=== PATIENT | male | born 1940 | race Caucasian/White ===

== ENCOUNTER → 2017-04-11 | Outpatient (CLI) | payer OTHER ==
[~2017-04-11] MED LIST: ASPI-321 PO; CPT50 PO; INSDGI SC; LEVO200T PO; METF-384 PO; METO1TAB69 PO; MGNO400 PO; OMEP20CA9 PO; OMEP40CA41 PO; SIMV40TA2 PO
--- NOTE | 2017-04-11 14:03 | DIAGNOSTIC IMAGING REPORT ---
TWO VIEW CHEST CLINICAL HISTORY: Cough. FINDINGS: PA and lateral chest radiographs are compared to study dated 10/19/2015. The cardiomediastinal silhouette is unremarkable. There is mild left basilar atelectasis. The lungs and pleural spaces are otherwise clear. There is no pneumothorax. The skeletal structures are osteopenic. Degenerative change is noted throughout the thoracic spine. Cholecystectomy clips are suggested on the lateral projection. IMPRESSION: No active disease in the chest. Electronically signed by: Aureliano Guevara M.D. 04/11/2017 2:02 PM Dictated Date/Time: 04/11/2017 2:01 PM
[2017-04-11 17:36] LABS: BASO % 0.5 %; BASO ABS # 0.04 K/uL (0-0.2); COMPLETE YES; HEMATOCRIT 41.8 % (42-52); IG% 0.3 %; LYMPH % 27.9 %; LYMPH ABS # 2.18 K/uL (1.2-3.4); MEAN CELL VOLUME 87.3 fL (80-100); MEAN CORPUSCULAR HEMOGLOBIN 30.9 pg (25-34); MEAN CORPUSCULAR HGB CONC 35.4 g/dl (32-36); MEAN PLATELET VOLUME 11.5 fL (7.4-10.4); MONO % 15.5 %; NEUT % 53.8 %; PLATELET COUNT 173 K/uL (130-400); RED BLOOD COUNT 4.79 M/uL (4.7-6.1); WHITE BLOOD COUNT 7.81 K/uL (4.8-10.8)
[2017-04-11 17:43] LABS: BLOOD UREA NITROGEN 24 mg/dl (7-18); BUN/CREATININE RATIO 18.8 (10-20); CALCIUM 9.3 mg/dl (8.5-10.1); CARBON DIOXIDE 27 mmol/L (21-32); CHLORIDE 101 mmol/L (98-107); GLUCOSE 158 mg/dl (70-99); POTASSIUM 4.6 mmol/L (3.5-5.1); SODIUM 135 mmol/L (136-145)
[2017-04-11 18:45] LABS: LYME DISEASE AB IGG NEG (NEG); LYME DISEASE AB IGM NEG (NEG)
== END | disposition home or self-care (01) ==
LOC: C.RADPV 13:46
PROVIDERS: ATTEND Nurse Practitioner Family
DX: R05 Cough (principal)

== ENCOUNTER → 2017-07-18 | Outpatient (CLI) | payer OTHER ==
[2017-07-18 12:59] LABS: ESTIMATED AVERAGE GLUCOSE 143 mg/dl; HA1C FLAG Normal (Normal)
[2017-07-18 13:11] LABS: BLOOD UREA NITROGEN 14 mg/dl (7-18); BUN/CREATININE RATIO 15.1 (10-20); CALCIUM 8.9 mg/dl (8.5-10.1); CARBON DIOXIDE 25 mmol/L (21-32); CHLORIDE 105 mmol/L (98-107); CREATININE 0.94 mg/dl (0.60-1.40); GLUCOSE 91 mg/dl (70-99); MAGNESIUM 1.8 mg/dl (1.8-2.4); POTASSIUM 4.3 mmol/L (3.5-5.1); SODIUM 138 mmol/L (136-145)
[2017-07-18 13:21] LABS: THYROID STIMULATING HORMONE 0.154 uIu/ml (0.300-4.500)
== END | disposition home or self-care (01) ==
LOC: C.LABPVFM 11:11
PROVIDERS: ATTEND Family Medicine
DX: I10 Essential (primary) hypertension (principal); E03.9 Hypothyroidism, unspecified; E11.9 Type 2 diabetes mellitus without complications; E83.42 Hypomagnesemia

== ENCOUNTER → 2017-08-02 | Outpatient (CLI) | payer OTHER ==
[~2017-08-02] MED LIST changes: +METO100T44 PO; -METO1TAB69 PO
--- NOTE | 2017-08-02 09:07 | DIAGNOSTIC IMAGING REPORT ---
ULTRASOUND OF THE ABDOMINAL AORTA CLINICAL HISTORY: Aneurysm screening smoking history.. COMPARISON STUDY: Abdominal CT dated 06/14/2015. TECHNIQUE: Multiple cano scale, color Doppler, and spectral Doppler sonograms of the abdominal aorta and iliac arteries are performed. Images are reviewed in the transverse and longitudinal planes. FINDINGS: There is mild to moderate atherosclerotic calcification and irregularity noted throughout the abdominal aorta. The proximal abdominal aorta measures 2.0 x 1.8 cm (AP times transverse), the mid abdominal aorta measures 2.0 x 1.8 cm, and the distal abdominal aorta measures 1.8 x 1.6 cm. The right common iliac artery measures up to 0.9 cm and the left common iliac artery measures up to 0.9 cm. Normal flow and spectral Doppler waveforms are seen within the aorta. Abdominal aorta velocities measure up to 65 cm/s. IMPRESSION: There is no sonographic evidence of abdominal aortic aneurysm. Electronically signed by: Aureliano Guevara M.D. 08/02/2017 9:05 AM Dictated Date/Time: 08/02/2017 9:03 AM
== END | disposition home or self-care (01) ==
LOC: C.ULTR 08:40
PROVIDERS: ATTEND Family Medicine
DX: I70.0 Atherosclerosis of aorta (principal); Z87.891 Personal history of nicotine dependence

== ENCOUNTER → 2017-09-10 | Outpatient (CLI) | payer OTHER ==
[2017-09-10 13:12] LABS: BLOOD UREA NITROGEN 10 mg/dl (7-18); BUN/CREATININE RATIO 10.4 (10-20); CALCIUM 8.8 mg/dl (8.5-10.1); CARBON DIOXIDE 25 mmol/L (21-32); CHLORIDE 105 mmol/L (98-107); CREATININE 0.97 mg/dl (0.60-1.40); GLUCOSE 97 mg/dl (70-99); POTASSIUM 4.3 mmol/L (3.5-5.1); SODIUM 135 mmol/L (136-145)
== END | disposition home or self-care (01) ==
LOC: C.LABPVFM 08:51
PROVIDERS: ATTEND Family Medicine
DX: E03.9 Hypothyroidism, unspecified (principal); E11.9 Type 2 diabetes mellitus without complications

== ENCOUNTER → 2018-01-09 | Outpatient (CLI) | payer OTHER ==
[2018-01-09 13:16] LABS: HEMATOCRIT 41.5 % (42-52); HEMOGLOBIN 14.4 g/dL (14.0-18.0); MEAN CELL VOLUME 87.2 fL (80-100); MEAN CORPUSCULAR HEMOGLOBIN 30.3 pg (25-34); MEAN CORPUSCULAR HGB CONC 34.7 g/dl (32-36); MEAN PLATELET VOLUME 11.4 fL (7.4-10.4); PLATELET COUNT 240 K/uL (130-400); RED CELL DISTRIBUTION WIDTH SD 43.9 fL (36.4-46.3); WHITE BLOOD COUNT 9.96 K/uL (4.8-10.8)
[2018-01-09 14:07] LABS: HEMOGLOBIN A1C 6.5 % (4.5-5.6)
[2018-01-09 14:24] LABS: ALBUMIN 3.8 gm/dl (3.4-5.0); ALT/SGPT 41 U/L (12-78); AST/SGOT 28 U/L (15-37); BLOOD UREA NITROGEN 18 mg/dl (7-18); CALCIUM 9.2 mg/dl (8.5-10.1); CARBON DIOXIDE 25 mmol/L (21-32); GLUCOSE 116 mg/dl (70-99); POTASSIUM 4.6 mmol/L (3.5-5.1); SODIUM 135 mmol/L (136-145)
[2018-01-09 14:32] LABS: ALKALINE PHOSPHATASE 68 U/L (45-117); CHOLESTEROL 152 mg/dl (0-200); LDL CHOLESTEROL CALCULATED 55 mg/dl; TOTAL PROTEIN 7.7 gm/dl (6.4-8.2)
== END | disposition home or self-care (01) ==
LOC: C.LABPVFM 10:07
PROVIDERS: ATTEND Family Medicine
DX: E03.9 Hypothyroidism, unspecified (principal)

== ENCOUNTER 2023-05-16 11:38 | Observation (INO) ==
[2023-05-16] MEDS ORDERED: ASPIRIN CHEW 324 MG PO STA (11:48)
--- NOTE | 2023-05-16 11:59 | Emergency Department Note ---
Impression & Plan Chest pain, Abnormal EKG ED Provider Note NAME: RICARDO WATERS AGE: 83 SEX: M : 1940 ARRIVES VIA: Walk-In INFORMANT: Patient, ED PROVIDER(S): Mak Florence DO CHIEF COMPLAINT: Chest pain HPI: The patient is an 83-year-old male who presented to the emergency department for an evaluation of chest pain. The patient describes substernal chest pain that radiates to his neck. The patient states that the symptoms began this morning when he awoke. He took nitroglycerin with some relief of his symptoms. The pain was minimally worsened with exertion. The patient was not seen by his family doctor for the symptoms. He states the pain is significantly improved at this time. He states he has a history of atrial fibrillation but t his was treated with ablation many years ago. He states at that time he did have some palpitations in his chest and felt his heart might be going fast. The patient denies having any abdominal pain. He denies having any difficulty breathing at this time. He said no leg swelling. ROS: See above HPI for pertinent positives & negatives. A total of 10 systems reviewed and were otherwise negative. PAST MEDICAL HISTORY: See Below PAST SURGICAL HISTORY: See Below FAMILY HISTORY: See Below SOCIAL HISTORY: See Below HOME MEDICATIONS: See Below ALLERGIES: See Below VITALS: See Below PHYSICAL EXAMINATION: GENERAL: The patient is awake and alert. He is mildly anxious appearing EYES: The conjunctivae are clear. The pupils are round and reactive. EARS, NOSE, MOUTH AND THROAT: The nose is without any evidence of any deformity. NECK: The neck is nontender and supple. RESPIRATORY: Normal respiratory effort is noted there is no evidence of wheezing rhonchi or rales CARDIOVASCULAR: Regular rate and rhythm noted there no murmurs rubs or gallops normal S1 normal S2. GASTROINTESTINAL: The abdomen is soft. Abdomen is nontender. MUSCULOSKELETAL/EXTREMITIES: There is no evidence of gross deformity full range of motion is noted in the hips and shoulders. SKIN: There is no obvious evidence of any rash. There are no petechiae, pallor or cyanosis noted. NEUROLOGIC: Patient is awake alert and oriented x3 MEDICAL DECISION MAKING: The patient is an 83-year-old male who presented to the emergency department for an evaluation of chest discomfort. The patient had chest discomfort since this morning. He had chest discomfort that went into his neck. He did use nitroglycerin with some relief of his symptoms. The patient was found some ST segment abnormalities on his EKG that could be related to ischemia. He was pain-free on my evaluation. He was treated with aspirin. He was reevaluated multiple times. I discussed patient's laboratory and radiographic studies with him. I discussed the limitations of the emergency room workup for chest pain. Given the patient's age and comorbidities I do not feel the patient would be a good candidate at this time for outpatient management. For this reason I discussed this case with the on-call [facility]. They have agreed to evaluate the patient in the emergency department for further management and disposition. Triage Nursing notes reviewed. Prior medical records reviewed Vital Signs: reviewed and remarkable for no significant abnormalities Differential diagnosis: Cardiac ischemia, aortic dissection, pulmonary embolism, pneumothorax, pneumonia, pericarditis, myocarditis, esophageal rupture, GERD, cholecystitis, pancreatitis, musculoskeletal, as well as other pathologies. ER treatment provided: See below Diagnostics interpreted by me: ECG: EKG was obtained in the emergency department. My interpretation is normal sinus rhythm at 89 bpm. There is no ectopy. Apical and lateral ST depressions were noted. This was compared to a tracing from October 23, 2018. The ST abnormalities are new compared to the previous tracing Cardiac Monitoring: An order was placed for continuous cardiac monitoring. The monitor shows a rate of 89 bpm with sinus rhythm. Laboratory studies: As stated above and show below. Imaging studies: See below. Radiographic imaging was reviewed by myself Consultation(s): I discussed this case with Dr. Kelley who is on-call for the [facility]. Past Med/Surg History Medical History Atherosclerosis Atrial fibrillation Diabetes mellitus HTN (hypertension) Hypothyroidism Lung disease, obstructive Pleural effusion Surgical History History of back surgery History of cholecystectomy History of heart surgery History of tonsillectomy Family History Mother Heart disease Uncle Myocardial infarction Denies family history of Ovarian cancer Prostate cancer Breast cancer Colorectal cancer Social History Smoking Status: Never smoker Second Hand Exposure: No; Do You Dip or Chew Tobacco: No; Hx Alcohol Use: Yes Alcohol Intake Frequency: 2-4 x/Month Hx Substance Use: No Preferred Language: Stateless Communication Ability: Effective Hearing Ability: Use of Hearing Aid Sew On Operator Required: No marital status: Current Living Situation: Spouse current occupational status: retired How many Children do You have: 3 Feels Safe at Home: Yes Childhood Exposure to Second-Hand Smoke: Yes Diet: regular caffeine: Yes Dental Care, Regularly: No Physical Activity Frequency: Does not Exercise Seatbelt Use: always Sunscreen Use: Yes (sometimes) Allergies Allergies Allergy/AdvReac Type Severity Reaction Status Date / Time polyethylene glycol Allergy Severe GOLYTELY, Verified 05/02/23 11:19 BREATHING DIFFICULTY, THROAT SWELLED doxazosin Allergy Intermediate LUNG Verified 05/02/23 11:19 PROBLEMS, WHEEZING heparin Allergy Intermediate FACE Verified 05/02/23 11:19 SWELLING AND HIVES bee venom protein (honey bee) Allergy Unknown Unknown Verified 05/02/23 11:19 cardura tabs Allergy Unknown Unknown Uncoded 05/02/23 11:19 Home Meds Home Medications Medication Instructions Recorded Confirmed aspirin 81 mg tablet,delayed 81 mg PO DAILY 10/23/18 05/02/23 release (Aspir-) carbidopa 25 mg-levodopa 100 mg 1.5 tab PO TID 05/02/22 05/02/23 tablet Previous Rx's Medication Instructions Recorded pen needle, diabetic 32 gauge x #50 ea 06/18/19 1/4" (BD Ultra-Fine Micro Pen Needle) magnesium oxide 800 mg PO DAILY #60 caps 10/09/19 cyanocobalamin (vitamin B-12) 1,000 mcg PO DAILY #90 caps 02/21/22 1,000 mcg capsule simvastatin 40 mg tablet 40 mg PO DAILY #90 tabs 07/31/22 levothyroxine 150 mcg tablet 150 mcg PO DAILY #90 tabs 10/24/22 metoprolol succinate 100 mg 100 mg PO BID #180 tabs 10/24/22 tablet,extended release 24 hr (Toprol XL) captopril 50 mg tablet 25 mg PO BID #90 tabs 11/06/22 omeprazole 20 mg capsule,delayed 20 mg PO DAILY #90 caps 12/11/22 release insulin glargine U-300 conc 300 See Rx Instructions subcut DAILY 12/29/22 unit/mL (1.5 mL) subcutaneous pen #31.5 mL (Toujes SoloStar U-300 Insulin) metformin 1,000 mg tablet 1,000 mg PO BID #180 tabs 04/02/23 blood sugar diagnostic (Accu-Chek #300 ea 05/04/23 Guide test strips) blood-glucose meter (Accu-Chek #1 ea 05/04/23 Guide Glucose Meter) lancets (Accu-Chek Softclix #300 ea 05/04/23 Lancets) Results & Data (ED) Vital Signs Vital Signs - 24 hr 05/16/23 11:40 05/16/23 12:04 05/16/23 12:04 Temperature 35.6 C L 36.8 C Temperature Source Temporal Artery Scan Oral Pulse Rate 104 H Pulse Rate [Right Finger] 90 Pulse Rhythm Pulse Rhythm [Right Finger] Regular Pulse Strength [Right Finger] Normal Respiratory Rate 16 22 Respiratory Effort / Characteristics Non-Labored Non-Labored Spontaneous Respiratory Depth Normal Normal Respiratory Pattern Regular Blood Pressure 125/79 Blood Pressure [Right Arm] 134/74 Blood Pressure Mean 94 Blood Pressure Mean [Right Arm] 94 Blood Pressure Position [Right Arm] Semi-fowlers Pulse Oximetry 96 94 94 Oxygen Delivery Method Room Air Room Air Room Air Sepsis Recent Fever Within 48 Hours No Sepsis New/Unexplained Change in Mental Status No Sepsis Action Taken by Nursing No Action Required 05/16/23 12:04 05/16/23 12:10 Temperature Temperature Source Pulse Rate 90 90 Pulse Rate [Right Finger] Pulse Rhythm Regular Pulse Rhythm [Right Finger] Pulse Strength [Right Finger] Respiratory Rate 22 Respiratory Effort / Characteristics Respiratory Depth Respiratory Pattern Blood Pressure Blood Pressure [Right Arm] Blood Pressure Mean Blood Pressure Mean [Right Arm] Blood Pressure Position [Right Arm] Pulse Oximetry 94 Oxygen Delivery Method Room Air Sepsis Recent Fever Within 48 Hours Sepsis New/Unexplained Change in Mental Status Sepsis Action Taken by Detention Medications Current Medication List: was personally reviewed by me Laboratory Data Attestation: I reviewed the patient's lab results. 05/16/23 12:00 05/16/23 12:00 Lab Results 05/16/23 05/16/23 05/16/23 Range/Units 12:00 12:00 12:00 WBC 9.50 (4.8-10.8) K/ul RBC 4.53 L (4.70-6.10) M/uL Hgb 12.2 L (14.0-18.0) g/dl Hct 37.5 L (42.0-52.0) % MCV 82.8 (80.0-100.0) fL MCH 26.9 (25.0-34.0) pg MCHC 32.5 (32.0-36.0) g/dL RDW Std Deviation 46.8 H (36.4-46.3) fL RDW Coeff of Chelita 15.6 H (11.5-14.5) % Plt Count 259 (130-400) K/uL MPV 10.7 (9.4-12.4) fL Immature Gran % (Auto) 0.5 % Neut % (Auto) 68.7 % Lymph % (Auto) 20.7 % [place] % (Auto) 7.2 % Eos % (Auto) 2.2 % Baso % (Auto) 0.7 % Neut # (Auto) 6.52 H (1.40-6.50) K/uL Lymph # (Auto) 1.97 (1.2-3.4) K/uL [place] # (Auto) 0.68 H (0.11-0.59) K/uL Eos # (Auto) 0.21 (0-0.50) K/uL Baso # (Auto) 0.07 (0-0.2) K/uL Immature Gran # (Auto) 0.05 (0.01-0.20) K/uL PT 10.8 (9.0-12.0) Seconds INR 1.0 (0.9-1.1) APTT 25.4 (21.0-31.0) Seconds PTT Ratio 0.9 Sodium 139 (136-145) mmol/L Potassium 4.1 (3.5-5.1) mmol/L Chloride 104 (98-107) mmol/L Carbon Dioxide 25 (21-32) mmol/L Anion Gap 10 (3-11) BUN 11 (6-23) mg/dl Creatinine 1.33 (0.6-1.4) mg/dl Est Cr Clr Drug Dosing 52.1 ml/min Est GFR ( Amer) 57.7 ml/min Est GFR (Non-Af Amer) 49.8 ml/min BUN/Creatinine Ratio 8.3 L (10-20) Glucose 101 H (70-99(Fasting)) mg/dl Calcium 9.2 (8.6-10.3) mg/dl Total Bilirubin 0.4 (0.2-1.0) mg/dl AST 26 (13-39) U/L ALT 10 (7-52) U/L Alkaline Phosphatase 58 (34-104) U/L Troponin I High Sens 8.6 (0-20) pg/ml Total Protein 7.3 (6.0-8.3) gm/dl Albumin 4.3 (3.4-5.0) gm/dl Globulin 3.0 (2.5-4.0) gm/dl Albumin/Globulin Ratio 1.4 (0.9-2) Lipase 55 (11-82) U/L Administered Medications Discontinued Medications Aspirin (Aspirin Chew 324 Mg) 324 mg PO NOW STA Stop: 05/16/23 11:49 Last Admin: 05/16/23 11:52 Dose: 324 mg Documented By: QGV Imaging Data Attestation: I personally reviewed and interpreted this imaging study as follows: My Impression: 1 view chest x-ray was obtained in the emergency department. My interpretation is no free air or definite infiltrate, final report below. Radiologist's Impression: Chest X-Ray 05/16/23 11:48 SINGLE VIEW CHEST CLINICAL HISTORY: Atypical chest pain. FINDINGS: An AP, portable, upright chest radiograph is compared to study dated . Correlation is made with chest CT dated 05/24/2015. The examination is degraded by portable technique and patient rotation. The heart is enlarged. The pulmonary vasculature is noncongested. Chronic interstitial thickening is similar to previous. There is bibasilar scarring/atelectasis. No airspace consolidation or large pleural effusion is identified. No pneumothorax is seen. The bony thorax is grossly intact. Calcific tendinopathy is noted in the right shoulder. Cholecystectomy clips are noted in the right upper quadrant. IMPRESSION: Cardiomegaly with no active disease in the chest. ACT 112: Negative or not required by law. Electronically signed by: Aureliano Guevara M.D. 05/16/2023 12:43 PM Discharge Plan Visit Data Chief Complaint: Cardiac Assessment Stated Complaint: CHEST PAINS,SWEATING,JAW PAIN, ED Provider: Mak Florence Discharge Problem: Chest pain, Abnormal EKG Patient Disposition: Being Evaluated by Hospitalist Forms Stand Alone Forms: [facility] [employer] Prescriptions Prescriptions: No Action magnesium oxide 400 mg magnesium capsule 800 mg PO DAILY Qty: 60 0RF Rx Instructions: statually take an 850 mg tab simvastatin 40 mg tablet 40 mg PO DAILY Qty: 90 1RF levothyroxine 150 mcg tablet 150 mcg PO DAILY Qty: 90 1RF metoprolol succinate [Toprol XL] 100 mg tablet extended release 24 hr 100 mg PO BID Qty: 180 1RF captopril 50 mg tablet 25 mg PO BID Qty: 90 1RF omeprazole 20 mg capsule,delayed release(DR/EC) 20 mg PO DAILY Qty: 90 1RF Toujeo SoloStar U-300 Insulin 300 unit/mL (1.5 mL) insulin pen See Rx Instructions subcut DAILY Qty: 31.5 1RF Rx Instructions: 90 units subcut daily; metformin 1,000 mg tablet 1,000 mg PO BID Qty: 180 3RF (DME) Accu-Chek Guide test strips Strip See Rx Instructions .Route Qty: 300 1RF Rx Instructions: TEST BSGS 3 TIMES DAILY; DX CODE- E11.9 (DME) blood-glucose meter [Accu-Chek Guide Glucose Meter] Misc See Rx Instructions .Route Qty: 1 0RF Rx Instructions: TEST BSGS 3 TIMES DAILY; DX CODE- E11.9 (DME) lancets [Accu-Chek Softclix Lancets] Misc See Rx Instructions .Route Qty: 300 1RF Rx Instructions: TEST BSGS 3 TIMES DAILY; DX CODE- E11.9 (DME) pen needle, diabetic [BD Ultra-Fine Micro Pen Needle] 32 gauge x 1/4" needle See Dose Instructions .ROUTE .MEDSUPPLY Qty: 50 0RF Dose Instruction: As directed Rx Instructions: As directed cyanocobalamin (vitamin B-12) 1,000 mcg capsule 1,000 mcg PO DAILY Qty: 90 1RF aspirin [Aspir-81] 81 mg Tablet,Delayed Release (Dr/Ec) 81 mg PO DAILY carbidopa-levodopa 25-100 mg tablet 1.5 tab PO TID Referrals Referrals: Kacy Russo MD [Primary Care Provider] -
[2023-05-16 12:32] LABS: Basophils # (auto) 0.07 K/uL (0-0.2); Basophils % (auto) 0.7 %; Eosinophils # (auto) 0.21 K/uL (0-0.50); Eosinophils % (auto) 2.2 %; Hematocrit (blood only) 37.5 % (42.0-52.0); Hemoglobin 12.2 g/dl (14.0-18.0); Immature Granulocytes # (auto) 0.05 K/uL (0.01-0.20); Immature Granulocytes % (auto) 0.5 %; Lymphocytes # (auto) 1.97 K/uL (1.2-3.4); Lymphocytes % (auto) 20.7 %; Mean Corpuscular Hemoglobin 26.9 pg (25.0-34.0); Mean Corpuscular Hgb Conc 32.5 g/dL (32.0-36.0); Mean Corpuscular Volume 82.8 fL (80.0-100.0); Mean Platelet Volume 10.7 fL (9.4-12.4); Monocytes # (auto) 0.68 K/uL (0.11-0.59); Monocytes % (auto) 7.2 %; Neutrophils # (auto) 6.52 K/uL (1.40-6.50); Neutrophils % (auto) 68.7 %; Platelet Count 259 K/uL (130-400); RDW Coefficient of Variation 15.6 % (11.5-14.5); RDW Standard Deviation 46.8 fL (36.4-46.3); Red Blood Count 4.53 M/uL (4.70-6.10)
--- NOTE | 2023-05-16 12:44 | XRay Report ---
SINGLE VIEW CHEST CLINICAL HISTORY: Atypical chest pain. FINDINGS: An AP, portable, upright chest radiograph is compared to study dated 10/23/2018. Correlation is made with chest CT dated 05/24/2015. The examination is degraded by portable technique and patient rotation. The heart is enlarged. The pulmonary vasculature is noncongested. Chronic interstitial thi ckening is similar to previous. There is bibasilar scarring/atelectasis. No airspace consolidation or large pleural effusion is identified. No pneumothorax is seen. The bony thorax is grossly intact. Ca lcific tendinopathy is noted in the right shoulder. Cholecystectomy clips are noted in the right uppe r quadrant. IMPRESSION: Cardiomegaly with no active disease in the chest. ACT 112: Negative or not required by law. Electronically signed by: Aureliano Guevara M.D. 05/16/2023 12:43 PM
[2023-05-16 12:49] LABS: Albumin Globulin Ratio 1.4 (0.9-2); Albumin Level 4.3 gm/dl (3.4-5.0); BUN Creatinine Ratio 8.3 (10-20); Bilirubin,Total 0.4 mg/dl (0.2-1.0); Calcium 9.2 mg/dl (8.6-10.3); Creatinine Clr Calc Pharmacy 52.1 ml/min; Est GFR (African American) 57.7 ml/min; Est GFR (Non-African American) 49.8 ml/min; Potassium 4.1 mmol/L (3.5-5.1); Total Protein 7.3 gm/dl (6.0-8.3)
[2023-05-16 12:55] LABS: Troponin I High Sensitivity 8.6 pg/ml (0-20)
[2023-05-16 12:59] LABS: Partial Thromboplastin Ratio 0.9; Partial Thromboplastin Time 25.4 Seconds (21.0-31.0); Prothrombin Time 10.8 Seconds (9.0-12.0)
--- NOTE | 2023-05-16 13:57 | History & Physical Report ---
Date of Service May 16, 2023 Assessment & Plan (1) Chest pain: Plan: Chest pain Morning presentation 05/16 he woke up with slight dull substernal chest pain, subsequently with activity/ambulation this did worsen and was associated with diaphoresis and shortness of breath. This worsened walking to his car to come to the ER, significantly improved with the nitro and then resolved in the ER following aspirin administration. Denies anginal symptoms in the last few weeks/months other than this. Reports overall the pain lasted for at least several hours, was a dull onset when he woke up around 730 and did not resolve completely until arriving in the ER and aspirin was given at 1150. Patient has been chest pain-free for the last 2 years, did have a stress test in 2020. EKG: Normal sinus rhythm, QTc 440. No acute territorial ST or T wave changesCompared to 10/2018 nephrology appears similar Last cardiology [place] available for review 02/[address] [facility] [place] Noted to have atypical chest discomfort in 2019. Left circumflex stent 2000. Stress test 11/2020 negative for ischemia, LV 55-60% which augmented to 74% - Initial high-sensitivity troponin is 8.6, 2 hour repeat and q6h trended. Echo pending - Chest x-ray: Cardiomegaly, no active disease of the chest - Heart score: Moderately to highly suspicious story, risk factors include hypertension/hyperlipidemia. Age greater than 65. At least moderate risk/4 points. - Cardiology consulted - Chest pain free, no acute EKG change, trop x1 neg despite >1hr of pain --> hep deferred pending cardiology consult. Discussed with cards, they will evaluate and initiate if recommended - Lipid panel pending --> if >70 convert simvastatin to atorvastatin 40mg if tolerated HTN -Captopril 50 mg at bedtime, MAR pending update. Previously this is 25 mg p.o. Metoprolol continued No ROJAS on admission Normotensive on admission Type II DM Toujeo 80 units a.m. continued, SSI based on basal dose Switch to basal bolus, home metformin held Goal BSG 613505 Glucose checks AC/at bedtime - Due to discrepancy between basal dosed SSI vs weight anticipated dosing --> pharmacy consulted to follow for glycemic adjustments - Last A1C <7%, well controlled Parkinsons - Continue Sinemet - No acute change in management at this time GERD - Continue PPI - DDx includes GERD, lower suspicion for this due to improvemnt post nitro and ASA & with diaphoresis/shortness of breath with pain and risk factors - Denies bleeding/melena Hypothyroidism - Continue synthroid DVT PPx: SCDs, Lovenox deferred due to history of heparin allergy Diet: Heart healthy, DM 2. Disposition: PCU for chest pain eval CODE STATUS: Full Code. Patient reports that he would not want a prolonged code past 15 minutes if initial resuscitation efforts were not successful, and he would not want prolonged intubation past 24-36 hours. (2) CAD (coronary artery disease): (3) History of coronary artery stent placement: (4) Type 2 diabetes mellitus with insulin therapy: (5) HTN (hypertension): History of Present Illness Primary Care Provider: Kacy Russo MD Barry is a 83-year-old male with past medical history of hypertension, DM2, hyperlipidemia, hypothyroidism who presents for substernal chest pain radiating into the neck. Symptoms did improve with nitro. He has a history of A-fib post ablation not currently on a anticoagulant. Ray reports he was getting ready to go out this morning when he had some substernal chest pain. Walked to the car and 'chest started hurting like crazy.' Pain eased up post 1x SL nitro, then resolved after getting a baby aspirin in the ER. Chest pain free in the emergency department. +shortness of breath and diaphoresis with episode. Was present slightly when waking up, but much worse with exertion. Pain was there at some level at least for 1-2 hours. Had a similar episode 'long long time ago, many years ago.' Has one heart stent at [facility], does not have his stent card but knows he has one stent. Takes a baby aspirin every day,. No history of heart failure Has a history of Afib, s/p ablation no problems since this was done. Ablation was done by [facility] Reviewed home medications. Patient took medicines this morning. His home med list is as follows Toujeo insulin 80 units AM, mag BID, aspirin 81 AM, captopril 50mg HS, simvastatin 40mg hs, b12 1000mcg am, synthroid 150mcg AM, PPI 20mg hs, metoprolol succinate 100mg BID, metformin 1g BID, carbidopa/levodopa 200 AM/noon/PM Hx of Parkinsons: NO tremor at rest w/ sinemet, but still has hard time holding a glass or with intentional movements. Medical History: Reviewed Medications: Reviewed Surgical History: Reviewed Family history: Reviewed Allergies: Reviewed Social History: Former smoker, etoh. No tobacco. Code Status: Conditional code Allergies Allergy/AdvReac Type Severity Reaction Status Date / Time polyethylene glycol Allergy Severe GOLYTELY, Verified 05/16/23 14:40 BREATHING DIFFICULTY, THROAT SWELLED doxazosin Allergy Intermediate LUNG Verified 05/16/23 14:40 PROBLEMS, WHEEZING heparin Allergy Intermediate FACE Verified 05/16/23 14:40 SWELLING AND HIVES bee venom protein (honey bee) Allergy Unknown Unknown Verified 05/16/23 14:40 cardura tabs Allergy Severe Difficulty Uncoded 05/16/23 14:40 Breathing Home Medications Medication Instructions Recorded Confirmed Type aspirin 81 mg tablet,delayed 81 mg PO DAILY 10/23/18 05/16/23 History release (Aspir-) pen needle, diabetic 32 gauge x #50 ea 06/18/19 05/02/23 Rx 1/4" (BD Ultra-Fine Micro Pen Needle) magnesium oxide 800 mg PO DAILY #60 caps 10/09/19 05/16/23 Rx cyanocobalamin (vitamin B-12) 1,000 mcg PO DAILY #90 caps 02/21/22 05/16/23 Rx 1,000 mcg capsule simvastatin 40 mg tablet 40 mg PO DAILY #90 tabs 07/31/22 05/16/23 Rx levothyroxine 150 mcg tablet 150 mcg PO DAILY #90 tabs 10/24/22 05/16/23 Rx metoprolol succinate 100 mg 100 mg PO BID #180 tabs 10/24/22 05/16/23 Rx tablet,extended release 24 hr (Toprol XL) captopril 50 mg tablet 25 mg PO BID #90 tabs 11/06/22 05/16/23 Rx omeprazole 20 mg capsule,delayed 20 mg PO DAILY #90 caps 12/11/22 05/16/23 Rx release metformin 1,000 mg tablet 1,000 mg PO BID #180 tabs 04/02/23 05/16/23 Rx blood sugar diagnostic (Accu-Chek #300 ea 05/04/23 05/04/23 Rx Guide test strips) blood-glucose meter (Accu-Chek #1 ea 05/04/23 05/04/23 Rx Guide Glucose Meter) lancets (Accu-Chek Softclix #300 ea 05/04/23 05/04/23 Rx Lancets) carbidopa 25 mg-levodopa 100 1 tab PO .7AM, 11AM AND 5PM 05/16/23 05/16/23 History mg-entacapone 200 mg tablet insulin glargine U-300 conc 300 90 unit subcut DAILY 05/16/23 05/16/23 History unit/mL (1.5 mL) subcutaneous pen (Toujeo SoloStar U-300 Insulin) Past Med/Surg History Medical History Atherosclerosis Atrial fibrillation Diabetes mellitus HTN (hypertension) Hypothyroidism Lung disease, obstructive Pleural effusion Surgical History History of back surgery History of cholecystectomy History of heart surgery History of tonsillectomy Family History Mother Heart disease Uncle Myocardial infarction Denies family history of Ovarian cancer Prostate cancer Breast cancer Colorectal cancer Social History Smoking Status: Never smoker Second Hand Exposure: No; Do You Dip or Chew Tobacco: No; Hx Alcohol Use: Yes Alcohol Intake Frequency: 2-4 x/Month Hx Substance Use: No Preferred Language: Maltese Communication Ability: Effective Hearing Ability: Use of Hearing Aid Tele Tech Required: No marital status: Current Living Situation: Spouse current occupational status: retired How many Children do You have: 3 Feels Safe at Home: Yes Childhood Exposure to Second-Hand Smoke: Yes Diet: regular caffeine: Yes Dental Care, Regularly: No Physical Activity Frequency: Does not Exercise Seatbelt Use: always Sunscreen Use: Yes (sometimes) Review of Systems Review of Systems: All systems reviewed & are unremarkable except as noted in HPI & below Physical Exam Physical Exam: General: A&Ox3. NAD. Cooperative. HEENT: Atraumatic, normocephalic. Vision/hearing grossly intact Pulm: CTAB A&P. -wheezes, -rales, -rhonchi. Symmetrical chest rise. No increased work of breathing. No respiratory distress. JVD is not present Cardiac: RRR, -mrg. Radial pulses intact and symmetrical. Abdominal: Nontender, nondistended, soft. BS present. Extremities: Warm, dry. Moving all extremities equally. Sensation intact in hands and feet without deficit or asymmetry. No edema as per. Patient able to hold hand still without appreciable tremor, however with intentional movement does have induction of a slight resting tremor. Cogwheeling at the elbow is present bilaterally on passive elbow flexion/extension Results & Data Results & Data Vital Signs (Past 12 Hours) Vital Signs Temp Pulse Pulse Resp BP BP Pulse Ox 05/16/23 12:10 90 05/16/23 12:04 90 22 94 05/16/23 12:04 36.8 C 90 22 134/74 94 05/16/23 12:04 94 05/16/23 11:40 35.6 C L 104 H 16 125/79 96 O2 Del Method 05/16/23 12:10 05/16/23 12:04 Room Air 05/16/23 12:04 Room Air 05/16/23 12:04 Room Air 05/16/23 11:40 Room Air PG Care Time/CCT Total # of Minutes Spent Total Time Spent with Patient: Total time spent is greater than 50% in coordination of care (as documented) at patient's floor/unit and/or counseling patient: Coding Level of Care Code 54524 INT INP/OBS CARE 3/75MIN Diagnoses Chest pain R07.9 Chest pain type: unspecified CAD (coronary artery disease) I25.10 History of coronary artery stent placement Z95.5 Type 2 diabetes mellitus with insulin therapy E11.9; Z79.4 HTN (hypertension) I10 (1) Chest pain Chest pain type: unspecified Qualified Code(s): R07.9 - Chest pain, unspecified
--- NOTE | 2023-05-16 14:19 | Electrocardiogram Report ---
Test Reason : Blood Pressure : / mmHG Vent. Rate : 089 BPM Atrial Rate : 089 BPM P-R Int : 194 ms QRS Dur : 092 ms QT Int : 362 ms P-R-T Axes : -12 -59 019 degrees QTc Int : 440 ms Normal sinus rhythm Left axis deviation possible Inferior infarct , age undetermined Abnormal ECG Confirmed by Tomas Devine ([id number]) on 05/16/2023 2:18:53 PM Referred By: REFERRED SELF Confirmed By:Dom Devine
--- NOTE | 2023-05-16 14:39 | Cardiology Consultation ---
Date of Consultation May 16, 2023 Assessment & Plan (1) Chest pain: (2) CAD (coronary artery disease): (3) History of coronary artery stent placement: (4) Hyperlipidemia: Plan Please refer to physician addendum for further information and full plan of care. Supervising Physician Co-Signing Physician Notes Attending Staff: Pt seen and evaluated with [facility] staff. Concur with observations and plans 83 yo man presenting with chest pain Dx: Unstable angina Patient was going to a planned family picnic Develop sudden onset, left sided chest pain High severity Radiation to the jaw + Diaphoresis + Associated with dyspnea Told that he needed to go to the hospital In ED No marked HTN Rx with SL NTG - relief ASA x 2 - relief Currently chest pain free + Heparin allergy Known CAD S/P PCI to LCX (2000) + longstanding angina + Diabetes Nuclear stress (2020) - no evidence of ischemia ECHOcardiogram (2020) - LVEF 55-60%, mild concentric LVH, Aortic Sclerosis (Mild), no major valvular abnormalities Hx of: * HTN * Hyperlipidemia * DM II * Parkinsons EKG - no ischemic changes Preliminary ECHO 05/16/2023 Normal LV systolic function + upper septal hypertrophy Aortic Sclerosis sans stenosis +RVH No major pericardia process Nuclear Stress Test - 11/2020 No evidence of ischemia Plan: Clinical presentation concerning for unstable angina Symptom complex + relief by NTG/ASA Longstanding CAD dating back 2 decades May have multivessel CAD Continue ASA 81 mg po per day Continue Toprol XL 100 mg po per day Check LDL (goal <55) Continue Zocor 40 mg po per day Continue Captopril (will consider switching to QD formulation) Given heparin allergy - question of BiValarudin use. NPO past [facility] History of Present Illness Reason for Consultation: Chest pain Requesting Physician: uRssell corrigan History of Present Illness 83-year-old male with history of atherosclerotic coronary artery disease and stable class I-II angina pectoris. Presented to [facility] emergency department today after an episode of substernal chest discomfort when he was walking to his car. Symptoms were accompanied by shortness of breath and diaphoresis. Patient was given aspirin and a sublingual nitroglycerin with relief in symptoms. Initial high-sensitivity troponin normal at 8.6, repeat pending EKG showing normal sinus rhythm in the mid 80s without acute ST segment changes. Blood pressures and heart rates were controlled. Home cardiac medications include: Metoprolol succinate 100 mg twice daily, simvastatin 40 mg daily, aspirin 81 mg daily, and captopril 25 mg twice daily Primary battery installer: Dr. Cook Past medical history 1. Atherosclerotic coronary artery disease status post prior coronary intervention with stent to the left circumflex in 2000. HEPARIN ALLERGY* 2. Stable class 1-2 angina pectoris. Nonischemic nuclear stress dated 11/2020. Preserved LV systolic function without wall motion abnormalities or significant valvular disease on resting echo, 11/2020 3. Paroxysmal atrial fibrillation status post pulmonary s/p vein isolation ablation in 2006 and 2007 with successful control ofarrhythmias. 4. Chronic obstructive lung disease. 5. Hypertension. 6. Past amiodarone toxicity. 7. Hyperlipidemia. 8. Type 2 diabetes mellitus. 9. Parkinsonism 10. Type 2 diabetes 11. Hyperlipidemia Allergies Allergy/AdvReac Type Severity Reaction Status Date / Time polyethylene glycol Allergy Severe GOLYTELY, Verified 05/16/23 14:40 BREATHING DIFFICULTY, THROAT SWELLED doxazosin Allergy Intermediate LUNG Verified 05/16/23 14:40 PROBLEMS, WHEEZING heparin Allergy Intermediate FACE Verified 05/16/23 14:40 SWELLING AND HIVES bee venom protein (honey bee) Allergy Unknown Unknown Verified 05/16/23 14:40 cardura tabs Allergy Severe Difficulty Uncoded 05/16/23 14:40 Breathing Home Medications Medication Instructions Recorded Confirmed Type aspirin 81 mg tablet,delayed 81 mg PO DAILY 10/23/18 05/16/23 History release (Aspir-) pen needle, diabetic 32 gauge x #50 ea 06/18/19 05/02/23 Rx 1/4" (BD Ultra-Fine Micro Pen Needle) magnesium oxide 800 mg PO DAILY #60 caps 10/09/19 05/16/23 Rx cyanocobalamin (vitamin B-12) 1,000 mcg PO DAILY #90 caps 02/21/22 05/16/23 Rx 1,000 mcg capsule simvastatin 40 mg tablet 40 mg PO DAILY #90 tabs 07/31/22 05/16/23 Rx levothyroxine 150 mcg tablet 150 mcg PO DAILY #90 tabs 10/24/22 05/16/23 Rx metoprolol succinate 100 mg 100 mg PO BID #180 tabs 10/24/22 05/16/23 Rx tablet,extended release 24 hr (Toprol XL) captopril 50 mg tablet 25 mg PO BID #90 tabs 11/06/22 05/16/23 Rx omeprazole 20 mg capsule,delayed 20 mg PO DAILY #90 caps 12/11/22 05/16/23 Rx release metformin 1,000 mg tablet 1,000 mg PO BID #180 tabs 04/02/23 05/16/23 Rx blood sugar diagnostic (Accu-Chek #300 ea 05/04/23 05/04/23 Rx Guide test strips) blood-glucose meter (Accu-Chek #1 ea 05/04/23 05/04/23 Rx Guide Glucose Meter) lancets (Accu-Chek Softclix #300 ea 05/04/23 05/04/23 Rx Lancets) carbidopa 25 mg-levodopa 100 1 tab PO .7AM, 11AM AND 5PM 05/16/23 05/16/23 History mg-entacapone 200 mg tablet insulin glargine U-300 conc 300 90 unit subcut DAILY 05/16/23 05/16/23 History unit/mL (1.5 mL) subcutaneous pen ([employer] SoloStar U-300 Insulin) Patient History Medical History Atherosclerosis Atrial fibrillation Diabetes mellitus HTN (hypertension) Hypothyroidism Lung disease, obstructive Pleural effusion Surgical History History of back surgery History of cholecystectomy History of heart surgery History of tonsillectomy Family History Mother Heart disease Uncle Myocardial infarction Denies family history of Ovarian cancer Prostate cancer Breast cancer Colorectal cancer Social History Smoking Status: Never smoker Second Hand Exposure: No; Do You Dip or Chew Tobacco: No; Hx Alcohol Use: Yes Alcohol Intake Frequency: 2-4 x/Month Hx Substance Use: No Preferred Language: Maldivian Communication Ability: Effective Hearing Ability: Use of Hearing Aid Rn Referral Required: No marital status: Current Living Situation: Spouse current occupational status: retired How many Children do You have: 3 Feels Safe at Home: Yes Childhood Exposure to Second-Hand Smoke: Yes Diet: regular caffeine: Yes Dental Care, Regularly: No Physical Activity Frequency: Does not Exercise Seatbelt Use: always Sunscreen Use: Yes (sometimes) Review of Systems Review of Systems: All systems reviewed & are unremarkable except as noted in HPI & below Physical Exam Physical Exam: Pt in NAD JVP @ base of neck S1S2 2/6 systolic murmur - soft CTA B Abdomen - obese No C/C/E 2/2 radial pulse No obvious neurologic deficits Results & Data Vital Signs (Past 12 Hours) Vital Signs Temp Pulse Pulse Resp BP BP Pulse Ox 05/16/23 14:00 36.8 C 67 20 136/76 98 05/16/23 12:10 90 05/16/23 12:04 90 22 94 05/16/23 12:04 36.8 C 90 22 134/74 94 05/16/23 12:04 94 05/16/23 11:40 35.6 C L 104 H 16 125/79 96 O2 Del Method 05/16/23 14:00 Room Air 05/16/23 12:10 05/16/23 12:04 Room Air 05/16/23 12:04 Room Air 05/16/23 12:04 Room Air 05/16/23 11:40 Room Air Laboratory Results Cardiac Enzymes 05/16/23 Range/Units 12:00 AST 26 (13-39) U/L Troponin I High Sens 8.6 (0-20) pg/ml Coagulation 05/16/23 Range/Units 12:00 PT 10.8 (9.0-12.0) Seconds APTT 25.4 (21.0-31.0) Seconds CBC 05/16/23 Range/Units 12:00 WBC 9.50 (4.8-10.8) K/ul RBC 4.53 L (4.70-6.10) M/uL Hgb 12.2 L (14.0-18.0) g/dl Hct 37.5 L (42.0-52.0) % Plt Count 259 (130-400) K/uL Neut # (Auto) 6.52 H (1.40-6.50) K/uL Lymph # (Auto) 1.97 (1.2-3.4) K/uL Colbert # (Auto) 0.68 H (0.11-0.59) K/uL Eos # (Auto) 0.21 (0-0.50) K/uL Baso # (Auto) 0.07 (0-0.2) K/uL Comprehensive Metabolic Panel 05/16/23 Range/Units 12:00 Sodium 139 (136-145) mmol/L Potassium 4.1 (3.5-5.1) mmol/L Chloride 104 (98-107) mmol/L Carbon Dioxide 25 (21-32) mmol/L BUN 11 (6-23) mg/dl Creatinine 1.33 (0.6-1.4) mg/dl Glucose 101 H (70-99(Fasting)) mg/dl Calcium 9.2 (8.6-10.3) mg/dl AST 26 (13-39) U/L ALT 10 (7-52) U/L Alkaline Phosphatase 58 (34-104) U/L Total Protein 7.3 (6.0-8.3) gm/dl Albumin 4.3 (3.4-5.0) gm/dl Intake and Output 05/15/23 05/16/23 05/16/23 22:59 06:59 14:59 Other: Weight 101.86 kg Weight Measurement Method Built in [facility] Patient Weight 05/17/23 06:59 Weight 101.86 kg (1) Chest pain Chest pain type: unspecified Qualified Code(s): R07.9 - Chest pain, unspecified
[2023-05-16] MEDS ORDERED: DEXTROSE 50% 50 ML SYRINGE IV PRN (16:05)
[2023-05-16] MEDS ORDERED: NITROGLYCERIN SL 0.4 MG/TAB TAB SL PRN (16:05)
[2023-05-16] MEDS ORDERED: GLUCOSE 10 TAB/TUBE PO PRN (16:05)
[2023-05-16] MEDS ORDERED: GLUCOSE 40% GEL 15 GM TUBE PO PRN (16:05)
[2023-05-16] MEDS ORDERED: PHARMACY GLYCEMIC MGMT CONSULT PRN (16:05)
[2023-05-16] MEDS ORDERED: GLUCAGON FOR INJ 1 MG VIAL SQ PRN (16:05)
[2023-05-16] MEDS ORDERED: ACETAMINOPHEN 325 MG TAB PO PRN (16:05)
[2023-05-16] MEDS: INSULIN ASPART PER UNIT CHARGE SC SCH ×2 (17:09→21:16)
[2023-05-16] MEDS: ENTACAPONE 200 MG TAB PO SCH (18:21)
[2023-05-16] MEDS: METOPROLOL SUCC 50MG EXT REL TAB PO SCH (21:16)
[2023-05-17] MEDS: LEVOTHYROXINE SODIUM 150 MCG TABLET PO SCH (06:11)
[2023-05-17] MEDS: CARBIDOPA/LEVODOPA 25/100MG TAB PO SCH ×3 (06:14→17:31)
[2023-05-17] MEDS: ENTACAPONE 200 MG TAB PO SCH ×3 (06:14→17:31)
[2023-05-17 06:29] LABS: Basophils # (auto) 0.06 K/uL (0-0.2); Basophils % (auto) 0.6 %; Eosinophils # (auto) 0.34 K/uL (0-0.50); Eosinophils % (auto) 3.5 %; Hematocrit (blood only) 34.5 % (42.0-52.0); Hemoglobin 11.3 g/dl (14.0-18.0); Immature Granulocytes # (auto) 0.04 K/uL (0.01-0.20); Immature Granulocytes % (auto) 0.4 %; Lymphocytes # (auto) 2.46 K/uL (1.2-3.4); Lymphocytes % (auto) 25.1 %; Mean Corpuscular Hemoglobin 26.8 pg (25.0-34.0); Mean Corpuscular Hgb Conc 32.8 g/dL (32.0-36.0); Mean Corpuscular Volume 81.9 fL (80.0-100.0); Mean Platelet Volume 10.7 fL (9.4-12.4); Monocytes # (auto) 0.88 K/uL (0.11-0.59); Neutrophils # (auto) 6.01 K/uL (1.40-6.50); Neutrophils % (auto) 61.4 %; Platelet Count 244 K/uL (130-400); RDW Coefficient of Variation 15.3 % (11.5-14.5); RDW Standard Deviation 46.1 fL (36.4-46.3); Red Blood Count 4.21 M/uL (4.70-6.10); White Blood Count 9.79 K/ul (4.8-10.8)
[2023-05-17 06:39] LABS: Calcium 9.1 mg/dl (8.6-10.3); Creatinine Clr Calc Pharmacy 56.7 ml/min; Est GFR (Non-African American) 55.3 ml/min; Potassium 4.2 mmol/L (3.5-5.1)
[2023-05-17 06:47] LABS: Troponin I High Sensitivity 10.2 pg/ml (0-20)
[2023-05-17] MEDS: INSULIN ASPART PER UNIT CHARGE SC SCH ×4 (07:53→22:02)
--- NOTE | 2023-05-17 08:01 | Cardiology Progress Note ---
Date of Service May 17, 2023 Assessment & Plan (1) Chest pain: (2) CAD (coronary artery disease): (3) History of coronary artery stent placement: (4) Hyperlipidemia: Plan 83-year-old male with history of coronary disease status post stenting in 2000. Initially presented with symptoms concerning for unstable angina. Patient currently stable from a cardiac standpoint. High-sensitivity troponins negative x 4. Echocardiogram with a normal LVEF of 60 to 65% without acute wall motion abnormalities. Moderate aortic sclerosis without stenosis. Patient has been n.p.o. Okay to proceed with cardiac catheterization this a.m. Of note, patient has a heparin allergy Please refer to physician addendum for further information and full plan of care. Admission and Anticipated Discharge Date Admission Date: May 16, 2023 Supervising Physician Co-Signing Physician Notes Attending Staff: Pt seen and evaluated with [facility] staff. Concur with observations and plans 83 yo man presenting with chest pain Dx: Unstable angina Patient was going to a planned family picnic Develop sudden onset, left sided chest pain High severity Radiation to the jaw + Diaphoresis + Associated with dyspnea Told that he needed to go to the hospital In ED No marked HTN Rx with SL NTG - relief ASA x 2 - relief Currently chest pain free - no chest pain overnight + Heparin allergy Known CAD S/P PCI to LCX (2000) + longstanding angina + Diabetes Nuclear stress (2020) - no evidence of ischemia ECHOcardiogram (2020) - LVEF 55-60%, mild concentric LVH, Aortic Sclerosis (Mild), no major valvular abnormalities Hx of: * HTN * Hyperlipidemia * DM II * Parkinsons EKG - no ischemic changes Preliminary ECHO 05/16/2023 Normal LV systolic function + upper septal hypertrophy Aortic Sclerosis sans stenosis +RVH No major pericardial process Nuclear Stress Test - 11/2020 No evidence of ischemia Plan: Clinical presentation concerning for unstable angina Symptom complex + relief by NTG/ASA Longstanding CAD dating back 2 decades May have multivessel CAD Continue ASA 81 mg po per day Continue Toprol XL 100 mg po per day LDL - 54 (goal <55) Continue Zocor 40 mg po per day Continue Captopril (will consider switching to QD formulation prior to D/C) Given heparin allergy - question of BiValarudin use. NPO @ present Plans for Coronary Angiography on 05/17/2023 Lanre Thomas Subjective 05/17/2023: Upon entrance to the room patient asleep in bed. Woke easily. Denies any acute concerns. Denies return of chest pain overnight. No shortness of breath. No lightheadedness or dizziness. No diaphoresis or nausea. Telemetry revealed sinus bradycardia with a first-degree AV block, heart rates averaging in the 50s to 60s. Review of Systems Review of Systems: All systems reviewed & are unremarkable except as noted in HPI & below Physical Exam Physical Exam: Pt in NAD JVP @ base of neck S1S2 2/6 systolic murmur - soft CTA B Abdomen - obese No C/C/E 2/2 right radial pulse 2/2 right femoral pulse - no bruit No obvious neurologic deficits Results & Data Vital Signs (Past 12 Hours) Vital Signs Temp Pulse Pulse Resp BP Pulse Ox O2 Del Method 05/17/23 06:57 36.4 C L 62 20 129/75 97 Room Air 05/16/23 22:10 79 05/17/23 03:13 36.9 C 68 18 128/74 96 Room Air 05/16/23 22:52 36.9 C 84 18 168/93 H 95 Room Air Laboratory Results Cardiac Enzymes 05/16/23 05/16/23 05/16/23 Range/Units 12:00 14:22 22:54 AST 26 (13-39) U/L Troponin I High Sens 8.6 14.2 D 11.7 (0-20) pg/ml 05/17/23 Range/Units 05:49 AST (13-39) U/L Troponin I High Sens 10.2 (0-20) pg/ml Coagulation 05/16/23 Range/Units 12:00 PT 10.8 (9.0-12.0) Seconds APTT 25.4 (21.0-31.0) Seconds CBC 05/16/23 05/17/23 Range/Units 12:00 05:49 WBC 9.50 9.79 (4.8-10.8) K/ul RBC 4.53 L 4.21 L (4.70-6.10) M/uL Hgb 12.2 L 11.3 L (14.0-18.0) g/dl Hct 37.5 L 34.5 L (42.0-52.0) % Plt Count 259 244 (130-400) K/uL Neut # (Auto) 6.52 H 6.01 (1.40-6.50) K/uL Lymph # (Auto) 1.97 2.46 (1.2-3.4) K/uL Linn # (Auto) 0.68 H 0.88 H (0.11-0.59) K/uL Eos # (Auto) 0.21 0.34 (0-0.50) K/uL Baso # (Auto) 0.07 0.06 (0-0.2) K/uL Comprehensive Metabolic Panel 05/16/23 05/17/23 Range/Units 12:00 05:49 Sodium 139 139 (136-145) mmol/L Potassium 4.1 4.2 (3.5-5.1) mmol/L Chloride 104 106 (98-107) mmol/L Carbon Dioxide 25 29 (21-32) mmol/L BUN 11 11 (6-23) mg/dl Creatinine 1.33 1.22 (0.6-1.4) mg/dl Glucose 101 H 73 (70-99(Fasting)) mg/dl Calcium 9.2 9.1 (8.6-10.3) mg/dl AST 26 (13-39) U/L ALT 10 (7-52) U/L Alkaline Phosphatase 58 (34-104) U/L Total Protein 7.3 (6.0-8.3) gm/dl Albumin 4.3 (3.4-5.0) gm/dl Intake and Output 05/16/23 05/17/23 05/17/23 22:59 06:59 14:59 Intake Total 150 / 250 100 / 250 Balance 150 / 250 100 / 250 Intake: Oral 150 / 250 100 / 250 Other: Weight 101.7 kg 101.7 kg Weight Measurement Method Built in [facility] Medications Administered Current Inpatient Medications Acetaminophen (Acetaminophen 325 Mg Tab) 650 mg PO Q4H PRN PRN Reason: Pain or Fever Stop: 06/15/23 16:04 Aspirin (Aspirin 81 Mg Ectab) 81 mg PO DAILY SUZANNE Stop: 06/16/23 08:59 Captopril (Captopril 25 Mg Tab) 25 mg PO BID SUZANNE Stop: 06/15/23 20:59 Last Admin: 05/16/23 21:50 Dose: 25 mg Carbidopa/Levodopa (Carbidopa/Levodopa 25/100mg Tab) 1 tab PO TODAY@0700,1100,1700 SUZANNE Stop: 06/15/23 17:29 Last Admin: 05/17/23 06:14 Dose: 1 tab Dextrose (Dextrose 50% 50 Ml Syringe) 25 - 50 ml IV UD PRN; Protocol PRN Reason: Hypoglycemia Protocol Stop: 06/15/23 16:04 Entacapone (Entacapone 200 Mg Tab) 200 mg PO TODAY@0700,1100,1700 SUZANNE Stop: 06/15/23 17:29 Last Admin: 05/17/23 06:14 Dose: 200 mg Glucagon (Glucagon For Inj 1 Mg Vial) 1 mg SQ UD PRN; Protocol PRN Reason: Hypoglycemia Protocol Stop: 06/15/23 16:04 Glucose (Glucose 10 Tab/Tube) 4 - 8 tab PO UD PRN; Protocol PRN Reason: Hypoglycemia Treatment Stop: 06/15/23 16:04 Glucose (Glucose 40% Gel 15 Gm Tube) 15 - 30 gm PO UD PRN; Protocol PRN Reason: Hypoglycemia Protocol Stop: 06/15/23 16:04 Insulin Aspart (Insulin Aspart Per Unit Charge) 0 units SC ACHS SUZANNE Stop: 06/15/23 16:29 Last Admin: 05/17/23 07:53 Dose: Not Given Levothyroxine Sodium (Levothyroxine Sodium 150 Mcg Tablet) 150 mcg PO DAILYBB [facility] Stop: 06/16/23 06:29 Last Admin: 05/17/23 06:11 Dose: 150 mcg Magnesium Oxide (Magnesium Oxide 400 Mg Tab) 400 mg PO DAILY SUZANNE Stop: 06/16/23 08:59 Metoprolol Succinate (Metoprolol Succ 50mg Ext Rel Tab) 100 mg PO BID SUZANNE Stop: 06/15/23 20:59 Last Admin: 05/16/23 21:16 Dose: 100 mg Miscellaneous (Carbohydrates For Hypoglycemia ) 15 - 30 gm PO UD PRN PRN Reason: Hypoglycemia Protocol Stop: 06/15/23 16:04 Miscellaneous Information (Pharmacy Glycemic Mgmt Consult) 1 each N/A UD PRN PRN Reason: Consult Stop: 06/15/23 16:04 Nitroglycerin (Nitroglycerin Sl 0.4 Mg/Tab Tab) 0.4 mg SL Q5M PRN PRN Reason: Chest Pain Stop: 06/15/23 16:04 Pantoprazole Sodium (Pantoprazole 40 Mg Tab) 40 mg PO DAILY SUZANNE Stop: 06/16/23 08:59 Simvastatin (Simvastatin 40 Mg Tab) 40 mg PO DAILY [facility] Stop: 06/16/23 08:59 (1) Chest pain Chest pain type: unspecified Qualified Code(s): R07.9 - Chest pain, unspecified
[2023-05-17] MEDS ORDERED: LANTUS PER UNIT CHARGE SQ SCH (09:00)
[2023-05-17] MEDS ORDERED: LANTUS PER UNIT CHARGE SC ONE ×2 (09:00→16:30)
[2023-05-17] MEDS ORDERED: ASPIRIN 81 MG ECTAB PO SCH (09:00)
[2023-05-17] MEDS: PANTOprazole 40 MG TAB PO SCH (09:07)
[2023-05-17] MEDS: MAGNESIUM OXIDE 400 MG TAB PO SCH (09:07)
[2023-05-17] MEDS: SIMVASTATIN 40 MG TAB PO SCH (09:07)
[2023-05-17] MEDS: ASPIRIN 81 MG ECTAB PO SCH (09:07)
--- NOTE | 2023-05-17 09:44 | Hospitalist Progress Note ---
Date of Service May 17, 2023 Assessment & Plan (1) Unstable angina: Plan: Unstable angina Morning presentation 05/16 he woke up with slight dull substernal chest pain, subsequently with activity/ambulation this did worsen and was associated with diaphoresis and shortness of breath. This worsened walking to his car to come to the ER, significantly improved with the nitro and then resolved in the ER following aspirin administration. Denies anginal symptoms in the last few weeks/months other than this. Reports overall the pain lasted for at least several hours, was a dull onset when he woke up around 730 and did not resolve completely until arriving in the ER and aspirin was given at 1150 EKG: Normal sinus rhythm, QTc 440. No acute territorial ST or T wave changes Last cardiology note available for review 02/[address] [facility]: Noted to have atypical chest discomfort in 2019. Left circumflex stent 2000. Stress test 11/2020 negative for ischemia, LV 55-60% which augmented to 74% - Troponin trend negative - Chest x-ray: Cardiomegaly, no active disease of the chest - Cardiology consulted, catheterization fortunately without any stentable disease, no in-stent stenosis - Lipid panel with LDL 54, continue simvastatin - Appreciate recommendations of cardiology Dr. Thomas -Anticipate likely discharge home tomorrow if continues to be stable with regard to his symptoms, and has optimization of his cardiac medications HTN - Captopril 25mg BID Metoprolol continued No ROJAS on admission Normotensive on admission Type II DM Toujeo 80 units a.m. continued, SSI based on basal dose Home metformin held - Due to discrepancy between basal dosed SSI vs weight anticipated dosing --> pharmacy consulted to follow for glycemic adjustments - Last A1C <7%, well controlled Parkinson's dz - Continue Sinemet - No acute change in management at this time GERD - Continue PPI - DDx includes GERD, lower suspicion for this due to improvemnt post nitro and ASA & with diaphoresis/shortness of breath with pain and risk factors - Denies bleeding/melena Hypothyroidism - Continue Synthroid DVT PPx: SCDs, Lovenox deferred due to history of heparin allergy Diet: Heart healthy, DM 2 Disposition: PCU for chest pain eval CODE STATUS: Full Code. Patient reports that he would not want a prolonged code past 15 minutes if initial resuscitation efforts were not successful, and he would not want prolonged intubation past 24-36 hours. (2) Chest pain: (3) CAD (coronary artery disease): (4) History of coronary artery stent placement: (5) Type 2 diabetes mellitus with insulin therapy: (6) HTN (hypertension): Admission and Anticipated Discharge Date Admission Date: May 16, 2023 Subjective Patient without any acute events overnight, had catheterization today and is lying flat following this procedure. Denies chest pain, shortness of breath, abdominal pain, nausea at this time. Physical Exam Constitutional: WD/WN, vitals as above Respiratory: normal respiratory effort, lungs clear to auscultation Cardiovascular: RRR, no murmur, no edema Gastrointestinal (Abdomen): normal bowel sounds, soft, nontender, no hepatosplenomegaly Skin: no rashes, warm and dry Psychiatric: A+Ox3, euthymic affect Results & Data Results & Data Vital Signs (Past 12 Hours) Vital Signs Temp Pulse Pulse Resp BP Pulse Ox O2 Del Method 05/17/23 06:57 36.4 C L 62 20 129/75 97 Room Air 05/16/23 22:10 79 05/17/23 03:13 36.9 C 68 18 128/74 96 Room Air 05/16/23 22:52 36.9 C 84 18 168/93 H 95 Room Air PG Care Time/CCT Total # of Minutes Spent Total Time Spent with Patient: Total time spent is greater than 50% in coordination of care (as documented) at patient's floor/unit and/or counseling patient: Coding Level of Care Code 14255 SUB INP/OBS CARE 2/35MIN Diagnoses Unstable angina I20.0 Chest pain R07.9 Chest pain type: unspecified CAD (coronary artery disease) I25.10 History of coronary artery stent placement Z95.5 Type 2 diabetes mellitus with insulin therapy E11.9; Z79.4 HTN (hypertension) I10 (2) Chest pain Chest pain type: unspecified Qualified Code(s): R07.9 - Chest pain, unspecified
--- NOTE | 2023-05-17 11:52 | Pharmacy Report ---
Pharmacy Glycemic Short Note 2 - Date of Service May 17, 2023 - Glycemic Short BSG Results (Last 24 hours): 05/16/23 05/16/23 05/16/23 12:00 16:16 20:04 Glucose 101 H POC Glucose 84 114 H 05/17/23 05/17/23 05/17/23 05:49 07:01 11:11 Glucose 73 POC Glucose 89 80 OUTPATIENT ANTIDIABETIC REGIMEN: * Metformin * Toujeo 90 units SC daily (taken 05/16 per med history) * HbA1c 6.7% on 10/10/22. Repeat ordered for 05/18/23. ASSESSMENT: * 83 yo M admitted with unstable angina yesterday PM and NPO / going to [facility] today * BSG's have ranged 73-114 mg/dL with no insulin administered as an inpatient. Patient still NPO. Will hold off on insulin until after [facility]. Anticipate outpatient Toujeo covers significant CHO and also anticipate that effects will persist longer than most basal insulins due to longer t1/2. Will therefore base PM Lantus dose as an inpatient on diet status and BSG. Will not be aggressive. * Initiate Novolog based on weight-based moderate stress estimate (note - this is also the same as an estimate using 90 units of total daily insulin which is c/w outpatient regimen) PLAN FOR INPATIENT GLYCEMIC CONTROL: * Hold outpatient oral diabetes medications * Basal insulin * Lantus 0-35 units SQ at dinner time, depending on diet (NPO vs. other) and BSG. See MAR for details. * Bolus insulin * NovoLog per scale ACHS or Q6hrs while NPO * Goal Range: Low 110 mg/dL - High 140 mg/dL * Correction Factor: 25 mg/dL/unit * Nutritional / Prandial insulin per carb ratio of 1 unit per 8 grams CHO consumed
[2023-05-17] MEDS: METOPROLOL SUCC 50MG EXT REL TAB PO SCH ×2 (13:31→22:08)
[2023-05-17] MEDS ORDERED: fentaNYL citrate PF 100 MCG/2 ML VIAL ONE (14:25)
[2023-05-17] MEDS ORDERED: MIDAZOLAM HCL 1 MG/ML 2ML VIAL ONE (14:25)
[2023-05-17] MEDS ORDERED: NITROGLYCERIN SL 0.4 MG/TAB TAB SL PRN (15:05)
--- NOTE | 2023-05-17 15:09 | Pre Anesthesia Assessment ---
Date of Service May 17, 2023 Pre Sedation Assessment Vital Signs Temp Pulse Pulse Pulse Resp BP BP 05/17/23 15:00 59 L 16 133/71 05/17/23 14:03 61 16 127/76 05/17/23 07:41 62 05/17/23 11:15 36.3 C L 59 L 19 143/78 H 05/17/23 06:57 36.4 C L 62 20 129/75 05/16/23 22:10 79 05/17/23 03:13 36.9 C 68 18 128/74 05/16/23 22:52 36.9 C 84 18 168/93 H 05/16/23 19:19 36.6 C 91 H 18 168/84 H 05/16/23 16:15 85 05/16/23 16:15 05/16/23 16:07 36.4 C L 84 20 169/79 H 05/16/23 15:47 73 18 139/87 05/16/23 15:30 73 17 05/16/23 15:30 151/105 H Pulse Ox O2 Del Method 05/17/23 15:00 96 Room Air 05/17/23 14:03 98 Room Air 05/17/23 07:41 05/17/23 11:15 95 Room Air 05/17/23 06:57 97 Room Air 05/16/23 22:10 05/17/23 03:13 96 Room Air 05/16/23 22:52 95 Room Air 05/16/23 19:19 95 Room Air 05/16/23 16:15 05/16/23 16:15 Room Air 05/16/23 16:07 98 Room Air 05/16/23 15:47 96 Room Air 05/16/23 15:30 95 05/16/23 15:30 Cardiovascular RRR, no murmur, no edema (Systolic murmur) Respiratory normal respiratory effort, lungs clear to auscultation Pre-Sedation Airway Assessment Smoking Status: Former smoker Hx Sleep Apnea: No Short, Thick Neck: No Thyromental Distance: > or= 3.5 Finger Breadths Oral Cavity: + WNL Mallampati Class: III ASA: ASA3 NPO Status Date of Last Intake of Fluids: 05/16/23 Time of Last Intake of Fluids: 22:00 Date of Last Intake of Solid Food: 08/09/23 Time of Last Intake of Solid Foods: 22:00 Notes The planned sedation has been discussed with the patient. Informed Consent was obtained. I have identified the patient, determined the appropriateness of sedation and have assessed the patient immediately prior to the procedure. All medicine(s) and interventions are by my order.
--- NOTE | 2023-05-17 15:10 | Post Anesthesia Assessment ---
Date of Service May 17, 2023 Post Sedation Assessment Vital Signs Temp Pulse Pulse Pulse Resp BP BP 05/17/23 15:00 59 L 16 133/71 05/17/23 14:03 61 16 127/76 05/17/23 07:41 62 05/17/23 11:15 36.3 C L 59 L 19 143/78 H 05/17/23 06:57 36.4 C L 62 20 129/75 05/16/23 22:10 79 05/17/23 03:13 36.9 C 68 18 128/74 05/16/23 22:52 36.9 C 84 18 168/93 H 05/16/23 19:19 36.6 C 91 H 18 168/84 H 05/16/23 16:15 85 05/16/23 16:15 05/16/23 16:07 36.4 C L 84 20 169/79 H 05/16/23 15:47 73 18 139/87 05/16/23 15:30 73 17 05/16/23 15:30 151/105 H Pulse Ox O2 Del Method 05/17/23 15:00 96 Room Air 05/17/23 14:03 98 Room Air 05/17/23 07:41 05/17/23 11:15 95 Room Air 05/17/23 06:57 97 Room Air 05/16/23 22:10 05/17/23 03:13 96 Room Air 05/16/23 22:52 95 Room Air 05/16/23 19:19 95 Room Air 05/16/23 16:15 05/16/23 16:15 Room Air 05/16/23 16:07 98 Room Air 05/16/23 15:47 96 Room Air 05/16/23 15:30 95 05/16/23 15:30 Recovery Score Activity: Moves 4 extremities Respiration: Deep Breath/Cough Circulation: +/-20% PreAnes Value Consciousness: Fully Awake Oxygen Saturation: > 92% On Room Air Post Anesthesia Score: 10 Discharge Sedation Level of Care: Fast Track Phase II Post Sedation Plan On clinical assessment, the patient appears to have tolerated the sedation without complications. Patient is recovering as anticipated. Patient will continue to be monitored by nursing and may be discharged when sedation discharge criteria are met per below protocol. Upon Completions of procedure up to 15 minutes continue every 5 minute vital signs and the P.A.R. score; then discharge to a Phase I or Fast Track to Phase II per the following guidelines: * Discharge Patient to appropriate Phase II area if PAR is 8 or greater or return to pre- procedure baseline. The post - procedure orders will be as directed. * If PAR score is less than 8 or not return to pre-procedure baseline then patient will follow Phase I monitoring till PAR is reached for Phase II. The Phase I may be done in procedure room or may call to secure a Phase I area. * If naloxone or flumazenil are used for reversal, hold in Phase I for continued monitoring from when last reversal dose was given for a minimum of 60 minutes or longer pending the nurse and/or physician discretion of patient condition before discharge to Phase II. Please call the Sedation Physician to re-evaluate and complete post-note for discharge to Phase II area. Do NOT discharge from procedure sedation or Phase 1 until post- sedation evaluation note is complete by procedure /sedation MD Sedation Discharge Instructions to be given to the patient at discharge to home. [facility] [place] Procedure Codes (Charges) Indication for Procedure Indication for procedure: Unstable angina Sedation/Anesthesia Procedure 1: Sedation/Anesthesia: 70499 Mod Sedation by the same physician;Init15 Min Child Age 5 & Up (Initial 15 min, start 1438 end 1452) Total Sedation Time (minutes): 14
--- NOTE | 2023-05-17 15:13 | Cardiac Catheterization ---
[facility] Data: Slate Cutter Cardiac Status Clinical evaluation leading to the procedure CAD Presenation: Unstable angina Anginal Classification: CCS IV Heart Failure: No Cardiogenic Shock within 24 Hours: No Cardiac Arrest within 24 Hours: No Imaging Studies Past 6 Months: Yes Stress Studies Past 6 Months: No Coronary Anatomy Dominant: Right Left Main (% Stenosis): Normal LAD (% Stenosis): Proximal (Up to 50%) D1 (% Stenosis): Normal D2 (% Stenosis): Normal D3 (% Stenosis): Normal Circumflex (% Stenosis): Mid (Stent patent) and Distal (Diffuse mild up to 30%) OM1 (% Stenosis): Normal OM2 (% Stenosis): Normal OM3 (% Stenosis): Normal L PL1 (% Stenosis): Normal RCA (% Stenosis): Proximal (Mild) and Mid (30%) R PDA (% Stenosis): Normal (Mild) R PL1 (% Stenosis): Normal Diagnostic Physicians Name: Rivera Fragoso MD, PhD Closure Device Percutaneous Entry Location: Femoral Closure Device: Angio-Seal Recommendations: Medical Therapy and/or Counseling Intraprocedure Events Significant Disection: No Perforation: No Cardiac Cath Procedure Full Procedure Date May 17, 2023 Pre-Procedure Diagnosis Pre-Procedure Diagnosis: Acute Coronary Syndrome and Angina AUC Score AUC Score: 07 Post-Procedure Diagnosis Post-Procedure Diagnosis: Moderate CAD Procedure(s) Performed Procedure(s) Performed: Coronary Angiography and Ultrasound Guided Vascular Access Public Relations Intern Rivera Fragoso MD, PhD Estimated Blood Loss Estimated Blood Loss: 5 mL Medication(s) Medication(s): Fentanyl, Lidocaine 1% and Versed Summary of Findings Brief description: Patient was brought to the cardiac catheterization suite where he was shaved and prepped in a sterile fashion. Sedated using IV Versed and fentanyl. Soft tissues of the right groin were anesthetized using 10 mL of 1% Xylocaine. Using the ultrasound for guidance (image saved), the right femoral artery was accessed and a 5 Liberian femoral artery sheath was placed. All catheters were advanced and exchanged over a 0.035 J-tip wire. Right coronary angiography was performed in orthogonal views with a 5 Liberian JR4 diagnostic catheter. Left coronary angiography was performed in orthogonal views with a 5 Liberian JL 4 diagnostic catheter. Catheters were removed. Limited right femoral artery angiography was performed to evaluate for closure. Findings were favorable, therefore, the femoral artery sheath was exchanged for a 6 [place]ian Angio-Seal closure device. This was deployed in the recommended fashion. We obtained immediate hemostasis and the patient remained hemodynamically stable. He was returned to the recovery area. This ended the case. Coronary angiography findings: [id number]-[id number] vessel trifurcating into LAD, circumflex, and ramus. There is a mild calcium at the left coronary cusp but no significant calcification in the left main. Mild luminal irregularities noted. [id number] vessel. Proximal to mid vessel is mildly to moderately calcified with some tortuosity. There is diffuse mild disease and then just before the vessel bifurcates there is a focal up to 50% stenosis in some views. The bifurcation provides a smaller vessel which runs towards the apex and provides several septal branches. May be a large septal trunk. The larger branch continues distally and wraps the apex. This vessel has diffuse mild disease which becomes more scattered as it approaches the apex. This branch also provides several smaller diagonal branches. JMn-ghieo-epujpdu and nondominant. Travels in the AV groove where the proximal segment has mild disease. It provides 2 small obtuse marginal branches and then a third large obtuse marginal branch. Just before the OM 3 there is a stent which is widely patent. After the OM 3 the vessel begins to taper and has diffuse mild disease of up to 30%. It then provides a medium caliber posterolateral branch and terminates shortly after its ostium in the AV groove. Ramus- this is medium to large in caliber without significant disease. RCA-this is large caliber and dominant. Proximal segment has mild luminal irregularities and mild calcification. Mid segment has 30% maximum stenosis and calcification. Distally there are mild luminal irregularities in the vessel bifurcates into the PDA and posterolateral branches. Posterolateral branch is medium to large in caliber without disease. The PDA is large, long, and provides a good bit of perfusion to the inferior apex. This vessel has only mild scattered plaques. Summary: 1. Widely patent prior stent. 2. Diffuse mild to moderate calcification in the epicardial coronaries. 3. Mild to moderate nonocclusive coronary disease as described. 4. Guideline directed medical therapy for secondary prevention of coronary disease. Low-dose aspirin, high intensity statin therapy, beta-scot, and ADRIANNE inhibitor/ARB as tolerated by renal function and blood pressure. 5. Could add long-acting nitrate and/or calcium channel scot to treat angina and/or microvascular dysfunction. Hemodynamics Rest Ao:: 103/67 mmHg Final Ao: 115/49 mmHg LV: Not performed Recommendations Recommendations: Medical Therapy and/or Counseling Radiation Exposure (mGy) 782 mGy, fluoroscopy time 2.0 minutes Contrast (mls) 70 to mL Anesthesia 1 mg IV Versed, 25 mcg IV fentanyl (start 1438, end time 1452) Procedural Complication(s) None Disposition Recovery Room\PACU I attest to the content of the Intraoperative Record and any orders documented therein. Any exceptions are noted below. [facility] Card Cath Procedure Codes Cardiac Catheterization Procedure 1: Cardiovascular Cath Procedures: 12648 Coronaries Therapeutic Services & Ancillary Procedure 1: Cardiovascular Tx and Anc Procedures: 49568 Ultrasonic Guidance Vascular Access Moderate Sedation Procedure 1: Sedation/Anesthesia: 74801 Mod Sedation by the same physician;Init15 Min Child Age 5 & Up (Start time 1438, end time 1452) PG Care Time/CCT Total # of Minutes Spent Total Time Spent with Patient: Total time spent is greater than 50% in coordination of care (as documented) at patient's floor/unit and/or counseling patient:
[2023-05-17] MEDS: CARBOHYDRATES FOR HYPOGLYCEMIA PO PRN ×2 (16:26→16:43)
[2023-05-17] MEDS ORDERED: LANTUS PER UNIT CHARGE SC SCH (21:00)
[2023-05-18] MEDS ORDERED: INSULIN ASPART PER UNIT CHARGE SC ONE (02:00)
[2023-05-18] MEDS: CARBOHYDRATES FOR HYPOGLYCEMIA PO PRN ×2 (02:45→03:07)
[2023-05-18] MEDS: ENTACAPONE 200 MG TAB PO SCH ×2 (06:03→11:18)
[2023-05-18] MEDS: CARBIDOPA/LEVODOPA 25/100MG TAB PO SCH ×2 (06:03→11:18)
[2023-05-18] MEDS: LEVOTHYROXINE SODIUM 150 MCG TABLET PO SCH (06:03)
[2023-05-18 06:43] LABS: Basophils # (auto) 0.06 K/uL (0-0.2); Basophils % (auto) 0.7 %; Eosinophils # (auto) 0.32 K/uL (0-0.50); Eosinophils % (auto) 3.8 %; Hematocrit (blood only) 34.2 % (42.0-52.0); Immature Granulocytes # (auto) 0.04 K/uL (0.01-0.20); Immature Granulocytes % (auto) 0.5 %; Lymphocytes # (auto) 2.24 K/uL (1.2-3.4); Lymphocytes % (auto) 26.9 %; Mean Corpuscular Hemoglobin 26.6 pg (25.0-34.0); Mean Corpuscular Hgb Conc 32.2 g/dL (32.0-36.0); Mean Corpuscular Volume 82.8 fL (80.0-100.0); Monocytes # (auto) 0.73 K/uL (0.11-0.59); Monocytes % (auto) 8.8 %; Neutrophils # (auto) 4.93 K/uL (1.40-6.50); Neutrophils % (auto) 59.3 %; Platelet Count 221 K/uL (130-400); RDW Coefficient of Variation 15.5 % (11.5-14.5); RDW Standard Deviation 46.6 fL (36.4-46.3); Red Blood Count 4.13 M/uL (4.70-6.10); White Blood Count 8.32 K/ul (4.8-10.8)
[2023-05-18 06:51] LABS: BUN Creatinine Ratio 8.8 (10-20); Creatinine Clr Calc Pharmacy 50.8 ml/min; Est GFR (African American) 56.2 ml/min; Est GFR (Non-African American) 48.5 ml/min
[2023-05-18 07:14] LABS: Estimated Average Glucose 148 mg/dl; Hemoglobin A1C 6.8 % (4.5-5.6)
--- NOTE | 2023-05-18 07:48 | Cardiology Progress Note ---
Date of Service May 18, 2023 Assessment & Plan (1) Chest pain: (2) CAD (coronary artery disease): (3) History of coronary artery stent placement: (4) Hyperlipidemia: Admission and Anticipated Discharge Date Admission Date: May 16, 2023 Supervising Physician Co-Signing Physician Notes Attending Staff: Pt seen and evaluated with [facility] staff. Concur with observations and plans 83 yo man presenting with chest pain Dx: Unstable angina Patient was going to a planned family picnic Develop sudden onset, left sided chest pain High severity Radiation to the jaw + Diaphoresis + Associated with dyspnea Told that he needed to go to the hospital In ED No marked HTN Rx with SL NTG - relief ASA x 2 - relief Currently chest pain free - no chest pain overnight + Heparin allergy Known CAD S/P PCI to LCX (2000) + longstanding angina + Diabetes Nuclear stress (2020) - no evidence of ischemia ECHOcardiogram (2020) - LVEF 55-60%, mild concentric LVH, Aortic Sclerosis (Mild), no major valvular abnormalities Hx of: * HTN * Hyperlipidemia * DM II * Parkinsons EKG - no ischemic changes ECHO 05/16/2023 Normal LV systolic function - 60-65% + upper septal hypertrophy Aortic Sclerosis sans stenosis +LVH, no WMA No major pericardial process Nuclear Stress Test - 11/2020 No evidence of ischemia Plan: Clinical presentation concerning for unstable angina Symptom complex + relief by NTG/ASA Longstanding CAD dating back 2 decades Pt referred for cardiac cath * Widely patent LCX stent * Diffuse mild to moderate Coronary Calcifications * LAD - proximal 50% * LCX - distal/diffuse 30% * RCA - mid 30% Continue ASA 81 mg po per day Continue Toprol XL 100 mg po per day LDL - 54 (goal <55) Continue Zocor 40 mg po per day STOP Captopril (will consider switching to QD formulation prior to D/C) Start Lisinopril 20 mg po per day; may need uptitration Please check BMP in one week Given heparin allergy SL NTG - please send home with new Rx [facility] Lanre Thomas Subjective Events overnight: * Cardiac Cath - + CAD; No Interventions * No chest pain reported Review of Systems Review of Systems: All systems reviewed & are unremarkable except as noted in HPI & below Physical Exam Physical Exam: Pt in NAD JVP @ base of neck S1S2 2/6 systolic murmur - soft CTA B Abdomen - obese No C/C/E 2/2 right radial pulse 2/2 right femoral pulse - no bruit No obvious neurologic deficits Results & Data Vital Signs (Past 12 Hours) Vital Signs Temp Pulse Pulse Pulse Resp BP Pulse Ox 05/18/23 07:30 36.3 C L 60 18 105/69 96 05/17/23 22:02 66 05/18/23 05:04 36.5 C 64 18 110/59 L 96 05/17/23 22:38 36.3 C L 65 18 158/82 H 97 05/17/23 22:08 64 143/86 H O2 Del Method 05/18/23 07:30 Room Air 05/17/23 22:02 05/18/23 05:04 Room Air 05/17/23 22:38 Room Air 05/17/23 22:08 Laboratory Results CBC 05/18/23 Range/Units 05:39 WBC 8.32 (4.8-10.8) K/ul RBC 4.13 L (4.70-6.10) M/uL Hgb 11.0 L (14.0-18.0) g/dl Hct 34.2 L (42.0-52.0) % Plt Count 221 (130-400) K/uL Neut # (Auto) 4.93 (1.40-6.50) K/uL Lymph # (Auto) 2.24 (1.2-3.4) K/uL [place] # (Auto) 0.73 H (0.11-0.59) K/uL Eos # (Auto) 0.32 (0-0.50) K/uL Baso # (Auto) 0.06 (0-0.2) K/uL Comprehensive Metabolic Panel 05/18/23 Range/Units 05:39 Sodium 134 L (136-145) mmol/L Potassium 4.0 (3.5-5.1) mmol/L Chloride 102 (98-107) mmol/L Carbon Dioxide 26 (21-32) mmol/L BUN 12 (6-23) mg/dl Creatinine 1.36 (0.6-1.4) mg/dl Glucose 89 (70-99(Fasting)) mg/dl Calcium 9.0 (8.6-10.3) mg/dl Intake and Output 05/17/23 05/18/23 05/18/23 22:59 06:59 14:59 Intake Total 200 / 200 Balance 200 / 200 Intake: Oral 200 / 200 Other: # Unmeasured Voids 1 Weight 101.4 kg Weight Measurement Method [facility] Medications Administered Current Inpatient Medications Acetaminophen (Acetaminophen 325 Mg Tab) 650 mg PO Q4H PRN PRN Reason: Pain or Fever Stop: 06/15/23 16:04 Aspirin (Aspirin 81 Mg Ectab) 81 mg PO DAILY [facility] Stop: 06/16/23 08:59 Last Admin: 05/18/23 08:13 Dose: 81 mg Captopril (Captopril 25 Mg Tab) 25 mg PO BID SUZANNE Stop: 06/15/23 20:59 Last Admin: 05/18/23 08:13 Dose: 25 mg Carbidopa/Levodopa (Carbidopa/Levodopa 25/100mg Tab) 1 tab PO TODAY@0700,1100,1700 [facility] Stop: 06/15/23 17:29 Last Admin: 05/18/23 11:18 Dose: 1 tab Dextrose (Dextrose 50% 50 Ml Syringe) 25 - 50 ml IV UD PRN; Protocol PRN Reason: Hypoglycemia Protocol Stop: 06/15/23 16:04 Entacapone (Entacapone 200 Mg Tab) 200 mg PO TODAY@0700,1100,1700 [facility] Stop: 06/15/23 17:29 Last Admin: 05/18/23 11:18 Dose: 200 mg Glucagon (Glucagon For Inj 1 Mg Vial) 1 mg SQ UD PRN; Protocol PRN Reason: Hypoglycemia Protocol Stop: 06/15/23 16:04 Glucose (Glucose 10 Tab/Tube) 4 - 8 tab PO UD PRN; Protocol PRN Reason: Hypoglycemia Treatment Stop: 06/15/23 16:04 Glucose (Glucose 40% Gel 15 Gm Tube) 15 - 30 gm PO UD PRN; Protocol PRN Reason: Hypoglycemia Protocol Stop: 06/15/23 16:04 Insulin Aspart (Insulin Aspart Per Unit Charge) 0 units SC ACHS [facility] Stop: 06/15/23 16:29 Last Admin: 05/18/23 08:10 Dose: Not Given Levothyroxine Sodium (Levothyroxine Sodium 150 Mcg Tablet) 150 mcg PO DAILYBB [facility] Stop: 06/16/23 06:29 Last Admin: 05/18/23 06:03 Dose: 150 mcg Magnesium Oxide (Magnesium Oxide 400 Mg Tab) 400 mg PO DAILY [facility] Stop: 06/16/23 08:59 Last Admin: 05/18/23 08:13 Dose: 400 mg Metoprolol Succinate (Metoprolol Succ 50mg Ext Rel Tab) 100 mg PO BID SUZANNE Stop: 06/15/23 20:59 Last Admin: 05/18/23 11:10 Dose: Not Given Miscellaneous (Carbohydrates For Hypoglycemia ) 15 - 30 gm PO UD PRN PRN Reason: Hypoglycemia Protocol Stop: 06/15/23 16:04 Last Admin: 05/18/23 03:07 Dose: 15 gm Miscellaneous Information (Pharmacy Glycemic Mgmt Consult) 1 each N/A UD PRN PRN Reason: Consult Stop: 06/15/23 16:04 Nitroglycerin (Nitroglycerin Sl 0.4 Mg/Tab Tab) 0.4 mg SL Q5M PRN PRN Reason: Chest Pain Stop: 06/15/23 16:04 Pantoprazole Sodium (Pantoprazole 40 Mg Tab) 40 mg PO DAILY SUZANNE Stop: 06/16/23 08:59 Last Admin: 05/18/23 08:13 Dose: 40 mg Simvastatin (Simvastatin 40 Mg Tab) 40 mg PO DAILY [facility] Stop: 06/16/23 08:59 Last Admin: 05/18/23 08:12 Dose: 40 mg (1) Chest pain Chest pain type: unspecified Qualified Code(s): R07.9 - Chest pain, unspecified
[2023-05-18] MEDS: INSULIN ASPART PER UNIT CHARGE SC SCH ×2 (08:10→12:00)
[2023-05-18] MEDS: SIMVASTATIN 40 MG TAB PO SCH (08:12)
[2023-05-18] MEDS: PANTOprazole 40 MG TAB PO SCH (08:13)
[2023-05-18] MEDS: MAGNESIUM OXIDE 400 MG TAB PO SCH (08:13)
[2023-05-18] MEDS: ASPIRIN 81 MG ECTAB PO SCH (08:13)
--- NOTE | 2023-05-18 08:25 | Discharge Summary ---
Discharge Summary Date of Service May 18, 2023 Notes For Next Care Provider Repeat BMP next week Medication Changes From Visit Captopril discontinued Lisinopril started Nitro started prn chest pain for home Admission HPI Per Admitting Provider Barry is a 83-year-old male with past medical history of hypertension, DM2, hyperlipidemia, hypothyroidism who presents for substernal chest pain radiating into the neck. Symptoms did improve with nitro. He has a history of A-fib post ablation not currently on a anticoagulant. Ray reports he was getting ready to go out this morning when he had some substernal chest pain. Walked to the car and 'chest started hurting like crazy.' Pain eased up post 1x SL nitro, then resolved after getting a baby aspirin in the ER. Chest pain free in the emergency department. +shortness of breath and diaphoresis with episode. Was present slightly when waking up, but much worse with exertion. Pain was there at some level at least for 1-2 hours. Had a similar episode 'long long time ago, many years ago.' Has one heart stent at [facility], does not have his stent card but knows he has one stent. Takes a baby aspirin every day,. No history of heart failure Has a history of Afib, s/p ablation no problems since this was done. Ablation was done by [facility] Reviewed home medications. Patient took medicines this morning. His home med list is as follows Toujeo insulin 80 units AM, mag BID, aspirin 81 AM, captopril 50mg HS, simvastatin 40mg hs, b12 1000mcg am, synthroid 150mcg AM, PPI 20mg hs, metoprolol succinate 100mg BID, metformin 1g BID, carbidopa/levodopa 200 AM/noon/PM Hx of Parkinsons: NO tremor at rest w/ sinemet, but still has hard time holding a glass or with intentional movements. Medical History: Reviewed Medications: Reviewed Surgical History: Reviewed Family history: Reviewed Allergies: Reviewed Social History: Former smoker, etoh. No tobacco. Code Status: Conditional code Admission Exam Per Admitting Provider General: A&Ox3. NAD. Cooperative. HEENT: Atraumatic, normocephalic. Vision/hearing grossly intact Pulm: CTAB A&P. -wheezes, -rales, -rhonchi. Symmetrical chest rise. No increased work of breathing. No respiratory distress. JVD is not present Cardiac: RRR, -mrg. Radial pulses intact and symmetrical. Abdominal: Nontender, nondistended, soft. BS present. Extremities: Warm, dry. Moving all extremities equally. Sensation intact in hands and feet without deficit or asymmetry. No edema as per. Patient able to hold hand still without appreciable tremor, however with intentional movement does have induction of a slight resting tremor. Cogwheeling at the elbow is present bilaterally on passive elbow flexion/extension Principal Dx & Hospital Course #1 = Principal Diagnosis (1) Unstable angina: Morning presentation 05/16 he woke up with slight dull substernal chest pain, subsequently with activity/ambulation this did worsen and was associated with diaphoresis and shortness of breath. This worsened walking to his car to come to the ER, significantly improved with the nitro and then resolved in the ER following aspirin administration. Denies anginal symptoms in the last few weeks/months other than this. Reports overall the pain lasted for at least several hours, was a dull onset when he woke up around 730 and did not resolve completely until arriving in the ER and aspirin was given at 1150 EKG: Normal sinus rhythm, QTc 440. No acute territorial ST or T wave changes Last cardiology [place] available for review [place]2021 [place] [facility] [place] Noted to have atypical chest discomfort in 2019. Left circumflex stent 2000. Stress test 11/2020 negative for ischemia, LV 55-60% which augmented to 74% - Troponin trend negative - Chest x-ray: Cardiomegaly, no active disease of the chest - Cardiology consulted, catheterization fortunately without any stentable disease, no in-stent stenosis - Lipid panel with LDL 54, continue simvastatin - Appreciate recommendations of cardiology Dr. Thomas (2) Chest pain: (3) CAD (coronary artery disease): (4) History of coronary artery stent placement: (5) Type 2 diabetes mellitus with insulin therapy: - Resume home medications - Last A1C <7%, well controlled (6) HTN (hypertension): - Captopril 25mg BID discontinued in favor of lisinopril 20mg daily, repeat BMP in 1 week Metoprolol continued No ROJAS on admission Normotensive on admission Plan Parkinson's dz - Continue Sinemet - No acute change in management at this time GERD - Continue PPI - DDx includes GERD, lower suspicion for this due to improvemnt post nitro and ASA & with diaphoresis/shortness of breath with pain and risk factors - Denies bleeding/melena Hypothyroidism - Continue Synthroid Discharge Exam Constitutional WD/WN, vitals as above Respiratory normal respiratory effort, lungs clear to auscultation Cardiovascular RRR, no murmur, no edema Psychiatric A+Ox3, euthymic affect Updated Medication List Medication Instructions Recorded Confirmed Type aspirin 81 mg tablet,delayed 81 mg PO DAILY 10/23/18 05/16/23 History release (Aspir-) pen needle, diabetic 32 gauge x #50 ea 06/18/19 05/02/23 Rx 1/4" (BD Ultra-Fine Micro Pen Needle) magnesium oxide 800 mg PO DAILY #60 caps 10/09/19 05/16/23 Rx cyanocobalamin (vitamin B-12) 1,000 mcg PO DAILY #90 caps 02/21/22 05/16/23 Rx 1,000 mcg capsule simvastatin 40 mg tablet 40 mg PO DAILY #90 tabs 07/31/22 05/16/23 Rx levothyroxine 150 mcg tablet 150 mcg PO DAILY #90 tabs 10/24/22 05/16/23 Rx metoprolol succinate 100 mg 100 mg PO BID #180 tabs 10/24/22 05/16/23 Rx tablet,extended release 24 hr (Toprol XL) omeprazole 20 mg capsule,delayed 20 mg PO DAILY #90 caps 12/11/22 05/16/23 Rx release metformin 1,000 mg tablet 1,000 mg PO BID #180 tabs 04/02/23 05/16/23 Rx blood sugar diagnostic (Accu-Chek #300 ea 05/04/23 05/04/23 Rx Guide test strips) blood-glucose meter (Accu-Chek #1 ea 05/04/23 05/04/23 Rx Guide Glucose Meter) lancets (Accu-Chek Softclix #300 ea 05/04/23 05/04/23 Rx Lancets) carbidopa 25 mg-levodopa 100 1 tab PO .7AM, 11AM AND 5PM 05/16/23 05/16/23 History mg-entacapone 200 mg tablet insulin glargine U-300 conc 300 90 unit subcut DAILY 05/16/23 05/16/23 History unit/mL (1.5 mL) subcutaneous pen (Toujeo SoloStar U-300 Insulin) lisinopril 20 mg tablet 20 mg PO QAM 30 days #30 tabs 05/18/23 Rx nitroglycerin 0.4 mg sublingual 0.4 mg sublingual Q5M PRN chest 05/18/23 Rx tablet (Nitrostat) pain #14 tabs Hospital Stay Data Consultations 05/16/23 13:48 ED Decision to Admit Stat 05/16/23 14:40 Consult Cardiology Routine Procedures Performed Operation Date: 05/17/23 14:30 Actual Procedures p Cath, Coronaries ONLY (no LV) - Rivera Fragoso MD, PhD s Cineradiography w/Routine Exam - Rivera Fragoso MD, PhD Diagnostic Imagining Performed 05/17/23 14:21 CL Cath Imgs for PACS use only Stat Discharge Instructions Given to Patient (Per Discharging Provider) You were admitted for evaluation of chest pain. Did not need a new stent for your chest pain. Follow up with your Seismograph Operator Helper. Medication changes: STOP captopril START lisinopril START nitroglycerin one under the tongue as needed for chest pain. Call your doctor if needing these frequently, and go to ER if chest pain not resolving after up to 3 tablets. CONTINUE all other medications, see list below Medication sent to [facility] Total Time Total Time Spent Total Time Spent (In Minutes): 35 min Coding Level of Care Code 91638 INP/OBS DISCH >30 MIN Diagnoses Unstable angina I20.0 Chest pain R07.9 Chest pain type: unspecified CAD (coronary artery disease) I25.10 History of coronary artery stent placement Z95.5 Type 2 diabetes mellitus with insulin therapy E11.9; Z79.4 HTN (hypertension) I10
[2023-05-18] MEDS: METOPROLOL SUCC 50MG EXT REL TAB PO SCH (11:10)
[2023-05-18] MEDS ORDERED: NITROGLYCERIN 0.3 MG/1 TAB 100 TAB BTL SL PRN (11:54)
--- NOTE | 2023-05-18 13:50 | Pharmacy Report ---
Pharmacy Glycemic Short Note 2 - Date of Service May 18, 2023 - Glycemic Short BSG Results (Last 24 hours): 05/17/23 05/17/23 05/17/23 16:21 16:23 16:39 Glucose POC Glucose 64 L* 63 L* 64 L* 05/17/23 05/17/23 05/18/23 17:06 20:13 02:40 Glucose POC Glucose 73 143 H 59 L* 05/18/23 05/18/23 05/18/23 03:01 03:22 05:39 Glucose 89 POC Glucose 66 L* 88 05/18/23 05/18/23 07:11 11:10 Glucose POC Glucose 97 168 H OUTPATIENT ANTIDIABETIC REGIMEN: * Metformin * Toujeo 90 units SC daily (taken 05/16 per med history) * HbA1c 6.7% on 10/10/22. Repeat ordered for 05/18/23. ASSESSMENT: 05/18: * Patient received 30 units of basal and 3 units of bolus insulin yesterday. * BSGs yesterday were 31-03-35-143 mg/dl. Overnight, patient became hypoglycemic at 55 mg/dl. Fasting BSG today AM was 89 mg/dl. * Since the hypoglycemia occurred most likely from the basal insulin, will reduce basal dosing for tonight and only give a max of 15 units if BSG is above 180 mg/dl. * Novolog parameters loosened as well. 05/17/23: * 83 yo M admitted with unstable angina yesterday PM and NPO / going to research laboratory technician today * BSG's have ranged 73-114 mg/dL with no insulin administered as an inpatient. Patient still NPO. Will hold off on insulin until after research laboratory technician. Anticipate outpatient Toujeo covers significant CHO and also anticipate that effects will persist longer than most basal insulins due to longer t1/2. Will therefore base PM Lantus dose as an inpatient on diet status and BSG. Will not be aggressive. * Initiate Novolog based on weight-based moderate stress estimate (note - this is also the same as an estimate using 90 units of total daily insulin which is c/w outpatient regimen) PLAN FOR INPATIENT GLYCEMIC CONTROL: * Hold outpatient oral diabetes medications * Basal insulin * Lantus 0-15 units SQ at HS based on BSG * Bolus insulin * NovoLog per scale ACHS or Q6hrs while NPO * Goal Range: Low 110 mg/dL - High 140 mg/dL * Correction Factor: 30 mg/dL/unit * Nutritional / Prandial insulin per carb ratio of 1 unit per 10 grams CHO consumed
[2023-05-18] MEDS ORDERED: LANTUS PER UNIT CHARGE SC SCH (21:00)
[2023-05-19] MEDS ORDERED: lisinopril 20 MG TAB PO SCH (09:00)
== END 2023-05-18 13:59 | disposition home or self-care (01) ==
LOC: 2S 11:38 → ED 11:38 → SUATTDRO 14:37 → 2S 15:49
PROC: CLB.CCO (2023-05-17 14:30)

== ENCOUNTER 2023-05-22 16:03 | Observation (INO) ==
--- NOTE | 2023-05-22 16:28 | XRay Report ---
XR chest 1V portable HISTORY: 83 years-old Male Chest pain, nonspecific COMPARISON: 05/16/2023 TECHNIQUE: AP view the chest FINDINGS: Cardiac mediastinal and hilar silhouettes are within normal limits. No pneumothorax, pleural effusion , airspace consolidation or pulmonary edema. Mild scarring versus atelectasis of the lateral left masha g base. Bones appear grossly intact. IMPRESSION: No acute process. ACT 112: Negative or not required by law. The above report was generated using voice recognition software. It may contain grammatical, syntax o r spelling errors. Electronically signed by: Duarte Haji M.D. 05/22/2023 4:26 PM
[2023-05-22] MEDS ORDERED: SODIUM CHLORIDE 0.9% 1000ML 1,000 ML IV ONE (16:29)
[2023-05-22] MEDS ORDERED: METOPROLOL TARTRATE 1 MG/ML VIAL IV PRN (16:29)
[2023-05-22] MEDS ORDERED: ASPIRIN CHEW 324 MG PO STA (16:30)
--- NOTE | 2023-05-22 16:30 | Emergency Department Note ---
Impression & Plan Atrial fibrillation with rapid ventricular response, Chest pain ED Provider Note NAME: RICARDO WATERS AGE: 83 SEX: M : 1940 ARRIVES VIA: Walk-In INFORMANT: Patient ED PROVIDER(S): Kapil Lares DO CHIEF COMPLAINT: chest pain HPI: Patient is an 83-year-old male with a past medical history of CAD, diabetes, previous stent who presents to the ER for midsternal chest pain which is sharp and stabbing He notes symptoms started around 2 PM when he became dizzy. When he got home about an hour and a half ago he started having sharp stabbing midsternal chest pain. He admits to some shortness of breath. No belly pain, nausea, vomiting, or diarrhea. No dysuria, urgency, or frequency. No other exacerbating or remitting factors. PAST MEDICAL HISTORY:See Below PAST SURGICAL HISTORY:See Below FAMILY HISTORY:See Below SOCIAL HISTORY:See Below HOME MEDICATIONS:See Below ALLERGIES:See Below VITALS:See Below PHYSICAL EXAMINATION: GENERAL: Sitting up in bed, alert, ill-appearing, diaphoretic holding his chest EYE EXAM: normal conjunctiva. PERRL and EOM's grossly intact. OROPHARYNX: no exudate, no erythema, lips, buccal mucosa, and tongue normal and mucous membranes are moist NECK: supple, no nuchal rigidity, no adenopathy, non-tender LUNGS: Clear to auscultation. Normal chest wall mechanics HEART: Tachycardic, S1 normal and S2 normal ABDOMEN: abdomen soft, non-tender, normo-active bowel sounds, no masses, no rebound or guarding. UPPER EXTREMITIES: upper extremities are grossly normal. LOWER EXTREMITIES: No pitting edema. NEURO EXAM: Normal sensorium, cranial nerves II-XII grossly intact, normal speech, no gross weakness of arms, no gross weakness of legs. MEDICAL DECISION MAKING: Patient is an 83-year-old male who presents ER for above-stated complaint. IV was established blood work is obtained. External records reviewed. I was called to the trauma bay and a 1 to evaluate the patient. He was found to be a tachycardic with heart rate in the 150s and blood pressures in the 120s although one reading was in the 60s and I do favor this is poor positioning of the cuff. Labs show a mild leukocytosis of 12,000. Hemoglobin at 12. INR unremarkable. BMP with a creatinine of 1.4. LFTs bilirubin was unremarkable. Troponin was negative. EKG consistent with A-fib with RVR. He was given a dose of Lopressor 2.5 mg as he was bumping in and out of A-fib with RVR. Following this he held in a sinus rhythm. He was updated bedside. Discussed with the hospitalist Dr. Stan Bourgeois for further evaluation management treatment. Triage Nursing notes reviewed. Limited review of prior medical records performed Vital Signs: reviewed and remarkable for Tachy Differential diagnosis: Cardiac ischemia, aortic dissection, pulmonary embolism, pneumothorax, pneumonia, pericarditis, myocarditis, esophageal rupture, GERD, cholecystitis, pancreatitis, musculoskeletal, as well as other pathologies. ER treatment provided: See below Diagnostics interpreted by me include EKG and cardiac monitoring as listed below: -Cardiac Monitoring: An order was placed for continuous cardiac monitoring. The monitor shows a rate of 149 with A-fib with RVR rhythm. -ECG: A-fib RVR rate of 140 Left axis No PVCs QTc 476 -Laboratory studies:Interpreted by me as stated above in MDM and shown below. Imaging studies: Xrays: As interpreted by me: Portable AP upright 1 view of the chest shows no focal infiltrate CTs show: none Consultation(s): As described in MDM Procedures:none Critical Care: None Past Med/Surg History Medical History Atherosclerosis Atrial fibrillation Diabetes mellitus HTN (hypertension) Hypothyroidism Lung disease, obstructive Pleural effusion Surgical History History of back surgery History of cholecystectomy History of heart surgery History of tonsillectomy Family History Mother Heart disease Uncle Myocardial infarction Denies family history of Ovarian cancer Prostate cancer Breast cancer Colorectal cancer Social History Smoking Status: Never smoker Second Hand Exposure: No; Do You Dip or Chew Tobacco: No; Hx Alcohol Use: No Hx Substance Use: No Preferred Language: Macedonian Communication Ability: Effective Hearing Ability: Use of Hearing Aid Workgroup Leader Required: No Beliefs That Will Affect Care: None marital status: Current Living Situation: Spouse current occupational status: retired How many Children do You have: 3 Feels Safe at Home: Yes Childhood Exposure to Second-Hand Smoke: Yes Diet: regular caffeine: Yes Dental Care, Regularly: No Physical Activity Frequency: Does not Exercise Seatbelt Use: always Sunscreen Use: Yes (sometimes) Assistive Devices: Cane and Walker Allergies Allergies Allergy/AdvReac Type Severity Reaction Status Date / Time polyethylene glycol Allergy Severe GOLYTELY, Verified 05/16/23 14:40 BREATHING DIFFICULTY, THROAT SWELLED doxazosin Allergy Intermediate LUNG Verified 05/16/23 14:40 PROBLEMS, WHEEZING heparin Allergy Intermediate FACE Verified 05/16/23 14:40 SWELLING AND HIVES bee venom protein (honey bee) Allergy Unknown Unknown Verified 05/16/23 14:40 cardura tabs Allergy Severe Difficulty Uncoded 05/16/23 14:40 Breathing Home Meds Home Medications Medication Instructions Recorded Confirmed carbidopa 25 mg-levodopa 100 1 tab PO .7AM, 11AM AND 5PM 05/16/23 05/22/23 mg-entacapone 200 mg tablet insulin glargine U-300 conc 300 90 unit subcut DAILY 05/16/23 05/22/23 unit/mL (1.5 mL) subcutaneous pen (Toujeo SoloStar U-300 Insulin) aspirin 81 mg tablet,delayed 81 mg PO DAILY 05/22/23 05/22/23 release Previous Rx's Medication Instructions Recorded pen needle, diabetic 32 gauge x #50 ea 06/18/19 1/4" (BD Ultra-Fine Micro Pen Needle) magnesium oxide 800 mg PO DAILY #60 caps 10/09/19 cyanocobalamin (vitamin B-12) 1,000 mcg PO DAILY #90 caps 02/21/22 1,000 mcg capsule simvastatin 40 mg tablet 40 mg PO DAILY #90 tabs 07/31/22 levothyroxine 150 mcg tablet 150 mcg PO DAILY #90 tabs 10/24/22 metoprolol succinate 100 mg 100 mg PO BID #180 tabs 10/24/22 tablet,extended release 24 hr (Toprol XL) omeprazole 20 mg capsule,delayed 20 mg PO DAILY #90 caps 12/11/22 release metformin 1,000 mg tablet 1,000 mg PO BID #180 tabs 04/02/23 blood sugar diagnostic (Accu-Chek #300 ea 05/04/23 Guide test strips) blood-glucose meter (Accu-Chek #1 ea 05/04/23 Guide Glucose Meter) lancets (Accu-Chek Softclix #300 ea 05/04/23 Lancets) lisinopril 20 mg tablet 20 mg PO QAM 30 days #30 tabs 05/18/23 nitroglycerin 0.4 mg sublingual 0.4 mg sublingual Q5M PRN chest 05/18/23 tablet (Nitrostat) pain #14 tabs Results & Data (ED) Vital Signs Vital Signs - 24 hr 05/22/23 16:05 05/22/23 16:30 05/22/23 16:37 Temperature 36.9 C Temperature Source Temporal Artery Scan Pulse Rate 120 H Pulse Rate [Right Finger] 112 H Pulse Rhythm [Right Finger] Pulse Strength [Right Finger] Respiratory Rate 20 20 Respiratory Effort / Characteristics Non-Labored Respiratory Depth Normal Respiratory Pattern Blood Pressure 110/56 L 127/69 Blood Pressure [Right Arm] 67/50 L Blood Pressure Mean 74 Blood Pressure Mean [Right Arm] 55 Pulse Oximetry 95 92 Oxygen Delivery Method Room Air Room Air Sepsis Recent Fever Within 48 Hours No Sepsis New/Unexplained Change in Mental Status N/A Sepsis Action Taken by Nursing No Action Required 05/22/23 16:37 05/22/23 16:22 05/22/23 16:43 Temperature Temperature Source Pulse Rate 130 H Pulse Rate [Right Finger] 117 H Pulse Rhythm [Right Finger] Pulse Strength [Right Finger] Respiratory Rate 20 Respiratory Effort / Characteristics Respiratory Depth Respiratory Pattern Blood Pressure Blood Pressure [Right Arm] 127/69 Blood Pressure Mean Blood Pressure Mean [Right Arm] 88 Pulse Oximetry 94 94 Oxygen Delivery Method Room Air Room Air Sepsis Recent Fever Within 48 Hours Sepsis New/Unexplained Change in Mental Status Sepsis Action Taken by Nursing 05/22/23 16:43 05/22/23 16:51 05/22/23 16:55 Temperature Temperature Source Pulse Rate 76 Pulse Rate [Right Finger] 86 76 Pulse Rhythm [Right Finger] Pulse Strength [Right Finger] Respiratory Rate 16 16 Respiratory Effort / Characteristics Respiratory Depth Respiratory Pattern Blood Pressure Blood Pressure [Right Arm] 131/79 Blood Pressure Mean Blood Pressure Mean [Right Arm] 96 Pulse Oximetry 94 97 Oxygen Delivery Method Room Air Room Air Sepsis Recent Fever Within 48 Hours Sepsis New/Unexplained Change in Mental Status Sepsis Action Taken by Nursing 05/22/23 17:03 05/22/23 17:03 Temperature Temperature Source Pulse Rate Pulse Rate [Right Finger] 78 Pulse Rhythm [Right Finger] Regular Pulse Strength [Right Finger] Normal Respiratory Rate 20 Respiratory Effort / Characteristics Non-Labored Spontaneous Respiratory Depth Normal Respiratory Pattern Regular Blood Pressure Blood Pressure [Right Arm] 137/90 Blood Pressure Mean Blood Pressure Mean [Right Arm] 105 Pulse Oximetry 95 Oxygen Delivery Method Room Air Room Air Sepsis Recent Fever Within 48 Hours Sepsis New/Unexplained Change in Mental Status Sepsis Action Taken by Nursing Laboratory Data 05/22/23 16:11 05/22/23 16:11 Lab Results 05/22/23 05/22/23 05/22/23 Range/Units 16:11 16:11 16:11 WBC 12.42 H (4.8-10.8) K/ul RBC 4.55 L (4.70-6.10) M/uL Hgb 12.2 L (14.0-18.0) g/dl POC Hgb (14.0-18.0) g/dl Hct 37.6 L (42.0-52.0) % POC Hct (42-52) % MCV 82.6 (80.0-100.0) fL MCH 26.8 (25.0-34.0) pg MCHC 32.4 (32.0-36.0) g/dL RDW Std Deviation 47.8 H (36.4-46.3) fL RDW Coeff of Chelita 15.9 H (11.5-14.5) % Plt Count 329 (130-400) K/uL MPV 11.0 (9.4-12.4) fL Immature Gran % (Auto) 0.4 % Neut % (Auto) 59.2 % Lymph % (Auto) 30.9 % [place] % (Auto) 7.3 % Eos % (Auto) 1.6 % Baso % (Auto) 0.6 % Neut # (Auto) 7.34 H (1.40-6.50) K/uL Lymph # (Auto) 3.84 H (1.2-3.4) K/uL [place] # (Auto) 0.91 H (0.11-0.59) K/uL Eos # (Auto) 0.20 (0-0.50) K/uL Baso # (Auto) 0.08 (0-0.2) K/uL Immature Gran # (Auto) 0.05 (0.01-0.20) K/uL PT 10.8 (9.0-12.0) Seconds INR 1.0 (0.9-1.1) APTT 25.9 (21.0-31.0) Seconds PTT Ratio 0.9 POC Sodium (135-144) mmol/L Sodium 138 (136-145) mmol/L POC Potassium (3.3-5.0) mmol/L Potassium 3.7 (3.5-5.1) mmol/L POC Chloride (101-112) mmol/L Chloride 103 (98-107) mmol/L Carbon Dioxide 23 (21-32) mmol/L POC Total CO2 (24-31) mmol/L Anion Gap 12 H (3-11) POC Anion Gap (16-25) mmol/L POC BUN (7-18) mg/dl BUN 13 (6-23) mg/dl Creatinine 1.42 H (0.6-1.4) mg/dl POC Creatinine (0.6-1.3) mg/dl Est Cr Clr Drug Dosing 51.0 ml/min Est GFR ( Amer) 53.3 ml/min Est GFR (Non-Af Amer) 46.0 ml/min BUN/Creatinine Ratio 9.2 L (10-20) Glucose 152 H (70-99(Fasting)) mg/dl POC Glucose (other) (70-99) mg/dl Calcium 9.4 (8.6-10.3) mg/dl POC Ioniz Calcium [place] (1.12-1.32) mmol/l Total Bilirubin 0.4 (0.2-1.0) mg/dl AST 21 (13-39) U/L ALT 12 (7-52) U/L Alkaline Phosphatase 64 (34-104) U/L Troponin I High Sens 12.0 (0-20) pg/ml Total Protein 7.2 (6.0-8.3) gm/dl Albumin 4.2 (3.4-5.0) gm/dl Globulin 3.0 (2.5-4.0) gm/dl Albumin/Globulin Ratio 1.4 (0.9-2) 05/22/23 Range/Units 16:37 WBC (4.8-10.8) K/ul RBC (4.70-6.10) M/uL Hgb (14.0-18.0) g/dl POC Hgb 13.3 L (14.0-18.0) g/dl Hct (42.0-52.0) % POC Hct 39 L (42-52) % MCV (80.0-100.0) fL MCH (25.0-34.0) pg MCHC (32.0-36.0) g/dL RDW Std Deviation (36.4-46.3) fL RDW Coeff of Chelita (11.5-14.5) % Plt Count (130-400) K/uL MPV (9.4-12.4) fL Immature Gran % (Auto) % Neut % (Auto) % Lymph % (Auto) % [place] % (Auto) % Eos % (Auto) % Baso % (Auto) % Neut # (Auto) (1.40-6.50) K/uL Lymph # (Auto) (1.2-3.4) K/uL [place] # (Auto) (0.11-0.59) K/uL Eos # (Auto) (0-0.50) K/uL Baso # (Auto) (0-0.2) K/uL Immature Gran # (Auto) (0.01-0.20) K/uL PT (9.0-12.0) Seconds INR (0.9-1.1) APTT (21.0-31.0) Seconds PTT Ratio POC Sodium 138 (135-144) mmol/L Sodium (136-145) mmol/L POC Potassium 3.6 (3.3-5.0) mmol/L Potassium (3.5-5.1) mmol/L POC Chloride 102 (101-112) mmol/L Chloride (98-107) mmol/L Carbon Dioxide (21-32) mmol/L POC Total CO2 21 L (24-31) mmol/L Anion Gap (3-11) POC Anion Gap 19.0 (16-25) mmol/L POC BUN 11 (7-18) mg/dl BUN (6-23) mg/dl Creatinine (0.6-1.4) mg/dl POC Creatinine 1.4 H (0.6-1.3) mg/dl Est Cr Clr Drug Dosing ml/min Est GFR ( Amer) ml/min Est GFR (Non-Af Amer) ml/min BUN/Creatinine Ratio (10-20) Glucose (70-99(Fasting)) mg/dl POC Glucose (other) 147 H (70-99) mg/dl Calcium (8.6-10.3) mg/dl POC Ioniz Calcium [place] 1.11 L (1.12-1.32) mmol/l Total Bilirubin (0.2-1.0) mg/dl AST (13-39) U/L ALT (7-52) U/L Alkaline Phosphatase (34-104) U/L Troponin I High Sens (0-20) pg/ml Total Protein (6.0-8.3) gm/dl Albumin (3.4-5.0) gm/dl Globulin (2.5-4.0) gm/dl Albumin/Globulin Ratio (0.9-2) Administered Medications Metoprolol Tartrate (Metoprolol Tartrate 1 Mg/Ml Vial) 5 mg IV Q5M PRN PRN Reason: Tachycardia Stop: 06/21/23 16:28 Last Admin: 05/22/23 16:37 Dose: 2.5 mg Documented By: ASW Discontinued Medications Aspirin (Aspirin Chew 324 Mg) 324 mg PO NOW STA Stop: 05/22/23 16:31 Last Admin: 05/22/23 16:37 Dose: 324 mg Documented By: CKW Sodium Chloride (Nss 1000ml) 1,000 mls @ 999 mls/hr IV .Q1H1M ONE Stop: 05/22/23 17:29 Last Admin: 05/22/23 16:37 Dose: 999 mls/hr Documented By: ASW Imaging Data Radiologist's Impression: Chest X-Ray 05/22/23 16:07 XR chest 1V portable HISTORY: 83 years-old Male Chest pain, nonspecific COMPARISON: 05/16/2023 TECHNIQUE: AP view the chest FINDINGS: Cardiac mediastinal and hilar silhouettes are within normal limits. No pneumothorax, pleural effusion, airspace consolidation or pulmonary edema. Mild scarring versus atelectasis of the lateral left lung base. Bones appear grossly intact. IMPRESSION: No acute process. ACT 112: Negative or not required by law. The above report was generated using voice recognition software. It may contain grammatical, syntax or spelling errors. Electronically signed by: Duarte Haji M.D. 05/22/2023 4:26 PM Discharge Plan Visit Data Chief Complaint: Chest Pain Stated Complaint: HEART ATTACK,DIZZY,CHEST PAIN ED Provider: Kapil Lares Discharge Problem: Atrial fibrillation with rapid ventricular response, Chest pain Forms Stand Alone Forms: My [facility] Prescriptions Prescriptions: No Action magnesium oxide 400 mg magnesium capsule 800 mg PO DAILY Qty: 60 0RF simvastatin 40 mg tablet 40 mg PO DAILY Qty: 90 1RF levothyroxine 150 mcg tablet 150 mcg PO DAILY Qty: 90 1RF metoprolol succinate [Toprol XL] 100 mg tablet extended release 24 hr 100 mg PO BID Qty: 180 1RF omeprazole 20 mg capsule,delayed release(DR/EC) 20 mg PO DAILY Qty: 90 1RF metformin 1,000 mg tablet 1,000 mg PO BID Qty: 180 3RF (DME) Accu-Chek Guide test strips Strip See Rx Instructions .Route Qty: 300 1RF Rx Instructions: TEST BSGS 3 TIMES DAILY; DX CODE- E11.9 (DME) blood-glucose meter [Accu-Chek Guide Glucose Meter] Misc See Rx Instructions .Route Qty: 1 0RF Rx Instructions: TEST BSGS 3 TIMES DAILY; DX CODE- E11.9 (DME) lancets [Accu-Chek Softclix Lancets] Misc See Rx Instructions .Route Qty: 300 1RF Rx Instructions: TEST BSGS 3 TIMES DAILY; DX CODE- E11.9 (DME) pen needle, diabetic [BD Ultra-Fine Micro Pen Needle] 32 gauge x 1/4" needle See Dose Instructions .ROUTE .MEDSUPPLY Qty: 50 0RF Dose Instruction: As directed Rx Instructions: As directed cyanocobalamin (vitamin B-12) 1,000 mcg capsule 1,000 mcg PO DAILY Qty: 90 1RF Toujeo SoloStar U-300 Insulin 300 unit/mL (1.5 mL) insulin pen 90 unit subcut DAILY [id number] 25-100-200 mg tablet 1 tab PO .7AM, 11AM AND 5PM lisinopril 20 mg Tablet 20 mg PO QAM 30 Days Qty: 30 0RF nitroglycerin [Nitrostat] 0.4 mg Tablet, Sublingual 0.4 mg sublingual Q5M PRN (Reason: chest pain) Qty: 14 0RF Rx Instructions: Go to ER if chest pain does not resolve with taking nitro, can take up to 3 in a 15 minute period aspirin [Aspirin Low-Strength] 81 mg Tablet,Delayed Release (Dr/Ec) 81 mg PO DAILY Referrals Referrals: Kacy Russo MD [Primary Care Provider] -
[2023-05-22 16:36] LABS: Basophils # (auto) 0.08 K/uL (0-0.2); Basophils % (auto) 0.6 %; Eosinophils % (auto) 1.6 %; Hematocrit (blood only) 37.6 % (42.0-52.0); Hemoglobin 12.2 g/dl (14.0-18.0); Immature Granulocytes # (auto) 0.05 K/uL (0.01-0.20); Immature Granulocytes % (auto) 0.4 %; Lymphocytes # (auto) 3.84 K/uL (1.2-3.4); Lymphocytes % (auto) 30.9 %; Mean Corpuscular Hemoglobin 26.8 pg (25.0-34.0); Mean Corpuscular Hgb Conc 32.4 g/dL (32.0-36.0); Mean Corpuscular Volume 82.6 fL (80.0-100.0); Monocytes # (auto) 0.91 K/uL (0.11-0.59); Monocytes % (auto) 7.3 %; Neutrophils # (auto) 7.34 K/uL (1.40-6.50); Neutrophils % (auto) 59.2 %; Platelet Count 329 K/uL (130-400); RDW Coefficient of Variation 15.9 % (11.5-14.5); RDW Standard Deviation 47.8 fL (36.4-46.3); Red Blood Count 4.55 M/uL (4.70-6.10); White Blood Count 12.42 K/ul (4.8-10.8)
[2023-05-22 16:50] LABS: iSTAT Creatinine 1.4 mg/dl (0.6-1.3); iSTAT Hemoglobin 13.3 g/dl (14.0-18.0); iSTAT Ionized Calcium 1.11 mmol/l (1.12-1.32); iSTAT Potassium 3.6 mmol/L (3.3-5.0)
[2023-05-22 16:54] LABS: Albumin Globulin Ratio 1.4 (0.9-2); Albumin Level 4.2 gm/dl (3.4-5.0); BUN Creatinine Ratio 9.2 (10-20); Bilirubin,Total 0.4 mg/dl (0.2-1.0); Calcium 9.4 mg/dl (8.6-10.3); Est GFR (African American) 53.3 ml/min; Potassium 3.7 mmol/L (3.5-5.1); Total Protein 7.2 gm/dl (6.0-8.3)
[2023-05-22 17:03] LABS: Partial Thromboplastin Ratio 0.9; Partial Thromboplastin Time 25.9 Seconds (21.0-31.0); Prothrombin Time 10.8 Seconds (9.0-12.0)
[2023-05-22] MEDS ORDERED: POTASSIUM CHLORIDE CRTAB 20 MEQ TABCR PO ONE (19:19)
[2023-05-22 20:54] LABS: Magnesium 1.3 mg/dl (1.7-2.4)
--- NOTE | 2023-05-22 21:01 | History & Physical Report ---
Date of Service May 22, 2023 Assessment & Plan (1) Atrial fibrillation with rapid ventricular response: (2) Unstable angina: (3) Type 2 diabetes mellitus with insulin therapy: (4) History of coronary artery stent placement: (5) CAD (coronary artery disease): (6) Hypothyroidism: (7) Hyperlipidemia: (8) Diabetes mellitus: (9) HTN (hypertension): Plan Atrial fibrillation with RVR/history of ablation/CAD/history of stent- Patient was most recently admitted to [facility] from 05/16-05/18/2023 for cardiac assessment. He underwent a cardiac catheterization His prior stent was widely patent, there was diffuse mild to moderate calcification in the epicardial coronaries, there was mild to moderate nonocclusive coronary disease with suggestion for guideline directed medical therapy There were no episodes of atrial fibrillation documented during that visit Potassium is 3.6, and patient will be given 40 mEq Klor-Con orally Add a magnesium level, which has been low in the past, which may be associated with the PPI omeprazole. Also as noted, patient ran out of his magnesium oxide tablets over a week ago Continue metoprolol succinate 100 mg twice daily, lisinopril 20 mg every morning, aspirin 81 mg daily Resume magnesium oxide 800 mg daily, first dose this evening Parkinson's- Continue [id number] Monitor for any autonomic dysfunction to my contribute to irregular heart rate and blood pressure control Diabetes mellitus- Continue long-acting insulin. On Toujeo 90 units subcu daily Placed on glargine 60 units subcu daily Hold metformin Placed on Accu-Cheks with NovoLog SSI History of Present Illness Chief Complaint: The patient presents to the emergency department who presents to the emergency department with acute onset of midsternal chest discomfort and shortness of breath Primary Care Provider: Kacy Russo MD The patient is an 83-year-old male with a past medical history including CAD status post stents, atrial fibrillation status post ablation, diabetes mellitus, hypothyroidism, hyperlipidemia, diabetes mellitus, hypertension and obesity. He reports upon awakening this morning he felt unwell generally, had done some activities with his today, and then ultimately returned home. Upon returning home he felt badly enough that he has supplies to bring to the hospital to be assessed. Of note, patient reports that he is not taking his magnesium orally in over a week, as he ran out and had not gone to the pharmacy yet. Upon arrival in the emergency department he was found to be in atrial fibrillation with RVR, and did receive Lopressor IV with return to normal sinus rhythm Allergies Allergy/AdvReac Type Severity Reaction Status Date / Time polyethylene glycol Allergy Severe GOLYTELY, Verified 05/16/23 14:40 BREATHING DIFFICULTY, THROAT SWELLED doxazosin Allergy Intermediate LUNG Verified 05/16/23 14:40 PROBLEMS, WHEEZING heparin Allergy Intermediate FACE Verified 05/16/23 14:40 SWELLING AND HIVES bee venom protein (honey bee) Allergy Unknown Unknown Verified 05/16/23 14:40 cardura tabs Allergy Severe Difficulty Uncoded 05/16/23 14:40 Breathing Home Medications Medication Instructions Recorded Confirmed Type pen needle, diabetic 32 gauge x #50 ea 06/18/19 05/22/23 Rx 1/4" (BD Ultra-Fine Micro Pen Needle) magnesium oxide 800 mg PO DAILY #60 caps 10/09/19 05/22/23 Rx cyanocobalamin (vitamin B-12) 1,000 mcg PO DAILY #90 caps 02/21/22 05/22/23 Rx 1,000 mcg capsule simvastatin 40 mg tablet 40 mg PO DAILY #90 tabs 07/31/22 05/22/23 Rx levothyroxine 150 mcg tablet 150 mcg PO DAILY #90 tabs 10/24/22 05/22/23 Rx metoprolol succinate 100 mg 100 mg PO BID #180 tabs 10/24/22 05/22/23 Rx tablet,extended release 24 hr (Toprol XL) omeprazole 20 mg capsule,delayed 20 mg PO DAILY #90 caps 12/11/22 05/22/23 Rx release metformin 1,000 mg tablet 1,000 mg PO BID #180 tabs 04/02/23 05/22/23 Rx blood sugar diagnostic (Accu-Chek #300 ea 05/04/23 05/22/23 Rx Guide test strips) blood-glucose meter (Accu-Chek #1 ea 05/04/23 05/22/23 Rx Guide Glucose Meter) lancets (Accu-Chek Softclix #300 ea 05/04/23 05/22/23 Rx Lancets) carbidopa 25 mg-levodopa 100 1 tab PO .7AM, 11AM AND 5PM 05/16/23 05/22/23 History mg-entacapone 200 mg tablet insulin glargine U-300 conc 300 90 unit subcut DAILY 05/16/23 05/22/23 History unit/mL (1.5 mL) subcutaneous pen (Kaydenujes LemusoStar U-300 Insulin) lisinopril 20 mg tablet 20 mg PO QAM 30 days #30 tabs 05/18/23 05/22/23 Rx nitroglycerin 0.4 mg sublingual 0.4 mg sublingual Q5M PRN chest 05/18/23 05/22/23 Rx tablet (Nitrostat) pain #14 tabs aspirin 81 mg tablet,delayed 81 mg PO DAILY 05/22/23 05/22/23 History release Past Med/Surg History Medical History Atherosclerosis Atrial fibrillation Diabetes mellitus HTN (hypertension) Hypothyroidism Lung disease, obstructive Pleural effusion Surgical History History of back surgery History of cholecystectomy History of heart surgery History of tonsillectomy Family History Mother Heart disease Uncle Myocardial infarction Denies family history of Ovarian cancer Prostate cancer Breast cancer Colorectal cancer Social History Smoking Status: Never smoker Second Hand Exposure: No; Do You Dip or Chew Tobacco: No; Hx Alcohol Use: No Hx Substance Use: No Preferred Language: Guinean Communication Ability: Effective Hearing Ability: Use of Hearing [facility] Specialist Required: No Beliefs That Will Affect Care: None marital status: Current Living Situation: Spouse current occupational status: retired How many Children do You have: 3 Feels Safe at Home: Yes Childhood Exposure to Second-Hand Smoke: Yes Diet: regular caffeine: Yes Dental Care, Regularly: No Physical Activity Frequency: Does not Exercise Seatbelt Use: always Sunscreen Use: Yes (sometimes) Assistive Devices: Cane and Walker Review of Systems Review of Systems: The patient denies chest pain, palpitations, cough, lower extremity swelling, sore throat, fevers, chills, sweats, nausea, vomiting, diarrhea , constipation, abdominal pain, pelvic pain, blood in urine or stool, dysuria, urinary frequency or urgency, lightheadedness, dizziness, headache, memory loss, loss of consciousness, rash, abnormal bruising or bleeding, imbalance, focal weakness, numbness or tingling in arms or legs, generalized arthralgias or myalgias, back or neck pain, or night sweats. The review of systems is otherwise negative other than for that already noted above, and at least 10 systems have been reviewed. Physical Exam Physical Exam: The patient is awake, alert and oriented 3, well developed and well nourished, normocephalic and atraumatic, lying in bed and in no acute distress. HEENT--PERRL, EOMI, mucous membranes and oropharynx mildly dry. Neck--supple. No JVD. No bruits. Thyroid normal, trachea midline, no adenopathy. Heart--normal S1 and S2. No murmurs, rubs or gallops. Lungs--clear bilaterally, no respiratory distress, no accessory muscle use. Abdomen--normal bowel sounds and soft. Nontender. Nondistended, no hernias or masses, no organomegaly. Extremities--no cyanosis or clubbing. No edema. Dermatologic--normal skin turgor, normal color, no abnormal lymph nodes, no rash. Neurologic--cranial nerves II through XII grossly intact. Rheumatologic--normal range of motion. Psychiatric--normal affect. Results & Data Results & Data Vital Signs (Past 12 Hours) Vital Signs Temp Pulse Pulse Resp BP BP Pulse Ox 05/22/23 20:00 80 17 139/74 95 05/22/23 19:00 76 19 129/70 95 05/22/23 17:03 78 20 137/90 95 05/22/23 17:03 05/22/23 16:55 76 05/22/23 16:51 76 16 131/79 97 05/22/23 16:43 86 16 94 05/22/23 16:43 94 05/22/23 16:22 130 H 05/22/23 16:37 117 H 20 127/69 94 05/22/23 16:37 127/69 05/22/23 16:30 112 H 20 67/50 L 92 05/22/23 16:05 36.9 C 120 H 20 110/56 L 95 O2 Del Method 05/22/23 20:00 Room Air 05/22/23 19:00 Room Air 05/22/23 17:03 Room Air 05/22/23 17:03 Room Air 05/22/23 16:55 05/22/23 16:51 Room Air 05/22/23 16:43 Room Air 05/22/23 16:43 Room Air 05/22/23 16:22 05/22/23 16:37 Room Air 05/22/23 16:37 05/22/23 16:30 Room Air 05/22/23 16:05 Room Air Laboratory Results Laboratory Results WBC 12.42 K/ul (4.8-10.8) H 05/22/23 16:11 RBC 4.55 M/uL (4.70-6.10) L 05/22/23 16:11 Hgb 12.2 g/dl (14.0-18.0) L 05/22/23 16:11 POC Hgb 13.3 g/dl (14.0-18.0) L 05/22/23 16:37 Hct 37.6 % (42.0-52.0) L 05/22/23 16:11 POC Hct 39 % (42-52) L 05/22/23 16:37 MCV 82.6 fL (80.0-100.0) 05/22/23 16:11 MCH 26.8 pg (25.0-34.0) 05/22/23 16:11 MCHC 32.4 g/dL (32.0-36.0) 05/22/23 16:11 RDW Std Deviation 47.8 fL (36.4-46.3) H 05/22/23 16:11 RDW Coeff of Chelita 15.9 % (11.5-14.5) H 05/22/23 16:11 Plt Count 329 K/uL (130-400) 05/22/23 16:11 MPV 11.0 fL (9.4-12.4) 05/22/23 16:11 Immature Gran % (Auto) 0.4 % 05/22/23 16:11 Neut % (Auto) 59.2 % 05/22/23 16:11 Lymph % (Auto) 30.9 % 05/22/23 16:11 Elbert % (Auto) 7.3 % 05/22/23 16:11 Eos % (Auto) 1.6 % 05/22/23 16:11 Baso % (Auto) 0.6 % 05/22/23 16:11 Neut # (Auto) 7.34 K/uL (1.40-6.50) H 05/22/23 16:11 Lymph # (Auto) 3.84 K/uL (1.2-3.4) H 05/22/23 16:11 Elbert # (Auto) 0.91 K/uL (0.11-0.59) H 05/22/23 16:11 Eos # (Auto) 0.20 K/uL (0-0.50) 05/22/23 16:11 Baso # (Auto) 0.08 K/uL (0-0.2) 05/22/23 16:11 Immature Gran # (Auto) 0.05 K/uL (0.01-0.20) 05/22/23 16:11 PT 10.8 Seconds (9.0-12.0) 05/22/23 16:11 INR 1.0 (0.9-1.1) 05/22/23 16:11 APTT 25.9 Seconds (21.0-31.0) 05/22/23 16:11 PTT Ratio 0.9 05/22/23 16:11 POC Sodium 138 mmol/L (135-144) 05/22/23 16:37 Sodium 138 mmol/L (136-145) 05/22/23 16:11 POC Potassium 3.6 mmol/L (3.3-5.0) 05/22/23 16:37 Potassium 3.7 mmol/L (3.5-5.1) 05/22/23 16:11 POC Chloride 102 mmol/L (101-112) 05/22/23 16:37 Chloride 103 mmol/L (98-107) 05/22/23 16:11 Carbon Dioxide 23 mmol/L (21-32) 05/22/23 16:11 POC Total CO2 21 mmol/L (24-31) L 05/22/23 16:37 Anion Gap 12 (3-11) H 05/22/23 16:11 POC Anion Gap 19.0 mmol/L (16-25) 05/22/23 16:37 POC BUN 11 mg/dl (7-18) 05/22/23 16:37 BUN 13 mg/dl (6-23) 05/22/23 16:11 Creatinine 1.42 mg/dl (0.6-1.4) H 05/22/23 16:11 POC Creatinine 1.4 mg/dl (0.6-1.3) H 05/22/23 16:37 Est Cr Clr Drug Dosing 51.0 ml/min 05/22/23 16:11 Est GFR ( Amer) 53.3 ml/min 05/22/23 16:11 Est GFR (Non-Af Amer) 46.0 ml/min 05/22/23 16:11 BUN/Creatinine Ratio 9.2 (10-20) L 05/22/23 16:11 Glucose 152 mg/dl (70-99(Fasting)) H 05/22/23 16:11 POC Glucose (other) 147 mg/dl (70-99) H 05/22/23 16:37 Calcium 9.4 mg/dl (8.6-10.3) 05/22/23 16:11 POC Ioniz Calcium Carolina 1.11 mmol/l (1.12-1.32) L 05/22/23 16:37 Total Bilirubin 0.4 mg/dl (0.2-1.0) 05/22/23 16:11 AST 21 U/L (13-39) 05/22/23 16:11 ALT 12 U/L (7-52) 05/22/23 16:11 Alkaline Phosphatase 64 U/L (34-104) 05/22/23 16:11 Troponin I High Sens 12.0 pg/ml (0-20) 05/22/23 16:11 Total Protein 7.2 gm/dl (6.0-8.3) 05/22/23 16:11 Albumin 4.2 gm/dl (3.4-5.0) 05/22/23 16:11 Globulin 3.0 gm/dl (2.5-4.0) 05/22/23 16:11 Albumin/Globulin Ratio 1.4 (0.9-2) 05/22/23 16:11 Impressions Chest X-Ray 05/22/23 16:07 XR chest 1V portable HISTORY: 83 years-old Male Chest pain, nonspecific COMPARISON: 05/16/2023 TECHNIQUE: AP view the chest FINDINGS: Cardiac mediastinal and hilar silhouettes are within normal limits. No pneumothorax, pleural effusion, airspace consolidation or pulmonary edema. Mild scarring versus atelectasis of the lateral left lung base. Bones appear grossly intact. IMPRESSION: No acute process. ACT 112: Negative or not required by law. The above report was generated using voice recognition software. It may contain grammatical, syntax or spelling errors. Electronically signed by: Duarte Haji M.D. 05/22/2023 4:26 PM Code Status & VTE Plan Code Status Full code VTE Prophylaxis Plan VTE Prophylaxis will be ordered: Yes PG Care Time/CCT Total # of Minutes Spent Total Time Spent with Patient: Total time spent is greater than 50% in coordination of care (as documented) at patient's floor/unit and/or counseling patient: Coding Level of Care Code 75748 INT INP/OBS CARE 3/75MIN Diagnoses Atrial fibrillation with rapid ventricular response I48.91 Unstable angina I20.0 Type 2 diabetes mellitus with insulin therapy E11.9; Z79.4 History of coronary artery stent placement Z95.5 CAD (coronary artery disease) I25.10 Hypothyroidism E03.9 Hyperlipidemia E78.5 Diabetes mellitus E11.9 HTN (hypertension) I10
[2023-05-22] MEDS ORDERED: ONDANSETRON INJ 2 MG/ML 2 ML VIAL IV PRN (21:48)
[2023-05-22] MEDS ORDERED: ACETAMINOPHEN 325 MG TAB PO PRN (21:48)
[2023-05-22] MEDS ORDERED: CARBOHYDRATES FOR HYPOGLYCEMIA PO PRN (21:48)
[2023-05-22] MEDS ORDERED: metFORMIN HCL 500 MG TAB PO SCH (21:48)
[2023-05-22] MEDS ORDERED: DEXTROSE 50% 50 ML SYRINGE IV PRN (21:48)
[2023-05-22] MEDS ORDERED: GLUCAGON FOR INJ 1 MG VIAL SQ PRN (21:48)
[2023-05-22] MEDS ORDERED: GLUCOSE 10 TAB/TUBE PO PRN (21:48)
[2023-05-22] MEDS ORDERED: NITROGLYCERIN SL 0.4 MG/TAB TAB SL PRN (21:48)
[2023-05-22] MEDS ORDERED: CARBIDOPA LEVODOPA ENTACAPONE PO SCH (21:48)
[2023-05-22] MEDS ORDERED: GLUCOSE 40% GEL 15 GM TUBE PO PRN (21:48)
[2023-05-22] MEDS: INSULIN ASPART PER UNIT CHARGE SC SCH (22:24)
[2023-05-22] MEDS: MAGNESIUM OXIDE 400 MG TAB PO SCH (22:28)
[2023-05-22] MEDS: METOPROLOL SUCC 50MG EXT REL TAB PO SCH (22:29)
[2023-05-23] MEDS: CARBIDOPA/LEVODOPA 25/100MG TAB PO SCH ×2 (06:08→11:14)
[2023-05-23] MEDS: ENTACAPONE 200 MG TAB PO SCH ×2 (06:09→11:14)
[2023-05-23] MEDS ORDERED: LEVOTHYROXINE SODIUM 150 MCG TABLET PO SCH (06:30)
[2023-05-23 06:43] LABS: Basophils # (auto) 0.05 K/uL (0-0.2); Basophils % (auto) 0.6 %; Eosinophils # (auto) 0.25 K/uL (0-0.50); Eosinophils % (auto) 2.8 %; Hematocrit (blood only) 32.2 % (42.0-52.0); Hemoglobin 10.8 g/dl (14.0-18.0); Immature Granulocytes # (auto) 0.04 K/uL (0.01-0.20); Immature Granulocytes % (auto) 0.4 %; Lymphocytes # (auto) 1.72 K/uL (1.2-3.4); Lymphocytes % (auto) 19.3 %; Mean Corpuscular Hemoglobin 26.9 pg (25.0-34.0); Mean Corpuscular Hgb Conc 33.5 g/dL (32.0-36.0); Mean Corpuscular Volume 80.3 fL (80.0-100.0); Mean Platelet Volume 10.8 fL (9.4-12.4); Monocytes # (auto) 0.68 K/uL (0.11-0.59); Monocytes % (auto) 7.6 %; Neutrophils # (auto) 6.15 K/uL (1.40-6.50); Neutrophils % (auto) 69.3 %; Platelet Count 242 K/uL (130-400); RDW Coefficient of Variation 15.9 % (11.5-14.5); Red Blood Count 4.01 M/uL (4.70-6.10); White Blood Count 8.89 K/ul (4.8-10.8)
[2023-05-23 07:13] LABS: Albumin Level 3.7 gm/dl (3.4-5.0); Anion Gap 4 (3-11); BUN Creatinine Ratio 11.7 (10-20); Blood Urea Nitrogen 13 mg/dl (6-23); Calcium 8.8 mg/dl (8.6-10.3); Carbon Dioxide 28 mmol/L (21-32); Chloride 107 mmol/L (98-107); Creatinine Clr Calc Pharmacy 64.2 ml/min; Est GFR (African American) 71.8 ml/min; Est GFR (Non-African American) 61.9 ml/min; Glucose 73 mg/dl (70-99(Fasting)); Magnesium 1.5 mg/dl (1.7-2.4); Phosphorus 3.7 mg/dl (2.5-4.9); Sodium 139 mmol/L (136-145); Troponin I High Sensitivity 11.2 pg/ml (0-20)
[2023-05-23] MEDS ORDERED: lisinopril 20 MG TAB PO SCH (09:00)
[2023-05-23] MEDS ORDERED: ASPIRIN 81 MG ECTAB PO SCH (09:00)
[2023-05-23] MEDS ORDERED: SIMVASTATIN 40 MG TAB PO SCH (09:00)
[2023-05-23] MEDS ORDERED: PANTOprazole 40 MG TAB PO SCH (09:00)
[2023-05-23] MEDS ORDERED: LANTUS PER UNIT CHARGE SC SCH (09:00)
[2023-05-23] MEDS ORDERED: CYANOCOBALAMIN (B-12) 500 MCG TABLET PO SCH (09:00)
[2023-05-23] MEDS: INSULIN ASPART PER UNIT CHARGE SC SCH ×2 (09:29→13:31)
[2023-05-23] MEDS: MAGNESIUM OXIDE 400 MG TAB PO SCH (09:30)
[2023-05-23] MEDS: METOPROLOL SUCC 50MG EXT REL TAB PO SCH (10:24)
--- NOTE | 2023-05-23 11:35 | Cardiology Consultation ---
Date of Consultation May 23, 2023 Assessment & Plan (1) Atrial fibrillation with rapid ventricular response: (2) Hypomagnesemia: (3) CAD (coronary artery disease): Plan See attending van helper's documentation for further recommendations and plan of care. Supervising Physician Co-Signing Physician Notes Attending Staff Pt seen and evaluated with [facility] staff. Concur with observations and plans 83 yo man presenting with chest discomfort Dx: New onset Afib Patient was admitted to [facility] last week with chest pain. At the time, concern for unstable angina + Hx of PCI to LCX (2000) Pt underwent coronary angiography - results below Cardiac Catheterization: 05/2023 Diffuse mild to moderate Coronary Calcifications * LAD - proximal 50% * LCX - distal/diffuse 30% * RCA - mid 30%- no obstructive CAD- LCX stent patent ECHO 05/16/2023 Normal LV systolic function - 60-65% + upper septal hypertrophy Aortic Sclerosis sans stenosis +LVH, no WMA No major pericardial process Hx of: * HTN * Hyperlipidemia * DM II * Parkinson's Disease * afib (PAF) EKG - no ischemic changes - afib with RVR Pt treated with Lopressor 5 mg IV x 1 - reverted back to NSR Noted to be hypomagnesemic Exam: Overweight No elevation in JVP S1S2 2/6 systolic murmur (soft) No C/C/E + cog wheeling + tremor Plan: * Pt presenting with episode of PAF - Afib with RVR * Troponin - negative * Cardiac Catheterization less than 1 week ago - results above - no major obstruction * Continue ASA 81 mg po per day * Continue Toprol XL 100 mg po per day * LDL - 54 (goal <55) * Continue Zocor 40 mg po per day * Continue Lisinopril 20 mg po per day; may need uptitration * Restart Magnesium supplementation- likely contributor to afib initiation * + Afib - Chads Vasc 5 * Plans for DOAC * Balancing CVA risk vs falling risk with Parkinson's - explained this to the patient * Ventricular rate controlled on current beta scot dosing * Follow up with [facility] Cardiology/ EP (Dr Kesha Schmidt) within a month- may be worth considering Watchman device give fall risk and consideration for repeat afib ablation. Lanre Thomas History of Present Illness Reason for Consultation: Atrial fibrillation RVR Requesting Physician: Dr. Paula Attending Physician: Dr. Thomas History of Present Illness Patient is an 83 year old male who is known to [facility] Cardiology, Dr. Cook Recent admission for chest pain, concerning symptoms of unstable angina and underwent cath on 05/17/23. Med management recommended. Widely patent LCX stent Diffuse mild to moderate Coronary Calcifications LAD - proximal 50% LCX - distal/diffuse 30% RCA - mid 30% Discharged on appropriate medical therapies. Patient presenting to [facility] with complaints of recurrent chest tightness and severe dizziness. On arrival found to have atrial fibrillation RVR. Converted to NSR with one dose IV metoprolol. Troponin unremarkable. Chest pain resolved with conversion to NSR. Mild renal insufficiency noted on arrival. Low magnesium noted and supplements started. Borderline low potassium and supplemented. Patient reports he stopped taking magnesium on discharge last week as this was not on his discharge list. At time of consult, patient feeling well. NO events overnight. No recurrent afib or chest pain Past medical history 1. Atherosclerotic coronary artery disease status post prior coronary intervention with stent to the left circumflex in 2000. HEPARIN [employer]ERGY* 2. Stable class 1-2 angina pectoris. Nonischemic nuclear stress dated 11/2020. Preserved LV systolic function without wall motion abnormalities or significant valvular disease on resting echo, 11/2020 3. Paroxysmal atrial fibrillation status post pulmonary s/p vein isolation ablation in 2006 and 2007 with successful control ofarrhythmias. 4. Chronic obstructive lung disease. 5. Hypertension. 6. Past amiodarone toxicity. 7. Hyperlipidemia. 8. Type 2 diabetes mellitus. 9. Parkinsonism 10. Type 2 diabetes 11. Hyperlipidemia Allergies Allergy/AdvReac Type Severity Reaction Status Date / Time polyethylene glycol Allergy Severe GOLYTELY, Verified 05/16/23 14:40 BREATHING DIFFICULTY, THROAT SWELLED doxazosin Allergy Intermediate LUNG Verified 05/16/23 14:40 PROBLEMS, WHEEZING heparin Allergy Intermediate FACE Verified 05/16/23 14:40 SWELLING AND HIVES bee venom protein (honey bee) Allergy Unknown Unknown Verified 05/16/23 14:40 cardura tabs Allergy Severe Difficulty Uncoded 05/16/23 14:40 Breathing Home Medications Medication Instructions Recorded Confirmed Type pen needle, diabetic 32 gauge x #50 ea 06/18/19 05/22/23 Rx 1/4" (BD Ultra-Fine Micro Pen Needle) magnesium oxide 800 mg PO DAILY #60 caps 10/09/19 05/22/23 Rx cyanocobalamin (vitamin B-12) 1,000 mcg PO DAILY #90 caps 02/21/22 05/22/23 Rx 1,000 mcg capsule simvastatin 40 mg tablet 40 mg PO DAILY #90 tabs 07/31/22 05/22/23 Rx levothyroxine 150 mcg tablet 150 mcg PO DAILY #90 tabs 10/24/22 05/22/23 Rx metoprolol succinate 100 mg 100 mg PO BID #180 tabs 10/24/22 05/22/23 Rx tablet,extended release 24 hr (Toprol XL) omeprazole 20 mg capsule,delayed 20 mg PO DAILY #90 caps 12/11/22 05/22/23 Rx release metformin 1,000 mg tablet 1,000 mg PO BID #180 tabs 04/02/23 05/22/23 Rx blood sugar diagnostic (Accu-Chek #300 ea 05/04/23 05/22/23 Rx Guide test strips) blood-glucose meter (Accu-Chek #1 ea 05/04/23 05/22/23 Rx Guide Glucose Meter) lancets (Accu-Chek Softclix #300 ea 05/04/23 05/22/23 Rx Lancets) carbidopa 25 mg-levodopa 100 1 tab PO .7AM, 11AM AND 5PM 05/16/23 05/22/23 History mg-entacapone 200 mg tablet insulin glargine U-300 conc 300 90 unit subcut DAILY 05/16/23 05/22/23 History unit/mL (1.5 mL) subcutaneous pen (Vivek SolChas U-300 Insulin) lisinopril 20 mg tablet 20 mg PO QAM 30 days #30 tabs 05/18/23 05/22/23 Rx nitroglycerin 0.4 mg sublingual 0.4 mg sublingual Q5M PRN chest 05/18/23 05/22/23 Rx tablet (Nitrostat) pain #14 tabs aspirin 81 mg tablet,delayed 81 mg PO DAILY 05/22/23 05/22/23 History release Patient History Medical History Atherosclerosis Atrial fibrillation Diabetes mellitus HTN (hypertension) Hypothyroidism Lung disease, obstructive Pleural effusion Surgical History History of back surgery History of cholecystectomy History of heart surgery History of tonsillectomy Family History Mother Heart disease Uncle Myocardial infarction Denies family history of Ovarian cancer Prostate cancer Breast cancer Colorectal cancer Social History Smoking Status: Former smoker Second Hand Exposure: No; Do You Dip or Chew Tobacco: No; Hx Alcohol Use: No Hx Substance Use: No Preferred Language: Barbadian Communication Ability: Effective Hearing Ability: Use of Hearing Aid Hr Manager Required: No Beliefs That Will Affect Care: None marital status: Current Living Situation: Spouse current occupational status: retired How many Children do You have: 3 Feels Safe at Home: Yes Childhood Exposure to Second-Hand Smoke: Yes Diet: regular caffeine: Yes Dental Care, Regularly: No Physical Activity Frequency: Does not Exercise Seatbelt Use: always Sunscreen Use: Yes (sometimes) Assistive Devices: Cane Review of Systems Review of Systems: All systems reviewed & are unremarkable except as noted in HPI & below Physical Exam Constitutional: WD/WN, vitals as above no acute distress Neck: trachea midline, no thyromegaly Respiratory: no labored breathing Auscultation: lungs clear to auscultation bilaterally Cardiovascular: Rate/Rhythm: regular rate and regular rhythm Heart Sounds: no murmur Vessels: no JVD Extremities: no edema Gastrointestinal (Abdomen): normal bowel sounds, soft, nontender, no hepatosplenomegaly Skin: no rashes, warm and dry Neurologic: Tremor noted b/l upper extremities Results & Data Vital Signs (Past 12 Hours) Vital Signs Temp Pulse Pulse Resp BP Pulse Ox O2 Del Method 05/23/23 07:43 36.8 C 60 18 134/71 97 Room Air 05/23/23 07:57 68 05/23/23 03:35 36.5 C 66 20 159/88 H 94 Room Air Laboratory Results Cardiac Enzymes 05/22/23 05/22/23 05/23/23 Range/Units 16:11 22:18 05:46 AST 21 (13-39) U/L Troponin I High Sens 12.0 13.9 11.2 (0-20) pg/ml Coagulation 05/22/23 Range/Units 16:11 PT 10.8 (9.0-12.0) Seconds APTT 25.9 (21.0-31.0) Seconds CBC 05/22/23 05/23/23 Range/Units 16:11 05:46 WBC 12.42 H 8.89 (4.8-10.8) K/ul RBC 4.55 L 4.01 L (4.70-6.10) M/uL Hgb 12.2 L 10.8 L (14.0-18.0) g/dl Hct 37.6 L 32.2 L (42.0-52.0) % Plt Count 329 242 (130-400) K/uL Neut # (Auto) 7.34 H 6.15 (1.40-6.50) K/uL Lymph # (Auto) 3.84 H 1.72 (1.2-3.4) K/uL [place] # (Auto) 0.91 H 0.68 H (0.11-0.59) K/uL Eos # (Auto) 0.20 0.25 (0-0.50) K/uL Baso # (Auto) 0.08 0.05 (0-0.2) K/uL Comprehensive Metabolic Panel 05/22/23 05/23/23 Range/Units 16:11 05:46 Sodium 138 139 (136-145) mmol/L Potassium 3.7 TNP (3.5-5.1) mmol/L Chloride 103 107 (98-107) mmol/L Carbon Dioxide 23 28 (21-32) mmol/L BUN 13 13 (6-23) mg/dl Creatinine 1.42 H 1.11 D (0.6-1.4) mg/dl Glucose 152 H 73 (70-99(Fasting)) mg/dl Calcium 9.4 8.8 (8.6-10.3) mg/dl AST 21 (13-39) U/L ALT 12 (7-52) U/L Alkaline Phosphatase 64 (34-104) U/L Total Protein 7.2 (6.0-8.3) gm/dl Albumin 4.2 3.7 (3.4-5.0) gm/dl Intake and Output 05/22/23 05/23/23 05/23/23 22:59 06:59 14:59 Intake Total 1000 / 1725 725 / 1725 Output Total 1250 / 1250 550 / 550 Balance 1000 / 475 -525 / 475 -550 / -550 Intake: IV 1000 / 1000 Sodium Chloride 0.9% 1000ML 1, 1000 / 1000 000 ml @ 999 mls/hr IV .Q1H1M ONE Rx#:[id number] Oral 725 / 725 Output: Urine 1250 / 1250 550 / 550 Other: Weight 97.6 kg 97.5 kg Weight Measurement Method Standing Scale Built in [facility] Diagnostic Findings Telemetry reviewed: Afib RVR on admission, converting to NSR on 05/22 at 16:42. Currently NSR without arrhythmias. EKG on arrival: Atrial fibrillation with rapid ventricular response Left axis deviation Nonspecific T wave abnormality no longer evident in Inferior leads Compared with prior EKG, Afib has replaced NSR Repeat EKG this morning 05/23/23: NSR with 1st degree AV block LAD No acute changes Prior cath report reviewed: Widely patent LCX stent Diffuse mild to moderate Coronary Calcifications LAD - proximal 50% LCX - distal/diffuse 30% RCA - mid 30% Echo report reviewed dated May 16, 2023: Moderate concentric LVH LV wall motion is normal LV systolic function is normal LVEF at 60-65% Aortic vavle scerlosis moderate without stenosis Aortic root and ascending aorta are normal in size Laboratory Results WBC 8.89 K/ul (4.8-10.8) 05/23/23 05:46 RBC 4.01 M/uL (4.70-6.10) L 05/23/23 05:46 Hgb 10.8 g/dl (14.0-18.0) L 05/23/23 05:46 POC Hgb 13.3 g/dl (14.0-18.0) L 05/22/23 16:37 Hct 32.2 % (42.0-52.0) L 05/23/23 05:46 POC Hct 39 % (42-52) L 05/22/23 16:37 MCV 80.3 fL (80.0-100.0) 05/23/23 05:46 MCH 26.9 pg (25.0-34.0) 05/23/23 05:46 MCHC 33.5 g/dL (32.0-36.0) 05/23/23 05:46 RDW Std Deviation 46.0 fL (36.4-46.3) 05/23/23 05:46 RDW Coeff of Chelita 15.9 % (11.5-14.5) H 05/23/23 05:46 Plt Count 242 K/uL (130-400) 05/23/23 05:46 MPV 10.8 fL (9.4-12.4) 05/23/23 05:46 Immature Gran % (Auto) 0.4 % 05/23/23 05:46 Neut % (Auto) 69.3 % 05/23/23 05:46 Lymph % (Auto) 19.3 % 05/23/23 05:46 [place] % (Auto) 7.6 % 05/23/23 05:46 Eos % (Auto) 2.8 % 05/23/23 05:46 Baso % (Auto) 0.6 % 05/23/23 05:46 Neut # (Auto) 6.15 K/uL (1.40-6.50) 05/23/23 05:46 Lymph # (Auto) 1.72 K/uL (1.2-3.4) 05/23/23 05:46 [place] # (Auto) 0.68 K/uL (0.11-0.59) H 05/23/23 05:46 Eos # (Auto) 0.25 K/uL (0-0.50) 05/23/23 05:46 Baso # (Auto) 0.05 K/uL (0-0.2) 05/23/23 05:46 Immature Gran # (Auto) 0.04 K/uL (0.01-0.20) 05/23/23 05:46 PT 10.8 Seconds (9.0-12.0) 05/22/23 16:11 INR 1.0 (0.9-1.1) 05/22/23 16:11 APTT 25.9 Seconds (21.0-31.0) 05/22/23 16:11 PTT Ratio 0.9 05/22/23 16:11 POC Sodium 138 mmol/L (135-144) 05/22/23 16:37 Sodium 139 mmol/L (136-145) 05/23/23 05:46 POC Potassium 3.6 mmol/L (3.3-5.0) 05/22/23 16:37 Potassium TNP 05/23/23 05:46 POC Chloride 102 mmol/L (101-112) 05/22/23 16:37 Chloride 107 mmol/L (98-107) 05/23/23 05:46 Carbon Dioxide 28 mmol/L (21-32) 05/23/23 05:46 POC Total CO2 21 mmol/L (24-31) L 05/22/23 16:37 Anion Gap 4 (3-11) 05/23/23 05:46 POC Anion Gap 19.0 mmol/L (16-25) 05/22/23 16:37 POC BUN 11 mg/dl (7-18) 05/22/23 16:37 BUN 13 mg/dl (6-23) 05/23/23 05:46 Creatinine 1.11 mg/dl (0.6-1.4) D 05/23/23 05:46 POC Creatinine 1.4 mg/dl (0.6-1.3) H 05/22/23 16:37 Est Cr Clr Drug Dosing 64.2 ml/min 05/23/23 05:46 Est GFR ( Amer) 71.8 ml/min 05/23/23 05:46 Est GFR (Non-Af Amer) 61.9 ml/min 05/23/23 05:46 BUN/Creatinine Ratio 11.7 (10-20) 05/23/23 05:46 Glucose 73 mg/dl (70-99(Fasting)) 05/23/23 05:46 POC Glucose 121 mg/dl (70-99) H 05/23/23 11:42 POC Glucose (other) 147 mg/dl (70-99) H 05/22/23 16:37 Calcium 8.8 mg/dl (8.6-10.3) 05/23/23 05:46 POC Ioniz Calcium [place] 1.11 mmol/l (1.12-1.32) L 05/22/23 16:37 Phosphorus 3.7 mg/dl (2.5-4.9) 05/23/23 05:46 Magnesium 1.5 mg/dl (1.7-2.4) L 05/23/23 05:46 Total Bilirubin 0.4 mg/dl (0.2-1.0) 05/22/23 16:11 AST 21 U/L (13-39) 05/22/23 16:11 ALT 12 U/L (7-52) 05/22/23 16:11 Alkaline Phosphatase 64 U/L (34-104) 05/22/23 16:11 Troponin I High Sens 11.2 pg/ml (0-20) 05/23/23 05:46 Total Protein 7.2 gm/dl (6.0-8.3) 05/22/23 16:11 Albumin 3.7 gm/dl (3.4-5.0) 05/23/23 05:46 Globulin 3.0 gm/dl (2.5-4.0) 05/22/23 16:11 Albumin/Globulin Ratio 1.4 (0.9-2) 05/22/23 16:11 Impressions Chest X-Ray 05/22/23 16:07 XR chest 1V portable HISTORY: 83 years-old Male Chest pain, nonspecific COMPARISON: 05/16/2023 TECHNIQUE: AP view the chest FINDINGS: Cardiac mediastinal and hilar silhouettes are within normal limits. No pneumothorax, pleural effusion, airspace consolidation or pulmonary edema. Mild scarring versus atelectasis of the lateral left lung base. Bones appear grossly intact. IMPRESSION: No acute process. ACT 112: Negative or not required by law. The above report was generated using voice recognition software. It may contain grammatical, syntax or spelling errors. Electronically signed by: Duarte Haji M.D. 05/22/2023 4:26 PM Medications Administered Current Inpatient Medications Acetaminophen (Acetaminophen 325 Mg Tab) 650 mg PO Q4H PRN PRN Reason: Pain or Fever Stop: 06/21/23 21:47 Aspirin (Aspirin 81 Mg Ectab) 81 mg PO DAILY [facility] Stop: 06/22/23 08:59 Last Admin: 05/23/23 09:29 Dose: 81 mg Carbidopa/Levodopa (Carbidopa/Levodopa 25/100mg Tab) 1 tab PO TID@0700,1100,1700 SUZANNE Stop: 06/22/23 06:59 Last Admin: 05/23/23 11:14 Dose: 1 tab Cyanocobalamin (Cyanocobalamin (B-12) 500 Mcg Tablet) 1,000 mcg PO DAILY SUZANNE Stop: 06/22/23 08:59 Last Admin: 05/23/23 09:30 Dose: 1,000 mcg Dextrose (Dextrose 50% 50 Ml Syringe) 25 - 50 ml IV UD PRN; Protocol PRN Reason: Hypoglycemia Protocol Stop: 06/21/23 21:47 Entacapone (Entacapone 200 Mg Tab) 200 mg PO TID@0700,1100,1700 SUZANNE Stop: 06/22/23 06:59 Last Admin: 05/23/23 11:14 Dose: 200 mg Glucagon (Glucagon For Inj 1 Mg Vial) 1 mg SQ UD PRN; Protocol PRN Reason: Hypoglycemia Protocol Stop: 06/21/23 21:47 Glucose (Glucose 10 Tab/Tube) 4 - 8 tab PO UD PRN; Protocol PRN Reason: Hypoglycemia Treatment Stop: 06/21/23 21:47 Glucose (Glucose 40% Gel 15 Gm Tube) 15 - 30 gm PO UD PRN; Protocol PRN Reason: Hypoglycemia Protocol Stop: 06/21/23 21:47 Insulin Aspart (Insulin Aspart Per Unit Charge) 0 units SC ACHS SUZANNE Stop: 06/21/23 21:59 Last Admin: 05/23/23 09:29 Dose: 2 units Insulin Glargine (Lantus Per Unit Charge) 50 units SC DAILY SUZANNE Stop: 06/22/23 08:59 Last Admin: 05/23/23 09:30 Dose: 50 units Levothyroxine Sodium (Levothyroxine Sodium 150 Mcg Tablet) 150 mcg PO DAILYBB SUZANNE Stop: 06/22/23 06:29 Last Admin: 05/23/23 06:07 Dose: 150 mcg Lisinopril (Lisinopril 20 Mg Tab) 20 mg PO QAM SUZANNE Stop: 06/22/23 08:59 Last Admin: 05/23/23 09:30 Dose: 20 mg Magnesium Oxide (Magnesium Oxide 400 Mg Tab) 800 mg PO DAILY SUZANNE Stop: 06/21/23 21:59 Last Admin: 05/23/23 09:30 Dose: 800 mg Metoprolol Succinate (Metoprolol Succ 50mg Ext Rel Tab) 100 mg PO BID SUZANNE Stop: 06/21/23 21:59 Last Admin: 05/23/23 10:24 Dose: 100 mg Miscellaneous (Carbohydrates For Hypoglycemia ) 15 - 30 gm PO UD PRN PRN Reason: Hypoglycemia Protocol Stop: 06/21/23 21:47 Nitroglycerin (Nitroglycerin Sl 0.4 Mg/Tab Tab) 0.4 mg SL Q5M PRN PRN Reason: chest pain Stop: 06/21/23 21:47 Ondansetron HCl (Ondansetron Inj 2 Mg/Ml 2 Ml Vial) 4 mg IV Q6H PRN PRN Reason: Nausea Stop: 06/21/23 21:47 Pantoprazole Sodium (Pantoprazole 40 Mg Tab) 40 mg PO DAILY [facility]; Protocol Stop: 06/22/23 08:59 Last Admin: 05/23/23 09:31 Dose: 40 mg Simvastatin (Simvastatin 40 Mg Tab) 40 mg PO DAILY [facility] Stop: 06/22/23 08:59 Last Admin: 05/23/23 09:31 Dose: 40 mg
--- NOTE | 2023-05-23 14:11 | Discharge Summary ---
Date of Service May 23, 2023 Admission HPI Per Admitting Provider The patient is an 83-year-old male with a past medical history including CAD status post stents, atrial fibrillation status post ablation, diabetes mellitus, hypothyroidism, hyperlipidemia, diabetes mellitus, hypertension and obesity. He reports upon awakening this morning he felt unwell generally, had done some activities with his today, and then ultimately returned home. Upon returning home he felt badly enough that he has supplies to bring to the hospital to be assessed. Of note, patient reports that he is not taking his magnesium orally in over a week, as he ran out and had not gone to the pharmacy yet. Upon arrival in the emergency department he was found to be in atrial fibrillation with RVR, and did receive Lopressor IV with return to normal sinus rhythm Discharge Data Allergies Allergy/AdvReac Type Severity Reaction Status Date / Time polyethylene glycol Allergy Severe GOLYTELY, Verified 05/16/23 14:40 BREATHING DIFFICULTY, THROAT SWELLED doxazosin Allergy Intermediate LUNG Verified 05/16/23 14:40 PROBLEMS, WHEEZING heparin Allergy Intermediate FACE Verified 05/16/23 14:40 SWELLING AND HIVES bee venom protein (honey bee) Allergy Unknown Unknown Verified 05/16/23 14:40 cardura tabs Allergy Severe Difficulty Uncoded 05/16/23 14:40 Breathing Consultations 05/22/23 17:06 ED Decision to Admit Stat 05/23/23 09:27 Consult Cardiology Routine Hospital Course (1) Atrial fibrillation with rapid ventricular response: (2) Unstable angina: (3) Type 2 diabetes mellitus with insulin therapy: (4) History of coronary artery stent placement: (5) CAD (coronary artery disease): (6) Hypothyroidism: (7) Hyperlipidemia: (8) Diabetes mellitus: (9) HTN (hypertension): Plan Atrial fibrillation with RVR/history of ablation/CAD/history of stent- Patient was most recently admitted to [facility] from 05/16-05/18/2023 for cardiac assessment. He underwent a cardiac catheterization His prior stent was widely patent, there was diffuse mild to moderate calcification in the epicardial coronaries, there was mild to moderate nonocclusive coronary disease with suggestion for guideline directed medical therapy There were no episodes of atrial fibrillation documented during that visit Potassium is 3.6, and patient will be given 40 mEq Klor-Con orally Add a magnesium level, which has been low in the past, which may be associated with the PPI omeprazole. Also as noted, patient ran out of his magnesium oxide tablets over a week ago Continue metoprolol succinate 100 mg twice daily, lisinopril 20 mg every morning, aspirin 81 mg daily Resume magnesium oxide 800 mg daily, first dose this evening Parkinson's- Continue fidjbxpiq-savrndni-mqukllaxnb Monitor for any autonomic dysfunction to my contribute to irregular heart rate and blood pressure control Diabetes mellitus- Continue long-acting insulin. On Toujeo 90 units subcu daily Placed on glargine 60 units subcu daily Hold metformin Placed on Accu-Cheks with NovoLog SSI Discharge Plan Discharge Items Reason For Visit: ATRIAL FIB WITH RVR Follow-up/Referrals: Kacy Russo MD [Primary Care Provider] - Medications and DC Order Prescriptions: No Action magnesium oxide 400 mg magnesium capsule 800 mg PO DAILY Qty: 60 0RF simvastatin 40 mg tablet 40 mg PO DAILY Qty: 90 1RF levothyroxine 150 mcg tablet 150 mcg PO DAILY Qty: 90 1RF metoprolol succinate [Toprol XL] 100 mg tablet extended release 24 hr 100 mg PO BID Qty: 180 1RF omeprazole 20 mg capsule,delayed release(DR/EC) 20 mg PO DAILY Qty: 90 1RF metformin 1,000 mg tablet 1,000 mg PO BID Qty: 180 3RF (DME) Accu-Chek Guide test strips Strip See Rx Instructions .Route Qty: 300 1RF Rx Instructions: TEST BSGS 3 TIMES DAILY; DX CODE- E11.9 (DME) blood-glucose meter [Accu-Chek Guide Glucose Meter] Misc See Rx Instructions .Route Qty: 1 0RF Rx Instructions: TEST BSGS 3 TIMES DAILY; DX CODE- E11.9 (DME) lancets [Accu-Chek Softclix Lancets] Misc See Rx Instructions .Route Qty: 300 1RF Rx Instructions: TEST BSGS 3 TIMES DAILY; DX CODE- E11.9 (DME) pen needle, diabetic [BD Ultra-Fine Micro Pen Needle] 32 gauge x 1/4" needle See Dose Instructions .ROUTE .MEDSUPPLY Qty: 50 0RF Dose Instruction: As directed Rx Instructions: As directed cyanocobalamin (vitamin B-12) 1,000 mcg capsule 1,000 mcg PO DAILY Qty: 90 1RF Toujeo SoloStar U-300 Insulin 300 unit/mL (1.5 mL) insulin pen 90 unit subcut DAILY [id number] 25-100-200 mg tablet 1 tab PO .7AM, 11AM AND 5PM lisinopril 20 mg Tablet 20 mg PO QAM 30 Days Qty: 30 0RF nitroglycerin [Nitrostat] 0.4 mg Tablet, Sublingual 0.4 mg sublingual Q5M PRN (Reason: chest pain) Qty: 14 0RF Rx Instructions: Go to ER if chest pain does not resolve with taking nitro, can take up to 3 in a 15 minute period aspirin [Aspirin Low-Strength] 81 mg Tablet,Delayed Release (Dr/Ec) 81 mg PO DAILY Admission Data Admit Date/Time: 05/22/23 19:30 Attending Provider: Lanre Paula Admit Provider: Stan Bourgeois Primary Care Provider: Kacy Russo Other Providers: Stan Bourgeois ; Haylee Gomez ; Rivera Hummel ; Jeff Cook ; David Dennis ; Xiang Monsivais ; Ron Fatima ; Emperatriz Adams ; Kesha Schmidt ; Haylee Winn ; Mark George ; Telly Hale ; Lanre Thomas Coding Diagnoses Atrial fibrillation with rapid ventricular response I48.91 Unstable angina I20.0 Type 2 diabetes mellitus with insulin therapy E11.9; Z79.4 History of coronary artery stent placement Z95.5 CAD (coronary artery disease) I25.10 Hypothyroidism E03.9 Hyperlipidemia E78.5 Diabetes mellitus E11.9 HTN (hypertension) I10
[2023-05-23 15:16] LABS: BUN Creatinine Ratio 11.3 (10-20); Creatinine Clr Calc Pharmacy 67.2 ml/min; Est GFR (African American) 75.9 ml/min; Est GFR (Non-African American) 65.5 ml/min; Magnesium 1.5 mg/dl (1.7-2.4); Potassium 3.8 mmol/L (3.5-5.1)
--- NOTE | 2023-05-23 15:35 | Electrocardiogram Report ---
Test Reason : Blood Pressure : / mmHG Vent. Rate : 140 BPM Atrial Rate : 000 BPM P-R Int : 000 ms QRS Dur : 086 ms QT Int : 312 ms P-R-T Axes : 000 -41 106 degrees QTc Int : 476 ms Sinus tachycardia with frequent , and consecutive Premature atrial complexes Left axis deviation Nonspecific T wave abnormality Abnormal ECG When compared with ECG of 16-MAY-2023 11:45, Vent. rate has increased BY 51 BPM Criteria for Inferior infarct are no longer Present Nonspecific T wave abnormality no longer evident in Inferior leads Confirmed by Mak Wolf ([id number]) on 05/23/2023 3:35:00 PM Referred By: REFERRED SELF Confirmed By:Mak Wolf
--- NOTE | 2023-05-23 15:43 | Electrocardiogram Report ---
Test Reason : Blood Pressure : / mmHG Vent. Rate : 062 BPM Atrial Rate : 062 BPM P-R Int : 336 ms QRS Dur : 096 ms QT Int : 426 ms P-R-T Axes : 052 -46 -10 degrees QTc Int : 432 ms Sinus rhythm with 1st degree A-V block Left axis deviation Septal infarct , age undetermined Abnormal ECG When compared with ECG of 22-MAY-2023 16:11, (unconfirmed) Significant changes have occurred Confirmed by Mak Wolf ([id number]) on 05/23/2023 3:43:29 PM Referred By: REFERRED SELF Confirmed By:Mak Wolf
[2023-05-23] MEDS ORDERED: APIXABAN 5 MG TABLET PO SCH (21:00)
== END 2023-05-23 16:22 | disposition home or self-care (01) ==
LOC: 2E 16:03 → ED 16:03 → SUATTDRO 19:30 → 2E 21:30

== ENCOUNTER 2024-01-30 10:04 | Inpatient (IN) ==
--- NOTE | 2024-01-30 10:11 | Emergency Department Note ---
Impression & Plan Brain TIA, Acute confusion, Hypomagnesemia ED Provider Note HISTORY OF PRESENT ILLNESS: Patient is an 83-year-old male presenting with aphasia. reported to EMS that the patient woke up thrashing and was very confused. She called 911 and on EMS arrival the patient's blood sugar was noted to be 40. He was given an entire bag of D10 and his sugar improved to 208. However, patient has been unable to speak since EMS arrival. reported to EMS that the patient went to bed normal last night and is normally fully able to form sentences. He is on Eliquis for history of A-fib. Patient is able to shake his head yes and no but is not able to speak on assessment. No chest pain or shortness of breath. ROS: as above PHYSICAL EXAM: Constitutional: Patient appears in no acute distress. HENT: Head: Normocephalic and atraumatic. Eyes: EOMI, PERRL Mouth/Throat: Mucous membranes moist. Neck: Trachea midline. Neck supple. Cardiovascular: RRR, No murmurs, rubs or gallops. Intact distal pulses. Pulmonary/Chest: No respiratory distress. Breath sounds clear and equal bilaterally. No wheezes or rales. Abdominal: Abdomen soft, no tenderness, rebound or guarding. Musculoskeletal: No edema, tenderness or deformity noted. Skin: Warm and dry. No rash, erythema, pallor or cyanosis Psychiatric: Appropriate mood and affect for situation. Neurological: Alert. Facies symmetric. Able to raise eyebrows, close eyes, smile, puff mouth, stick out tongue, move tongue left and right and raise palate symmetrically. Able to shrug shoulders. PERRLA. SILT to forehead below eye and at jawline. Can hear soft noise bilaterally. Strength 5/5 in bilateral upper and lower extremities. SILT throughout bilateral upper and lower extremities. Patient is unable to speak or answer questions. MDM: - Vitals signs stable. FSBG within normal limits on arrival to ER. - History obtained via patient. History as above. - Chronic conditions affecting care: HTN; hypothyroidism; Afib - Differential diagnoses include, but are not limited to: CVA; intracranial hemorrhage; dysrhythmia; ACS; pneumonia; UTI; hypoglycemia - Order placed for continuous cardiac monitoring. At this time, monitor showed rate of 65 bpm with normal sinus rhythm, per my interpretation. - External medical records reviewed. Primary care visit note dated 09/05/2023 was reviewed. Patient was seen in their clinic for his preoperative examination. - EKG interpreted by myself showed normal sinus rhythm. Rate 64 bpm. QT 392. No acute ischemic changes. 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 - Patient is on eliquis and unknown LKW ( reported last night when he went to bed, but unknown time), so not a TNK candidate. - After about 20 minutes in the ER, the patient went back to his neurological baseline and was able to hold a conversation. He reports he does not remember what happened. No reported falls. - Nursing staff alerted me after about 15 minutes of the patient being in the emergency department that he "became unresponsive for a few seconds" and had a "short run of V. tach." This was around 10:48 this morning. - Patient given 1g IV magnesium for electrolyte replacement. - Given patient's age and transient episode of confusion, I do think that he needs further workup on the inpatient setting - Discussion was had with supportive employment case manager about patient's case and need for admission - Hospitalist consulted for admission - Patient admitted to [facility] Hospitalist service for further evaluation and management. ASSESSMENT AND PLAN: Diagnosis: brain TIA; confusion; hypomagnesemia Plan: admit Past Med/Surg History Medical History Pleural effusion Lung disease, obstructive Atherosclerosis Atrial fibrillation Hypothyroidism HTN (hypertension) Diabetes mellitus Surgical History History of heart surgery History of back surgery History of tonsillectomy History of cholecystectomy Family History Mother Heart disease Uncle Myocardial infarction Denies family history of Ovarian cancer Prostate cancer Breast cancer Colorectal cancer Social History Smoking Status: Never smoker Second Hand Exposure: No; Do You Dip or Chew Tobacco: No; Hx Alcohol Use: No Hx Substance Use: No Preferred Language: Mongolian Communication Ability: Effective Hearing Ability: Use of Hearing Aid Legal Summer Intern Required: No Beliefs That Will Affect Care: None marital status: Current Living Situation: Spouse current occupational status: retired How many Children do You have: 3 Feels Safe at Home: Yes Childhood Exposure to Second-Hand Smoke: Yes Diet: regular caffeine: Yes Dental Care, Regularly: No Physical Activity Frequency: Does not Exercise Seatbelt Use: always Sunscreen Use: Yes (sometimes) Assistive Devices: Cane Allergies Allergies Allergy/AdvReac Type Severity Reaction Status Date / Time polyethylene glycol Allergy Severe GOLYTELY, Verified 09/20/23 14:44 BREATHING DIFFICULTY, THROAT SWELLED doxazosin Allergy Intermediate LUNG Verified 09/20/23 14:44 PROBLEMS, WHEEZING heparin Allergy Intermediate FACE Verified 09/20/23 14:44 SWELLING AND HIVES bee venom protein (honey bee) Allergy Unknown Unknown Verified 09/20/23 14:44 cardura tabs Allergy Severe Difficulty Uncoded 09/20/23 14:44 Breathing Home Meds Home Medications Medication Instructions Recorded Confirmed aspirin 81 mg tablet,delayed 81 mg PO DAILY 05/22/23 09/20/23 release insulin glargine U-300 conc 300 95 unit subcut DAILY E11.5 09/20/23 09/20/23 unit/mL (1.5 mL) subcutaneous pen (Toudrewo SoloStar U-300 Insulin) lisinopril 20 mg tablet 10 mg PO BID 09/20/23 09/20/23 magnesium oxide 800 mg PO BID 09/20/23 09/20/23 simvastatin 40 mg tablet 40 mg PO PM 09/20/23 09/20/23 Previous Rx's Medication Instructions Recorded cyanocobalamin (vitamin B-12) 1,000 mcg PO DAILY #90 caps 02/21/22 1,000 mcg capsule blood sugar diagnostic (Accu-Chek #300 ea 05/04/23 Guide test strips) blood-glucose meter (Accu-Chek #1 ea 05/04/23 Guide Glucose Meter) lancets (Accu-Chek Softclix #300 ea 05/04/23 Lancets) nitroglycerin 0.4 mg sublingual 0.4 mg sublingual Q5M PRN chest 05/18/23 tablet (Nitrostat) pain #14 tabs apixaban 5 mg tablet (Eliquis) 5 mg PO BID #180 tabs 05/25/23 blood-glucose meter,continuous #1 ea 05/25/23 (Dexcom G6 Boat Painter) blood-glucose sensor (Dexcom G6 #3 ea 05/25/23 Sensor device) blood-glucose transmitter (Dexcom #1 ea 05/25/23 G6 Transmitter device) carbidopa 25 mg-levodopa 100 1 tab PO .7AM, 11AM AND 5PM #30 05/25/23 mg-entacapone 200 mg tablet tabs levothyroxine 175 mcg tablet 175 mcg PO DAILY #90 tabs 05/25/23 metformin 1,000 mg tablet 1,000 mg PO BID #180 tabs 05/25/23 metoprolol succinate 100 mg 100 mg PO BID #30 tabs 05/25/23 tablet,extended release 24 hr (Toprol XL) omeprazole 20 mg capsule,delayed 20 mg PO DAILY #90 caps 05/25/23 release pen needle, diabetic 32 gauge x #100 ea 09/12/2310/11" (BD Ultra-Fine Micro Pen Needle) Results & Data (ED) Vital Signs Vital Signs - 24 hr 01/30/24 10:07 01/30/24 10:07 01/30/24 10:12 Temperature 37.2 C Temperature Source Oral Pulse Rate 92 H 69 65 Pulse Rate from SpO2 Sensor 69 65 Respiratory Rate 22 20 17 Respiratory Effort / Characteristics Non-Labored Respiratory Depth Normal Blood Pressure 188/78 H Blood Pressure Mean 114 Pulse Oximetry 97 96 96 Oxygen Delivery Method Room Air Sepsis Recent Fever Within 48 Hours No Sepsis New/Unexplained Change in Mental Status No Sepsis Action Taken by Nursing No Action Required 01/30/24 10:12 01/30/24 10:14 01/30/24 10:14 Temperature Temperature Source Pulse Rate 64 Pulse Rate from SpO2 Sensor 64 Respiratory Rate 17 Respiratory Effort / Characteristics Respiratory Depth Blood Pressure 166/66 H 144/78 H Blood Pressure Mean 117 114 Pulse Oximetry 97 Oxygen Delivery Method Sepsis Recent Fever Within 48 Hours Sepsis New/Unexplained Change in Mental Status Sepsis Action Taken by Nursing 01/30/24 10:21 01/30/24 10:24 01/30/24 10:24 Temperature Temperature Source Pulse Rate 69 68 Pulse Rate from SpO2 Sensor 67 Respiratory Rate 20 Respiratory Effort / Characteristics Respiratory Depth Blood Pressure 151/69 H Blood Pressure Mean 98 Pulse Oximetry 95 Oxygen Delivery Method Sepsis Recent Fever Within 48 Hours Sepsis New/Unexplained Change in Mental Status Sepsis Action Taken by Nursing 01/30/24 10:25 01/30/24 10:25 01/30/24 10:30 Temperature Temperature Source Pulse Rate 71 70 Pulse Rate from SpO2 Sensor 69 61 Respiratory Rate 19 15 Respiratory Effort / Characteristics Respiratory Depth Blood Pressure 188/78 H Blood Pressure Mean 94 Pulse Oximetry 96 96 Oxygen Delivery Method Sepsis Recent Fever Within 48 Hours Sepsis New/Unexplained Change in Mental Status Sepsis Action Taken by Nursing 01/30/24 10:30 01/30/24 10:36 01/30/24 10:36 Temperature Temperature Source Pulse Rate 63 Pulse Rate from SpO2 Sensor 63 Respiratory Rate 17 Respiratory Effort / Characteristics Respiratory Depth Blood Pressure 163/131 H 148/68 H Blood Pressure Mean 148 104 Pulse Oximetry 96 Oxygen Delivery Method Sepsis Recent Fever Within 48 Hours Sepsis New/Unexplained Change in Mental Status Sepsis Action Taken by Nursing 01/30/24 10:40 01/30/24 10:40 01/30/24 10:45 Temperature Temperature Source Pulse Rate 64 58 L Pulse Rate from SpO2 Sensor 58 L Respiratory Rate 18 15 Respiratory Effort / Characteristics Respiratory Depth Blood Pressure 170/74 H Blood Pressure Mean 110 Pulse Oximetry 96 Oxygen Delivery Method Sepsis Recent Fever Within 48 Hours Sepsis New/Unexplained Change in Mental Status Sepsis Action Taken by Nursing 01/30/24 10:45 01/30/24 10:50 01/30/24 10:50 Temperature Temperature Source Pulse Rate 62 Pulse Rate from SpO2 Sensor 61 Respiratory Rate 18 Respiratory Effort / Characteristics Respiratory Depth Blood Pressure 160/72 H 148/72 H Blood Pressure Mean 131 93 Pulse Oximetry 94 Oxygen Delivery Method Sepsis Recent Fever Within 48 Hours Sepsis New/Unexplained Change in Mental Status Sepsis Action Taken by Nursing 01/30/24 11:18 01/30/24 11:20 01/30/24 11:20 Temperature Temperature Source Pulse Rate 69 81 Pulse Rate from SpO2 Sensor 74 80 Respiratory Rate 23 17 Respiratory Effort / Characteristics Respiratory Depth Blood Pressure 180/92 H Blood Pressure Mean 118 Pulse Oximetry 95 90 Oxygen Delivery Method Sepsis Recent Fever Within 48 Hours Sepsis New/Unexplained Change in Mental Status Sepsis Action Taken by Nursing 01/30/24 11:25 01/30/24 11:25 01/30/24 11:30 Temperature Temperature Source Pulse Rate 70 67 Pulse Rate from SpO2 Sensor 70 66 Respiratory Rate 19 16 Respiratory Effort / Characteristics Respiratory Depth Blood Pressure 173/82 H Blood Pressure Mean 149 Pulse Oximetry 97 98 Oxygen Delivery Method Sepsis Recent Fever Within 48 Hours Sepsis New/Unexplained Change in Mental Status Sepsis Action Taken by Nursing 01/30/24 11:30 01/30/24 11:35 01/30/24 11:35 Temperature Temperature Source Pulse Rate 66 Pulse Rate from SpO2 Sensor 66 Respiratory Rate 15 Respiratory Effort / Characteristics Respiratory Depth Blood Pressure 171/78 H 166/80 H Blood Pressure Mean 89 133 Pulse Oximetry 99 Oxygen Delivery Method Sepsis Recent Fever Within 48 Hours Sepsis New/Unexplained Change in Mental Status Sepsis Action Taken by Nursing 01/30/24 11:40 01/30/24 11:40 01/30/24 11:45 Temperature Temperature Source Pulse Rate 72 Pulse Rate from SpO2 Sensor 71 Respiratory Rate 19 Respiratory Effort / Characteristics Respiratory Depth Blood Pressure 169/92 H 182/84 H Blood Pressure Mean 124 137 Pulse Oximetry 98 Oxygen Delivery Method Sepsis Recent Fever Within 48 Hours Sepsis New/Unexplained Change in Mental Status Sepsis Action Taken by Nursing 01/30/24 11:45 01/30/24 11:50 01/30/24 11:50 Temperature Temperature Source Pulse Rate 66 65 Pulse Rate from SpO2 Sensor 67 65 Respiratory Rate 15 17 Respiratory Effort / Characteristics Respiratory Depth Blood Pressure 164/84 H Blood Pressure Mean 114 Pulse Oximetry 97 97 Oxygen Delivery Method Sepsis Recent Fever Within 48 Hours Sepsis New/Unexplained Change in Mental Status Sepsis Action Taken by Nursing 01/30/24 11:56 01/30/24 11:56 01/30/24 12:00 Temperature Temperature Source Pulse Rate 63 Pulse Rate from SpO2 Sensor 64 70 Respiratory Rate 19 18 Respiratory Effort / Characteristics Respiratory Depth Blood Pressure 158/74 H Blood Pressure Mean 101 Pulse Oximetry 98 98 Oxygen Delivery Method Sepsis Recent Fever Within 48 Hours Sepsis New/Unexplained Change in Mental Status Sepsis Action Taken by Nursing 01/30/24 12:01 01/30/24 12:01 01/30/24 12:05 Temperature Temperature Source Pulse Rate 75 Pulse Rate from SpO2 Sensor 74 Respiratory Rate 22 Respiratory Effort / Characteristics Respiratory Depth Blood Pressure 166/105 H 172/87 H Blood Pressure Mean 123 122 Pulse Oximetry 97 Oxygen Delivery Method Sepsis Recent Fever Within 48 Hours Sepsis New/Unexplained Change in Mental Status Sepsis Action Taken by Nursing 01/30/24 12:05 01/30/24 12:11 01/30/24 12:11 Temperature Temperature Source Pulse Rate 66 68 Pulse Rate from SpO2 Sensor 67 Respiratory Rate 18 14 Respiratory Effort / Characteristics Respiratory Depth Blood Pressure 100/86 Blood Pressure Mean 89 Pulse Oximetry 97 Oxygen Delivery Method Sepsis Recent Fever Within 48 Hours Sepsis New/Unexplained Change in Mental Status Sepsis Action Taken by Nursing Laboratory Data 01/30/24 10:15 01/30/24 10:15 Lab Results 01/30/24 01/30/24 01/30/24 Range/Units 10:14 10:15 10:17 WBC 8.93 (4.8-10.8) K/ul RBC 4.70 (4.70-6.10) M/uL Hgb 12.3 L (14.0-18.0) g/dl POC Hgb 12.6 L (14.0-18.0) g/dl Hct 38.6 L (42.0-52.0) % POC Hct 37 L (42-52) % MCV 82.1 (80.0-100.0) fL MCH 26.2 (25.0-34.0) pg MCHC 31.9 L (32.0-36.0) g/dL RDW Std Deviation 44.9 (36.4-46.3) fL RDW Coeff of [place] 14.9 H (11.5-14.5) % Plt Count 237 (130-400) K/uL MPV 11.5 (9.4-12.4) fL Immature Gran % (Auto) 0.3 % Neut % (Auto) 74.2 % Lymph % (Auto) 14.6 % [place] % (Auto) 8.8 % Eos % (Auto) 1.8 % Baso % (Auto) 0.3 % Neut # (Auto) 6.62 H (1.40-6.50) K/uL Lymph # (Auto) 1.30 (1.20-3.40) K/uL [place] # (Auto) 0.79 H (0.11-0.59) K/uL Eos # (Auto) 0.16 (0.00-0.50) K/uL Baso # (Auto) 0.03 (0.00-0.20) K/uL Immature Gran # (Auto) 0.03 (0.01-0.20) K/uL PT 11.4 (9.0-12.0) Seconds INR 1.0 (0.9-1.1) POC Sodium 140 (135-144) mmol/L Sodium 138 (136-145) mmol/L POC Potassium 4.3 (3.3-5.0) mmol/L Potassium 4.1 (3.5-5.1) mmol/L POC Chloride 102 (101-112) mmol/L Chloride 106 (98-107) mmol/L Carbon Dioxide 26 (21-32) mmol/L POC Total CO2 29 (24-31) mmol/L Anion Gap 6 (3-11) POC Anion Gap 14.0 L (16-25) mmol/L POC BUN 12 (7-18) mg/dl BUN 12 (6-23) mg/dl Creatinine 0.90 (0.6-1.4) mg/dl POC Creatinine 1.1 (0.6-1.3) mg/dl Est Cr Clr Drug Dosing 66.5 ml/min Est GFR ( Amer) 92.5 ml/min Est GFR (Non-Af Amer) 79.8 ml/min BUN/Creatinine Ratio 13.3 (10-20) Glucose 110 H (70-99(Fasting)) mg/dl POC Glucose 111 H (70-99) mg/dl POC Glucose (other) 105 H (70-99) mg/dl Calcium 9.5 (8.6-10.3) mg/dl POC Ioniz Calcium [place] 1.19 (1.12-1.32) mmol/l Magnesium 1.5 L (1.7-2.4) mg/dl Total Bilirubin 0.4 (0.2-1.0) mg/dl AST 19 (13-39) U/L ALT 3 L (7-52) U/L Alkaline Phosphatase 62 (34-104) U/L Troponin I High Sens 5.7 (0-20) pg/ml Total Protein 7.0 (6.0-8.3) gm/dl Albumin 4.0 (3.4-5.0) gm/dl Globulin 3.0 (2.5-4.0) gm/dl Albumin/Globulin Ratio 1.3 (0.9-2) Urine Color Urine Appearance (Clear) Urine pH (4.5-7.5) Ur Specific [place] (1.000-1.030) Urine Protein (Negative) Urine Glucose (UA) (Negative) Urine Ketones (Negative) Urine Blood (Negative) Urine Nitrite (Negative) Urine Bilirubin (Negative) Urine Urobilinogen (Negative) Ur Leukocyte Esterase (Negative) 01/30/24 Range/Units 10:40 WBC (4.8-10.8) K/ul RBC (4.70-6.10) M/uL Hgb (14.0-18.0) g/dl POC Hgb (14.0-18.0) g/dl Hct (42.0-52.0) % POC Hct (42-52) % MCV (80.0-100.0) fL MCH (25.0-34.0) pg MCHC (32.0-36.0) g/dL RDW Std Deviation (36.4-46.3) fL RDW Coeff of [place]ita (11.5-14.5) % Plt Count (130-400) K/uL MPV (9.4-12.4) fL Immature Gran % (Auto) % Neut % (Auto) % Lymph % (Auto) % [place] % (Auto) % Eos % (Auto) % Baso % (Auto) % Neut # (Auto) (1.40-6.50) K/uL Lymph # (Auto) (1.20-3.40) K/uL [place] # (Auto) (0.11-0.59) K/uL Eos # (Auto) (0.00-0.50) K/uL Baso # (Auto) (0.00-0.20) K/uL Immature Gran # (Auto) (0.01-0.20) K/uL PT (9.0-12.0) Seconds INR (0.9-1.1) POC Sodium (135-144) mmol/L Sodium (136-145) mmol/L POC Potassium (3.3-5.0) mmol/L Potassium (3.5-5.1) mmol/L POC Chloride (101-112) mmol/L Chloride (98-107) mmol/L Carbon Dioxide (21-32) mmol/L POC Total CO2 (24-31) mmol/L Anion Gap (3-11) POC Anion Gap (16-25) mmol/L POC BUN (7-18) mg/dl BUN (6-23) mg/dl Creatinine (0.6-1.4) mg/dl POC Creatinine (0.6-1.3) mg/dl Est Cr Clr Drug Dosing ml/min Est GFR ( Amer) ml/min Est GFR (Non-Af Amer) ml/min BUN/Creatinine Ratio (10-20) Glucose (70-99(Fasting)) mg/dl POC Glucose (70-99) mg/dl POC Glucose (other) (70-99) mg/dl Calcium (8.6-10.3) mg/dl POC Ioniz Calcium [place] (1.12-1.32) mmol/l Magnesium (1.7-2.4) mg/dl Total Bilirubin (0.2-1.0) mg/dl AST (13-39) U/L ALT (7-52) U/L Alkaline Phosphatase (34-104) U/L Troponin I High Sens (0-20) pg/ml Total Protein (6.0-8.3) gm/dl Albumin (3.4-5.0) gm/dl Globulin (2.5-4.0) gm/dl Albumin/Globulin Ratio (0.9-2) Urine Color Yellow Urine Appearance Clear (Clear) Urine pH 5.5 (4.5-7.5) Ur Specific [place] 1.013 (1.000-1.030) Urine Protein Negative (Negative) Urine Glucose (UA) Negative (Negative) Urine Ketones Negative (Negative) Urine Blood Negative (Negative) Urine Nitrite Negative (Negative) Urine Bilirubin Negative (Negative) Urine Urobilinogen Negative (Negative) Ur Leukocyte Esterase Negative (Negative) Administered Medications Discontinued Medications Magnesium Sulfate/Dextrose (Magnesium Sulfate / D5w) 1 gm in 100 mls @ 100 mls/hr IV NOW STA Stop: 01/30/24 12:06 Last Admin: 01/30/24 11:55 Dose: 100 mls/hr Documented By: FERDINAND Ioversol (Optiray 320 125ml) 120 ml IV ONCE ONE Stop: 01/30/24 11:21 Last Admin: 01/30/24 11:10 Dose: 120 ml Documented By: BRM Imaging Data Radiologist's Impression: Head CT 01/30/24 10:07 CT OF THE HEAD WITHOUT CONTRAST CLINICAL HISTORY: Aphasia. COMPARISON STUDY: No previous studies for comparison. CT DOSE: 1048.31 mGy.cm TECHNIQUE: Helical axial images of the head were obtained without IV contrast. Automated exposure control was utilized for the study. A dose lowering technique was utilized adhering to the principles of ALARA. FINDINGS: No acute intracranial hemorrhage, midline shift or mass effect is present. White matter hypodensity suggests small vessel disease The ventricular system is unremarkable. The basal cisterns are patent. No extra-axial collections are present. There are no findings to suggest acute dural sinus thrombosis or acute territorial infarct. No significant calvarial abnormalities are present. Visualized portions of the sinuses and mastoid air cells are clear. IMPRESSION: No acute intracranial findings. ACT 112: Negative or not required by law. Electronically signed by: Sarthak Edgar M.D. 01/30/2024 11:28 AM Head CTA 01/30/24 10:07 HEAD CTA HISTORY: aphasia TECHNIQUE: Multiaxial CT images of the head were performed both before and after the intravenous administration of contrast to evaluate the major cerebral vessels. 3D/MIP images were also obtained. Sagittal and coronal reformats were reviewed. A dose lowering technique was utilized adhering to the principles of ALARA. COMPARISON: None. FINDINGS: There is no mass, hematoma, midline shift, or acute infarct. Visualized intracranial internal carotid arteries, distal vertebral arteries, and basilar artery are widely patent. There is no significant stenosis, occlusion, or aneurysm seen within the bilateral ACAs, MCAs, or leasing professional. The major dural venous sinuses are patent. Mild to moderate calcified plaque within the bilateral carotid siphons. IMPRESSION: No significant stenosis, occlusion, or aneurysm within the [place] of [place]. ACT 112: Negative or not required by law. Electronically signed by: Ole Whitehead M.D. 01/30/2024 11:48 AM Neck CTA 01/30/24 10:07 CT angio neck with con CLINICAL HISTORY: 83 years-old Male with aphasia. Acute strokelike symptoms COMPARISON STUDY: CT abdomen of same day TECHNIQUE: Following the IV administration of 120 mL of Optiray, CT angiogram of the neck was performed from the aortic arch to the skull base. Images are reviewed in the axial, sagittal, and coronal planes. 3-D MIPS images are created and assessed. IV contrast was administered without complication. All measurements were calculated based on NASCET criteria. A dose lowering technique was utilized adhering to the principles of ALARA. FINDINGS: Motion degraded exam. Patent common carotid arteries. Atherosclerosis of the carotid bulbs without high-grade stenosis. The vertebral arteries appear codominant. Widely patent right vertebral artery. The left vertebral artery V2 segment beginning at the level of C4-C5 with reconstitution of flow within the and V3 segment, image 306. Lung apices are clear. Unremarkable soft tissues. Degenerative changes of the cervical spine. IMPRESSION: 1. 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 Findings may represent an underlying dissection. 2. Atherosclerosis of the carotid arteries without significant stenosis. ACT 112: Negative or not required by law. The above report was generated using voice recognition software. It may contain grammatical, syntax or spelling errors. Electronically signed by: Duarte Haji M.D. 01/30/2024 12:01 PM Discharge Plan Visit Data Chief Complaint: Altered Mental Status ED Provider: Loan Alas Discharge Problem: Brain TIA, Acute confusion, Hypomagnesemia Forms Stand Alone Forms: [facility] [place] [employer] Prescriptions Prescriptions: No Action metoprolol succinate [Toprol XL] 100 mg tablet extended release 24 hr 100 mg PO BID Qty: 30 0RF Rx Instructions: till mail order comes [id number] 25-100-200 mg tablet 1 tab PO .7AM, 11AM AND 5PM Qty: 30 1RF Rx Instructions: till mail order comes levothyroxine 175 mcg tablet 175 mcg PO DAILY Qty: 90 3RF (DME) pen needle, diabetic [BD Ultra-Fine Micro Pen Needle] 32 gauge x 1/4" needle See Dose Instructions .ROUTE .MEDSUPPLY Qty: 100 0RF Dose Instruction: As directed Rx Instructions: As directed (DME) Accu-Chek Guide test strips Strip See Rx Instructions .Route Qty: 300 1RF Rx Instructions: TEST BSGS 3 TIMES DAILY; DX CODE- E11.9 (DME) blood-glucose meter [Accu-Chek Guide Glucose Meter] Misc See Rx Instructions .Route Qty: 1 0RF Rx Instructions: TEST BSGS 3 TIMES DAILY; DX CODE- E11.9 (DME) lancets [Accu-Chek Softclix Lancets] Misc See Rx Instructions .Route Qty: 300 1RF Rx Instructions: TEST BSGS 3 TIMES DAILY; DX CODE- E11.9 Eliquis 5 mg tablet 5 mg PO BID Qty: 180 3RF metformin 1,000 mg tablet 1,000 mg PO BID Qty: 180 3RF omeprazole 20 mg capsule,delayed release(DR/EC) 20 mg PO DAILY Qty: 90 3RF (DME) Dexcom G6 Boat Painter Misc See Rx Instructions .Route Qty: 1 0RF Rx Instructions: anneliese 3-4 times a day (DME) Dexcom G6 Sensor Device See Rx Instructions .Route Qty: 3 3RF Rx Instructions: test 3-4 times a day (DME) Dexcom G6 Transmitter Device See Rx Instructions .Route Qty: 1 0RF Rx Instructions: test 3-4 times a day cyanocobalamin (vitamin B-12) 1,000 mcg capsule 1,000 mcg PO DAILY Qty: 90 1RF nitroglycerin [Nitrostat] 0.4 mg Tablet, Sublingual 0.4 mg sublingual Q5M PRN (Reason: chest pain) Qty: 14 0RF Rx Instructions: Go to ER if chest pain does not resolve with taking nitro, can take up to 3 in a 15 minute period lisinopril 20 mg tablet 10 mg PO BID simvastatin 40 mg tablet 40 mg PO PM Rx Instructions: till mail order comes magnesium oxide 400 mg magnesium capsule 800 mg PO BID Rx Instructions: 800 mg orally 2 tabs twice daily; Vivek Mcclendon U-300 Insulin 300 unit/mL (1.5 mL) insulin pen 95 unit subcut DAILY aspirin 81 mg Tablet,Delayed Release (Dr/Ec) 81 mg PO DAILY Referrals Referrals: PCP,NO [Physician] -
[2024-01-30 10:29] LABS: iSTAT Creatinine 1.1 mg/dl (0.6-1.3); iSTAT Hemoglobin 12.6 g/dl (14.0-18.0); iSTAT Ionized Calcium 1.19 mmol/l (1.12-1.32); iSTAT Potassium 4.3 mmol/L (3.3-5.0)
[2024-01-30 10:45] LABS: Basophils # (auto) 0.03 K/uL (0.00-0.20); Basophils % (auto) 0.3 %; Eosinophils # (auto) 0.16 K/uL (0.00-0.50); Eosinophils % (auto) 1.8 %; Hematocrit (blood only) 38.6 % (42.0-52.0); Hemoglobin 12.3 g/dl (14.0-18.0); Immature Granulocytes # (auto) 0.03 K/uL (0.01-0.20); Immature Granulocytes % (auto) 0.3 %; Lymphocytes % (auto) 14.6 %; Mean Corpuscular Hemoglobin 26.2 pg (25.0-34.0); Mean Corpuscular Hgb Conc 31.9 g/dL (32.0-36.0); Mean Corpuscular Volume 82.1 fL (80.0-100.0); Mean Platelet Volume 11.5 fL (9.4-12.4); Monocytes # (auto) 0.79 K/uL (0.11-0.59); Monocytes % (auto) 8.8 %; Neutrophils # (auto) 6.62 K/uL (1.40-6.50); Neutrophils % (auto) 74.2 %; Platelet Count 237 K/uL (130-400); RDW Coefficient of Variation 14.9 % (11.5-14.5); RDW Standard Deviation 44.9 fL (36.4-46.3); White Blood Count 8.93 K/ul (4.8-10.8)
[2024-01-30 10:53] LABS: Albumin Globulin Ratio 1.3 (0.9-2); BUN Creatinine Ratio 13.3 (10-20); Bilirubin,Total 0.4 mg/dl (0.2-1.0); Calcium 9.5 mg/dl (8.6-10.3); Creatinine Clr Calc Pharmacy 66.5 ml/min; Est GFR (African American) 92.5 ml/min; Est GFR (Non-African American) 79.8 ml/min; Magnesium 1.5 mg/dl (1.7-2.4); Potassium 4.1 mmol/L (3.5-5.1)
[2024-01-30 10:59] LABS: Troponin I High Sensitivity 5.7 pg/ml (0-20)
[2024-01-30] MEDS: OPTIRAY 320 125ml IV ONE (11:10)
[2024-01-30 11:17] LABS: Prothrombin Time 11.4 Seconds (9.0-12.0)
[2024-01-30 11:23] LABS: Appearance Urine Clear (Clear); Bilirubin Urine Negative (Negative); Blood Urine Negative (Negative); Color Urine Yellow; Glucose Urine UA Negative (Negative); Ketones Urine Negative (Negative); Leukocyte Esterase Urine Negative (Negative); Nitrite Urine Negative (Negative); Protein Urine Negative (Negative); Specific Gravity Urine 1.013 (1.000-1.030); Urobilinogen Urine Negative (Negative); pH Urine 5.5 (4.5-7.5)
--- NOTE | 2024-01-30 11:30 | CT Scan Report ---
CT OF THE HEAD WITHOUT CONTRAST CLINICAL HISTORY: Aphasia. COMPARISON STUDY: No previous studies for comparison. CT DOSE: 1048.31 mGy.cm TECHNIQUE: Helical axial images of the head were obtained without IV contrast. Automated exposure con trol was utilized for the study. A dose lowering technique was utilized adhering to the principles o f ALARA. FINDINGS: No acute intracranial hemorrhage, midline shift or mass effect is present. White matter hyp odensity suggests small vessel disease The ventricular system is unremarkable. The basal cisterns are patent. No extra-axial collections are present. There are no findings to suggest acute dural sinus t hrombosis or acute territorial infarct. No significant calvarial abnormalities are present. Visualize d portions of the sinuses and mastoid air cells are clear. IMPRESSION: No acute intracranial findings. ACT 112: Negative or not required by law. Electronically signed by: Sarthak Edgar M.D. 01/30/2024 11:28 AM
--- NOTE | 2024-01-30 11:50 | CT Scan Report ---
HEAD CTA HISTORY: aphasia TECHNIQUE: Multiaxial CT images of the head were performed both before and after the intravenous admi nistration of contrast to evaluate the major cerebral vessels. 3D/MIP images were also obtained. Sag ittal and coronal reformats were reviewed. A dose lowering technique was utilized adhering to the asad Desai. COMPARISON: None. FINDINGS: There is no mass, hematoma, midline shift, or acute infarct. Visualized intracranial risk intern al carotid arteries, distal vertebral arteries, and basilar artery are widely patent. There is no sig nificant stenosis, occlusion, or aneurysm seen within the bilateral ACAs, MCAs, or core piler. The major du ral venous sinuses are patent. Mild to moderate calcified plaque within the bilateral carotid siphons . IMPRESSION: No significant stenosis, occlusion, or aneurysm within the [place]. ACT 112: Negative or not required by law. Electronically signed by: Ole Whitehead M.D. 01/30/2024 11:48 AM
[2024-01-30] MEDS: MAGNESIUM SULFATE / D5W 1 GM/100 ML BAG IV STA (11:55)
--- NOTE | 2024-01-30 12:02 | CT Scan Report ---
CT angio neck with con CLINICAL HISTORY: 83 years-old Male with aphasia. Acute strokelike symptoms COMPARISON STUDY: CT abdomen of same day TECHNIQUE: Following the IV administration of 120 mL of Optiray, CT angiogram of the neck was perform ed from the aortic arch to the skull base. Images are reviewed in the axial, sagittal, and coronal pl anes. 3-D MIPS images are created and assessed. IV contrast was administered without complication. Al l measurements were calculated based on NASCET criteria. A dose lowering technique was utilized adhe ring to the principles of ALARA. FINDINGS: Motion degraded exam. Patent common carotid arteries. Atherosclerosis of the carotid bulbs without hi gh-grade stenosis. The vertebral arteries appear codominant. Widely patent right vertebral artery. Th e left vertebral artery V2 segment beginning at the level of C4-C5 with reconstitution of flow within the and V3 segment, image 306. Lung apices are clear. Unremarkable soft tissues. Degenerative changes of the cervical spine. IMPRESSION: 1. 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 Findings may represent a n underlying dissection. 2. Atherosclerosis of the carotid arteries without significant stenosis. ACT 112: Negative or not required by law. The above report was generated using voice recognition software. It may contain grammatical, syntax o r spelling errors. Electronically signed by: Duarte Haji M.D. 01/30/2024 12:01 PM
--- NOTE | 2024-01-30 12:50 | History & Physical Report ---
Date of Service January 30, 2024 Assessment & Plan (1) Stroke-like symptoms: Plan: Patient is 83-year-old male with PMH HTN, HLD, insulin dependent DM II, idiopathic Parkinson's, REM sleep disorder, CAD s/p stent, stable angina, PAF s/p ablation in 2006 & 2007, hypothyroidism and others listed below presented to ER with c/o mental status changes and stroke like symptoms today. Hypoglycemic prehospital, aphasia that present upon ER arrival. Aphasia cleared during ER course and back to baseline. In ER vitals stable. magnesium: 1.5, pre-hospital hypoglycemia, no other significant electrolyte abnormality. TSH pending CT head: No acute intracranial findings. CTA head: No significant stenosis, occlusion, or aneurysm within the [place]. 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 Findings may represent an underlying dissection. Atherosclerosis of the carotid arteries without significant stenosis. DDX: TIA, CVA, hypoglycemia symptoms Tele to monitor for arrhythmias EKG in am Lipids, A1c in AM MRI brain Echo with bubble study Aspiration precautions PT/OT consult Continue aspirin, simvastatin, Eliquis Will hold home lisinopril for now to allow for permissive hypertension Neurology consult (2) Hypoglycemia: (3) Diabetes mellitus, type II: Plan: A1c: 6.3 on 10/17/2023 Pre-hospital BSG of 40 and was given D10 with repeat BSG of 208. Upon ER arrival BSG of 105. Repeat BSG of 50 and patient given dextrose with improvement to 111. Diabetic diet Will lower dose of home long acting insulin and looser novolog sliding scale for now Monitor BSGs and may need to further adjust once patient back at oral intake (4) Hypomagnesemia: Plan: Magnesium: 1.5 In ER given 1 g magnesium sulfate Monitor magnesium level (5) PAF (paroxysmal atrial fibrillation): Plan: S/P pulmonary vein isolation ablation in 2006 and 2007 Current sinus rhythm Continue Eliquis, metoprolol succinate (6) CAD (coronary artery disease): Plan: S/P stent in 2000 Cath 05/2023 mild-moderate coronary atherosclerosis and calcification without obstruction Denies chest pain or shortness of breath Continue aspirin, statin, metoprolol succinate (7) Chronic anemia: Plan: Hgb: 12.3. Was 11.8 on 10/17/2023 Monitor H&H (8) HTN (hypertension): Plan: Stable Hold home lisinopril for now Continue metoprolol succinate with holding parameter (9) Idiopathic Parkinson's disease: (10) REM sleep behavior disorder: Plan: Continue Sinemet, Stalevo, melatonin at bedtime at prior dose Follows with [facility] neurology and seen yesterday and it was suggested to try to increase melatonin to 10mg HS however patient has not started that dose yet (11) Hypothyroidism: Plan: TSH: 0.01 Hold levothyroxine for now Levothyroxine will need further adjusted and further outpatient TSH monitoring DVT Prophylaxis SCDs for now Full Code as per discussion with pt Follows with Dr Brannon Nair for routine care Pt was seen and care coordinated with Dr Mcneill. See addendum I spent a total of 80 minutes reviewing notes, outpatient records, labs, medication, coordinating, documenting and providing care for this patient excluding time spent in the performance of separately billed services. History of Present Illness Chief Complaint: mental status changes Primary Care Provider: Brannon Nair MD Patient is 83-year-old male with PMH HTN, HLD, insulin dependent DM II, idiopathic Parkinson's, REM sleep disorder, CAD s/p stent, stable angina, PAF s/p ablation in 2006 & 2007, hypothyroidism and others listed below presented to ER with c/o mental status changes and stroke like symptoms. History obtained from patient, , and outpatient chart review. and patient states patient was in normal state of health yesterday and at bedtime. reports she went in to wake patient up this morning and she found him "thrashing and flailing around in bed". States he didn't seem to know what he was doing and seemed confused and wasn't talking. She noticed he was mildly diaphoretic on his forehead and head and she got a cool cloth for him and called EMS. It is reported that EMS found patient to have BSG of 40 and was given D10 with repeat BSG of 208. Upon ER arrival BSG of 105. It is reported upon ER arrival patient had aphasia which has since resolved during ER course. Currently patient states starting to feel a little dizzy like "my sugar is dropping" and repeat BSG of 50 and patient given dextrose with improvement to 111. Denies any other complaints at this time. Last ate dinner at 18:00 yesterday. Last medication taken yesterday. Last insulin yesterday morning. Is following with [facility] neurology for idiopathic tremor predominant Parkinson's disease and REM behavioral sleep disorder. He is currently on Stalevo and Sinemet He saw neurology outpatient yesterday and it was suggested to try to increase melatonin to 10mg HS. Patient states that he has not started increased melatonin dose yet. Denies fever/chills, diaphoresis, N/V/D/C, JUDD, syncope, vision changes, neck pain, CP, SOB, orthopnea, palpitations, cough, sore throat, choking, rhinorrhea, abdominal pain, paresthesias, facial drooping, extremity weakness, extremity edema, rashes, urinary symptoms. MRI brain 2019: 1. No acute intracranial abnormality is identified. 2. Mild global volume loss. 3. Nonspecific cerebral white matter foci of T2/FLAIR hyperintensity, most commonly associated with chronic small vessel ischemic changes. 4. Additional findings as described above. Allergies Allergy/AdvReac Type Severity Reaction Status Date / Time polyethylene glycol Allergy Severe GOLYTELY, Verified 09/20/23 14:44 BREATHING DIFFICULTY, THROAT SWELLED doxazosin Allergy Intermediate LUNG Verified 09/20/23 14:44 PROBLEMS, WHEEZING heparin Allergy Intermediate FACE Verified 09/20/23 14:44 SWELLING AND HIVES bee venom protein (honey bee) Allergy Unknown Unknown Verified 09/20/23 14:44 cardura tabs Allergy Severe Difficulty Uncoded 09/20/23 14:44 Breathing Home Medications Medication Instructions Recorded Confirmed Type cyanocobalamin (vitamin B-12) 1,000 mcg PO DAILY #90 caps 02/21/22 01/30/24 Rx 1,000 mcg capsule nitroglycerin 0.4 mg sublingual 0.4 mg sublingual Q5M PRN chest 05/18/23 01/30/24 Rx tablet (Nitrostat) pain #14 tabs aspirin 81 mg tablet,delayed 81 mg PO DAILY 05/22/23 01/30/24 History release apixaban 5 mg tablet (Eliquis) 5 mg PO BID #180 tabs 05/25/23 01/30/24 Rx carbidopa 25 mg-levodopa 100 1 tab PO .7AM, 11AM AND 5PM #30 05/25/23 01/30/24 Rx mg-entacapone 200 mg tablet tabs metformin 1,000 mg tablet 1,000 mg PO BID #180 tabs 05/25/23 01/30/24 Rx metoprolol succinate 100 mg 100 mg PO BID #30 tabs 05/25/23 01/30/24 Rx tablet,extended release 24 hr (Toprol XL) omeprazole 20 mg capsule,delayed 20 mg PO DAILY #90 caps 05/25/23 01/30/24 Rx release lisinopril 20 mg tablet 20 mg PO DAILY 09/20/23 01/30/24 History magnesium oxide 800 mg PO DAILY 09/20/23 01/30/24 History simvastatin 40 mg tablet 40 mg PO PM 09/20/23 01/30/24 History carbidopa ER 50 mg-levodopa 200 mg 1 tab PO HS 01/30/24 01/30/24 History tablet,extended release insulin glargine U-300 conc 300 75 unit subcut DAILY 01/30/24 01/30/24 History unit/mL (1.5 mL) subcutaneous pen (Vivek SoloStar U-300 Insulin) levothyroxine 150 mcg tablet 150 mcg PO DAILY 01/30/24 01/30/24 History melatonin 3 mg tablet 3 - 6 mg PO HS 01/30/24 01/30/24 History Past Med/Surg History Medical History (Updated 01/31/24 @ 08:59 by Kennedy Jewell DO) REM sleep behavior disorder Idiopathic Parkinson's disease Chronic anemia PAF (paroxysmal atrial fibrillation) CAD (coronary artery disease) Pleural effusion Lung disease, obstructive Atherosclerosis Atrial fibrillation Hypothyroidism HTN (hypertension) Diabetes mellitus Surgical History History of heart surgery History of back surgery History of tonsillectomy History of cholecystectomy Family History Mother Heart disease Uncle Myocardial infarction Denies family history of Ovarian cancer Prostate cancer Breast cancer Colorectal cancer Social History Smoking Status: Never smoker Second Hand Exposure: No; Do You Dip or Chew Tobacco: No; Hx Alcohol Use: Yes Alcohol Intake Frequency: 2-4 x/Month Hx Substance Use: No Preferred Language: Colombian Communication Ability: Effective Hearing Ability: Use of Hearing Aid Emulsion Operator Required: No Beliefs That Will Affect Care: None marital status: Current Living Situation: Spouse current occupational status: retired How many Children do You have: 3 Feels Safe at Home: Yes Safety Concerns: Feels Safe At This Time Childhood Exposure to Second-Hand Smoke: Yes Diet: regular caffeine: Yes Dental Care, Regularly: No Physical Activity Frequency: Does not Exercise Seatbelt Use: always Sunscreen Use: Yes (sometimes) Assistive Devices: Cane Assistive Devices Comment: Cane use only for long distances Review of Systems Review of Systems: All systems reviewed & are unremarkable except as noted in HPI & below Physical Exam Physical Exam: General: no acute distress, WDWN Head: normocephalic, atraumatic Eyes: PERRL, EOM's intact, conjunctiva non-injected, anicteric ENT: +hard of hearing, normal inspection external ears, nose, mucous membranes moist Neck: supple, trachea midline Lungs: clear, no respiratory distress, no wheezing/rhonchi/rales CV: RRR, no pretibial edema Abd: normal BS, soft, non-tender Ext: no cyanosis, no calf tenderness Neuro: A&O x 3, normal affect. Visual garcia intact. PERRL, EOMs intact. No nystagmus, facial sensation is intact and symmetric, face is strong and symmetric, hearing grossly intact, Soft palate elevates symmetrically, no dysarthria, shoulder shrug intact, tongue is midline, normal movement, no fasciculations. strength 5/5 throughout Skin: warm, dry Results & Data Results & Data Vital Signs (Past 12 Hours) Vital Signs Temp Pulse Resp BP Pulse Ox O2 Del Method 01/30/24 12:11 68 14 01/30/24 12:11 100/86 01/30/24 12:05 66 18 97 01/30/24 12:05 172/87 H 01/30/24 12:01 75 22 97 01/30/24 12:01 166/105 H 01/30/24 12:00 18 98 01/30/24 11:56 63 19 98 01/30/24 11:56 158/74 H 01/30/24 11:50 65 17 97 01/30/24 11:50 164/84 H 01/30/24 11:45 66 15 97 01/30/24 11:45 182/84 H 01/30/24 11:40 169/92 H 01/30/24 11:40 72 19 98 01/30/24 11:35 166/80 H 01/30/24 11:35 66 15 99 01/30/24 11:30 171/78 H 01/30/24 11:30 67 16 98 01/30/24 11:25 70 19 97 01/30/24 11:25 173/82 H 01/30/24 11:20 81 17 90 01/30/24 11:20 180/92 H 01/30/24 11:18 69 23 95 01/30/24 10:50 148/72 H 01/30/24 10:50 62 18 94 01/30/24 10:45 160/72 H 01/30/24 10:45 58 L 15 96 01/30/24 10:40 170/74 H 01/30/24 10:40 64 18 01/30/24 10:36 63 17 96 01/30/24 10:36 148/68 H 01/30/24 10:30 163/131 H 01/30/24 10:30 70 15 96 01/30/24 10:25 188/78 H 01/30/24 10:25 71 19 96 01/30/24 10:24 68 20 95 01/30/24 10:24 151/69 H 01/30/24 10:21 69 01/30/24 10:14 144/78 H 01/30/24 10:14 64 17 97 01/30/24 10:12 166/66 H 01/30/24 10:12 65 17 96 01/30/24 10:07 69 20 96 01/30/24 10:07 37.2 C 92 H 22 188/78 H 97 Room Air Laboratory Results Short CBC 01/30/24 Range/Units 10:15 WBC 8.93 (4.8-10.8) K/ul Hgb 12.3 L (14.0-18.0) g/dl Hct 38.6 L (42.0-52.0) % Plt Count 237 (130-400) K/uL BMP 01/30/24 10:15 Sodium 138 Potassium 4.1 Chloride 106 Carbon Dioxide 26 BUN 12 Creatinine 0.90 Glucose 110 H Calcium 9.5 Liver Function 01/30/24 Range/Units 10:15 Total Bilirubin 0.4 (0.2-1.0) mg/dl AST 19 (13-39) U/L ALT 3 L (7-52) U/L Alkaline Phosphatase 62 (34-104) U/L Albumin 4.0 (3.4-5.0) gm/dl Urine 01/30/24 Range/Units 10:40 Urine Color Yellow Urine Appearance Clear (Clear) Urine pH 5.5 (4.5-7.5) Ur Specific [place] 1.013 (1.000-1.030) Urine Protein Negative (Negative) Urine Glucose (UA) Negative (Negative) Diagnostic Findings Head CT 01/30/24 10:07 CT OF THE HEAD WITHOUT CONTRAST CLINICAL HISTORY: Aphasia. COMPARISON STUDY: No previous studies for comparison. CT DOSE: 1048.31 mGy.cm TECHNIQUE: Helical axial images of the head were obtained without IV contrast. Automated exposure control was utilized for the study. A dose lowering technique was utilized adhering to the principles of ALARA. FINDINGS: No acute intracranial hemorrhage, midline shift or mass effect is present. White matter hypodensity suggests small vessel disease The ventricular system is unremarkable. The basal cisterns are patent. No extra-axial collections are present. There are no findings to suggest acute dural sinus thrombosis or acute territorial infarct. No significant calvarial abnormalities are present. Visualized portions of the sinuses and mastoid air cells are clear. IMPRESSION: No acute intracranial findings. ACT 112: Negative or not required by law. Electronically signed by: Sarthak Edgar M.D. 01/30/2024 11:28 AM Head CTA 01/30/24 10:07 HEAD CTA HISTORY: aphasia TECHNIQUE: Multiaxial CT images of the head were performed both before and after the intravenous administration of contrast to evaluate the major cerebral vessels. 3D/MIP images were also obtained. Sagittal and coronal reformats were reviewed. A dose lowering technique was utilized adhering to the principles of ALARA. COMPARISON: None. FINDINGS: There is no mass, hematoma, midline shift, or acute infarct. Visualized intracranial internal carotid arteries, distal vertebral arteries, and basilar artery are widely patent. There is no significant stenosis, occlusion, or aneurysm seen within the bilateral ACAs, MCAs, or mailing machine operator. The major dural venous sinuses are patent. Mild to moderate calcified plaque within the bilateral carotid siphons. IMPRESSION: No significant stenosis, occlusion, or aneurysm within the [place]. ACT 112: Negative or not required by law. Electronically signed by: Ole Whitehead M.D. 01/30/2024 11:48 AM Neck CTA 01/30/24 10:07 CT angio neck with con CLINICAL HISTORY: 83 years-old Male with aphasia. Acute strokelike symptoms COMPARISON STUDY: CT abdomen of same day TECHNIQUE: Following the IV administration of 120 mL of Optiray, CT angiogram of the neck was performed from the aortic arch to the skull base. Images are reviewed in the axial, sagittal, and coronal planes. 3-D MIPS images are created and assessed. IV contrast was administered without complication. All measurements were calculated based on NASCET criteria. A dose lowering technique was utilized adhering to the principles of ALARA. FINDINGS: Motion degraded exam. Patent common carotid arteries. Atherosclerosis of the carotid bulbs without high-grade stenosis. The vertebral arteries appear codominant. Widely patent right vertebral artery. The left vertebral artery V2 segment beginning at the level of C4-C5 with reconstitution of flow within the and V3 segment, image 306. Lung apices are clear. Unremarkable soft tissues. Degenerative changes of the cervical spine. IMPRESSION: 1. 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 Findings may represent an underlying dissection. 2. Atherosclerosis of the carotid arteries without significant stenosis. ACT 112: Negative or not required by law. The above report was generated using voice recognition software. It may contain grammatical, syntax or spelling errors. Electronically signed by: Duarte Haji M.D. 01/30/2024 12:01 PM Chest X-Ray 01/30/24 12:48 XR chest 1V portable HISTORY: 83 years-old Male confusion acutely altered mental status COMPARISON: 09/20/2023 TECHNIQUE: AP view of the chest FINDINGS: Cardiac silhouette is mildly enlarged. No pneumothorax, pleural effusion or pulmonary edema. No airspace consolidation typical for pneumonia. Degenerative changes of the shoulders and spine. Mild right hemidiaphragmatic elevation. IMPRESSION: No acute process. ACT 112: Negative or not required by law. The above report was generated using voice recognition software. It may contain grammatical, syntax or spelling errors. Electronically signed by: Duarte Haji M.D. 01/30/2024 1:33 PM ECG Additional Comments: Sinus rhythm, rate 64, first-degree AV block Supervising Physician Co-Signing Physician Notes Pt was seen and examined by myself, Luz Mcneill MD on the day of service. Care was coordinated with Tish Draper PA-C. 83yoM presenting with increased confusion at home. Was found to be significantly hypoglycemic On exam AAOx3 in the room. No acute distress. Able to communicate RRR, breath sounds clear, abdomen nontender. Stroke workup. 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 Likely chronic, no need for transfer. Adjust diabetic meds for noted hypoglycemia, amp of dextrose as needed Otherwise as above. I spent a total [id number] coordinating, documenting, and providing care for this patient excluding time spent in the performance of separately billed services
--- NOTE | 2024-01-30 13:35 | XRay Report ---
XR chest 1V portable HISTORY: 83 years-old Male confusion acutely altered mental status COMPARISON: 09/20/2023 TECHNIQUE: AP view of the chest FINDINGS: Cardiac silhouette is mildly enlarged. No pneumothorax, pleural effusion or pulmonary edema. No airsp debbie consolidation typical for pneumonia. Degenerative changes of the shoulders and spine. Mild right hemidiaphragmatic elevation. IMPRESSION: No acute process. ACT 112: Negative or not required by law. The above report was generated using voice recognition software. It may contain grammatical, syntax o r spelling errors. Electronically signed by: Duarte Haji M.D. 01/30/2024 1:33 PM
[2024-01-30] MEDS: DEXTROSE 50% 50 ML SYRINGE IV ONE ×2 (13:57→14:00)
[2024-01-30] MEDS ORDERED: MAGNESIUM HYDROXIDE SUSP 30 ML UDC PO PRN (13:59)
[2024-01-30] MEDS ORDERED: GLUCAGON FOR INJ 1 MG VIAL SQ PRN (13:59)
[2024-01-30] MEDS ORDERED: ONDANSETRON INJ 2 MG/ML 2 ML VIAL IV PRN (13:59)
[2024-01-30] MEDS ORDERED: DEXTROSE 50% 50 ML SYRINGE IV PRN (13:59)
[2024-01-30] MEDS ORDERED: GLUCOSE 40% GEL 15 GM TUBE PO PRN (13:59)
[2024-01-30] MEDS ORDERED: GLUCOSE 10 TAB/TUBE PO PRN (13:59)
[2024-01-30] MEDS ORDERED: CARBOHYDRATES FOR HYPOGLYCEMIA PO PRN (13:59)
[2024-01-30] MEDS ORDERED: PHARMACIST DISCHARGE MED REC CONSULT PRN (13:59)
[2024-01-30] MEDS ORDERED: ACETAMINOPHEN 325 MG TAB PO PRN (13:59)
--- NOTE | 2024-01-30 14:20 | Neurology Consultation ---
Date of Consultation January 30, 2024 Telehealth Consultation Telehealth Information Telehealth Information: I performed this visit using a real-time telehealth connection between my location and the patients location ([facility]). After connec ting through interactive tele-video, patient was identified by name and date of and/or wristband check.Patient (or authorized healthcare group sales representative) was informed that this was a telemedicine visit and it was being conducted confidentially over secure lines. My office door was closed and no one else was present in the room with me.Patient (or authorized healthcare group sales representative) provided consent to proceed with the visit, expressed an understanding of privacy and security of the telemedicine visit, and gave permission to have a hospital group sales representative in the room in order to assist with the visit and to conduct portions of the visit, as needed. I informed the patient (or authorized healthcare group sales representative) that I reviewed their record and presented the opportunity for them to ask any questions regarding the visit today. The patient agreed to participate. History of Present Illness Reason for Consultation: aphasia in setting of hypoglycemia (BG 40) Attending Physician: Luz Mcneill MD History of Present Illness 83 y/o M with PMHx of PD, AF on Eliquis, HTN, & DM2 who presented to the ED with an episode of AMS and changes in speech. He went to bed normal and this this morning was found "thrashing and flailing around in bed". He appeared confused and was not speaking. He was noted to be diaphoretic. EMS was called found patient to have BG of 40 and was given D10 with repeat BG of 208. Upon ER arrival BG of 105. It is reported upon ER arrival patient had aphasia which has since resolved during ER course. He underwent evaluation with CT/CTA which did not show any acute process; there is an age indeterminate occlusion of the V1/V2 L VA with reconstitution in the V3 segment. Allergies Allergy/AdvReac Type Severity Reaction Status Date / Time polyethylene glycol Allergy Severe GOLYTELY, Verified 09/20/23 14:44 BREATHING DIFFICULTY, THROAT SWELLED doxazosin Allergy Intermediate LUNG Verified 09/20/23 14:44 PROBLEMS, WHEEZING heparin Allergy Intermediate FACE Verified 09/20/23 14:44 SWELLING AND HIVES bee venom protein (honey bee) Allergy Unknown Unknown Verified 09/20/23 14:44 cardura tabs Allergy Severe Difficulty Uncoded 09/20/23 14:44 Breathing Home Medications Medication Instructions Recorded Confirmed Type cyanocobalamin (vitamin B-12) 1,000 mcg PO DAILY #90 caps 02/21/22 01/30/24 Rx 1,000 mcg capsule nitroglycerin 0.4 mg sublingual 0.4 mg sublingual Q5M PRN chest 05/18/23 01/30/24 Rx tablet (Nitrostat) pain #14 tabs aspirin 81 mg tablet,delayed 81 mg PO DAILY 05/22/23 01/30/24 History release apixaban 5 mg tablet (Eliquis) 5 mg PO BID #180 tabs 05/25/23 01/30/24 Rx carbidopa 25 mg-levodopa 100 1 tab PO .7AM, 11AM AND 5PM #30 05/25/23 01/30/24 Rx mg-entacapone 200 mg tablet tabs metformin 1,000 mg tablet 1,000 mg PO BID #180 tabs 05/25/23 01/30/24 Rx metoprolol succinate 100 mg 100 mg PO BID #30 tabs 05/25/23 01/30/24 Rx tablet,extended release 24 hr (Toprol XL) omeprazole 20 mg capsule,delayed 20 mg PO DAILY #90 caps 05/25/23 01/30/24 Rx release lisinopril 20 mg tablet 20 mg PO DAILY 09/20/23 01/30/24 History magnesium oxide 800 mg PO DAILY 09/20/23 01/30/24 History simvastatin 40 mg tablet 40 mg PO PM 09/20/23 01/30/24 History carbidopa ER 50 mg-levodopa 200 mg 1 tab PO HS 01/30/24 01/30/24 History tablet,extended release insulin glargine U-300 conc 300 75 unit subcut DAILY 01/30/24 01/30/24 History unit/mL (1.5 mL) subcutaneous pen (Tokatharine SoloStpatria U-300 Insulin) levothyroxine 150 mcg tablet 150 mcg PO DAILY 01/30/24 01/30/24 History melatonin 3 mg tablet 3 - 6 mg PO HS 01/30/24 01/30/24 History Patient History Medical History Pleural effusion Lung disease, obstructive Atherosclerosis Atrial fibrillation Hypothyroidism HTN (hypertension) Diabetes mellitus Surgical History History of heart surgery History of back surgery History of tonsillectomy History of cholecystectomy Family History Mother Heart disease Uncle Myocardial infarction Denies family history of Ovarian cancer Prostate cancer Breast cancer Colorectal cancer Social History Smoking Status: Never smoker Second Hand Exposure: No; Do You Dip or Chew Tobacco: No; Hx Alcohol Use: No Hx Substance Use: No Preferred Language: Nepali Communication Ability: Effective Hearing Ability: Use of Hearing Aid Pediatric Cns Required: No Beliefs That Will Affect Care: None marital status: Current Living Situation: Spouse current occupational status: retired How many Children do You have: 3 Feels Safe at Home: Yes Childhood Exposure to Second-Hand Smoke: Yes Diet: regular caffeine: Yes Dental Care, Regularly: No Physical Activity Frequency: Does not Exercise Seatbelt Use: always Sunscreen Use: Yes (sometimes) Assistive Devices: Cane Results & Data Vital Signs (Past 12 Hours) Vital Signs Temp Pulse Pulse Resp BP BP Pulse Ox 01/30/24 13:41 75 18 154/71 H 96 01/30/24 13:41 01/30/24 12:11 68 14 01/30/24 12:11 100/86 01/30/24 12:05 66 18 97 01/30/24 12:05 172/87 H 01/30/24 12:01 75 22 97 01/30/24 12:01 166/105 H 01/30/24 12:00 18 98 01/30/24 11:56 63 19 98 01/30/24 11:56 158/74 H 01/30/24 11:50 65 17 97 01/30/24 11:50 164/84 H 01/30/24 11:45 66 15 97 01/30/24 11:45 182/84 H 01/30/24 11:40 169/92 H 01/30/24 11:40 72 19 98 01/30/24 11:35 166/80 H 01/30/24 11:35 66 15 99 01/30/24 11:30 171/78 H 01/30/24 11:30 67 16 98 04/24/24 11:25 70 19 97 01/30/24 11:25 173/82 H 01/30/24 11:20 81 17 90 01/30/24 11:20 180/92 H 01/30/24 11:18 69 23 95 01/30/24 10:50 148/72 H 01/30/24 10:50 62 18 94 01/30/24 10:45 160/72 H 01/30/24 10:45 58 L 15 96 01/30/24 10:40 170/74 H 01/30/24 10:40 64 18 01/30/24 10:36 63 17 96 01/30/24 10:36 148/68 H 01/30/24 10:30 163/131 H 01/30/24 10:30 70 15 96 01/30/24 10:25 188/78 H 01/30/24 10:25 71 19 96 01/30/24 10:24 68 20 95 01/30/24 10:24 151/69 H 01/30/24 10:21 69 01/30/24 10:14 144/78 H 01/30/24 10:14 64 17 97 01/30/24 10:12 166/66 H 01/30/24 10:12 65 17 96 01/30/24 10:07 69 20 96 01/30/24 10:07 37.2 C 92 H 22 188/78 H 97 O2 Del Method 01/30/24 13:41 01/30/24 13:41 Room Air 01/30/24 12:11 01/30/24 12:11 01/30/24 12:05 01/30/24 12:05 01/30/24 12:01 01/30/24 12:01 01/30/24 12:00 01/30/24 11:56 01/30/24 11:56 01/30/24 11:50 01/30/24 11:50 01/30/24 11:45 01/30/24 11:45 01/30/24 11:40 01/30/24 11:40 01/30/24 11:35 01/30/24 11:35 01/30/24 11:30 01/30/24 11:30 01/30/24 11:25 01/30/24 11:25 01/30/24 11:20 01/30/24 11:20 01/30/24 11:18 01/30/24 10:50 01/30/24 10:50 01/30/24 10:45 01/30/24 10:45 01/30/24 10:40 01/30/24 10:40 01/30/24 10:36 01/30/24 10:36 01/30/24 10:30 01/30/24 10:30 01/30/24 10:25 01/30/24 10:25 01/30/24 10:24 01/30/24 10:24 01/30/24 10:21 01/30/24 10:14 01/30/24 10:14 01/30/24 10:12 01/30/24 10:12 01/30/24 10:07 01/30/24 10:07 Room Air Diagnostic Findings CTA Head/neck IMPRESSION: 1. 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 Findings may represent an underlying dissection. 2. Atherosclerosis of the carotid arteries without significant stenosis. normal CTA head
--- NOTE | 2024-01-30 16:26 | Electrocardiogram Report ---
Test Reason : Blood Pressure : / mmHG Vent. Rate : 064 BPM Atrial Rate : 064 BPM P-R Int : 246 ms QRS Dur : 092 ms QT Int : 392 ms P-R-T Axes : 079 -30 029 degrees QTc Int : 404 ms Sinus rhythm with 1st degree A-V block Left axis deviation Abnormal ECG When compared with ECG of 20-SEP-2023 10:31, Premature supraventricular complexes are no longer Present [place] interval has increased Confirmed by Mak Wolf ([id number]) on 01/30/2024 4:26:10 PM Referred By: Confirmed By:Mak Wolf
[2024-01-30] MEDS ORDERED: PHARMACY GLYCEMIC MGMT CONSULT PRN (17:17)
[2024-01-30] MEDS: INSULIN ASPART PER UNIT CHARGE SC SCH (18:32)
[2024-01-30] MEDS: LORazepam 0.5 MG TAB PO STA (19:43)
[2024-01-30] MEDS: GADOBUTROL 65ML VIAL IV ONE (20:44)
[2024-01-30] MEDS: SIMVASTATIN 40 MG TAB PO SCH (21:22)
[2024-01-30] MEDS: CARBIDOPA/LEVODOPA 50/200MG EXT REL TAB PO SCH (21:23)
[2024-01-30] MEDS: MELATONIN 3 MG TAB PO SCH (21:23)
[2024-01-30] MEDS: APIXABAN 5 MG TABLET PO SCH (21:23)
[2024-01-30] MEDS: METOPROLOL SUCC 50MG EXT REL TAB PO SCH (21:23)
--- NOTE | 2024-01-30 21:35 | Magnetic Resonance Report ---
Exam(s): MRI HEAD W/WO Contrast IV Amt: 8 cc beth EXAM: MR Head Without and With Intravenous Contrast CLINICAL HISTORY: Reason for exam: stroke like symptoms. TECHNIQUE: Magnetic resonance images of the head/brain without and with intravenous contrast in multiple planes. CONTRAST: Patient received 8 cc beth of IV contrast COMPARISON: CT brain 01/30/2024. FINDINGS: Brain: Moderate generalized brain atrophy. T2 hyperintensity predominantly in the bilateral periventricular white matter compatible with microangiopathic disease. No restricted diffusion abnormality to suggest acute stroke. No intracranial hemorrhage. No enhancing intracranial lesion. Ventricles: Unremarkable. No ventriculomegaly. Bones/joints: Unremarkable. No acute fracture. Sinuses: Unremarkable as visualized. No acute sinusitis. Mastoid air cells: Unremarkable as visualized. No mastoid effusion. Orbits: Unremarkable as visualized. IMPRESSION: Chronic changes as described with no acute stroke or intracranial lesion. No intracranial hemorrhage seen. Electronically signed by: Sammie Saenz MD 01/30/24 21:34 PM
[2024-01-30] MEDS: LANTUS PER UNIT CHARGE SQ SCH (21:42)
--- OUTSIDE RECORDS SUMMARY | 2024-01-30 23:24 | External Medical Summary | Summary of Care ---
Author Name Unknown Organization [facility] Address [address] [place] [address] Phone [phone] Care Team Providers Care Jewelry Bearing Maker Name Role Phone Brannon Nair MD Primary Care Provider [phone] Encounter Details Date Type Department Care Team (Late st Contact Info) Description 01/03/2024 Population Health External Data Unspecified Department Allergies Active Allergy Reactions Criticality Noted Date Comments Amiodarone 10/17/2023 Pulmonary intolerance Doxazosin High 09/07/2016 Other reaction(s): Arrhythmia Doxazosin Mesylate 05/02/1999 DIZZYNESS Peg 5161-Dzi-Zcocc-Nacl-Na sulf 09/07/2016 Heparin Edema face/lips/tongue High 02/16/2010 Itching Polyethylene Glycol Anaphylaxis,Hives,R fabiana High 01/09/2002 Anaphylaxis [facility] documented as of this encounter (statuses as of 01/08/2024) Medications Medication Sig Dispensed Refills Start Date End Date Status ASPIRIN 81 MG PO CHEW take one tablet daily 100 3 06/28/2006 Active INSULIN SYRINGE-NEEDLE U-100 30G X 1/2" 0.5 ML MISCIndications:DM type 2, goal A1c below 7 Use as directed 1 Box of 100 3 10/11/2009 Active vitamin b 12 (CYANOCOBALAMIN) 1000 MCG TABS Take 1 Tablet by mouth in the morning. 0 Active nitroglycerin (NITROSTAT) 0.[address] 1 Tab under the tongue as needed for Pain, Chest. Maximum 3 doses. 25 Tab 0 05/05/2020 Active Ibuprofen 200 MG Oral Tablet Take 1 Tablet by mouth in the morning. 0 Active Eliquis 5 MG Oral Tablet (Apixaban) Take 1 Tablet by mouth 2 times a day. 180 Tablet 3 05/25/2023 Active Lisinopril 20 MG Oral Tablet (Prinivil) Take 1 Tablet by mouth in the morning. 90 Tablet 3 05/25/2023 Active Magnesium Oxide 400 MG Oral Capsule Take 2 Capsules by mouth daily. 180 Capsule 3 05/25/2023 Active metFORMIN HCl 1000 MG Oral Tablet (Glucophage) Take 1 Tablet by mouth 2 times a day. 180 Tablet 3 05/25/2023 Active Metoprolol Succinate ER 100 MG Oral Tablet Extended Release 24 Hour (toPROL XL) Take 1 Tablet by mouth 2 times a day 180 Tablet 3 05/25/2023 Active Omeprazole 20 MG Oral Capsule Delayed Release (PriLOSEC) Take 1 Capsule by mouth daily. 90 Capsule 3 05/25/2023 Active Simvastatin 40 MG Oral Tablet (Zocor) Take 1 Tablet by mouth daily. 90 Tablet 3 05/25/2023 Active Melatonin 3 MG Oral TabletIndications:Id iopathic Parkinson's disease (HCC),REM behavioral disorder Take two tablets by mouth nightly 180 Tablet 1 09/18/2023 Active AUM Mini Insulin Pen Needle 32G X 6 MM (NOVOFINE 32G PEN NEEDLE)Indications:T ype 2 diabetes mellitus with hemoglobin A1c goal of less than 7.0% (HCC) Use daily as directed 100 Each 3 09/26/2023 Active Play4testTouch Delica Plus [id number] :Type 2 diabetes mellitus with hemoglobin A1c goal of less than 7.0% (HCC) Use as directed to test blood sugars 3 times a day; DX E11.9 300 Each 3 09/28/2023 Active Play4testTouch Ultra 2 w/Device KitIndications:Type 2 diabetes mellitus with hemoglobin A1c goal of less than 7.0% (HCC) Use to test blood sugars 3 times a day; DX E11.9 1 Kit 0 09/28/2023 Active OneTouch Ultra In Vitro Strip (Glucose Blood)Indications:Ty pe 2 diabetes mellitus with hemoglobin A1c goal of less than 7.0% (HCC) Use to test blood sugars 3 times a day; DX E11.9 300 Strip 3 09/28/2023 Active Levothyroxine Sodium 150 MCG Oral Tablet (Levoxyl)Indications :Acquired hypothyroidism Take 1 Tablet by mouth daily. 90 Tablet 3 10/24/2023 Active Toujes SoloStar 300 UNIT/ML Subcutaneous Solution Pen-injector (Insulin Glargine (1 Unit Dial))Indications:Ty pe 2 diabetes mellitus with hemoglobin A1c goal of less than 7.0% ([facility]) Inject 75 Units under the skin in the morning. 24 mL 3 10/24/2023 Active Thyjpfffo-Asdvojnj-A ntacapone 25-100-200 MG Oral TabletIndications:PD (Parkinson's disease) ([facility]) TAKE ONE TABLET BY MOUTH THREE TIMES A DAY RECOMMEND TAKING 7A.M. 11A.M. AND 5P.M. 270 Tablet 1 11/28/2023 5 Active Carbidopa-Levodopa ER 50-200 MG Oral Tablet Extended Release (Sinemet CR)Indications:PD (Parkinson's disease) ([facility]) TAKE ONE TABLET BY MOUTH AT NIGHT 90 Tablet 1 11/28/2023 5 Active documented as of this encounter (statuses as of 01/08/2024) Active Problems Problem Noted Date Diagnosed Date Pleural effusion 09/09/2015 Chest pain, pleuritic 09/09/2015 Dyspnea 09/09/2015 Acute calculous cholecystitis 06/23/2015 HTN, goal below 140/80 05/27/2012 Overview: Per HTN Protocol #27. Type 2 diabetes mellitus wit h hemoglobin A1c goal of less than 7.0% 08/05/2009 Overview: Per Diabetes Taxonomy. ICD-10 update of inactive term Esophageal reflux 06/30/2009 Shoulder joint pain 10/28/2007 Chest pain 08/24/2007 Overview: Secondary to paroxysmal atrial fibrillation senior living current use of anticoagulant therapy 0 05/28/2006 Overview: ICD-10 update of inactive term Anticoagulation management encounter 05/28/2006 ADVANCE DIRECTIVE INFORMATION 02/28/2005 Overview: No, Advance Directive brochure given to patient. 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 Screening for prostate cancer 02/23/2004 12/16/2008 Overview: Resolved per Screening Diagnosis Protocol #6 Major depressive disorder 09/03/2001 Overview: ICD-10 update of inactive term Type 2 diabetes mellitus wit h hemoglobin A1c goal of less than 7.0% 01/09/2000 08/05/2009 Overview: Per Diabetes Taxonomy. ICD-10 update of inactive term HTN, goal below 140/90 11/03 Overview: Per HTN Taxonomy. documented as of this encounter (statuses as of 01/08/2024) Immunizations Name Administration Dates Next Due COVID-19 mRNA, LNP-s, No Pre serve, 2-Dose Series (ScoreBig) 07/21/2021,01/03/2021,12/06/2020 COVID-19, MRNA-LNP, 23-24, P F, 30 MCG/0.3 mL, 12 YRS AND ABOVE, IM ([facility]) 07/16/2023 Covid-19, Mrna, Lnp-s, Pf, B ivalent, 30 Mcg, IM, 12 yrs and above (ScoreBig) 07/18/2022 Hepatitis B, 20+ yrs 12/06/1993,07/08/1993,05/08 Pneumococcal Conjugate Vacc, 13 Valent (Prevnar) 03/31/2015 Pneumococcal Conjugate Vacci ne, 7 Valent 03/31/2015 Pneumococcal Polysaccharide PPV23 (Pneumovax) 08/27/2013 Seasonal Influenza, Split, I IV3, With Preserve, Inj 09/06/2016,08/27/2013,07/26/2011,06/30,08/10/2008,08/08/2007,08/21/2006 Seasonal Influenza, Trivalen t, High Dose, No Preserve, IM 07/16/2019 TD, Preservative Free 08/08/1991 Varicella Zoster Vaccine (Adult) 09/23/2012 documented as of this encounter Social History Tobacco Use Types Packs/Day Years Used Date Smoking Tobacco: Former Cigarettes 0.5 49 0 10/08/1956 - 10/08/2005 Cigars Smokeless Tobacco: Never Alcohol Use Standard Drinks/Week Comments Not Currently 0 (1 standard drink = 0.6 oz pur e alcohol) RARE Sex and Gender Information Value Date Recorded Sex Assigned at Not on file Gender Identity Not on file Sexual Orientation Not on file Job Start Date Occupation Industry Not on file Not on file Not on file documented as of this encounter Functional Status Functional Status Response Date of Assess ment Are you deaf or do you have serious difficulty h earing? Yes 11/30/2014 Are you blind or do you have serious difficulty seeing, even when wearing glasses? No 11/30/2014 Do you have serious difficul ty walking or climbing stairs? (5 years old or older) Yes 11/30/2014 Do you have difficulty dress ing or bathing? (5 years old or older) Yes 11/30/2014 Because of a physical, menta l, or emotional condition, do you have difficulty doing errands alone such as visiting a doctor s office or shopping? (15 years old or older) No 11/30/19 15 Cognitive Status Response Date of Assessm ent Because of a physical, menta l, or emotional condition, do you have serious difficulty concentrating, remembering, or making decisions? (5 years old or older) No 11/30/2014 documented as of this encounter Plan of Treatment Upcoming Encounters Date Type Department Care Team (Late st Contact Info) Description 01/16/2024 2:00 PM EDT Office Visit [facility] [address] [facility] [place] [phone] February, Brannon Benavides MD [address] [facility] [place] [address] 01/23/2024 8:00 AM EDT Office Visit Neurology [facility] [place] [address] [place] [address] Louie Santoro, [address] [place] [address] 01/31/2024 8:30 AM EDT Office Visit Orthopaedics [facility] [address] [facility] [place] [address] Xiang Mckeon, [address] [place] [address] 02/08/2024 2:40 PM EDT Office Visit Optometry, [place] [address] [place] [address] Awilda Ballesteros OD [address] [place] [address] 03/19/2024 8:15 AM EDT Office Visit [facility] [address] [place] [address] Renetta Rodríguez MD [address] [place] [address] 04/01/2024 4:00 PM EDT Office Visit [facility] [address] [place] [phone] Brannon Nair MD [address] [place] [address] 11/24/2024 2:00 PM EST Office Visit Dermatology [facility] [address] [place] [phone] Salvatore Henson PA-C [address] [place] [id number] Health Maintenance Due Date Last Done Comments DXA Scan 1942 Depression Screening 1954 DTaP,Tdap,and Td Vaccines (1 - Tdap) 03/02/2005 03/01/2005, 08/08/1991, 08/08/1991 Diabetic Foot Exam 06/30/2010 06/30/2009, 0 07/06/2008, 07/06/2008 (Course Completed), Additional history exists Zoster Vaccines (2 of 3) 11/18/2012 09/23/2012 HbA1c 04/16/2024 10/17/2023, 09/08, 11/03/2020, Additional history exists Influenza Vaccine (FLU shot) (Season Ended) 2024 07/16/2019, 09/06/2016, 08/27/2013, Additional history exists Albumin/Creatinine Ratio 08/17/2024 023, 11/03/2020, 07/01/2009, Additional history exists Diabetic Eye Exam 09/26/2024 09/26/2023, , 06/07/2018, Additional history exists GFR 10/17/2024 10/17/2023, 09/08, 09/07/2023, Additional history exists TSH 10/17/2024 10/17/2023, 09/08, 09/08/2015, Additional history exists Hepatitis B Completed 12/06/1993, 10/1993, 07/08/1993, Additional history exists Pneumococcal Vaccine: 65+ Years Completed 03/31/2015, 08/27/2013, 11/05/2001 COVID-19 Vaccine Completed 07/16/2023, 08/2022, 07/21/2021, Additional history exists GARDASIL-HPV IMMUNIZATION SERIES Aged Out No longer eligible based on patient's age to complete this topic MENINGOCOCCAL (MENACTRA/MENVEO) Aged Out No longer eligible based on patient's age to complete this topic documented as of this encounter Medical Devices Not on filedocumented as of this encounter Advance Directives Documents on File Type Date Recorded Patient Boarding Room Fixer Expl anation Advance Directives and Living Will 02/23/2004 Power of Polymer Specialist 02/23/2004 Latest Code Status on File Code Status Date Activated Date Inactivated Comments Full Code 06/24/2008 2:39 PM 06/24/2008 9:12 PM Code Status History Code Status Date Activated Date Inactivated Comments Full Code 01/29/2008 3:01 PM 01/30/2008 12:58 PM Full Code 08/24/2007 8:45 PM 08/26/2007 10:20 PM Care Teams Jewelry Bearing Maker Relationship Specialty Start Date End Date February, Brannon Benavides MD [address] [place] [address] PCP - General Family Medicine 09/13/23 documented as of this encounter
--- OUTSIDE RECORDS SUMMARY | 2024-01-30 23:24 | External Medical Summary | Summary of Care ---
Author Name Unknown Organization [facility] Address [address] [place] [address] Phone [phone] Care Team Providers Care Area Field Worker Name Role Phone Brannon Nair MD Primary Care Provider [phone] Reason for Referral * Evaluate & Treat - Unlimited Visits (Within 10 days (routine)) - Authorized Specialty Diagnoses / Procedures Referred By Contac t Referred To Contact Manager Mechanical / Nutrition Services Diagnoses Type 2 diabetes mellitus with hemoglobin A1c goal of less than 7.0% ([facility]) Enid Phillip RDN [address] [place] [address] Referral ID Status Reason Start Date Expiration Date Visits Requested Visits Authorized [id number] Authorized Specialty Services Required 12/31/[phone] Question Answer Referral Priority Within 10 days (routine) Where should this appointment be scheduled? [facility] Reason for Referral Type 2 Diabetes Is this a newly diagnosed condition? Yes Comments This referral is for Diabetes Self-Management Training (DSMT) by a recognized [place] [employer] Association (ADA) assistant professor of criminal justice: Nurse (RN), Registered Dietitian Caddy Packer (RDN), and/or Diabetes Medical Nutrition Therapy (MNT) Management (dietitian only). Diabetes educators are responsible for assessing the participant's diabetes education needs, and providing diabetes self-management training in accordance with the standards set by the ADA for DSMT. Any adjustment in diabetes therapy will be made within the guidelines of standards of practice and [facility] approved policies and procedures. I understand that the assistant professor of criminal justice will keep me informed. Areas of Education: Pathophysiology Nutrition Physical Activity Medications Monitoring Acute Complications Chronic Complications Psychosocial Management Promote Health/Behavior Change Participant will be offered 1:1 education training if there is a lack of classes available within 2 months. Providers can also order 1:1 training if indicated for participant for the following reasons: 1:1 Training for Insulin Initiation Participant Inappropriate for Class Setting By my electronic signature, I understand that my patient will be offered the comprehensive ADA content area above unless deemed not appropriate of I specify otherwise here: Reason for Visit * Reason Onset Date Comments Referral 12/28/2023 Ia referral req uest Encounter Details Date Type Department Care Team ([facility] st Contact Info) Description 12/28/2023 Telephone Nutrition Services [place] [address] [place] [address] FebruaryBrannon MD [address] [place] [id number] Referral (Ia referral request) Allergies Active Allergy Reactions Criticality Noted Date Comments Amiodarone 10/17/2023 Pulmonary intolerance Doxazosin High 09/07/2016 Other reaction(s): Arrhythmia Doxazosin Mesylate 05/02/1999 DIZZYNESS Peg 4987-Kie-Yykhk-Nacl-Na sulf 09/07/2016 Heparin Edema face/lips/tongue High 02/16/2010 Itching Polyethylene Glycol Anaphylaxis,Hives,R fabiana High 01/09/[address] [facility] documented as of this encounter (statuses as of 12/31/2023) Medications Medication Sig Dispensed Refills Start Date [...] Melatonin 3 MG Oral TabletIndications:Id iopathic Parkinson's disease,REM behavioral disorder Take two tablets by mouth nightly 180 Tablet 1 09/18/2023 Active AUM Mini Insulin Pen Needle 32G X 6 MM (NOVOFINE 32G PEN NEEDLE)Indications:T ype 2 diabetes mellitus with hemoglobin A1c goal of less than 7.0% (HCC) Use daily as directed 100 Each 3 09/26/2023 Active SolariaTouch Delica Plus [id number] :Type 2 diabetes mellitus with hemoglobin A1c goal of less than 7.0% (HCC) Use as directed to test blood sugars 3 times a day; DX E11.9 300 Each 3 09/28/2023 Active Newton Peripherals Ultra 2 w/Device KitIndications:Type 2 diabetes mellitus with hemoglobin A1c goal of less than 7.0% (HCC) Use to test blood sugars 3 times a day; DX E11.9 1 Kit 0 09/28/2023 Active Newton Peripherals Ultra In Vitro Strip (Glucose Blood)Indications:Ty pe 2 diabetes mellitus with hemoglobin A1c goal of less than 7.0% (HCC) Use to test blood sugars 3 times a day; DX E11.9 300 Strip 3 09/28/2023 Active Levothyroxine Sodium 150 MCG Oral Tablet (Levoxyl)Indications :Acquired hypothyroidism Take 1 Tablet by mouth daily. 90 Tablet 3 10/24/2023 Active Toujeo SoloStar 300 UNIT/ML Subcutaneous Solution Pen-injector (Insulin Glargine (1 Unit Dial))Indications:Ty pe 2 diabetes mellitus with hemoglobin A1c goal of less than 7.0% ([facility]) Inject 75 Units under the skin in the morning. 24 mL 3 10/24/2023 Active Lizukvzpk-Baogwwdq-A ntacapone 25-100-200 MG Oral TabletIndications:PD (Parkinson's disease) TAKE ONE TABLET BY MOUTH THREE TIMES A DAY RECOMMEND TAKING 7A.M. 11A.M. AND 5P.M. 270 Tablet 1 11/28/2023 5 Active Carbidopa-Levodopa ER 50-200 MG Oral Tablet Extended Release (Sinemet CR)Indications:PD (Parkinson's disease) TAKE ONE TABLET BY MOUTH AT NIGHT 90 Tablet 1 11/28/2023 5 Active documented as of this encounter (statuses as of 12/31/2023) Active Problems Problem Noted Date Diagnosed Date [...] 08/24/2007 Overview: Secondary to paroxysmal atrial fibrillation retirement current use of anticoagulant therapy 0 05/28/2006 Overview: ICD-10 update of inactive term Anticoagulation management encounter 05/28/2006 ADVANCE DIRECTIVE INFORMATION 02/28/2005 Overview: No, Advance Directive brochure given to patient. 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 documented as of this encounter (statuses as of 12/31/2023) Resolved Problems Problem Noted Date Diagnosed Date [...] as of this encounter (statuses as of 12/31/2023) Immunizations Name Administration Dates Next Due COVID-19 mRNA, LNP-s, No Pre serve, 2-Dose Series (HomeStars) 07/21/2021,01/03/2021,12/06/2020 COVID-19, MRNA-LNP, 23-24, P F, 30 MCG/0.3 mL, 12 YRS AND ABOVE, IM (PFIZER-Comirnaty) 07/16/2023 Covid-19, Mrna, Lnp-s, Pf, B ivalent, 30 Mcg, IM, 12 yrs and above (Pfizer) 07/18/2022 Hepatitis B, 20+ yrs 12/06/1993,07/08/1993,05/08 Pneumococcal [...] No 11/30/2014 documented as of this encounter Miscellaneous Notes * Telephone Encounter - [facility], Nutrition Referral - 12/28/2023 1:54 PM EDT This participant is newly diagnosed with diabetes. Attached is a pended [place] [employer] referral for comprehensive diabetes education. Please sign the orders if you agree to have the participant have diabetes self- management training and education with one of our educators. This list was system generated to help educate patients with diabetes early on. If you believe thispatient does not have diabetes, please decline the order. Please associate the appropriate diabetes diagnosis to this order. This is an automated user. Please do not reply. [place] have questions[phone]. documented in this encounter Plan of Treatment Upcoming Encounters Date Type Department Care Team (Late st Contact Info) Description 01/15/2024 1:40 PM EDT Office Visit Neurology [facility] [address] [place] [address] Louie Santoro, [address] [facility] [place] [address] 02/08/2024 2:40 PM EDT Office Visit Optometry, [place] [address] [place] [address] Awilda Ballesteros OD [address] [place] [address] 03/19/2024 8:15 AM EDT Office Visit [facility] Surgery [facility] [address] [place] [address] Renetta Rodríguez MD [address] [place] [address] 04/01/2024 4:00 PM EDT Office Visit [address] [phone] Brannon Nair MD [address] [place] [address] 11/24/2024 2:00 PM EST Office Visit Dermatology [address] [phone] Salvatore Henson PA-C [address] [place] [address] Scheduled Referrals Name Type Priority Associated Diagnoses Orde r Schedule DIABETES MANAGEMENT EDUCATION (ADA) REFERRAL Referral Within 10 days (routine) Type 2 diabetes mellitus with hemoglobin A1c goal of less than 7.0% (HCC) Ordered: 12/31/2023 Health Maintenance Due Date Last Done Comments DXA Scan 1940 Depression Screening 1954 DTaP,Tdap,and Td Vaccines (1 - Tdap) 03/02/2005 03/01/2005, 08/08/1991, 08/08/1991 Diabetic Foot Exam 06/30/2010 06/30/2009, 0 07/06/2008, 07/06/2008 (Course Completed), Additional history exists Zoster Vaccines (2 of 3) 11/18/2012 09/23/2012 Influenza Vaccine (FLU shot) (#1) 2023 07/16/2019, 09/06/2016, 08/27/2013, Additional history exists HbA1c 04/16/2024 10/17/2023, 09/08, 11/03/2020, Additional history exists Albumin/Creatinine Ratio 08/17/2024 023, [...] Not on filedocumented as of this encounter Visit Diagnoses Diagnosis Type 2 diabetes mellitus with hemoglobin A1c goal of less than 7.0% (HCC)- Primary documented in this encounter Advance Directives Documents on File Type Date Recorded 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 anation Advance Directives and Living Will 02/23/2004 Power of Opener Verifier [employer] 02/23/2004 Latest Code Status on File Code Status Date Activated Date Inactivated Comments Full Code 06/24/2008 2:39 PM 06/24/2008 9:12 PM Code Status History Code Status Date Activated Date Inactivated Comments Full Code 01/29/2008 3:01 PM 01/30/2008 12:58 PM Full Code 08/24/2007 8:45 PM 08/26/2007 10:20 PM Care Teams Area Field Worker Relationship Specialty Start Date End Date February, Brannon Benavides MD [address] [place] [address] PCP - General Family Medicine 09/13/23 documented as of this encounter
--- OUTSIDE RECORDS SUMMARY | 2024-01-30 23:24 | External Medical Summary | Summary of Care ---
Author Name Unknown Organization [facility] Address [address] [place] [address] Phone [phone] Care Team Providers Care Home Care Nurse Name Role Phone FebruaryBrannon MD Primary Care Provider [phone] Encounter Details Date Type Department Care Team (Late st Contact Info) Description 09/26/2023 Telephone [facility] [address] [place] [address] FebruaryBrannon MD [address] [place] [address] Allergies Active Allergy Reactions Criticality Noted Date Comments Amiodarone 10/17/2023 Pulmonary intolerance Doxazosin High 09/07/2016 Other reaction(s): Arrhythmia Doxazosin Mesylate 05/02/1999 DIZZYNESS Peg 5382-Uat-Ajpfr-Nacl-Na sulf 09/07/2016 Heparin Edema face/lips/tongue High 02/16/2010 Itching Polyethylene Glycol Anaphylaxis,Hives,R fabiana High 01/09/2002 Anaphylaxis [facility] documented as of this encounter (statuses as of 12/26/2023) Medications Medication Sig Dispensed Refills Start Date End Date Status ASPIRIN 81 MG PO CHEW take one tablet daily 100 3 6 Active INSULIN SYRINGE-NEEDLE U-100 30G X 1/2" 0.5 ML MISCIndications:D M type 2, goal A1c below 7 Use as directed 1 Box of 100 3 0 Active vitamin b 12 (CYANOCOBALAMIN) 1000 MCG TABS Take 1 Tablet by mouth in the morning. 0 Active nitroglycerin (NITROSTAT) 0.[address] 1 Tab under the tongue as needed for Pain, Chest. Maximum 3 doses. 25 Tab 0 0 Active Ibuprofen 200 MG Oral Tablet Take 1 Tablet by mouth in the morning. 0 Active Eliquis 5 MG Oral Tablet (Apixaban) Take 1 Tablet by mouth 2 times a day. 180 Tablet 3 3 Active Lisinopril 20 MG Oral Tablet (Prinivil) Take 1 Tablet by mouth in the morning. 90 Tablet 3 3 Active Magnesium Oxide 400 MG Oral Capsule Take 2 Capsules by mouth daily. 180 Capsule 3 3 Active metFORMIN HCl 1000 MG Oral Tablet (Glucophage) Take 1 Tablet by mouth 2 times a day. 180 Tablet 3 3 Active Metoprolol Succinate ER 100 MG Oral Tablet Extended Release 24 Hour (toPROL XL) Take 1 Tablet by mouth 2 times a day 180 Tablet 3 3 Active Omeprazole 20 MG Oral Capsule Delayed Release (PriLOSEC) Take 1 Capsule by mouth daily. 90 Capsule 3 3 Active Simvastatin 40 MG Oral Tablet (Zocor) Take 1 Tablet by mouth daily. 90 Tablet 3 3 Active Melatonin 3 MG Oral TabletIndications :Idiopathic Parkinson's disease,REM behavioral disorder Take two tablets by mouth nightly 180 Tablet 1 3 Active AUM Mini Insulin Pen Needle 32G X 6 MM (NOVOFINE 32G PEN NEEDLE)Indication s:Type 2 diabetes mellitus with hemoglobin A1c goal of less than 7.0% (HCC) Use daily as directed 100 Each 3 3 Active LANCETS MISCIndications:D M type 2, goal A1c below 7 as directed 100 10 3 09/28/20 23 Discontinu ed(Medicat ion List Clean Up) ONETOUCH ULTRA SYSTEM W/DEVICE KITIndications:DM type 2, goal A1c below 7 Use up to four times a day as directed 1 1 9 09/28/20 23 Discontinu ed(Medicat ion List Clean Up) ONETOUCH ULTRA TEST STRPIndications:D M type 2, goal A1c below 7 Use three times a day as directed 270 3 0 12/22/20 23 Discontinu ed(Medicat ion List Clean Up) CAPOTEN 50 MG PO TABSIndications:H TN, goal below 140/90 Take 1 Tablet by mouth in the morning. 270 Tab 3 1 10/17/19 24 Discontinu ed(Patient preference /discontin uation) Magnesium Hydroxide 800 MG/5ML SUSP Take by mouth. 0 10/17/19 24 Discontinu ed(Medicat ion List Clean Up) TOUJEO SOLOSTAR 300 UNIT/ML SOPN 90 Units. 5 8 10/17/19 24 Discontinu ed(Medicat ion List Clean Up) Accu-Chek Guide w/Device Kit Use to test blood sugars 3 times a day; DX E11.9 1 Kit 0 3 09/28/20 23 Discontinu ed(Medicat ion List Clean Up) Accu-Chek FastClix Lancets Use to test blood sugars 3 times a day; DX: E11.9 306 Each 1 3 09/28/20 23 Discontinu ed(Medicat ion List Clean Up) Levothyroxine Sodium 175 MCG Oral Tablet (Levoxyl) Take 1 Tablet by mouth daily. 90 Tablet 3 3 10/02/20 23 Discontinu ed(Refill) Carbidopa-Levodop a ER 50-200 MG Oral Tablet Extended Release (Sinemet CR)Indications:PD (Parkinson's disease) TAKE ONE TABLET BY MOUTH AT NIGHT 90 Tablet 1 3 11/27/19 24 Discontinu ed(Refill) Carbidopa-Levodop a-Entacapone 25-100-200 MG Oral TabletIndications :PD (Parkinson's disease) TAKE ONE TABLET BY MOUTH THREE TIMES A DAY RECOMMEND TAKING 7A.M. 11A.M. AND 5P.M. 270 Tablet 1 3 11/27/19 24 Discontinu ed(Refill) Toujeo SoloStar 300 UNIT/ML Subcutaneous Solution Pen-injector (Insulin Glargine (1 Unit Dial)) 90 unit (0.3 mL) subcutaneously daily for E11.5 31.5 mL 3 3 10/24/19 24 Discontinu ed(Refill) Accu-Chek Guide In Vitro Strip (Glucose Blood)Indications :Type 2 diabetes mellitus with hemoglobin A1c goal of less than 7.0% (HCC) Use 1 Strip as directed 2 times a day. 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 See ophthalmology in person as recommended. Brannon Nair MD * Telephone Encounter - Randy Castellano MD - 09/26/2023 3:54 PM EST Retinal Scan Imaging Barry Nascimento [id number] Retinal Scan Interpretation: The images are not able to be interpreted. Diabetes Retinal Imaging Care Plan: The retinal scan results are uninterpretable - I will forward this encounter to the Ophthalmology DM Letter Pool [[id number]], they will send an unreadable retinal scan letter to the patient. I will forward this encounter to the ordering provider. Patient prefers to be seen at [facility] for follow-up evaluation. This encounter will be sent to Ophthalmology scheduling services, please schedule the patient within 3 months. Randy Castellano MD 09/26/2023 3:54 PM * Telephone Encounter - Sarah Bird LPN - 09/26/2023 3:44 PM EST A Diabetic Telemed Eye image was taken and requires your interpretation for Dr Brannon Nair. Please check your inbasket for image. Patient prefers to be seen at [facility] if a follow-up appointment is needed. documented in this encounter Plan of Treatment Upcoming Encounters Date Type Department Care Team (Late st Contact Info) Description 01/15/2024 1:40 PM EDT Office Visit Neurology [facility] [address] [facility] [address] Louie Santoro, [address] [facility] [place] [address] 02/08/2024 2:40 PM EDT Office Visit Optometry, [place] [address] [place] [address] Awilda Ballesteros OD [address] [place] [address] 03/19/2024 8:15 AM EDT Office Visit 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 Advance Directives and Living Will 02/23/2004 Power of Back Up Machine Operator 02/23/2004 Latest Code Status on File Code Status Date Activated Date Inactivated Comments Full Code 06/24/2008 2:39 PM 06/24/2008 9:12 PM Code Status History Code Status Date Activated Date Inactivated Comments Full Code 01/29/2008 3:01 PM 01/30/2008 12:58 PM Full Code 08/24/2007 8:45 PM 08/26/2007 10:20 PM Care Teams Home Care Nurse Relationship Specialty Start Date End Date February, Brannon Benavides MD [address] [place] [address] PCP - General Family Medicine 09/13/23 documented as of this encounter
--- OUTSIDE RECORDS SUMMARY | 2024-01-30 23:24 | External Medical Summary | Summary of Care ---
Author Name Unknown Organization [facility] Address [address] [place] [address] Phone [phone] Care Team Providers Care Glue Spreader Name Role Phone Brannon Nair MD Primary Care Provider Reason for Visit * Reason Comments Return Neuro Encounter Details Date Type Department Care Team (Late st Contact Info) Description 01/29/2024 3:00 PM EDT Office Visit Neurology [facility] [place] [facility] [place] [address] Louie Santoro, [address] [facility] [place] [address] REM sleep behavior disorder* Allergies Active Allergy Reactions Criticality Noted Date Comments Amiodarone 10/17/2023 Pulmonary intolerance Doxazosin High 09/07/2016 Other reaction(s): Arrhythmia Doxazosin Mesylate 05/02/1999 DIZZYNESS Peg 3530-Ugl-Xxqtk-Nacl-Na sulf 09/07/2016 Heparin Edema face/lips/tongue High 02/16/2010 Itching Polyethylene Glycol Anaphylaxis,Hives,R fabiana High 01/09/2002 Anaphylaxis [facility] documented as of this encounter (statuses as of 01/29/2024) Medications Medication Sig Dispensed Refills Start Date [...] mouth daily. 90 Tablet 3 3 Active AUM Mini Insulin Pen Needle 32G X 6 MM (NOVOFINE 32G PEN NEEDLE)Indications: Type 2 diabetes mellitus with hemoglobin A1c goal of less than 7.0% (HCC) Use daily as directed 100 Each 3 3 Active OneTouch Delica Plus [id number] s:Type 2 diabetes mellitus with hemoglobin A1c goal of less than 7.0% (HCC) Use as directed to test blood sugars 3 times a day; DX E11.9 300 Each 3 3 Active OneTouch Ultra 2 w/Device KitIndications:Type 2 diabetes mellitus with hemoglobin A1c goal of less than 7.0% (HCC) Use to test blood sugars 3 times a day; DX E11.9 1 Kit 0 3 Active OneTouch Ultra In Vitro Strip (Glucose Blood)Indications:T ype 2 diabetes mellitus with hemoglobin A1c goal of less than 7.0% (HCC) Use to test blood sugars 3 times a day; DX E11.9 300 Strip 3 3 Active Levothyroxine Sodium 150 MCG Oral Tablet (Levoxyl)Indication s:Acquired hypothyroidism Take 1 Tablet by mouth daily. 90 Tablet 3 4 Active Toujeo SoloStar 300 UNIT/ML Subcutaneous Solution Pen-injector (Insulin Glargine (1 Unit Dial))Indications:T ype 2 diabetes mellitus with hemoglobin A1c goal of less than 7.0% ([facility]) Inject 75 Units under the skin in the morning. 24 mL 3 4 Active Carbidopa-Levodopa- Entacapone 25-100-200 MG Oral TabletIndications:P D (Parkinson's disease) ([facility]) TAKE ONE TABLET BY MOUTH THREE TIMES A DAY RECOMMEND TAKING 7A.M. 11A.M. AND 5P.M. 270 Tablet 1 4 11/22/19 25 Active Carbidopa-Levodopa ER 50-200 MG Oral Tablet Extended Release (Sinemet CR)Indications:PD (Parkinson's disease) ([facility]) TAKE ONE TABLET BY MOUTH AT NIGHT 90 Tablet 1 4 11/27/19 25 Active Melatonin 5 MG Oral Tablet ChewableIndications :REM sleep behavior disorder 2 tablets nightly for rem sleep disorder. 180 Tablet 1 4 Active Melatonin 3 MG Oral TabletIndications:I diopathic Parkinson's disease ([facility]),REM behavioral disorder Take two tablets by mouth nightly 180 Tablet 1 3 01/29/20 24 Discontinued documented as of this encounter (statuses as of 01/29/2024) Active Problems Problem Noted Date Diagnosed Date Hyperlipidemia 01/16/2024 Idiopathic Parkinson's disease 01/16/2024 Pleural effusion 09/09/2015 Chest pain, pleuritic 09/09/2015 Dyspnea 09/09/2015 Acute calculous cholecystitis 06/23/2015 HTN, goal below 140/80 05/27/2012 Overview: Per HTN Protocol #27. Type 2 diabetes mellitus wit h hemoglobin A1c goal of less than 7.0% 08/05/2009 Overview: Per Diabetes Taxonomy. ICD-10 update of inactive term Esophageal reflux 06/30/2009 Shoulder joint pain 10/28/2007 Chest pain 08/24/2007 Overview: Secondary to paroxysmal atrial fibrillation alf current use of anticoagulant therapy 0 05/28/2006 Overview: ICD-10 update of inactive term Anticoagulation management encounter 05/28/2006 ADVANCE DIRECTIVE INFORMATION 02/28/2005 Overview: No, Advance Directive brochure given to patient. 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 LG BOWEL documented as of this encounter (statuses as of 01/29/2024) Resolved Problems Problem Noted Date Diagnosed Date [...] as of this encounter (statuses as of 01/29/2024) Immunizations Name Administration Dates Next Due COVID-19 mRNA, LNP-s, No Pre serve, 2-Dose Series ([employer]) 07/21/2021,01/03/2021,12/06/2020 COVID-19, MRNA-LNP, 23-24, P F, 30 MCG/0.3 mL, 12 YRS AND ABOVE, IM ([facility]) 07/16/2023 Covid-19, Mrna, Lnp-s, Pf, B ivalent, 30 Mcg, IM, 12 yrs and above ([employer]) 07/18/2022 Hepatitis B, 20+ yrs 12/06/1993,07/08/1993,05/08 Pneumococcal [...] 0.5 49 0 10/08/1956 - 10/08/2005 Cigars 10/08/1956 - 0 10/08/2005 Smokeless Tobacco: Never Alcohol Use Standard Drinks/Week Comments Not Currently 0 (1 standard drink = 0.6 oz pur e alcohol) RARE Sex and Gender Information Value Date Recorded Sex Assigned at Not on file Gender Identity Not on file Sexual Orientation Not on file Job Start Date Occupation Industry Not on file Not on file Not on file documented as of this encounter Last Filed Vital Signs Vital Sign Reading Time Taken Comments Blood Pressure 114/68 01/29/2024 2:35 PM EDT Pulse 78 01/29/2024 2:35 PM EDT Temperature 37.1 C (98.8 F) 01/29/2024 2:35 PM ED T Respiratory Rate 16 01/29/2024 2:35 PM EDT Oxygen Saturation 96% 01/29/2024 2:35 PM EDT Inhaled Oxygen Concentration - - Weight - - Height - - Body Mass Index - - documented in this encounter Functional Status Functional Status Response [...] No 11/30/2014 documented as of this encounter Progress Notes * Louie Santoro, DO - 01/29/2024 3:09 PM EDT Progress [place] [address] NAME: Barry Nascimento Date of : 1940 Date of Visit: 10/27/22 Chief Complaint: Chief Complaint Patient presents with Return Neuro Subjective: An 84-year-old male with idiopathic tremor predominant Parkinson's disease and REM behavioral sleep disorder presenting clinic for follow-up. Patient was last seen by myself in Sep 2023. He did not tolerate Klonopin for REM behavioral sleep disorder. In Oct 2022 we switched his Sinemet over to Stalevo due to wearing off and added the extended release at night. He has noticed a reduction in wearing off of the Sinemet since switching his medications to the long-acting form. He has noted a change in the color of his urine associated with the use of this medication, Stalevo. The low-dose melatonin 3-6 mg nightly did help with some of his insomnia. No reported worsening in his REM behavioral sleep disorder. He is awaiting a possible right hip replacement. He denies any new complaints or concerns but still continues to act out his dreams. He denies any falls. Having back pain and seeing orthopedics next week. HOME MEDICATIONS : Current Outpatient Medications Medication Sig Dispense Refill ASPIRIN 81 MG PO CHEW take one tablet daily 100 3 vitamin b 12 (CYANOCOBALAMIN) 1000 MCG TABS Take 1 Tablet by mouth in the morning. nitroglycerin (NITROSTAT) 0.[address] 1 Tab under the tongue as needed for Pain, Chest. Maximum 3 doses. 25 Tab 0 Ibuprofen 200 MG Oral Tablet Take 1 Tablet by mouth in the morning. Eliquis 5 MG Oral Tablet (Apixaban) Take 1 Tablet by mouth 2 times a day. 180 Tablet 3 Lisinopril 20 MG Oral Tablet (Prinivil) Take 1 Tablet by mouth in the morning. 90 Tablet 3 Magnesium Oxide 400 MG Oral Capsule Take 2 Capsules by mouth daily. 180 Capsule 3 metFORMIN HCl 1000 MG Oral Tablet (Glucophage) Take 1 Tablet by mouth 2 times a day. 180 Tablet 3 Metoprolol Succinate ER 100 MG Oral Tablet Extended Release 24 Hour (toPROL XL) Take 1 Tablet by mouth 2 times a day 180 Tablet 3 Omeprazole 20 MG Oral Capsule Delayed Release (PriLOSEC) Take 1 Capsule by mouth daily. 90 Capsule 3 Simvastatin 40 MG Oral Tablet (Zocor) Take 1 Tablet by mouth daily. 90 Tablet 3 Levothyroxine Sodium 150 MCG Oral Tablet (Levoxyl) Take 1 Tablet by mouth daily. 90 Tablet 3 Toujeo SoloStar 300 UNIT/ML Subcutaneous Solution Pen-injector (Insulin Glargine (1 Unit Dial)) Inject 75 Units under the skin in the morning. 24 mL 3 Hilcjiyvy-Owucsslj-Vxrpwbhsnm 25-100-200 MG Oral Tablet TAKE ONE TABLET BY MOUTH THREE TIMES A DAY RECOMMEND TAKING 7A.M. 11A.M. AND 5P.M. 270 Tablet 1 Carbidopa-Levodopa ER 50-200 MG Oral Tablet Extended Release (Sinemet CR) TAKE ONE TABLET BY MOUTH AT NIGHT 90 Tablet 1 Melatonin 5 MG Oral Tablet Chewable 2 tablets nightly for rem sleep disorder. 180 Tablet 1 INSULIN SYRINGE-NEEDLE U-100 30G X 1/2" 0.5 ML MISC Use as directed 1 Box of 100 3 COVID-19 mRNA Vaccine 12 years and above [employer] 30 MCG/0.3 ML IM SUSP Inject into a large muscle. (Patient not taking: Reported on 10/17/2023) 0.3 mL 0 AUM Mini Insulin Pen Needle 32G X 6 MM (NOVOFINE 32G PEN NEEDLE) Use daily as directed 100 Each 3 OneTouch Delica Plus Nvoicy14L Use as directed to test blood sugars 3 times a day; DX E11.9 300 Each 3 OneTouch Ultra 2 w/Device Kit Use to test blood sugars 3 times a day; DX E11.9 1 Kit 0 OneTouch Ultra In Vitro Strip (Glucose Blood) Use to test blood sugars 3 times a day; DX E11.9 300 Strip 3 No current facility-administered medications for this visit. Review of patient's allergies indicates: Allergen Reactions Doxazosin Other reaction(s): Arrhythmia Heparin Edema face/lips/tongue Itching Polyethylene Glycol Anaphylaxis, Hives and Rash Anaphylaxis [facility] Amiodarone Pulmonary intolerance Doxazosin Mesylate DIZZMOSHE Golytely [Peg 0502-Uay-Tzxpp-Nacl-Nasulf] PHYSICAL EXAMINATION: Vital Signs: BP 114/68 | Pulse 78 | Temp 37.1 C (98.8 F) (Tympanic) | Resp 16 | SpO2 96% EXAM: Constitutional: appearance normally developed, well nourished and non-obese Head and Face: normocephalic and atraumatic Eyes: normal lids, normal conjunctiva Neck: supple Respiratory: normal effort Cardiovascular: regular rhythm and normal pulses Abdomen: non distended Skin: no rashes, lesions, or ulcers noted Psychiatric: normal judgement and insight, normal mood and normal affect NEUROLOGIC EXAMINATION: Appearance: no acute distress Orientation: awake, alert and oriented x 3 Mental Status: alert Attention: normal Knowledge: appropriate Language: no aphasia Speech: no dysarthria Cranial Nerves: CN 2 - no visual defect on confrontation and pupils round, equal, reactive to light CN 3, 4, 6 - extra-ocular movements intact and no nystagmus CN 5 - facial sensation intact CN 7 - no facial asymmetry CN 8 -patient using hearing aids, grossly hard of hearing CN 9, 10 - palate symmetric CN 11 - good shoulder shrug CN 12 - tongue midline Gait: flexed posture, wide-based gait, ambulating with a cane, turns on block, tremor in the left hand while walking Coordination: no ataxia with finger to nose testing , mild pill-rolling tremor predominantly in theright hand, bradykinetic with okftew-rb-whtz testing and rapid alternating movements Sensory: intact to light touch Muscle Tone: Cogwheel rigidity in the upper extremities Muscle exam: No focal weakness LABORATORY: Labs reviewed and pertinent findings are indicated below: Component Latest Ref Rn 05/05/2020 WBC 4.00 - 10.80 K/uL 8.69 RBC 4.50 - 5.25 M/uL 4.58 HGB 14.0 - 16.8 g/dL 12.9 (L) HCT 40.0 - 48.4 % 38.9 (L) MCV 82.0 - 99.5 fL 84.9 MCH 27.0 - 34.0 pg 28.2 MCHC 32.0 - 36.0 g/dL 33.2 RDW 11.5 - 15.5 % 14.2 PLT 140 - 400 K/uL 218 MPV 6.6 - 11.1 fL 10.9 NRBC'S 0 /100 WBCs 0 Neutrophils % 40 - 75 % 62.1 Lymphocytes % 18 - 42 % 27.8 Monocytes % 1 - 11 % 7.0 Eosinophils % 0 - 6 % 2.0 Basophils % 0 - 2 % 0.6 IMMATURE GRANULOCYTE 0 - 2 % 0.5 Absolute Neutrophils 1.8 - 7.7 K/uL 5.40 Absolute Lymphocytes 1.0 - 4.8 K/uL 2.42 Absolute Monocytes 0.0 - 1.1 K/uL 0.61 Absolute Eosinophils 0.0 - 0.7 K/uL 0.17 Absolute Basophils 0.0 - 0.2 K/uL 0.05 Absolute Immature Granulocytes 0.0 - 0.2 K/uL 0.04 BUN 6 - 20 mg/dL 15 Creatinine 0.6 - 1.2 mg/dL 1.0 Estimated Glomerular Filtration Rate >60 >60.0 Sodium 135 - 146 mmol/L 142 Potassium 3.5 - 5.1 mmol/L 4.3 Chloride 98 - 107 mmol/L 103 CO2 22 - 32 mmol/L 24 Anion Gap 7 - 15 mmol/L 15 Glucose 70 - 120 mg/dL 151 (H) Albumin 3.8 - 5.0 g/dL 4.2 AST 10 - 50 U/L 39 Alkaline Phosphatase 0 - 153 U/L 58 Bilirubin, Total 0 - 1.2 mg/dL 0.3 Calcium 8.4 - 10.2 mg/dL 8.7 Protein 6.0 - 8.3 g/dL 6.7 ALT 10 - 50 U/L 29 Troponin T, High Sensitivity 0 - 22 ng/L 11 PRO BNP 0 - 299 pg/mL 152 CK-MB 0 - 7.7 ng/mL 3.2 CK 39 - 308 U/L 332 (H) (L) Low (H) High Review of prior Diagnostic Tests: Review of prior Radiology Studies: CT head noncontrast performed on 04/28/2022: Mild atrophy and small vessel disease. No acute intracranial abnormality. IMPRESSION / PLAN: Barry was seen today for return neuro. Diagnoses and all orders for this visit: REM sleep behavior disorder - Melatonin 5 MG Oral Tablet Chewable; 2 tablets nightly for rem sleep disorder. Mr. Barry Nascimento is an 83-year-old male with idiopathic tremor predominant Parkinson's disease and REM behavioral sleep disorder presenting to clinic for follow-up. Recommend continue Stalevo 25-100-200 3 times daily during the day and extended release Sinemet 50-200 at night. In regards to his insomnia and REM behavioral sleep disorder he did not tolerate Klonopin in the past. Will try increasing his melatonin to 10 mg nightly. If no improvement will try Aricept. Otherwise I will plan to seehim back in 6 months or sooner if needed. Louie Santoro DO documented in this encounter Nursing Notes * Tomasa Saldaña MED ASSIST - 01/29/2024 2:33 PM EDT Chief Complaint Patient presents with Return Neuro documented in this encounter Plan of Treatment Upcoming Encounters Date Type Department Care Team (Late st Contact Info) Description 01/31/2024 8:30 AM EDT Office Visit Orthopaedics [facility] [address] [place] [address] Xiang Mckeon DO [address] [place] [address] 02/08/2024 2:40 PM EDT Office Visit [facility] [address] [place] [address] Awilda Ballesteros OD [address] [place] [address] 03/17/2024 8:00 AM EDT Nutrition Services Nutrition, [facility] [address] [place] [address] Mindy Boles RDN [address] [place] [address] 03/19/2024 8:15 AM EDT Office Visit MOHS Surgery [facility] [address] [place], [place] [address] Renetta Rodríguez MD [address] [facility] [place] [address] 04/01/2024 4:00 PM EDT Office Visit [facility] [address] [place] [phone] FebruaryBrannon MD [address] [place] [address] 08/08/2024 1:40 PM EDT Office Visit Neurology [facility] [address] [place] [address] Louie Santoro DO [address] [facility] [place] [address] 11/24/2024 2:00 PM EST Office Visit Dermatology [facility] [address] [place] [address] Salvatore Hneson PA-C [address] [place] [address] Health Maintenance Due Date Last [...] as of this encounter Visit Diagnoses Diagnosis REM sleep behavior disorder- Primary documented in this encounter Advance Directives Documents on File Type Date Recorded Patient Visual Inspector Expl anation Advance Directives and Living Will 02/23/2004 Power of Wet Press Tender 02/23/2004 Latest Code Status on File Code Status Date Activated Date Inactivated Comments Full Code 06/24/2008 2:39 PM 06/24/2008 9:12 PM Code Status History Code Status Date Activated Date Inactivated Comments Full Code 01/29/2008 3:01 PM 01/30/2008 12:58 PM Full Code 08/24/2007 8:45 PM 08/26/2007 10:20 PM Care Teams Glue Spreader Relationship Specialty Start Date End Date February, Brannon Benavides MD [address] [facility] [place] [address] PCP - General Family Medicine 09/13/23 documented as of this encounter
--- OUTSIDE RECORDS SUMMARY | 2024-01-30 23:24 | External Medical Summary | Summary of Care ---
Author Name Unknown Organization [facility] Address [address] [place] [address] Phone [phone] Care Team Providers Care Authorization Specialist Name Role Phone Brannon Nair MD Primary Care Provider [phone] Reason for Visit * Reason Comments Medication Refill Encounter Details Date Type Department Care Team (Late st Contact Info) Description 11/27/2023 Refill Neurology [facility] [address] [place] [address] Louie Santoro, [address] [place] [address] PD (Parkinson's disease) Allergies Active Allergy Reactions Criticality Noted Date Comments Amiodarone 10/17/2023 Pulmonary intolerance Doxazosin High 09/07/2016 Other reaction(s): Arrhythmia Doxazosin Mesylate 05/02/1999 DIZZYNESS Peg 2447-Pfl-Dznpq-Nacl-Na sulf 09/07/2016 Heparin Edema face/lips/tongue High 02/16/2010 Itching Polyethylene Glycol Anaphylaxis,Hives,R fabiana High 01/09/2002 Anaphylaxis [facility] documented as of this encounter (statuses as of 11/28/2023) Medications Medication Sig Dispensed Refills Start Date [...] 3 05/25/2023 Active Melatonin 3 MG Oral TabletIndications:I diopathic Parkinson's disease,REM behavioral disorder Take two tablets by mouth nightly 180 Tablet 1 09/18/2023 Active AUM Mini Insulin Pen Needle 32G X 6 MM (NOVOFINE 32G PEN NEEDLE)Indications: Type 2 diabetes mellitus with hemoglobin A1c goal of less than 7.0% (HCC) Use daily as directed 100 Each 3 09/26/2023 Active Three MelonsTouch Delica Plus [id number] s:Type 2 diabetes mellitus with hemoglobin A1c goal of less than 7.0% (HCC) Use as directed to test blood sugars 3 times a day; DX E11.9 300 Each 3 09/28/2023 Active Three MelonsToJooix Ultra 2 w/Device KitIndications:Type 2 diabetes mellitus with hemoglobin A1c goal of less than 7.0% (HCC) Use to test blood sugars 3 times a day; DX E11.9 1 Kit 0 09/28/2023 Active skyrockit Ultra In Vitro Strip (Glucose Blood)Indications:T ype 2 diabetes mellitus with hemoglobin A1c goal of less than 7.0% ([facility]) Use to test blood sugars 3 times a day; DX E11.9 300 Strip 3 09/28/2023 Active Levothyroxine Sodium 150 MCG Oral Tablet (Levoxyl)Indication s:Acquired hypothyroidism Take 1 Tablet by mouth daily. 90 Tablet 3 10/24/2023 Active Toujeo SoloStar 300 UNIT/ML Subcutaneous Solution Pen-injector (Insulin Glargine (1 Unit Dial))Indications:T ype 2 diabetes mellitus with hemoglobin A1c goal of less than 7.0% ([facility]) Inject 75 Units under the skin in the morning. 24 mL 3 10/24/2023 Active Carbidopa-Levodopa- Entacapone 25-100-200 MG Oral TabletIndications:P D (Parkinson's disease) TAKE ONE TABLET BY MOUTH THREE TIMES A DAY RECOMMEND TAKING 7A.M. 11A.M. AND 5P.M. 270 Tablet 1 11/28/2023 5 Active Carbidopa-Levodopa ER 50-200 MG Oral Tablet Extended Release (Sinemet CR)Indications:PD (Parkinson's disease) TAKE ONE TABLET BY MOUTH AT NIGHT 90 Tablet 1 11/28/2023 5 Active Carbidopa-Levodopa ER 50-200 MG Oral Tablet Extended Release (Sinemet CR)Indications:PD (Parkinson's disease) TAKE ONE TABLET BY MOUTH AT NIGHT 90 Tablet 1 06/05/2023 4 Discontinue d(Refill) Carbidopa-Levodopa- Entacapone 25-100-200 MG Oral TabletIndications:P D (Parkinson's disease) TAKE ONE TABLET BY MOUTH THREE TIMES A DAY RECOMMEND TAKING 7A.M. 11A.M. AND 5P.M. 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 BENIGN NEOPLASM LG BOWEL documented as of this encounter (statuses as of 11/28/2023) Resolved Problems Problem Noted Date Diagnosed Date [...] as of this encounter (statuses as of 11/28/2023) Immunizations Name Administration Dates Next Due COVID-19 mRNA, LNP-s, No Pre serve, 2-Dose Series ([employer]) 07/21/2021,01/03/2021,12/06/2020 COVID-19, MRNA-LNP, 23-24, P F, 30 [...] encounter Miscellaneous Notes * Telephone Encounter - Diana Ford [facility] - 11/28/2023 1:02 PM ESTSigned Prescriptions: Disp Refills Makttxjtv-Gxurqkvj-Jdsewtnoko 25-100-200 M*270 Ta*1 Sig: TAKE ONE TABLET BY MOUTH THREE TIMES A DAY RECOMMEND TAKING 7A.M. 11A.M. AND 5P.M. Authorizing Provider: LOUIE SANTORO Ordering User: DIANA FORD Carbidopa-Levodopa ER 50-200 MG Oral Table*90 Tab*1 Sig: TAKE ONE TABLET BY MOUTH AT NIGHT Authorizing Provi beth: LOUIE SANTORO Ordering User: DIANA FORD * Telephone Encounter - 11/27/2023 12:09 AM ESTPending Prescriptions: Disp Refills Twweouwzj-Qeblvanx-Wgrwafazbb 25-100-200 M*270 Ta*1 Sig: TAKE ONE TABLET BY MOUTH THREE TIMES A DAY RECOMMEND TAKING 7A.M. 11A.M. AND 5P.M. Carbidopa-Levodopa ER 50-200 MG Oral Table*90 Tab*1 Sig: TAKE ONE TABLET BY MOUTH AT NIGHT documented in this encounter Plan of Treatment Upcoming Encounters Date Type Department Care Team (Late st Contact Info) Description 01/15/2024 1:40 PM EDT Office Visit Neurology [facility]oret[facility] [address] [place] [address] Louie Santoro DO [address] [facility] [place] [address] 02/08/2024 2:40 PM EDT Office Visit Optometry, [place] [address] [place] [address] Favian Awilda, ASHLEY [address] [place] [address] 03/19/2024 8:15 AM EDT Office Visit MOHS Surgery [facility] [address] [facility] [place] [place] [address] Renetta Rodríguez MD [address] [place] [address] 04/01/2024 4:00 PM EDT Office Visit [address] [phone] FebruaryBrannon MD [address] [place] [address] 11/24/2024 2:00 PM EST Office Visit Dermatology [facility] [address] [place] [address] Salvatore Henson PA-C [address] [place] [id number] Health Maintenance Due Date Last Done Comments [...] as of this encounter Visit Diagnoses Diagnosis PD (Parkinson's disease) Paralysis agitans documented in this encounter Advance Directives Documents on File Type Date Recorded Patient Program Management Intern Expl anation Advance Directives and Living Will 02/23/2004 Power of Creative Services Designer 02/23/2004 Latest Code Status on File Code Status Date Activated Date Inactivated Comments Full Code 06/24/2008 2:39 PM 06/24/2008 9:12 PM Code Status History Code Status Date Activated Date Inactivated Comments Full Code 01/29/2008 3:01 PM 01/30/2008 12:58 PM Full Code 08/24/2007 8:45 PM 08/26/2007 10:20 PM Care Teams Authorization Specialist Relationship Specialty Start Date End Date February, Brannon Benavides MD [address] [place] [address] PCP - General Family Medicine 09/13/23 documented as of this encounter
--- OUTSIDE RECORDS SUMMARY | 2024-01-30 23:24 | External Medical Summary | Summary of Care ---
Author Name Unknown Organization [facility] Address [address] [place] [address] Phone [phone] Care Team Providers Care Breaker Engineer Name Role Phone FebruaryBrannon MD Primary Care Provider [phone] Reason for Visit * Reason Onset Date Comments Test Results 10/25/2023 Encounter Details Date Type Department Care Team (Late st Contact Info) Description 10/25/2023 Telephone [facility] [address] [place] [address] FebruaryBrannon MD [address] [place] [address] Test Results Allergies Active Allergy Reactions Criticality Noted Date Comments Amiodarone 10/17/2023 Pulmonary intolerance Doxazosin High 09/07/2016 Other reaction(s): Arrhythmia Doxazosin Mesylate 05/02/1999 DIZZYNESS Peg 5363-Vys-Lgind-Nacl-Na sulf 09/07/2016 Heparin Edema face/lips/tongue High 02/16/2010 Itching Polyethylene Glycol Anaphylaxis,Hives,R fabiana High 01/09/2002 Anaphylaxis [facility] documented as of this encounter (statuses as of 01/24/2024) Medications Medication Sig Dispensed Refills Start Date [...] 3 05/25/2023 Active Melatonin 3 MG Oral TabletIndications:Idi opathic Parkinson's disease (HCC),REM behavioral disorder Take two tablets by mouth nightly 180 Tablet 1 09/18/2023 Active AUM Mini Insulin Pen Needle 32G X 6 MM (NOVOFINE 32G PEN NEEDLE)Indications:Ty pe 2 diabetes mellitus with hemoglobin A1c goal of less than 7.0% ([facility]) Use daily as directed 100 Each 3 09/26/2023 Active [employer] Delica Plus [id number]: Type 2 diabetes mellitus with hemoglobin A1c goal of less than 7.0% ([facility]) Use as directed to test blood sugars 3 times a day; DX E11.9 300 Each 3 09/28/2023 Active [employer] Ultra 2 w/Device KitIndications:Type 2 diabetes mellitus with hemoglobin A1c goal of less than 7.0% ([facility]) Use to test blood sugars 3 times a day; DX E11.9 1 Kit 0 09/28/2023 Active [employer] Ultra In Vitro Strip (Glucose Blood)Indications:Typ e 2 diabetes mellitus with hemoglobin A1c goal of less than 7.0% ([facility]) Use to test blood sugars 3 times a day; DX E11.9 300 Strip 3 09/28/2023 Active Levothyroxine Sodium 150 MCG Oral Tablet (Levoxyl)Indications: Acquired hypothyroidism Take 1 Tablet by mouth daily. 90 Tablet 3 10/24/2023 Active Toujeo SoloStar 300 UNIT/ML Subcutaneous Solution Pen-injector (Insulin Glargine (1 Unit Dial))Indications:Typ e 2 diabetes mellitus with hemoglobin A1c goal of less than 7.0% ([facility]) Inject 75 Units under the skin in the morning. 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 LG BOWEL documented as of this encounter (statuses as of 01/24/2024) Resolved Problems Problem Noted Date Diagnosed Date [...] as of this encounter (statuses as of 01/24/2024) Immunizations Name Administration Dates Next Due COVID-19 mRNA, LNP-s, No Pre serve, 2-Dose Series ([employer]) 07/21/2021,01/03/2021,12/06/2020 COVID-19, MRNA-LNP, 23-24, P F, 30 MCG/0.3 mL, 12 YRS AND ABOVE, IM ([facility]) 07/16/2023 Covid-19, Mrna, Lnp-s, Pf, B ivalent, 30 Mcg, IM, 12 yrs and above ([employer]) 07/18/2022 Hepatitis B, 20+ yrs 12/06/1993,07/08/1993,05/08 Pneumococcal [...] encounter Miscellaneous Notes * Telephone Encounter - Mary Jane Haines LPN - 10/29/2023 2:43 PM EST Patient phone number only rings does not go to a voicemail, I tried to contact the emergency contact on file and that number is disconnected. Letter sent to return our call. * Telephone Encounter - Love Blank LPN - 10/25/2023 10:29 AM EST Called pt. No answer. Phone only tremaine. * Telephone Encounter - Love Blank LPN - 10/25/2023 10:29 AM EST ----- Message from Brannon Nair MD sent at 10/24/2023 8:00 PM EST ----- TSH 0.04 and A1C 6. Patient overmedicated on toujeo and levothyroxine. Recommend decreasing levothyroxine to 150 mcg daily (1 pill daily) and decreasing toujeo to 75 units daily. Both prescriptions have been sent to the mail order pharmacy. Can we please notify patient as he does not use MyG. Brannon Nair MD documented in this encounter Plan of Treatment Upcoming Encounters Date Type Department Care Team (Late st Contact Info) Description 01/29/2024 3:00 PM EDT Office Visit Neurology [facility] [address] [facility] [place] [address] Louie Santoro, DO [address] [facility] [place] [address] 01/31/2024 8:30 AM EDT Office Visit Orthopaedics [facility] [address] [place] [address] Xiang Mckeon, DO [address] [facility] [place] [address] 02/08/2024 2:40 PM EDT Office Visit Optometry, [place] [address] [place] [address] Awilda Ballesteros OD [address] [place] [address] 03/17/2024 8:00 AM EDT Nutrition Services Nutrition, [facility] [address] [facility] [place] [address] Mindy Boles, ALEXYS [address] [place] [address] 03/19/2024 8:15 AM EDT Office Visit [facility] Surgery [facility] [address] [place] [address] Renetta Rodríguez MD 200 [place] [address] 04/01/2024 4:00 PM EDT Office Visit [facility] [address] [place] [phone] FebruaryBrannon MD [address] [place] [address] 11/24/2024 2:00 PM EST Office Visit Dermatology [facility] [address] [place] [phone] Salvatore Henson PA-C [address] [place] [address] Health Maintenance Due Date Last Done Comments [...] Documents on File Type Date Recorded 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
--- OUTSIDE RECORDS SUMMARY | 2024-01-30 23:24 | External Medical Summary | Summary of Care ---
Author Name Unknown Organization [facility] Address [address] [place] [address] Phone [phone] Care Team Providers Care Commercial Subcontractor Name Role Phone Brannon Nair MD Primary Care Provider [phone] Encounter Details Date Type Department Care Team (Late st Contact Info) Description 11/27/2023 Population Health External Data Unspecified Department Allergies Active Allergy Reactions Criticality Noted Date Comments Amiodarone 10/17/2023 Pulmonary intolerance Doxazosin High 09/07/2016 Other reaction(s): Arrhythmia Doxazosin Mesylate 05/02/1999 DIZZYNESS Peg 7094-Pvl-Yketu-Nacl-Na sulf 09/07/2016 Heparin Edema face/lips/tongue High 02/16/2010 Itching Polyethylene Glycol Anaphylaxis,Hives,R fabiana High 01/09/2002 Anaphylaxis [facility] documented as of this encounter [...] as directed 100 Each 3 09/26/2023 Active [employer] Delica Plus [id number] :Type 2 diabetes mellitus with hemoglobin A1c goal of less than 7.0% (HCC) Use as directed to test blood sugars 3 times a day; DX E11.9 300 Each 3 09/28/2023 Active [employer] Ultra 2 w/Device KitIndications:Type 2 diabetes mellitus with hemoglobin A1c goal of less than 7.0% (HCC) Use to test blood sugars 3 times a day; DX E11.9 1 Kit 0 09/28/2023 Active [employer] Ultra In Vitro Strip (Glucose Blood)Indications:Ty pe [...] A1c goal of less than 7.0% ([facility]) Inject 75 Units under the skin in the morning. 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 LG BOWEL documented [...] mRNA, LNP-s, No Pre serve, 2-Dose Series ([employer]) 07/21/2021,01/03/2021,12/06/2020 COVID-19, MRNA-LNP, 23-24, P F, 30 MCG/0.3 mL, 12 YRS AND ABOVE, IM ([facility]) 07/16/2023 Covid-19, Mrna, Lnp-s, Pf, B ivalent, 30 Mcg, IM, 12 yrs and above ([employer]) 07/18/2022 Hepatitis B, 20+ yrs 12/06/1993,07/08/1993,05/08 Pneumococcal [...] 1:40 PM EDT Office Visit Neurology [facility] [place] [address] [place] [address] Louie Santoro, [address] [place] [address] 02/08/2024 2:40 PM EDT Office Visit [facility]ometry[facility] [address] [place] [address] Awilda Ballesteros OD [address] [place] [address] 03/19/2024 8:15 AM EDT Office Visit [facility] [address] [place] [address] Renetta Rodríguez MD [address] [facility] [place] [address] 04/01/2024 4:00 PM EDT Office Visit [facility] [address] [place] [phone] FebruaryBrannon MD [address] [place] [address] 11/24/2024 2:00 PM EST Office Visit Dermatology [facility] [address] [place] [phone] Salvatore Henson PA-C [address] [place] [address] Health Maintenance Due Date Last Done Comments [...] Documents on File Type Date Recorded 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 anation Advance Directives and Living Will 02/23/2004 Power of Global Logistics Manager 02/23/2004 Latest Code Status on File Code Status Date Activated Date Inactivated Comments Full Code 06/24/2008 2:39 PM 06/24/2008 9:12 PM Code Status History Code Status Date Activated Date Inactivated Comments Full Code 01/29/2008 3:01 PM 01/30/2008 12:58 PM Full Code 08/24/2007 8:45 PM 08/26/2007 10:20 PM Care Teams Commercial Subcontractor Relationship Specialty Start Date End Date February, Brannon Benavides MD [address] [place] [address] PCP - General Family Medicine 09/13/23 documented as of this encounter
--- OUTSIDE RECORDS SUMMARY | 2024-01-30 23:24 | External Medical Summary | Summary of Care ---
Author Name Unknown Organization [facility] Address [address] [place] [address] Phone [phone] Care Team Providers Care Chain Puller Name Role Phone FebruaryBrannon MD Primary Care Provider [phone] Reason for Referral * Evaluate & Treat - Unlimited Visits (Within 10 days (routine)) - Authorized Specialty Diagnoses / Procedures Referred By Aaron barber Referred To Contact Orthopaedic Surgery / Orthopedics Diagnoses Primary osteoarthritis of right hip Brannon Nair MD [address] [place] [address] Referral ID Status Reason Start Date Expiration Date Visits Requested Visits Authorized [id number] Authorized Specialty Services Required 01/16/2024 999 999 Question Answer Referral Priority Within 10 days (routine) Where should this appointment be scheduled? [facility] What body part is the patient being seen for? Hip What condition is the patient being seen for? Arthritis including related infection Reason for Visit * Reason Comments Follow Up Referral for another provider Would like a referral put in for his hip; he has an appointment 01/30 of this month[facility]. Mckeon in [facility] Encounter Details Date Type Department Care Team (Latest Contact Info) Description 01/16/2024 2:00 PM EDT [facility] [address] [facility] [address] Brannon Nair MD [address] [place] [facility] [place] [address] Primary osteoarthritis of right hip*; Type 2 diabetes mellitus with hemoglobin A1c goal of less than 7.0% ([facility]); Migraine without aura, not intractable, without status migrainosus; HTN, goal below 140/80; Acquired hypothyroidism; Hyperlipidemia, unspecified hyperlipidemia type; Idiopathic Parkinson's disease ([facility]) Allergies Active Allergy Reactions Criticality Noted Date Comments Amiodarone 10/17/2023 Pulmonary intolerance Doxazosin High 09/07/2016 Other reaction(s): Arrhythmia Doxazosin Mesylate 05/02/1999 DIZZYNESS Peg 7310-Bxl-Rhuzm-Nacl-Na sulf 09/07/2016 Heparin Edema face/lips/tongue High 02/16/2010 Itching Polyethylene Glycol Anaphylaxis,Hives,R fabiana High 01/09/2002 Anaphylaxis [facility] documented as of this encounter (statuses as of 01/16/2024) Medications Medication Sig Dispensed Refills Start Date [...] hemoglobin A1c goal of less than 7.0% ([facility]) Use daily as directed 100 Each 3 09/26/2023 Active [employer] Delica Plus [id number] :Type 2 diabetes mellitus with hemoglobin A1c goal of less than 7.0% ([facility]) Use as directed to test blood sugars 3 times a day; DX E11.9 300 Each 3 09/28/2023 Active [employer]. Ultra 2 w/Device KitIndications:Type 2 diabetes mellitus with hemoglobin A1c goal of less than 7.0% ([facility]) Use to test blood sugars 3 times a day; DX E11.9 1 Kit 0 09/28/2023 Active [employer]. Ultra In Vitro Strip (Glucose Blood)Indications:Ty pe 2 diabetes mellitus with hemoglobin A1c goal of less than 7.0% ([facility]) Use to test blood sugars 3 times a day; DX E11.9 300 Strip 3 09/28/2023 Active Levothyroxine Sodium 150 MCG Oral Tablet (Levoxyl)Indications :Acquired hypothyroidism Take 1 Tablet by mouth daily. 90 Tablet 3 10/24/2023 Active Vivek Etiennear 300 UNIT/ML Subcutaneous Solution Pen-injector (Insulin Glargine (1 Unit Dial))Indications:Ty pe 2 diabetes mellitus with hemoglobin A1c goal of less than 7.0% ([facility]) Inject 75 Units under the skin in the morning. 24 mL 3 10/24/2023 Active Jyweogmfs-Odmrmppk-N ntacapone 25-100-200 MG Oral TabletIndications:PD (Parkinson's disease) ([facility]) TAKE ONE TABLET BY MOUTH THREE TIMES A DAY RECOMMEND TAKING 7A.M. 11A.M. AND 5P.M. 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 documented as of this encounter (statuses as of 01/16/2024) Resolved Problems Problem Noted Date Diagnosed Date [...] as of this encounter (statuses as of 01/16/2024) Immunizations Name Administration Dates Next Due COVID-19 mRNA, LNP-s, No Pre serve, 2-Dose Series ([employer]) 07/21/2021,01/03/2021,12/06/2020 COVID-19, MRNA-LNP, 23-24, P F, 30 MCG/0.3 mL, 12 YRS AND ABOVE, IM ([employer]) 07/16/2023 Covid-19, Mrna, Lnp-s, Pf, B ivalent, 30 Mcg, IM, 12 yrs and above ([employer]) 07/18/2022 Hepatitis B, 20+ yrs 12/06/1993,07/08/1993,05/08 Pneumococcal [...] 10/08/1954 - 0 10/08/2005 Smokeless Tobacco: Never Tobacco Cessation:Counseling Given: Not Answered Alcohol Use Standard Drinks/Week Comments Not Currently [...] Sign Reading Time Taken Comments Blood Pressure 100/54 01/16/2024 1:40 PM EDT Pulse 87 01/16/2024 1:40 PM EDT Temperature 36.4 C (97.5 F) 01/16/2024 1:40 PM ED T Respiratory Rate 18 01/16/2024 1:40 PM EDT Oxygen Saturation 97% 01/16/2024 1:40 PM EDT Inhaled Oxygen Concentration - - Weight 88.3 kg (194 lb 9.6 oz) 01/16/2024 1:40 P M EDT Height 175.3 cm (5' 9.02") 01/16/2024 1:40 PM ED T Body Mass Index 28.72 01/16/2024 1:40 PM EDT documented in this encounter Functional Status Functional [...] as of this encounter Progress Notes * Brannon Nair MD - 01/16/2024 1:59 PM EDT Images from the original note were not included. Assessment and Plan 1. Primary osteoarthritis of right hip Previously following with [facility]. Refer to [facility] orthopedics. Plan through [facility] was for joint replacement. - ORTHOPAEDICS REFERRAL OP 2. Type 2 diabetes mellitus with hemoglobin A1c goal of less than 7.0% (HCC) Excellent control with A1c 6.3. Continue Toujeo and metformin. Discussed goal A1c of 8 to given patient's age. He was very concerned about tight control and is not having lows and therefore no changes to medications we will be made today. 3. Migraine without aura, not intractable, without status migrainosus 4. HTN, goal below 140/80 Blood pressure at goal today. Continue metoprolol and lisinopril. 5. Acquired hypothyroidism Continue levothyroxine 150 mcg daily. 6. Hyperlipidemia, unspecified hyperlipidemia type Appropriately on simvastatin. 7. Idiopathic Parkinson's disease (HCC) Following with Neurology. Continue Sinemet. Wrap-Up Follow up in 2 months as scheduled. History of Present Illness The patient is an 83 year old male with past medical history of type 2 diabetes, hypothyroidism, atrial fibrillation, GERD, BPH who presents for follow up. Patient presents primarily to discuss right hip osteoarthritis. This is been a long-term issue for him. He previously was following with [facility] and plans at that time were for right hip replacement. Unfortunately there was a disagreement about a missed appointment and the patient stated he had no longer proceed with [facility] as his care providers. He was now presenting as he would like to be referred to orthopedics through [facility] to discuss management moving forward. He does use a cane to ambulatedue to pain in the hip. He also has discomfort in the groin and with internal and external rotationof the hip. Reviewed patient's other medical problems. He has a history of Parkinson's disease on Sinemet. He was hypothyroidism on levothyroxine. He was very well- controlled type 2 diabetes with an A1c of 6.3 on Toujeo and metformin. Blood pressure is controlled in office today on lisinopril and metoprolol. He was appropriately on a statin given diabetes diagnosis. Physical Exam Vitals: 01/16/24 1340 Temp: 36.4 C (97.5 F) Pulse: 87 Resp: 18 SpO2: 97% BP: 100/54 BMI: 28.72 Physical Exam Physical Exam Vitals reviewed. Constitutional: General: He is not in acute distress. Comments: Using cane for ambulation. Cardiovascular: Rate and Rhythm: Normal rate and regular rhythm. Heart sounds: No murmur heard. Pulmonary: Effort: Pulmonary effort is normal. No respiratory distress. Breath sounds: Normal breath sounds. No wheezing. Musculoskeletal: Cervical back: Neck supple. Lymphadenopathy: Cervical: No cervical adenopathy. Skin: General: Skin is warm and dry. Neurological: General: No focal deficit present. Mental Status: He is alert. This note has been completed in part utilizing [employer] Speech Voice Recognition Software. Due to technical limitations of the software, grammatical errors, random word insertions, prounoun errors, and incomplete sentences may occur. Any formal questions or concerns about the content, text, or information contained within the body of this dictation should be directly addressed to the provider for clarification. documented in this encounter Nursing Notes * Mary Jane Haines LPN - 01/16/2024 1:47 PM EDT The patient has been properly identified by confirmation of name and date of . Chief Complaint Patient presents with Follow Up Referral for another provider Would like a referral put in for his hip; he has an appointment 01/[address] Mckeon in [facility] doctor documented in this encounter Plan of Treatment Upcoming Encounters Date Type Department Care Team (Late st Contact Info) Description 01/23/2024 8:00 AM EDT Office Visit Neurology [facility] [address] [facility] [place] [address] Louie Santoro, 200 [facility] [place] [address] 01/31/2024 8:30 AM EDT Office Visit Orthopaedics [facility] [address] [facility] [place] [address] Xiang Mckeon, [address] [place] [address] 02/08/2024 2:40 PM EDT Office Visit Optometry, [place] [address] Awilda Ballesteros OD [address] [place] [address] 03/19/2024 8:15 AM EDT Office Visit [facility] Surgery [facility] [address] [place] [address] Renetta Rodríguez MD [address] [place] [address] 04/01/2024 4:00 PM EDT Office Visit [facility] [address] [place] [phone] FebruaryBrannon MD [address] [place] [address] 11/24/2024 2:00 PM EST Office Visit Dermatology [facility] [address] [place] [address] Salvatore Henson PA-C [address] [place] [address] Scheduled Referrals Name Type Priority Associated Diagnoses Orde r Schedule ORTHOPAEDICS REFERRAL OP Referral Within 10 days (routine) Primary osteoarthritis of right hip Ordered: 01/16/2024 Health Maintenance Due Date Last Done Comments [...] as of this encounter Visit Diagnoses Diagnosis Primary osteoarthritis of right hip- Primary Primary localized osteoarthrosis, pelvic region and thigh Type 2 diabetes mellitus with hemoglobin A1c goal of less than 7.0% (HCC) Migraine without aura, not intractable, without status migrainosus HTN, goal below 140/80 Unspecified essential hypertension Acquired hypothyroidism Unspecified hypothyroidism Hyperlipidemia, unspecified hyperlipidemia type Idiopathic Parkinson's disease (HCC) Paralysis agitans documented in this encounter Advance Directives Documents on File Type Date Recorded Patient Machine Group Leader Expl anation Advance Directives and Living Will 02/23/2004 Power of Glass Cut Off Supervisor 02/23/2004 Latest Code Status on File Code Status Date Activated Date Inactivated Comments Full Code 06/24/2008 2:39 PM 06/24/2008 9:12 PM Code Status History Code Status Date Activated Date Inactivated Comments Full Code 01/29/2008 3:01 PM 01/30/2008 12:58 PM Full Code 08/24/2007 8:45 PM 08/26/2007 10:20 PM Care Teams Chain Puller Relationship Specialty Start Date End Date February, Brannon Benavides MD [address] [place] [facility] [place] [address] PCP - General Family Medicine 09/13/23 documented as of this encounter
--- OUTSIDE RECORDS SUMMARY | 2024-01-30 23:25 | External Medical Summary | Summary of Care ---
Author Name Unknown Organization [facility] Address [address] [place] [address] Phone [phone] Care Team Providers Care Data Collection Associate Name Role Phone Patito Gonzalez MD Primary Care Provider [phone] Reason for Visit * Reason Comments NEW PATIENT New pt. Here for ful l skin exam. No specific areas of concern. * Evaluate & Treat - Unlimited Visits (Within 30 days (routine)) - Authorized Specialty Diagnoses / Procedures Referred By Aaron barber Referred To Contact Dermatology Diagnoses Skin Check Procedures SKin Check Salvatore Henson PA-C [address] [place] [id number] Referral ID Status Reason Start Date Expiration Date Visits Requested Visits Authorized [id number] Authorized Specialty Services Required 11/06/2023 05/19/[id number] Encounter Details Date Type Department Care Team ([facility] st Contact Info) Description 11/21/2023 2:20 PM EST Office Visit Dermatology [address] [phone] Salvatore Henson PA-C [address] [place] [phone] Skin lesion*; Seborrheic keratosis; Screening for malignant neoplasm of skin Allergies Active Allergy Reactions Criticality Noted Date Comments Amiodarone 10/17/2023 Pulmonary intolerance Doxazosin High 09/07/2016 Other reaction(s): Arrhythmia Doxazosin Mesylate 05/02/1999 DIZZYNESS Peg 2321-Odv-Raxfp-Nacl-Na sulf 09/07/2016 Heparin Edema face/lips/tongue High 02/16/2010 Itching Polyethylene Glycol Anaphylaxis,Hives,R fabiana High 01/09/2002 Anaphylaxis [facility] documented as of this encounter (statuses as of 11/22/2023) Medications Medication Sig Dispensed Refills Start Date [...] mouth daily. 90 Tablet 3 05/25/2023 Active Carbidopa-Levodopa ER 50-200 MG Oral Tablet Extended Release (Sinemet CR)Indications:PD (Parkinson's disease) TAKE ONE TABLET BY MOUTH AT NIGHT 90 Tablet 1 06/05/2023 4 Active Frpytbkbx-Usoowsxc-K ntacapone 25-100-200 MG Oral TabletIndications:PD (Parkinson's disease) TAKE ONE TABLET BY MOUTH THREE TIMES A DAY RECOMMEND TAKING 7A.M. 11A.M. AND 5P.M. 270 Tablet 1 06/05/2023 4 Active Melatonin 3 MG Oral TabletIndications:Id iopathic Parkinson's disease,REM behavioral disorder Take two tablets by mouth nightly 180 Tablet 1 09/18/2023 Active AUM Mini Insulin Pen Needle 32G X 6 MM (NOVOFINE 32G PEN NEEDLE)Indications:T ype 2 diabetes mellitus with hemoglobin A1c goal of less than 7.0% (HCC) Use daily as directed 100 Each 3 09/26/2023 Active Curious SenseTouch Delica Plus [id number] :Type 2 diabetes mellitus with hemoglobin A1c goal of less than 7.0% (HCC) Use as directed to test blood sugars 3 times a day; DX E11.9 300 Each 3 09/28/2023 Active MIGSIF Ultra 2 w/Device KitIndications:Type 2 diabetes mellitus with hemoglobin A1c goal of less than 7.0% (HCC) Use to test blood sugars 3 times a day; DX E11.9 1 Kit 0 09/28/2023 Active MIGSIF Ultra In Vitro Strip (Glucose Blood)Indications:Ty pe 2 diabetes mellitus with hemoglobin A1c goal of less than 7.0% (HCC) Use to test blood sugars 3 times a day; DX E11.9 300 Strip 3 09/28/2023 Active Levothyroxine Sodium 150 MCG Oral Tablet (Levoxyl)Indications :Acquired hypothyroidism Take 1 Tablet by mouth daily. 90 Tablet 3 10/24/2023 Active Vivek SolAdelinaar 300 UNIT/ML Subcutaneous Solution Pen-injector (Insulin Glargine (1 Unit Dial))Indications:Ty pe 2 diabetes mellitus with hemoglobin A1c goal of less than 7.0% (HCC) Inject 75 Units under the skin in the morning. 24 mL 3 10/24/2023 Active documented as of this encounter (statuses as of 11/22/2023) Active Problems Problem Noted Date Diagnosed Date [...] 08/24/2007 Overview: Secondary to paroxysmal atrial fibrillation [facility] current use of anticoagulant therapy 0 05/28/2006 Overview: ICD-10 update of inactive term Anticoagulation management encounter 05/28/2006 ADVANCE DIRECTIVE INFORMATION 02/28/2005 Overview: No, Advance Directive brochure given to patient. 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 OF [place] CORONARY VESSEL BENIGN NEOPLASM LG BOWEL documented as of this encounter (statuses as of 11/22/2023) Resolved Problems Problem Noted Date Diagnosed Date [...] as of this encounter (statuses as of 11/22/2023) Immunizations Name Administration Dates Next Due COVID-19 mRNA, LNP-s, No Pre serve, 2-Dose Series ([employer]) 07/21/2021,01/03/2021,12/06/2020 COVID-19, MRNA-LNP, 23-24, P F, 30 MCG/0.3 mL, 12 YRS AND ABOVE, IM (PFIZER-Comirnaty) 07/16/2023 Covid-19, Mrna, Lnp-s, Pf, B ivalent, 30 Mcg, IM, 12 yrs and above (Pfizer) 07/18/2022 Diptheria/Tetanus (Adult) 08/08/1991 Hepatitis B Vaccine 12/06/1993,07/08/1993,1992 Hepatitis B, 20+ yrs 12/06/1993,07/08/1993,05/08 Pneumococcal Conjugate Vacc, 13 Valent (Prevnar) 03/31/2015 Pneumococcal Conjugate Vacci ne, 7 Valent 03/31/2015 Pneumococcal Polysaccharide PPV23 (Pneumovax) 08/27/2013,11/05/2001 Seasonal Influenza, Split, I IV3, With Preserve, Inj 09/06/2016,08/27/2013,07/26/2011,06/30,08/10/2008,08/08/2007,08/21/2006 ,09/03/2001 Seasonal Influenza, Trivalen t, High Dose, No Preserve, IM 07/16/2019 TD, Preservative Free 03/01/2005,08/08/1991 Varicella Zoster Vaccine (Adult) 09/23/2012 documented as of this encounter Social History Tobacco Use Types Packs/Day Years Used Date Smoking Tobacco: Former Cigarettes 0.5 49 Q uit: 10/08/2005 Cigars Smokeless Tobacco: Never Alcohol Use [...] as of this encounter Progress Notes * Phani Espinosa MD - 11/22/2023 8:00 AM EST I have seen and examined via teledermatology review of chart note and photos the patient with Salvatore Henson PA-C. I have reviewed and agree with the assessment and plan. Phani Espinosa MD * Salvatore Henson PA-C - 11/21/2023 3:01 PM EST SUBJECTIVE: HPI: Barry Nascimento is a 83 year old male seen at the request of self for a skin check. REVIEW OF SYSTEMS: Personal hx of Skin Cancer: None SKIN: No other new or changing moles. HEME/LYMPH: No new or enlarging lumps or bumps. CONSTITUTIONAL: No nausea, vomiting, fevers, chills, diarrhea. No recent unintended weight loss, night sweats, appetite or malaise. Past Medical History: Diagnosis Date Atrial fibrillation (HCC) abt 1994 INTERMITTENT, PAROXYSMAL Benign neoplasm of colon Coronary atherosclerosis of [place] coronary artery s/p angioplasty 07/08 Depressive disorder, not elsewhere classified Displacement of lumbar intervertebral disc without myelopathy DM type 2, not at goal (HCC) Hemorrhoids HTN, goal below 140/90 Hypothyroidism Premature beats Arrythmia Shoulder joint pain 10/28/2007 SOCIAL HISTORY: Social History Tobacco Use Smoking status: Former Packs/day: 0.50 Years: 49.00 Additional pack years: 0.00 Total pack years: 24.50 Types: Cigarettes, Cigars Quit date: 10/08/2005 Years since quittin.1 Smokeless tobacco: Never Substance Use Topics Alcohol use: Not Currently Comment: RARE Vaping/E-Cigarette Use Vaping/E-Cigarette Substances Vaping/E-Cigarette Devices MEDICATIONS: Current Outpatient Medications Medication Sig Dispense Refill ASPIRIN 81 MG PO CHEW take one tablet daily 100 3 INSULIN SYRINGE-NEEDLE U-100 30G X 1/2" 0.5 ML MISC Use as directed 1 Box of 100 3 vitamin b 12 (CYANOCOBALAMIN) 1000 [...] Tablet by mouth daily. 90 Tablet 3 Carbidopa-Levodopa ER 50-200 MG Oral Tablet Extended Release (Sinemet CR) TAKE ONE TABLET BY MOUTH AT NIGHT 90 Tablet 1 Uottfsfkd-Uxsbvahs-Xtmwffptyq 25-100-200 MG Oral Tablet TAKE ONE TABLET BY MOUTH THREE TIMES A DAY RECOMMEND TAKING 7A.M. 11A.M. AND 5P.M. 270 Tablet 1 COVID-19 mRNA Vaccine 12 years and above Pfizer 30 MCG/0.3 ML IM SUSP Inject into a large muscle. (Patient not taking: Reported on 10/17/2023) 0.3 mL 0 Melatonin 3 MG Oral Tablet Take two tablets by mouth nightly 180 Tablet 1 AUM Mini Insulin Pen Needle 32G X 6 MM (NOVOFINE 32G PEN NEEDLE) Use daily as directed 100 Each 3 OneTouch Delica Plus [id number] Use as directed to test blood sugars 3 times a day; DX E11.9 300 Each 3 OneTouch Ultra 2 w/Device Kit Use to test blood sugars 3 times a day; DX E11.9 1 Kit 0 OneTouch Ultra In Vitro Strip (Glucose Blood) Use to test blood sugars 3 times a day; DX E11.9 300 Strip 3 Levothyroxine Sodium 150 MCG Oral Tablet (Levoxyl) Take 1 Tablet by mouth daily. 90 Tablet 3 Toujeo SoloStar 300 UNIT/ML Subcutaneous Solution Pen-injector (Insulin Glargine (1 Unit Dial)) Inject 75 Units under the skin in the morning. 24 mL 3 No current facility-administered medications for this visit. ALLERG Y: Doxazosin, Heparin, Polyethylene glycol, Amiodarone, Doxazosin mesylate, and Golytely [peg [id number]-nasulf] OBJECT JAYME: GEN: Healthy, alert, no distress, appears oriented, pleasant, and cooperative. SKIN: Detailed exam of hair, face including lids and lips, neck, chest, abdomen, back, bilateral upper ext. (arm, hand, fingers), and bilateral lower ext. (leg, foot, toes) completed and are normal except: A. L forehead with a pink/brown papule B. L cheek with a pink papule within brown waxy plaque C. Face/chest/arms/back with scattered brown papules and thin plaques ASSESS MENT/PLAN: A. Favor BCC Tangential biopsy of the lesion noted above to establish and confirm diagnosis. The procedure, risks, benefits, alternatives and expected outcomes were discussed with the patient and consent was obtained. Time out called. Patient identified, procedure verified, site identified and verified. Patientand staff present in agreement. Area prepped with alcohol and anesthetized with lidocaine/epi. Biopsy of lesion performed. 20% AlCl and bandaging applied. Specimen sent to pathology. Patient instructed in routine post-op care. B. Favor BCC within SK Tangential biopsy of the lesion noted above to establish and confirm diagnosis. The procedure, risks, benefits, alternatives and expected outcomes were discussed with the patient and consent was obtained. Time out called. Patient identified, procedure verified, site identified and verified. Patientand staff present in agreement. Area prepped with alcohol and anesthetized with lidocaine/epi.. Biopsy of lesion performed. 20% AlCl and bandaging applied. Specimen sent to pathology. Patient instructed in routine post-op care. C. Seborrheic Keratosis(es) -reassurance provided and no treatment recommended for benign, stable, and asymptomatic growths. Encouraged to call if changing/becoming symptomatic -recommended periodic skin exams for new or changing lesions with instructions to contact us in such circumstances for re-evaluation. These changes include rapid enlargement, changes in color or shape or symptoms, bleeding, or other concerns. The common features and behavior of non-melanoma/melanoma skin cancers reviewed. Discussed sun protection/use of sun screen and or use of protective clothing Follow-up: 1 year or sooner PRN Patient with his today. Photo(s) taken, pt verbally consented to having photo(s) taken. Contact patient via cell phone Ok to leave results on message: Yes Patient Phone Numbers Photos/chart reviewed by Dr. Phani Espinosa. Presum ed diagnoses, expected natural histories, and management options discussed with the patient at length. Questions were addressed and anticipatory guidance provided. They were instructed to contact me if additional questions, concerns, or problems develop in the interim. -There were no barriers to learning and no other pain was related to today's visit. The patient and/or person accompanying patient demonstrates understanding of the visit and treatment. Loli Henson PA-C 11/21/2023 3:03 PM Ref: SALVATORE HENSON[[id number]] [address] [place] [phone] (office) [phone] (fax) PCP: PATITO GONZALEZ [address] [place] [address] [phone] documented in this encounter Nursing Notes * Mellissa Thorne, CONI - 11/21/2023 2:19 PM EST Patient identified by full name and date of Chief Complaint Patient presents with NEW PATIENT New pt. Here for full skin exam. No specific areas of concern. documented in this encounter Plan of Treatment Upcoming Encounters Date Type Department Care Team (Late st Contact Info) Description 01/15/2024 1:40 PM EDT Office Visit [facility] [address] [facility] [place] [address] Louie Santoro, [address] [facility] [place] [address] 02/08/2024 2:40 PM EDT Office Visit Optometry, [place] [address] [place], [place] [id number] Awilda Ballesteros OD [address] [place] [address] 04/01/2024 4:00 PM EDT Office Visit [address] [phone] Patito Gonzalez MD [address] [place] [address] 11/24/2024 2:00 PM EST Office Visit Dermatology [facility] [address] [place] [phone] Salvatore Henson PA-C [address] [place] [phone] Pending Results Name Type Priority Associated Diagnoses Date /Time SURGICAL PATHOLOGY Pathology Routine Skin lesion Seborrheic keratosis Screening for malignant neoplasm of skin 11/21/2023 3:05 PM EST Health Maintenance Due Date Last Done Comments [...] Not on filedocumented as of this encounter Procedures Procedure Name Priority Date/Time Associated Diagnosis Comments DERM IMAGE (SITE) Routine 11/21/2023 Skin lesion documented in this encounter Results * DERM IMAGE (SITE) (11/21/2023) 11/21/2023 Salvatore Henson PA-C DIGITAL PHOTOGRAPHY documented in this encounter Visit Diagnoses Diagnosis Skin lesion- Primary Unspecified disorder of skin and subcutaneous tissue Seborrheic keratosis Other seborrheic keratosis Screening for malignant neoplasm of skin Screening for malignant neoplasm of the skin documented in this encounter Advance Directives Documents on File Type Date Recorded 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
--- OUTSIDE RECORDS SUMMARY | 2024-01-30 23:25 | External Medical Summary | Summary of Care ---
Author Name Unknown Organization [facility] Address [address] [place] [address] Phone [phone] Care Team Providers Care Application Spec Name Role Phone Patito Gonzalez MD Primary Care Provider [phone] Reason for Referral * Evaluate & Treat - Unlimited Visits (Within 30 days (routine)) - Authorized Specialty Diagnoses / Procedures Referred By Aaron barber Referred To Contact Dermatology Diagnoses Skin lesion Seborrheic keratosis Screening for malignant neoplasm of skin Salvatore Henson PA-C [address] [place] [address] Referral ID Status Reason Start Date Expiration Date Visits Requested Visits Authorized [id number] Authorized Specialty Services Required 11/23/[phone] Question Answer Referral Priority Within 30 days (routine) Where should this appointment be scheduled? [facility] Are you referring the patient for Mohs Surgery and have a current positive skin cancer biopsy result? Yes Type of Procedure MOHS Surgery Comments A. Skin, L forehead, shave: Basal cell carcinoma, nodular type B. Skin, L cheek, shave: Basal cell carcinoma, nodular type Reason for Visit * Reason Comments NEW PATIENT New pt. Here for ful l skin exam. No specific areas of concern. * Evaluate & Treat - Unlimited Visits (Within 30 days (routine)) - Authorized Specialty Diagnoses / Procedures Referred By Aaron barber Referred To Contact Dermatology Diagnoses Skin Check Procedures SKin Check Salvatore Henson PA-C [address] [place] [address] Referral ID Status Reason Start Date Expiration Date Visits Requested Visits Authorized [id number] Authorized Specialty Services Required 11/06/2023 05/19/[phone] Encounter Details Date Type Department Care Team ([facility] st Contact Info) Description 11/21/2023 2:20 PM EST Office Visit Dermatology [facility] [address] [place] [address] Salvatore Henson PA-C [address] [facility] [place] [address] Skin lesion*; Seborrheic keratosis; Screening for malignant neoplasm of skin Allergies Active Allergy Reactions Criticality Noted Date Comments Amiodarone 10/17/2023 Pulmonary intolerance Doxazosin High 09/07/2016 Other reaction(s): Arrhythmia Doxazosin Mesylate 05/02/1999 DIZZYNESS Peg 8359-Aoe-Uibtk-Nacl-Na sulf 09/07/2016 Heparin Edema face/lips/tongue High 02/16/2010 Itching Polyethylene Glycol Anaphylaxis,Hives,R fabiana High 01/09/2002 Anaphylaxis [facility] documented as of this encounter (statuses as of 11/23/2023) Medications Medication Sig Dispensed Refills Start Date [...] NIGHT 90 Tablet 1 06/05/2023 4 Active Awyexwyjj-Rzyhpcit-N ntacapone 25-100-200 MG Oral TabletIndications:PD (Parkinson's disease) [...] as directed 100 Each 3 09/26/2023 Active [employer] Delica Plus [id number] :Type 2 diabetes mellitus with hemoglobin A1c goal of less than 7.0% (HCC) Use as directed to test blood sugars 3 times a day; DX E11.9 300 Each 3 09/28/2023 Active Write.myuch Ultra 2 w/Device KitIndications:Type 2 diabetes mellitus with hemoglobin A1c goal of less than 7.0% (HCC) Use to test blood sugars 3 times a day; DX E11.9 1 Kit 0 09/28/2023 Active [employer] Ultra In Vitro Strip (Glucose Blood)Indications:Ty pe [...] as of this encounter (statuses as of 11/23/2023) Active Problems Problem Noted Date Diagnosed Date [...] Overview: Secondary to paroxysmal atrial fibrillation 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 OF [place] CORONARY VESSEL BENIGN NEOPLASM LG BOWEL documented as of this encounter (statuses as of 11/23/2023) Resolved Problems Problem Noted Date Diagnosed Date [...] as of this encounter (statuses as of 11/23/2023) Immunizations Name Administration Dates Next Due COVID-19 mRNA, LNP-s, No Pre serve, 2-Dose Series (Timecros) 07/21/2021,01/03/2021,12/06/2020 COVID-19, MRNA-LNP, 23-24, P F, 30 MCG/0.3 mL, 12 YRS AND ABOVE, IM (Adictiz-Comirnat) 07/16/2023 Covid-19, Mrna, Lnp-s, Pf, B ivalent, 30 Mcg, IM, 12 yrs and above (Timecros) 07/18/2022 Diptheria/Tetanus (Adult) 08/08/1991 Hepatitis B Vaccine [...] Past Medical History: Diagnosis Date Atrial fibrillation ([facility]) abt 1994 INTERMITTENT, PAROXYSMAL Benign neoplasm of colon Coronary atherosclerosis of [place] coronary artery s/p angioplasty 07/08 Depressive disorder, not elsewhere classified Displacement of lumbar intervertebral disc without myelopathy DM type 2, not at goal ([facility]) Hemorrhoids HTN, goal below 140/90 Hypothyroidism Premature [...] BY MOUTH AT NIGHT 90 Tablet 1 Sjtfmuinl-Qwzkbqmq-Sixzavdwri 25-100-200 MG Oral Tablet TAKE ONE TABLET BY MOUTH THREE TIMES A DAY RECOMMEND TAKING 7A.M. 11A.M. AND 5P.M. 270 Tablet 1 COVID-19 mRNA Vaccine 12 years and above Timecros 30 MCG/0.3 ML IM SUSP Inject into a large muscle. (Patient not taking: Reported on 10/17/2023) 0.3 mL 0 Melatonin 3 MG Oral Tablet Take two tablets by mouth nightly 180 Tablet 1 AUM Mini Insulin Pen Needle 32G X 6 MM (NOVOFINE 32G PEN NEEDLE) Use daily as directed 100 Each 3 OneTouch Delica Plus Rarsjf74U Use as directed to test blood sugars [...] glycol, Amiodarone, Doxazosin mesylate, and Golytely [peg 1016-cte-zksmd-nacl-nasulf] OBJECT JAYME: GEN: Healthy, alert, no distress, [...] Henson PA-C 11/21/2023 3:03 PM Ref: SALVATORE HENSON[[id number]] [address] [place] [address] (office) [phone] (fax) PCP: PATITO GONZALEZ [address] [place] [address] [phone] documented in this encounter Nursing Notes * Mellissa Thorne LPN - 11/21/2023 2:19 PM EST Patient identified by full name and date of Chief Complaint Patient presents with NEW PATIENT New pt. Here for full skin exam. No specific areas of concern. documented in this encounter Miscellaneous Notes * Addendum Note - Salvatore Henson PA-C - 11/23/2023 1:12 PM ESTAddended by: SALVATORE HENSON on: 11/23/2023 01:12 PM Modules accepted: Orders * Result Encounter Note - Salvatore Henson PA-C - 11/23/2023 1:12 PM EST A. Skin, L forehead, shave: Basal cell carcinoma, nodular type B. Skin, L cheek, shave: Basal cell carcinoma, nodular type Discussed results with pt. Will schedule tx in mohs Salvatore Henson PA-C documented in this encounter Plan of Treatment Upcoming Encounters Date Type Department Care Team (Late st Contact Info) Description 01/15/2024 1:40 PM EDT Office Visit [facility] [place] [address] [facility] [place] [address] Louie Santoro, [address] [facility] [place] [address] 02/08/2024 2:40 PM EDT Office Visit Optometry, [place] [address] [place] [address] Awilda Ballesteros OD [address] [place] [address] 04/01/2024 4:00 PM EDT Office Visit Family [facility] [address] [place] [phone] Patito Gonzalez MD [address] [place] [address] 11/24/2024 2:00 PM EST Office Visit Dermatology [facility] [address] [place] [phone] Salvatore Henson PA-C [address] [place] [address] [phone] Scheduled Referrals Name Type Priority Associated Diagnoses Orde r Schedule MOHS SURGERY REFERRAL OP Referral Within 30 days (routine) Skin lesion Seborrheic keratosis Screening for malignant neoplasm of skin Ordered: 11/23/2023 Health Maintenance Due Date Last Done Comments [...] Procedure Name Priority Date/Time Associated Diagnosis Comments SURGICAL PATHOLOGY Routine 11/21/2023 3: 05 PM EST Skin lesion Seborrheic keratosis Screening for malignant neoplasm of skin DERM IMAGE (SITE) Routine 11/21/2023 Skin lesion documented in this encounter Results * SURGICAL PATHOLOGY (11/21/2023 3:05 PM EST) Final Diagnosis A. Skin, L forehead, shave: Basal cell carcinoma, nodular type B. Skin, L cheek, shave: Basal cell carcinoma, nodular type 11/23/2023 9:55 AM EST LABORATORY [facility] Clinical History See Order Comments 11/23/2023 9:55 AM EST LABORATORY [facility] Order Comments A. Favor BCC B. Favor BCC within SK 11/23/2023 9:55 AM EST LABORATORY [facility] Gross Description A. Skin. Received in formalin with a container labeled with "Barry Nascimento", "[id number]", "1940" and " left forehead". Received is a 0.6 x 0.6 cm skin shave. The skin surface has a white to aguilera to cano, slightly raised slightly rough, firm, scaly, shiny nodule that encompasses the entire specimens surface. The underlying tissue is inked. The specimen is bisected and submitted in cassette A1. Gross By: MD Rodriguez Skin. Received in formalin with a container labeled with "Barry Nascimento", "[id number]", "1940" and " left cheek". Received is a 0.7 x 0.5 cm skin shave. The skin surface has a aguilera-pink to light brown, slightly raised slightly rough, firm, shiny, scaly, mottled nodule that encompasses the entire specimens surface. The underlying tissue is inked. The specimen is bisected and submitted in cassette B1. Gross By: 11/23/2023 9:55 AM [facility] LABORATORY [facility] Sign Out Location Pathologist sign out performed at [facility] ([facility])[address] [address]. 11/23/2023 9:55 AM [facility] LABORATORY [facility] Photographic images and diagrams represent barron findings in this case; they are not intended to replace a complete review of the final diagnostic report. The following statement applies to Flow Cytometry, Histology, In situ Hybridization Assays and Molecular Genetics. This test was developed and performed at [facility] and its performance characteristics determined by [facility]. It has not been cleared or approved by the U.S. Food and Drug Administration. The FDA has determined that such clearance or approval is not necessary. This test is used for clinical purposes. It should not be regarded as investigational or for research. Special stains, including histochemical stains, and studies using immunologic and PABLO methodology (where applicable) are performed with appropriate positive and negative control reactions. 11/23/2023 9:55 AM [facility] LABORATORY [facility] Tissue Skin structure / Unknown 11/21/2023 3:05 PM EST 11/21/2023 3:05 PM EST Comment:A. Favor BCCB. Favor BCC within SK Specimen from wound (specimen) Skin structure / Unknown 11/21/2023 3:05 PM EST 11/21/2023 3:05 PM EST Comment:A. Favor BCCB. Favor BCC within SK Salvatore Henson PA-C LAB PATHOLOGY ORDER [facility] LABORATORY [facility] [address] [place] [address] * DERM IMAGE (SITE) (11/21/2023) 11/21/2023 Salvatore Henson PA-C DIGITAL PHOTOGRAPHY documented in this encounter Visit Diagnoses Diagnosis Skin lesion- Primary Unspecified disorder of skin and subcutaneous tissue Seborrheic keratosis Other seborrheic keratosis Screening for malignant neoplasm of skin Screening for malignant neoplasm of the skin documented in this encounter Advance Directives Documents on File Type Date Recorded Patient Cnmt Expl anation Advance Directives and Living Will 02/23/2004 Power of Control Systems Designer 02/23/2004 Latest Code Status on File Code Status Date Activated Date Inactivated Comments Full Code 06/24/2008 2:39 PM 06/24/2008 9:12 PM Code Status History Code Status Date Activated Date Inactivated Comments Full Code 01/29/2008 3:01 PM 01/30/2008 12:58 PM Full Code 08/24/2007 8:45 PM 08/26/2007 10:20 PM Care Teams Application Spec Relationship Specialty Start Date End Date February, Patito Benavides MD [address] [place] [address] PCP - General Family Medicine 09/13/23 documented as of this encounter
--- OUTSIDE RECORDS SUMMARY | 2024-01-30 23:25 | External Medical Summary | Summary of Care ---
Author Name Unknown Organization [facility] Address [address] [place] [address] Phone [phone] Care Team Providers Care Real Estate Firm Manager Name Role Phone Brannon Nair MD Primary Care Provider [phone] Reason for Visit * Reason Onset Date Comments Appointment 11/23/2023 Encounter Details Date Type Department Care Team (Late st Contact Info) Description 11/23/2023 Telephone [facility] [address] [place] [address] Renetta Rodríguez MD [address] [place] [address] Appointment Allergies Active Allergy Reactions Criticality Noted Date Comments Amiodarone 10/17/2023 Pulmonary intolerance Doxazosin High 09/07/2016 Other reaction(s): Arrhythmia Doxazosin Mesylate 05/02/1999 DIZZYNESS Peg 9193-Wac-Dlhbq-Nacl-Na sulf 09/07/2016 Heparin Edema face/lips/tongue High 02/16/2010 Itching Polyethylene Glycol Anaphylaxis,Hives,R fabiana High 01/09/2002 Anaphylaxis [facility] documented as of this encounter (statuses as of 11/26/2023) Medications Medication Sig Dispensed Refills Start Date [...] NIGHT 90 Tablet 1 06/05/2023 4 Active Jbwbukete-Snedtsrp-H ntacapone 25-100-200 MG Oral TabletIndications:PD (Parkinson's disease) [...] goal of less than 7.0% ([facility]) Use daily as directed 100 Each 3 09/26/2023 Active OneTouch Delica Plus Djkndl16HDyymlvwyjxr :Type 2 diabetes mellitus with hemoglobin A1c goal of less than 7.0% (HCC) Use as directed to test blood sugars 3 times a day; DX E11.9 300 Each 3 09/28/2023 Active Shizzlr Ultra 2 w/Device KitIndications:Type 2 diabetes mellitus with hemoglobin A1c goal of less than 7.0% (HCC) Use to test blood sugars 3 times a day; DX E11.9 1 Kit 0 09/28/2023 Active DroneDeployTo[employer]Insider Ultra In Vitro Strip (Glucose Blood)Indications:Ty pe [...] as of this encounter (statuses as of 11/26/2023) Active Problems Problem Noted Date Diagnosed Date [...] 08/24/2007 Overview: Secondary to paroxysmal atrial fibrillation 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) 07/16/2023 Covid-19, Mrna, Lnp-s, Pf, B ivalent, [...] encounter Miscellaneous Notes * Telephone Encounter - Christiana Galvez OSA - 11/26/2023 9:59 AM EST Spoke to patient and scheduled for mohs with DR rodríguez for 03/19 at 8:15am will mail a mohs packet. * Telephone Encounter - Renetta Rodríguez MD - 11/23/2023 5:51 PM EST One appt * Telephone Encounter - Christiana Galvez OSA - 11/23/2023 1:[address] Rodríguez one or two mohs appts? * Telephone Encounter - Christiana Galvez OSA - 11/23/2023 1:21 PM EST A. Skin, L forehead, shave: Basal cell carcinoma, nodular type B. Skin, L cheek, shave: Basal cell carcinoma, nodular type documented in this encounter Plan of Treatment Upcoming Encounters Date Type Department Care Team (Late st Contact Info) Description 01/15/2024 1:40 PM EDT Office Visit Neurology [facility] [address] [facility] [place] [address] Louie Santoro, [address] [facility] [place] [address] 02/08/2024 2:40 PM EDT Office Visit Optometry, [place] [address] [place] [address] Awilda Ballesteros OD [address] [place] [address] 03/19/2024 8:15 AM EDT Office Visit MOHS Surgery [facility] [place] [facility] [place] [address] Renetta Rodríguez MD [address] [facility] [place] [address] 04/01/2024 4:00 PM EDT Office [address] [place] [phone] FebruaryBrannon MD [address] [place] [facility] [place] [address] 11/24/2024 2:00 PM EST Office Visit Dermatology [facility] [address] [place] [phone] Salvatore Henson PA-C [address] [place] [address] Health Maintenance Due Date Last Done Comments [...] Documents on File Type Date Recorded Patient Imagery Intelligence Expl anation Advance Directives and Living Will 02/23/2004 Power of Word Processor Technician 02/23/2004 Latest Code Status on File Code Status Date Activated Date Inactivated Comments Full Code 06/24/2008 2:39 PM 06/24/2008 9:12 PM Code Status History Code Status Date Activated Date Inactivated Comments Full Code 01/29/2008 3:01 PM 01/30/2008 12:58 PM Full Code 08/24/2007 8:45 PM 08/26/2007 10:20 PM Care Teams Real Estate Firm Manager Relationship Specialty Start Date End Date February, Brannon Benavides MD [address] [place] [address] PCP - General Family Medicine 09/13/23 documented as of this encounter
--- OUTSIDE RECORDS SUMMARY | 2024-01-30 23:25 | External Medical Summary | Summary of Care ---
Author Name Unknown Organization [facility] Address [address] [place] [address] Phone [phone] Care Team Providers Care Senior Tax Manager Name Role Phone FebruaryBrannon MD Primary Care Provider [phone] Encounter Details Date Type Department Care Team (Late st Contact Info) Description 10/24/2023 Orders Only [facility] [address] [place] [address] FebruaryBrannon MD [address] [place] [address] Type 2 diabetes mellitus with hemoglobin A1c goal of less than 7.0% ([facility])*; Acquired hypothyroidism Allergies Active Allergy Reactions Criticality Noted Date Comments Amiodarone 10/17/2023 Pulmonary intolerance Doxazosin High 09/07/2016 Other reaction(s): Arrhythmia Doxazosin Mesylate 05/02/1999 DIZZYNESS Peg 3975-Ozr-Ioskk-Nacl-Na sulf 09/07/2016 Heparin Edema face/lips/tongue High 02/16/2010 Itching Polyethylene Glycol Anaphylaxis,Hives,R fabiana High 01/09/2002 Anaphylaxis [facility] documented as of this encounter (statuses as of 10/24/2023) Medications Medication Sig Dispensed Refills Start Date [...] mouth daily. 90 Tablet 3 3 Active Carbidopa-Levodopa ER 50-200 MG Oral Tablet Extended Release (Sinemet CR)Indications:PD (Parkinson's disease) TAKE ONE TABLET BY MOUTH AT NIGHT 90 Tablet 1 3 06/04/20 24 Active Carbidopa-Levodopa- Entacapone 25-100-200 MG Oral TabletIndications:P D (Parkinson's disease) TAKE ONE TABLET BY MOUTH THREE TIMES A DAY RECOMMEND TAKING 7A.M. 11A.M. AND 5P.M. 270 Tablet 1 3 05/30/20 24 Active Melatonin 3 MG Oral TabletIndications:I diopathic Parkinson's disease,REM behavioral disorder Take two tablets by mouth nightly 180 Tablet 1 3 Active AUM Mini Insulin Pen Needle 32G X 6 MM (NOVOFINE 32G PEN NEEDLE)Indications: Type 2 diabetes mellitus with hemoglobin A1c goal of less than 7.0% ([facility]) Use daily as directed 100 Each 3 3 Active OneTouch Delica Plus Krrqoa92KHgbfxgeixm s:Type 2 diabetes mellitus with hemoglobin A1c goal of less than 7.0% (HCC) Use as directed to test blood sugars 3 times a day; DX E11.9 300 Each 3 3 Active Fresenius Medical Careuch Ultra 2 w/Device KitIndications:Type 2 diabetes mellitus with hemoglobin A1c goal of less than 7.0% (HCC) Use to test blood sugars 3 times a day; DX E11.9 1 Kit 0 3 Active Wind Energy Direct Ultra In Vitro Strip (Glucose Blood)Indications:T ype [...] the morning. 24 mL 3 4 Active Toujeo SoloStar 300 UNIT/ML Subcutaneous Solution Pen-injector (Insulin Glargine (1 Unit Dial)) 90 unit (0.3 mL) subcutaneously daily for E11.5 31.5 mL 3 3 10/24/19 24 Discontinu ed(Refill) Levothyroxine Sodium 150 MCG Oral Tablet (Levoxyl)Indication s:Acquired hypothyroidism Take 1.25 Tablets by mouth daily. 90 Tablet 3 3 10/24/19 24 Discontinu ed(Refill) documented as of this encounter (statuses as of 10/24/2023) Active Problems Problem Noted Date Diagnosed Date [...] 08/24/2007 Overview: Secondary to paroxysmal atrial fibrillation correction current use of anticoagulant therapy 0 05/28/2006 Overview: ICD-10 update of inactive term Anticoagulation management encounter 05/28/2006 ADVANCE DIRECTIVE INFORMATION 02/28/2005 Overview: No, Advance Directive brochure given to patient. 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 OF [place] CORONARY VESSEL BENIGN NEOPLASM LG BOWEL documented as of this encounter (statuses as of 10/24/2023) Resolved Problems Problem Noted Date Diagnosed Date [...] as of this encounter (statuses as of 10/24/2023) Immunizations Name Administration Dates Next Due COVID-19 mRNA, LNP-s, No Pre serve, 2-Dose Series ([employer]) 07/21/2021,01/03/2021,12/06/2020 COVID-19, MRNA-LNP, 23-24, P F, 30 [...] as of this encounter Miscellaneous Notes * Addendum Note - Brannon Gonzalez MD - 10/24/2023 7:58 PM ESTAddended by: BRANNON GONZALEZ on: 10/24/2023 07:58 PM Modules accepted: Orders documented in this encounter Plan of Treatment Upcoming Encounters Date Type Department Care Team (Late st Contact Info) Description 01/15/2024 1:40 PM EDT Office Visit Neurology [facility] [address] [place] [address] Louie Santoro, [address] [place] [address] 02/08/2024 2:40 PM EDT Office Visit Optometry, [place] [address] [place] [address] Awilda Ballesteros OD [address] [place] [address] 04/01/2024 4:00 PM EDT Office Visit [address] [phone] Brannon Gonzalez MD [address] [place] [address] Health Maintenance Due Date Last Done Comments [...] Procedure Name Priority Date/Time Associated Diagnosis Comments CHEMISTRY-OUTSIDE Routine 10/17/2023 TSH Routine 10/17/2023 documented in this encounter Results * (ABNORMAL) TSH (10/17/2023) TSH - OUTSIDE LAB 0.04(A) 0.450 - 5.330 UIU/ML OUTSIDE LAB (SEE SCANNED REPORT) Blood Venous blood specimen / Unknown 10/17/2023 History Per Patient LAB BLOOD ORDERABLES OUTSIDE LAB (SEE SCANNED REPORT) documented in this encounter Visit Diagnoses Diagnosis Type 2 diabetes mellitus with hemoglobin A1c goal of less than 7.0% (HCC)- Primary Acquired hypothyroidism Unspecified hypothyroidism documented in this encounter Advance Directives Documents on File Type Date Recorded Patient Molecular Pathologist Expl anation Advance Directives and Living Will 02/23/2004 Power of Anaesthetic Technician 02/23/2004 Latest Code Status on File Code Status Date Activated Date Inactivated Comments Full Code 06/24/2008 2:39 PM 06/24/2008 9:12 PM Code Status History Code Status Date Activated Date Inactivated Comments Full Code 01/29/2008 3:01 PM 01/30/2008 12:58 PM Full Code 08/24/2007 8:45 PM 08/26/2007 10:20 PM Care Teams Senior Tax Manager Relationship Specialty Start Date End Date February, Brannon Benavides MD [address] [place] [address] PCP - General Family Medicine 09/13/23 documented as of this encounter
--- OUTSIDE RECORDS SUMMARY | 2024-01-30 23:25 | External Medical Summary | Summary of Care ---
Author Name Unknown Organization [facility] Address [address] [place] [address] Phone [phone] Care Team Providers Care Inspector Name Role Phone Patito Gonzalez MD Primary Care Provider [phone] Reason for Visit * Reason Comments NEW PATIENT New pt. Here for ful l skin exam. No specific areas of concern. * Evaluate & Treat - Unlimited Visits (Within 30 days (routine)) - Authorized Specialty Diagnoses / Procedures Referred By Aaron barber Referred To Contact Dermatology Diagnoses Skin Check Procedures SKin Check Salvatore Henson PA-C [address] [place] [address] Referral ID Status Reason Start Date Expiration Date Visits Requested Visits Authorized [id number] Authorized Specialty Services Required 11/06/2023 05/19/[id number] Encounter Details Date Type Department Care Team ([facility] st Contact Info) Description 11/21/2023 2:20 PM EST Office Visit Dermatology [address] [phone] Salvatore Henson PA-C [address] [place] [address] Skin lesion*; Seborrheic keratosis; Screening for malignant neoplasm of skin Allergies Active Allergy Reactions Criticality Noted Date Comments Amiodarone 10/17/2023 Pulmonary intolerance Doxazosin High 09/07/2016 Other reaction(s): Arrhythmia Doxazosin Mesylate 05/02/1999 DIZZYNESS Peg 4249-Zjb-Uppnk-Nacl-Na sulf 09/07/2016 Heparin Edema face/lips/tongue High 02/16/2010 Itching Polyethylene Glycol Anaphylaxis,Hives,R fabiana High 01/09/2002 Anaphylaxis [facility] documented as of this encounter (statuses as of 11/21/2023) Medications Medication Sig Dispensed Refills Start Date [...] NIGHT 90 Tablet 1 06/05/2023 4 Active Pxdgiecdu-Gdjvtmib-A ntacapone 25-100-200 MG Oral TabletIndications:PD (Parkinson's disease) [...] as directed 100 Each 3 09/26/2023 Active Exact SciencesTouch Delica Plus [id number] :Type 2 diabetes mellitus with hemoglobin A1c goal of less than 7.0% (HCC) Use as directed to test blood sugars 3 times a day; DX E11.9 300 Each 3 09/28/2023 Active Surya Power Magic Ultra 2 w/Device KitIndications:Type 2 diabetes mellitus with hemoglobin A1c goal of less than 7.0% (HCC) Use to test blood sugars 3 times a day; DX E11.9 1 Kit 0 09/28/2023 Active Surya Power Magic Ultra In Vitro Strip (Glucose Blood)Indications:Ty pe [...] as of this encounter (statuses as of 11/21/2023) Active Problems Problem Noted Date Diagnosed Date [...] 08/24/2007 Overview: Secondary to paroxysmal atrial fibrillation [facility] current use of anticoagulant therapy 0 05/28/2006 Overview: ICD-10 update of inactive term Anticoagulation management encounter 05/28/2006 ADVANCE DIRECTIVE INFORMATION 02/28/2005 Overview: No, Advance Directive brochure given to patient. 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 OF [place] CORONARY VESSEL BENIGN NEOPLASM LG BOWEL documented as of this encounter (statuses as of 11/21/2023) Resolved Problems Problem Noted Date Diagnosed Date [...] as of this encounter (statuses as of 11/21/2023) Immunizations Name Administration Dates Next Due COVID-19 mRNA, LNP-s, No Pre serve, 2-Dose Series (docTrackr) 07/21/2021,01/03/2021,12/06/2020 COVID-19, MRNA-LNP, 23-24, P F, 30 [...] as of this encounter Progress Notes * Salvatore Henson PA-C - 11/21/2023 3:01 [...] Past Medical History: Diagnosis Date Atrial fibrillation ([facility]) abt 1994 INTERMITTENT, PAROXYSMAL Benign neoplasm of colon Coronary atherosclerosis of [place] coronary artery s/p angioplasty 07/08 Depressive disorder, not elsewhere classified Displacement of lumbar intervertebral disc without myelopathy DM type 2, not at goal ([facility]) Hemorrhoids HTN, goal below 140/90 Hypothyroidism Premature [...] BY MOUTH AT NIGHT 90 Tablet 1 Wgqjxahwl-Zhfpkide-Gfgjvldxky 25-100-200 MG Oral Tablet TAKE ONE TABLET [...] directed 100 Each 3 OneTouch Delica Plus [id number] Use as directed to test blood sugars [...] glycol, Amiodarone, Doxazosin mesylate, and Golytely [peg 1706-unz-kmfkh-nacl-nasulf] OBJECT JAYME: GEN: Healthy, alert, no distress, [...] Henson PA-C 11/21/2023 3:03 PM Ref: SALVATORE HENSON[[id number]] [address] [place] [address] (office) [phone] (fax) PCP: PATITO OGNZALEZ [address] [place] [address] [phone] documented in this encounter Nursing Notes * [...] 01/15/2024 1:40 PM EDT Office Visit Neurology [facility] [place] [address] [facility] [place] [address] Louie Santoro DO [address] [place] [address] 02/08/2024 2:40 PM EDT Office Visit Optometry, [place] [address] [place] [address] Awilda Ballesteros OD [address] [place] [address] 04/01/2024 4:00 PM EDT Office Visit [facility] [address] [place] [address] Patito Gonzalez MD [address] [place] [address] 11/24/2024 2:00 PM EST Office Visit Dermatology [facility] [address] [place] [address] Salvatore Henson PA-C [address] [place] [address] Pending Results Name Type Priority Associated Diagnoses [...] Documents on File Type Date Recorded 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
--- OUTSIDE RECORDS SUMMARY | 2024-01-30 23:25 | External Medical Summary | Summary of Care ---
Author Name Unknown Organization [facility] Address [address] [place] [address] Phone [phone] Care Team Providers Care Hydro Plant Site Manager Name Role Phone FebruaryBrannon MD Primary Care Provider [phone] Reason for Visit * Reason Onset Date Comments Health Maintenance 11/14/2023 Encounter Details Date Type Department Care Team (Late st Contact Info) Description 11/14/2023 Telephone [facility] [address] [place] [address] Brannon Nair MD [address] [place] [address] Health Maintenance Allergies Active Allergy Reactions Criticality Noted Date Comments Amiodarone 10/17/2023 Pulmonary intolerance Doxazosin High 09/07/2016 Other reaction(s): Arrhythmia Doxazosin Mesylate 05/02/1999 DIZZYNESS Peg 5977-Rxf-Pwhdl-Nacl-Na sulf 09/07/2016 Heparin Edema face/lips/tongue High 02/16/2010 Itching Polyethylene Glycol Anaphylaxis,Hives,R fabiana High 01/09/2002 Anaphylaxis [facility] documented as of this encounter (statuses as of 11/14/2023) Medications Medication Sig Dispensed Refills Start Date [...] NIGHT 90 Tablet 1 06/05/2023 4 Active Pqdvkczir-Xeattaij-G ntacapone 25-100-200 MG Oral TabletIndications:PD (Parkinson's disease) [...] of less than 7.0% ([facility]) Use daily as directed 100 Each 3 09/26/2023 Active OneTouch Delica Plus Caxasj60LNxwixvkiafw :Type 2 diabetes mellitus with hemoglobin A1c goal of less than 7.0% (HCC) Use as directed to test blood sugars 3 times a day; DX E11.9 300 Each 3 09/28/2023 Active GrowBLOX Ultra 2 w/Device KitIndications:Type 2 diabetes mellitus with hemoglobin A1c goal of less than 7.0% (HCC) Use to test blood sugars 3 times a day; DX E11.9 1 Kit 0 09/28/2023 Active GrowBLOX Ultra In Vitro Strip (Glucose Blood)Indications:Ty pe [...] as of this encounter (statuses as of 11/14/2023) Active Problems Problem Noted Date Diagnosed Date [...] 08/24/2007 Overview: 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 0 05/28/2006 [...] as of this encounter (statuses as of 11/14/2023) Resolved Problems Problem Noted Date Diagnosed Date [...] as of this encounter (statuses as of 11/14/2023) Immunizations Name Administration Dates Next Due COVID-19 mRNA, LNP-s, No Pre serve, 2-Dose Series ([employer]) 07/21/2021,01/03/2021,12/06/2020 COVID-19, MRNA-LNP, 23-24, P F, 30 MCG/0.3 mL, 12 YRS AND ABOVE, IM ([employer]-Comirnaty) 07/16/2023 Covid-19, Mrna, Lnp-s, Pf, B ivalent, [...] encounter Miscellaneous Notes * Telephone Encounter - Rachel Vergara LPN - 11/14/2023 12:31 PM EST Care Gaps Comprehensive Care Outreach Last Office/Telemedicine Visit: 09/26/2023 (in office), Visit date not found (telemedicine) Next Office Visit: 04/01/2024 Hemoglobin AIC Results: Lab Results Component Value Date/Time HEMOGLOBIN A1C - [facility] 6.3 (H) 09/26/2023 03:10 PM HEMOGLOBIN A1C - [facility] 6.4 (H) 05/13/2018 10:29 AM HEMOGLOBIN A1C - [facility] 6.9 (H) 04/02/2015 07:55 AM HEMOGLOBIN A1C - [facility] 11.1 (H) 07/01/2009 08:26 AM BP Readings from Last 1 Encounters: 10/17/23 120/62 Reviewed Health Maintenance below: Health Maintenance Topic Date Due DXA Scan Never done Depression Screening Never done DTaP,Tdap,and Td Vaccines (1 - Tdap) 03/02/2005 Diabetic Foot Exam 06/30/2010 Zoster Vaccines (2 of 3) 11/18/2012 Influenza Vaccine (FLU shot) (1) 06/08/2023 HbA1c 04/16/2024 Dexa lab Care Gap Outreach Action Taken: Unable to reach documented in this encounter Plan of Treatment Upcoming Encounters Date Type Department Care Team ([facility] st Contact Info) Description 11/21/2023 2:20 PM EST Office Visit Dermatology [address] [id number] Salvatore Henson PA-C [address] [place] [address] 01/15/2024 1:40 PM EDT Office Visit Neurology [facility] [address] [facility] [place] [address] Louie Santoro, [address] [facility] [place] [address] 02/08/2024 2:40 PM EDT Office Visit Optometry, [place] [address] [place] [address] Awilda Ballesteros OD [address] [place] [address] 04/01/2024 4:00 PM EDT Office Visit [address] [address] Brannon Nair MD [address] [place] [address] Health Maintenance Due Date Last Done Comments [...] Documents on File Type Date Recorded 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 Advance Directives and Living Will 02/23/2004 Power of Diesel Tractor Operator 02/23/2004 Latest Code Status on File Code Status Date Activated Date Inactivated Comments Full Code 06/24/2008 2:39 PM 06/24/2008 9:12 PM Code Status History Code Status Date Activated Date Inactivated Comments Full Code 01/29/2008 3:01 PM 01/30/2008 12:58 PM Full Code 08/24/2007 8:45 PM 08/26/2007 10:20 PM Care Teams Hydro Plant Site Manager Relationship Specialty Start Date End Date February, Brannon Benavides MD [address] [place] [facility] [place] [address] PCP - General Family Medicine 09/13/23 documented as of this encounter
--- OUTSIDE RECORDS SUMMARY | 2024-01-30 23:26 | External Medical Summary | Summary of Care ---
Author Name Unknown Organization [facility] Address [address] [place] [address] Phone [phone] Care Team Providers Care Bureau Director Name Role Phone FebruaryBrannon MD Primary Care Provider [phone] Reason for Visit * Reason Comments NEW PATIENT Encounter Details Date Type Department Care Team (Latest Contact Info) Description 09/26/2023 2:00 PM EST Office Visit [facility] [address] [place] [address] FebruaryBrannon MD [address] [place] [address] Type 2 diabetes mellitus with hemoglobin A1c goal of less than 7.0% ([facility])*; HTN, goal below 140/80; Paroxysmal atrial fibrillation (HCC); 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; BPH without obstruction/lower urinary tract symptoms; Acquired hypothyroidism; Idiopathic Parkinson's disease; Migraine without aura, not intractable, without status migrainosus; DM type 2 nursing care encounter (HCC) Allergies Active Allergy Reactions Criticality Noted Date Comments Doxazosin High 09/07/2016 Other reaction(s): Arrhythmia Doxazosin Mesylate 05/02/1999 DIZZYNESS Peg 3350-Electrolytes 09/07/2016 Heparin Edema face/lips/tongue High 02/16/2010 Itching Polyethylene Glycol Anaphylaxis,Hives,Ra sh High 01/09/2002 Anaphylaxis [facility] documented as of this encounter (statuses as of 09/26/2023) Medications Medication Sig Dispensed Refills Start Date End Date Status LANCETS MISCIndications:D M type 2, goal A1c below 7 as directed 100 10 3 Active ASPIRIN 81 MG PO CHEW take one tablet daily 100 3 6 Active CelenoTOUCH ULTRA SYSTEM W/DEVICE KITIndications:DM type 2, goal A1c below 7 Use up to four times a day as directed 1 1 9 Active ONETOUCH ULTRA TEST STRPIndications:D M type 2, goal A1c below 7 Use three times a day as directed 270 3 0 Active INSULIN SYRINGE-NEEDLE U-100 30G X 1/2" 0.5 ML MISCIndications:D M type 2, goal A1c below 7 Use as directed 1 Box of 100 3 0 Active CAPOTEN 50 MG PO TABSIndications:H TN, goal below 140/90 Take 1 Tablet by mouth in the morning. 270 Tab 3 1 Active Magnesium Hydroxide 800 MG/5ML SUSP Take by mouth. 0 Active TOUJEO SOLOSTAR 300 UNIT/ML SOPN 90 Units. 5 8 Active vitamin b 12 (CYANOCOBALAMIN) 1000 MCG TABS Take 1 Tablet by mouth in the morning. 0 Active nitroglycerin (NITROSTAT) 0.[address] 1 Tab under the tongue as needed for Pain, Chest. Maximum 3 doses. 25 Tab 0 0 Active Ibuprofen 200 MG Oral Tablet Take 1 Tablet by mouth every 4 hours as needed. 0 Active Accu-Chek Guide w/Device Kit Use to test blood sugars 3 times a day; DX E11.9 1 Kit 0 3 Active Accu-Chek FastClix Lancets Use to test blood sugars 3 times a day; DX: E11.9 306 Each 1 3 Active Eliquis 5 MG Oral Tablet (Apixaban) Take 1 Tablet by mouth 2 times a day. 180 Tablet 3 3 Active Levothyroxine Sodium 175 MCG Oral Tablet (Levoxyl) Take 1 Tablet by mouth daily. 90 Tablet 3 3 Active Lisinopril 20 MG [...] mouth daily. 90 Tablet 3 3 Active Carbidopa-Levodop a ER 50-200 MG Oral Tablet Extended Release (Sinemet CR)Indications:PD (Parkinson's disease) TAKE ONE TABLET BY MOUTH AT NIGHT 90 Tablet 1 3 06/04/20 24 Active Carbidopa-Levodop a-Entacapone 25-100-200 MG Oral TabletIndications :PD (Parkinson's disease) TAKE ONE TABLET BY MOUTH THREE TIMES A DAY RECOMMEND TAKING 7A.M. 11A.M. AND 5P.M. 270 Tablet 1 3 05/30/20 24 Active Toujeo SoloStar 300 UNIT/ML Subcutaneous Solution Pen-injector (Insulin Glargine (1 Unit Dial)) 90 unit (0.3 mL) subcutaneously daily for E11.5 31.5 mL 3 3 Active Melatonin 3 MG Oral TabletIndications :Idiopathic Parkinson's disease,REM behavioral disorder Take two tablets by mouth nightly 180 Tablet 1 3 Active AUM Mini Insulin Pen Needle 32G X 6 MM (NOVOFINE 32G PEN NEEDLE)Indication s:Type 2 diabetes mellitus with hemoglobin A1c goal of less than 7.0% (HCC) Use daily as directed 100 Each 3 3 Active Accu-Chek Guide In Vitro Strip (Glucose Blood)Indications :Type 2 diabetes mellitus with hemoglobin A1c goal of less than 7.0% (HCC) Inject into the skin. Use to check blood sugar twice daily 300 Strip 3 3 Active Accu-Chek Guide In Vitro Strip (Glucose Blood) Use to test blood sugars 3 times daily; DX E11.9 300 Strip 1 3 09/26/20 23 Discontinu ed(Refill) AUM Mini Insulin Pen Needle 32G X 6 MM (NOVOFINE 32G PEN NEEDLE) Use daily as directed 100 Each 0 3 09/26/20 Discontinu ed(Refill) documented as of this encounter (statuses as of 09/26/2023) Active Problems Problem Noted Date Diagnosed Date [...] 08/24/2007 Overview: Secondary to paroxysmal atrial fibrillation halfway current use of anticoagulant therapy 0 05/28/2006 Overview: ICD-10 update of inactive term Anticoagulation management encounter 05/28/2006 ADVANCE DIRECTIVE INFORMATION 02/28/2005 Overview: No, Advance Directive brochure given to patient. 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 documented as of this encounter (statuses as of 09/26/2023) Resolved Problems Problem Noted Date Diagnosed Date [...] as of this encounter (statuses as of 09/26/2023) Immunizations Name Administration Dates Next Due COVID-19 mRNA, LNP-s, No Pre serve, 2-Dose Series (Eloxx) 07/21/2021,01/03/2021,12/06/2020 COVID-19, MRNA-LNP, 23-24, P F, 30 MCG/0.3 mL, 12 YRS AND ABOVE, IM (Pumant-ComirnatJusticeBox) 07/16/2023 Covid-19, Mrna, Lnp-s, Pf, B ivalent, [...] Sign Reading Time Taken Comments Blood Pressure 110/60 09/26/2023 2:09 PM EST Pulse 60 09/26/2023 2:09 PM EST Temperature 36.5 C (97.7 F) 09/26/2023 2:09 PM ES T Respiratory Rate 16 09/26/2023 2:09 PM EST Oxygen Saturation 96% 09/26/2023 2:09 PM EST Inhaled Oxygen Concentration - - Weight 93.6 kg (206 lb 4.8 oz) 09/26/2023 2:09 P M EST Height 175.3 cm (5' 9.02") 09/26/2023 2:09 PM ES T Body Mass Index 30.45 09/26/2023 2:09 PM EST documented in this encounter Functional Status Functional [...] No 11/30/2014 documented as of this encounter Patient Instructions * Patient Instructions* Chris Baum LPN - 09/26/2023 3:43 PM EST Images from the original note were not included. Diabetic Retinopathy: Evaluating Your Eyes Diabetic retinopathy is a condition that happens when diabetes damages blood vessels in the rear ofthe eye. It can lead to vision loss. To help catch it early, have a complete dilated eye exam at least once a year. During the exam, the eye healthcare provider will review your medical history, examine your eyes, and check your vision. Women who are and have pre-existing type 1 or type 2 diabetes have an increased risk of retinopathy. Women with diabetes should have an eye exam before or in the first trimester. They should continue to be monitored every trimester and for 1 year after delivery, depending on the severity of the retinopathy. The retina is the light-sensitive part of the eye that allows you to see. High blood sugar can damage blood vessels of the retina and cause them to leak or bleed. This damage can lead to abnormal blood vessel growth. This condition is called diabetic retinopathy. You may not have symptoms early in the disease. Later, there may be floaters, blurred vision, or poor night vision. There may also be partial or complete vision loss. Early cases of diabetic retinopathy can be treated by carefully controlling blood sugar, blood pressure, and cholesterol. Surgery or laser treatments may help restore lost vision. Laser surgery can shrink abnormal blood vessels or close ones that are leaking. Medicines injected in the eye can help decrease swelling of the retina. Home care Take all medicines, including insulin or oral diabetic medicine, exactly as prescribed. Follow the diet advised by your healthcare provider. If you have high cholesterol, follow a low-fat, low-cholesterol diet. Monitor blood sugars as advised. Try to achieve your ideal weight. If you smoke, quit smoking. Tobacco use worsens the effect of diabetes on your blood vessels. If you have high blood pressure, consider buying an automatic blood pressure machine. These are available at most pharmacies. Use this to monitor your blood pressure. Report your blood pressure readings to your healthcare provider. Exercise regularly. Follow-up care Follow up with your healthcare provider, or as advised. You must have a complete eye exam at least once a year, more often if needed. Untreated diabetic retinopathy can lead to complete loss of vision. Occupational therapists can help you adapt to any vision loss you have, including learning techniques to safely administer insulin. When to seek medical advice Call your healthcare provider right away if any of these occur. Increasing blurriness or any sudden changes in your vision Sudden flashes of light inside your eye New floaters (small dots or strings that seem to be moving across your field of vision) Eye pain, redness, or discharge from your eyelid New dark spots appearing in your field of vision Halos around lights Dimness of vision Partial or complete loss of vision Women with diabetes should have a complete eye exam before becoming , or as soon as possible when they find out they are . Retinopathy sometimes worsens during . Your eye exam Your eye healthcare provider uses an eye chart and other tools to check your vision. Then he or sheexamines your eyes for signs of disease. You are given eye drops to widen (dilate) your pupils. Youmay have one or more of the following tests: Tonometry to measure fluid pressure inside the eye. Slit lamp exam to allow the healthcare provider to view the structures of your eye. Ultrasound to create an image of the eye using sound waves. Ultrasound may be used if blood is found in the clear gel that fills the eye (vitreous). Ocular coherence tomography (OCT) to create an image of the retina using light waves. This shows ifthere is fluid leaking into certain parts of the eye. It can also measure the thickness of the retina. Fluorescein angiography This test may be done to check the health of the inside lining of the eye (retina). It also checks the tiny blood vessels (capillaries) that carry blood to the retina. During the test: Photographs are taken of the retina. A dye is then injected into the bloodstream through the arm or hand. The dye travels to the capillaries in the eye. More photographs are taken of the retina. The dye causes the capillaries to stand out on the photographs. You may feel brief nausea during the procedure. For a few hours after the test, your skin, eyes, and urine may appear yellow. Talk with your healthcare provider for more information about this test. Date Last Reviewed: 03/08/201619991135-3051 [employer]. [address] [place] [address], [place] [address]. All rights reserved. This information is not intended as a substitute for professional medical care. Always follow your healthcare professional's instructions. documented in this encounter Progress Notes * Chris Baum LPN - 09/26/2023 3:43 PM EST The importance of having a yearly diabetic eye exam has been discussed with patient. Order and/or Referral placed along with patient instructions. Provider made aware. Chris Baum LPN * May, Brannon Benavides MD - 09/26/2023 2:11 PM EST Images from the original note were not included. Assessment and Plan 1. Type 2 diabetes mellitus with hemoglobin A1c goal of less than 7.0% (HCC) With unknown control. A1c in office today. Continue Toujeo 90 units daily and metformin 1000 mg twice daily. Patient needs pen needles and test strips. These were both sent to the mail-order pharmacy. He was appropriately on a statin medication. He was agreeable to diabetic eye exam which will be completed in office today with tele retina machine. - AUM Mini Insulin Pen Needle 32G X 6 MM (NOVOFINE 32G PEN NEEDLE); Use daily as directed Dispense:100 Each; Refill: 3 - Accu-Chek Guide In Vitro Strip (Glucose Blood); Inject into the skin. Use to check blood sugar twice daily Dispense: 300 Strip; Refill: 3 - HEMOGLOBIN A1C; Future - LIPID PANEL WITH DIRECT LDL IF TG IS HIGH; Future 2. HTN, goal below 140/80 Blood pressure at goal today 110/60. Continue lisinopril 20 mg daily. CMP to monitor renal function. - COMPREHENSIVE METABOLIC PANEL; Future 3. Paroxysmal atrial fibrillation (HCC) Paroxysmal atrial fibrillation anticoagulated on Eliquis and rate control with metoprolol. 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 BPH without obstruction/lower urinary tract symptoms 6. Acquired hypothyroidism Continue levothyroxine 175 mcg daily. Repeat TSH today. - TSH WITH FREE T4 IF INDICATED; Future 7. Idiopathic Parkinson's disease Following with Neurology. Continue Stalevo. 8. Migraine without aura, not intractable, without status migrainosus Wrap-Up Follow up in 6 months. History of Present Illness The patient is an 83-year-old male with past medical history of type 2 diabetes, hypothyroidism, atrial fibrillation anticoagulated on Eliquis, hypertension, GERD, BPH, depression who presents to establish care with the office. From chart review patient has been following with Orthopedics for right hip pain. Pain was radiating down the leg and it was noted that he had previous spine surgery with a fusion at L4-L5 and L5-S1.He had his hip injected at this appointment. Patient also follows with Neurology at [place] for REM behavioral sleep disorder and Parkinson's disease. Most recent changes include going to long- acting Stalevo rather than Sinemet. He continues to take melatonin 3 mg nightly to assist with insomnia and REM sleep disorder. Unclear control of patient's diabetes. He currently takes Toujeo 90 units each morning and metformin 1000 mg twice daily. He was agreeable to an A1c today. He was appropriately taking simvastatin. Has a history of atrial fibrillation anticoagulated on Eliquis. He takes a beta- scot for rate control. Blood pressure today is at goal. He takes lisinopril 20 mg daily. Physical Exam Vitals: 09/26/23 1409 Temp: 36.5 C (97.7 F) Pulse: 60 Resp: 16 SpO2: 96% BMI: 30.45 Physical Exam Physical Exam Vitals reviewed. Constitutional: General: He is not in acute distress. Comments: Using cane to assist with ambulation. Cardiovascular: Rate and Rhythm: Normal rate and regular rhythm. Heart sounds: No murmur heard. Pulmonary: Effort: Pulmonary effort is normal. No respiratory distress. Breath sounds: Normal breath sounds. Musculoskeletal: Cervical back: Neck supple. Lymphadenopathy: Cervical: No cervical adenopathy. Skin: General: Skin is warm and dry. Neurological: General: No focal deficit present. Mental Status: He is alert. documented in this encounter Nursing Notes * Chris Baum LPN - 09/26/2023 2:09 PM EST The patient has been properly identified by confirmation of name and date of . Chief Complaint Patient presents with NEW PATIENT documented in this encounter Miscellaneous Notes * Addendum Note - Chris Baum LPN - 09/26/2023 3:44 PM ESTAddended by: CHRIS BAUM on: 09/26/2023 03:44 PM Modules accepted: Orders documented in this encounter Plan of Treatment Upcoming Encounters Date Type Department Care Team (Late st Contact Info) Description 10/05/2023 10:10 AM EST Pharmacy Cardiology, [facility] [address] [place] [address] [facility] [address] [place] [address] 01/15/2024 1:40 PM EDT Office Visit Neu[facility] [address] [place] [address] Louie Santoro, DO [address] [place] [address] 04/01/2024 4:00 PM EDT Office Visit [facility] [address] [place] [address] FebruaryBrannon MD [address] [place] [address] Pending Results Name Type Priority Associated Diagnoses Date /Time TSH WITH FREE T4 IF INDICATED Lab Routine Acquired hypothyroidism 09/26/2023 3:10 PM EST HEMOGLOBIN A1C Lab Routine Type 2 diabetes mellitus with hemoglobin A1c goal of less than 7.0% (HCC) 09/26/2023 3:10 PM EST LIPID PANEL WITH DIRECT LDL IF TG IS HIGH Lab Routine Type 2 diabetes mellitus with hemoglobin A1c goal of less than 7.0% (HCC) 09/26/2023 3:10 PM EST COMPREHENSIVE METABOLIC PANEL Lab Routine HTN, goal below 140/80 09/26/2023 3:10 PM EST Scheduled Orders Name Type Priority Associated Diagnoses Orde r Schedule TSH WITH FREE T4 IF INDICATED Lab Routine Acquired hypothyroidism Expected: 09/26/2023 (Approximate), Expires: 09/25/2024 HEMOGLOBIN A1C Lab Routine Type 2 diabetes mellitus with hemoglobin A1c goal of less than 7.0% (HCC) Expected: 09/26/2023 (Approximate), Expires: 09/25/2024 LIPID PANEL WITH DIRECT LDL IF TG IS HIGH Lab Routine Type 2 diabetes mellitus with hemoglobin A1c goal of less than 7.0% (HCC) Expected: 09/26/2023, Expires: 09/26/2024 COMPREHENSIVE METABOLIC PANEL Lab Routine HTN, goal below 140/80 Expected: 09/26/2023 (Approximate), Expires: 09/25/2024 Health Maintenance Due Date Last Done Comments DXA Scan 1942 Depression Screening 1954 DTaP,Tdap,and Td Vaccines (1 - Tdap) 03/02/2005 03/01/2005, 08/08/1991, 08/08/1991 Diabetic Foot Exam 06/30/2010 06/30/2009, 0 07/06/2008, 07/06/2008 (Course Completed), Additional history exists Zoster Vaccines (2 of 3) 11/18/2012 09/23/2012 TSH 09/08/2016 09/08/2015, 03/09, 08/25/2007, Additional history exists Diabetic Eye Exam 06/07/2019 06/07/2018, , 06/07/2018, Additional history exists HbA1c 05/03/2021 11/03/2020, 08/0 03/2018, 09/06/2016, Additional history exists Influenza Vaccine (FLU shot) (#1) 2023 07/16/2019, 09/06/2016, 08/27/2013, Additional history exists Albumin/Creatinine Ratio 08/17/2024 023, 11/03/2020, 07/01/2009, Additional history exists GFR 09/07/2024 09/07/2023, 10/09, 05/05/2020, Additional history exists Hepatitis B Completed 12/06/1993, [...] hemoglobin A1c goal of less than 7.0% ([facility])- Primary HTN, goal below 140/80 Unspecified essential hypertension Paroxysmal atrial fibrillation (HCC) Atrial fibrillation halfway current use of anticoagulant therapy BPH without obstruction/lower urinary tract symptoms Hypertrophy of prostate without urinary obstruction and other lower urinary tract symptoms (LUTS) Acquired hypothyroidism Unspecified hypothyroidism Idiopathic Parkinson's disease Paralysis agitans Migraine without aura, not intractable, without status migrainosus DM type 2 nursing care encounter ([facility]) Type II or unspecified type diabetes mellitus without mention of complication, not stated as uncontrolled documented in this encounter Advance Directives Documents on File Type Date Recorded 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 Advance Directives and Living Will 02/23/2004 Power of Customer Service Representative Teller 02/23/2004 Latest Code Status on File Code Status Date Activated Date Inactivated Comments Full Code 06/24/2008 2:39 PM 06/24/2008 9:12 PM Code Status History Code Status Date Activated Date Inactivated Comments Full Code 01/29/2008 3:01 PM 01/30/2008 12:58 PM Full Code 08/24/2007 8:45 PM 08/26/2007 10:20 PM Care Teams Bureau Director Relationship Specialty Start Date End Date February, Brannon Benavides MD [address] [place] [address] PCP - General Family Medicine 09/13/23 documented as of this encounter
--- OUTSIDE RECORDS SUMMARY | 2024-01-30 23:26 | External Medical Summary | Summary of Care ---
Author Name Unknown Organization [facility] Address [address] [place] [address] Phone [phone] Care Team Providers Care Farm Product Purchaser Name Role Phone Brannon Nair MD Primary Care Provider [phone] Encounter Details Date Type Department Care Team (Late st Contact Info) Description 10/02/2023 Orders Only Outcomes Research Department [address] [place], [place] [id number] Misti Recinos CHRA MyCode Research Other*[id number] Allergies Active Allergy Reactions Criticality Noted Date Comments Doxazosin High 09/07/2016 Other reaction(s): Arrhythmia Doxazosin Mesylate 05/02/1999 DIZZYNESS Peg 3350-Electrolytes 09/07/2016 Heparin Edema face/lips/tongue High 02/16/2010 Itching Polyethylene Glycol Anaphylaxis,Hives,Ra sh High 01/09/2002 Anaphylaxis [facility] documented as of this encounter (statuses as of 10/02/2023) Medications Medication Sig Dispensed Refills Start Date End Date Status ASPIRIN 81 MG PO CHEW take one tablet daily 100 3 06/28/2006 Active INSULIN SYRINGE-NEEDLE U-100 30G X 1/2" 0.5 ML MISCIndications:DM type 2, goal A1c below 7 Use as directed 1 Box of 100 3 10/11/2009 Active CAPOTEN 50 MG PO TABSIndications:HT N, goal below 140/90 Take 1 Tablet by mouth in the morning. 270 Tab 3 06/20/2011 Active Magnesium Hydroxide 800 MG/5ML SUSP Take by mouth. 0 Active TOUJEO SOLOSTAR 300 UNIT/ML SOPN 90 Units. 5 03/14/2018 Active vitamin b 12 (CYANOCOBALAMIN) 1000 MCG TABS Take 1 Tablet by mouth in the morning. 0 Active nitroglycerin (NITROSTAT) 0.[address] 1 Tab under the tongue as needed for Pain, Chest. Maximum 3 doses. 25 Tab 0 05/05/2020 Active Ibuprofen 200 MG Oral Tablet Take 1 Tablet by mouth every 4 hours as needed. 0 Active Eliquis 5 MG Oral Tablet (Apixaban) Take 1 Tablet by mouth 2 times a day. 180 Tablet 3 05/25/2023 Active Levothyroxine Sodium 175 MCG Oral Tablet (Levoxyl) Take 1 Tablet by mouth daily. 90 Tablet 3 05/25/2023 Active Lisinopril 20 MG [...] NIGHT 90 Tablet 1 06/05/2023 4 Active Carbidopa-Levodopa -Entacapone 25-100-200 MG Oral TabletIndications: PD (Parkinson's disease) TAKE ONE TABLET BY MOUTH THREE TIMES A DAY RECOMMEND TAKING 7A.M. 11A.M. AND 5P.M. 270 Tablet 1 06/05/2023 4 Active Tokatharine SoloStar 300 UNIT/ML Subcutaneous Solution Pen-injector (Insulin Glargine (1 Unit Dial)) 90 unit (0.3 mL) subcutaneously daily for E11.5 31.5 mL 3 09/05/2023 Active Melatonin 3 MG Oral TabletIndications: Idiopathic Parkinson's disease,REM behavioral disorder Take two tablets by mouth nightly 180 Tablet 1 09/18/2023 Active AUM Mini Insulin Pen Needle 32G X 6 MM (NOVOFINE 32G PEN NEEDLE)Indications :Type 2 diabetes mellitus with hemoglobin A1c goal of less than 7.0% (HCC) Use daily as directed 100 Each 3 09/26/2023 Active uFaberTouch Delica Plus [id number] ns:Type 2 diabetes mellitus with hemoglobin A1c goal of less than 7.0% (HCC) Use as directed to test blood sugars 3 times a day; DX E11.9 300 Each 3 09/28/2023 Active uFaberTouch Ultra 2 w/Device KitIndications:Typ e 2 diabetes mellitus with hemoglobin A1c goal of less than 7.0% (HCC) Use to test blood sugars 3 times a day; DX E11.9 1 Kit 0 09/28/2023 Active uFaberTouch Ultra In Vitro Strip (Glucose Blood)Indications: Type 2 diabetes mellitus with hemoglobin A1c goal of less than 7.0% (HCC) Use to test blood sugars 3 times a day; DX E11.9 300 Strip 3 09/28/2023 Active documented as of this encounter (statuses as of 10/02/2023) Active Problems Problem Noted Date Diagnosed Date [...] 08/24/2007 Overview: Secondary to paroxysmal atrial fibrillation USP current use of anticoagulant therapy 0 05/28/2006 Overview: ICD-10 update of inactive term Anticoagulation management encounter 05/28/2006 ADVANCE DIRECTIVE INFORMATION 02/28/2005 Overview: No, Advance Directive brochure given to patient. 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 documented as of this encounter (statuses as of 10/02/2023) Resolved Problems Problem Noted Date Diagnosed Date [...] as of this encounter (statuses as of 10/02/2023) Immunizations Name Administration Dates Next Due COVID-19 mRNA, LNP-s, No Pre serve, 2-Dose Series ([employer]) 07/21/2021,01/03/2021,12/06/2020 COVID-19, MRNA-LNP, 23-24, P F, 30 [...] Description 10/05/2023 10:10 AM EST Pharmacy Cardiology, [facility] [address] [facility] [place] [address] [facility] Cardiology [facility] [address] [place] [address] 01/15/2024 1:40 PM EDT Office Visit Neurology [facility] [place] [address] [facility] [place], [place] [address] Louie Santoro, [address] [facility] [place], [place] [address] 04/01/2024 4:00 PM EDT Office Visit [facility] [address] [place] [address] FebruaryBrannon MD [address] [place] [address] Scheduled Orders Name Type Priority Associated Diagnoses Orde r Schedule MYCODE SUBSEQUENT ADULT Lab Routine MyCode Research Other*[id number] Every 6 Months for 2 Occurrences starting 10/02/2023 until 10/21/2024 Health Maintenance Due Date Last Done Comments DXA Scan 1940 Depression Screening 1954 DTaP,Tdap,and Td Vaccines (1 - Tdap) 03/02/2005 03/01/2005, 08/08/1991, 08/08/1991 Diabetic Foot Exam 06/30/2010 06/30/2009, 0 07/06/2008, 07/06/2008 (Course Completed), Additional history exists Zoster Vaccines (2 of 3) 11/18/2012 09/23/2012 Influenza Vaccine (FLU shot) (#1) 2023 07/16/2019, 09/06/2016, 08/27/2013, Additional history exists HbA1c 03/27/2024 09/26/2023, 10/09, 05/13/2018, Additional history exists Albumin/Creatinine Ratio 08/17/2024 023, 11/03/2020, 07/01/2009, Additional history exists Diabetic Eye Exam 09/26/2024 09/26/2023, , 06/07/2018, Additional history exists GFR 09/26/2024 09/26/2023, 1210/2022, 11/03/2020, Additional history exists TSH 09/26/2024 09/26/2023, 11/2014, 04/02/2015, Additional history exists Hepatitis B Completed 12/06/1993, [...] as of this encounter Visit Diagnoses Diagnosis MyCode Research Other*[id number] documented in this encounter Advance Directives Documents on File Type Date Recorded Patient Band Sewer Expl anation Advance Directives and Living Will 02/23/2004 Power of Civil Engineer'S Aide 02/23/2004 Latest Code Status on File Code Status Date Activated Date Inactivated Comments Full Code 06/24/2008 2:39 PM 06/24/2008 9:12 PM Code Status History Code Status Date Activated Date Inactivated Comments Full Code 01/29/2008 3:01 PM 01/30/2008 12:58 PM Full Code 08/24/2007 8:45 PM 08/26/2007 10:20 PM Care Teams Farm Product Purchaser Relationship Specialty Start Date End Date February, Brannon Benavides MD [address] [place] [address] PCP - General Family Medicine 09/13/23 documented as of this encounter
--- OUTSIDE RECORDS SUMMARY | 2024-01-30 23:26 | External Medical Summary | Summary of Care ---
Author Name Unknown Organization [facility] Address [address] [place] [address] Phone [phone] Care Team Providers Care Corrugator Name Role Phone FebruaryBrannon MD Primary Care Provider [phone] Reason for Visit * Reason Onset Date Comments Medication Pre-auth 09/27/2023 Accu-chek gu chloe strips Encounter Details Date Type Department Care Team (Late st Contact Info) Description 09/27/2023 Telephone [facility] [address] [place] [address] FebruaryBrannon MD [address] [place] [address] Medication Pre-auth (Accu-chek guide strips ) Allergies Active Allergy Reactions Criticality Noted Date Comments Doxazosin High 09/07/2016 Other reaction(s): Arrhythmia Doxazosin Mesylate 05/02/1999 DIZZYNESS Peg 3350-Electrolytes 09/07/2016 Heparin Edema face/lips/tongue High 02/16/2010 Itching Polyethylene Glycol Anaphylaxis,Hives,Ra sh High 01/09/2002 Anaphylaxis [facility] documented as of this encounter (statuses as of 09/28/2023) Medications Medication Sig Dispensed Refills Start Date [...] 270 Tablet 1 3 05/30/20 24 Active Kaydenilyajes SoloStar 300 UNIT/ML Subcutaneous Solution Pen-injector (Insulin [...] Each 3 3 Active OneTouch Delica Plus [id number] ons:Type 2 diabetes mellitus with hemoglobin A1c goal of less than 7.0% (HCC) Use as directed. Use to test blood sugars 3 times a day; DX E11.9 300 Each 3 3 Active OneTouch Ultra 2 w/Device KitIndications:Ty pe 2 diabetes mellitus with hemoglobin A1c goal of less than 7.0% (HCC) Use to test blood sugars 3 times a day; DX E11.9 1 Kit 0 3 Active OneTouch Ultra In Vitro Strip (Glucose Blood)Indications :Type 2 diabetes mellitus with hemoglobin A1c goal of less than 7.0% (HCC) Use to test blood sugars 3 times a day; DX E11.9 300 Strip 3 3 Active LANCETS MISCIndications:D M type [...] a day as directed 270 3 0 09/28/20 23 Discontinu ed(Medicat ion List Clean Up) Accu-Chek Guide w/Device Kit Use to test blood sugars 3 times a day; DX E11.9 1 Kit 0 3 09/28/20 Discontinu ed(Medicat ion List Clean Up) Accu-Chek FastClix Lancets Use to test blood sugars 3 times a day; DX: E11.9 306 Each 1 3 09/28/20 Discontinu ed(Medicat ion List Clean Up) Accu-Chek Guide In Vitro Strip (Glucose Blood)Indications :Type 2 diabetes mellitus with hemoglobin A1c goal of less than 7.0% ([facility]) Use 1 Strip as directed 2 times a day. Use to check blood sugar twice daily 300 Strip 3 3 09/28/20 Discontinu ed(Medicat ion List Clean Up) documented as of this encounter (statuses as of 09/28/2023) Active Problems Problem Noted Date Diagnosed Date [...] 08/24/2007 Overview: Secondary to paroxysmal atrial fibrillation FPC current use of anticoagulant therapy 0 05/28/2006 Overview: ICD-10 update of inactive term Anticoagulation management encounter 05/28/2006 ADVANCE DIRECTIVE INFORMATION 02/28/2005 Overview: No, Advance Directive brochure given to patient. 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 documented as of this encounter (statuses as of 09/28/2023) Resolved Problems Problem Noted Date Diagnosed Date [...] as of this encounter (statuses as of 09/28/2023) Immunizations Name Administration Dates Next Due COVID-19 mRNA, LNP-s, No Pre serve, 2-Dose Series ([employer]) 07/21/2021,01/03/2021,12/06/2020 COVID-19, MRNA-LNP, 23-24, P F, 30 MCG/0.3 mL, 12 YRS AND ABOVE, IM [facility] 07/16/2023 Covid-19, Mrna, Lnp-s, Pf, B ivalent, 30 Mcg, IM, 12 yrs and above (Oriense) 07/18/2022 Diptheria/Tetanus (Adult) 08/08/1991 Hepatitis B Vaccine [...] encounter Miscellaneous Notes * Addendum Note - Prudence Soto RPh - 09/28/2023 3:24 PM ESTAddended by: PRUDENCE SOTO on: 09/28/2023 03:24 PM Modules accepted: Orders * Telephone Encounter - Brannon Nair MD - 09/28/2023 3:07 PM EST Orders signed. Brannon Nair MD * Telephone Encounter - Prudence Soto RPh - 09/28/2023 2:03 PM EST Rx is pended for alternative medication that is covered (insurance does not cover Accu-check diabetic supplies). Please sign if agreeable and route back to me so I can advise patient. Pending Prescriptions: Disp Refills OneTouch Delica Plus [id number] 300 Ea*3 Sig: Use as directed. Use to test blood sugars 3 times a day; DX E11.9 OneTouch Ultra 2 w/Device Kit 1 Kit 0 Sig: Use to test blood sugars 3 times a day; DX E11.9 OneTouch Ultra In Vitro Strip (Glucose Bl*300 St*3 Sig: Use to test blood sugars 3 times a day; DX E11.9 Thank you, Prudence Soto PharmD Clinical Pharmacist [facility] ([facility]) (formerly [facility]) [phone] 09/28/2023, 2:03 PM * Telephone Encounter - Prudence Soto RPh - 09/28/2023 2:03 PM EST This is a new [place] request. Upon review of this prior authorization request, I verified this request is appropriate. This is prescribed by a department for which [facility] is authorized to review prior authorizations This is not a duplicate encounter regarding the same prior authorization The patient is planning to use insurance The insurance information listed in previous note is correct and the plan that is requiring prior authorization The insurance does not cover either brand or generic forms of this script as written without prior authorization The insurance does not cover any NDCs of this script without prior authorization RX Estimate tool confirms this script needs prior authorization Of note, there is nothing currently pending in [facility] for this request. Please advise how to proceed. Thank you, Prudence Soto PharmD Clinical Pharmacist [facility] ([facility]) (formerly [facility]) [phone] 09/28/2023, 2:03 PM * Telephone Encounter - Laila Gilmore CPhT - 09/27/2023 3:29 PM EST Pharmacy calling to inform doctor that the patient's insurance will not pay for this medication without a completed prior authorization. Did confirm this information with the pharmacy. Pt's current insurance information is as follows: Patient name: Barry Nascimento ID number: [id number] BIN number: [id number] PCN number: [id number] Group number: Subscriber name: Barry Nascimento Primary or Secondary Insurance:Primary Medication: accu-chek guide strips Reason for Request: Product non formulary Pharmacy and phone number: [facility] [phone] Rx plan and phone number: [facility] [phone] Is this a new medication for the patient? Yes What alternative medications does the pharmacy have in stock?: Life Scan products Thank you, Laila Gilmore CPhT Ship Cleaner [facility] ([facility] ([facility]) 09/27/2023, 3:29 PM documented in this encounter Plan of Treatment Upcoming Encounters Date Type Department Care Team (Late st Contact Info) Description 10/05/2023 10:10 AM EST Pharmacy Cardiology, [facility] [address] [place] [address] [facility] Cardiology [facility] [address] [facility] [place] [address] 01/15/2024 1:40 PM EDT Office Visit Neurology [place] [address] [place] [address] Louie Santoro, [address] [place] [address] 04/01/2024 4:00 PM EDT [address] [address] FebruaryBrannon MD [address], [place] [id number] Health Maintenance Due Date Last Done Comments DXA Scan 1942 Depression Screening 1954 DTaP,Tdap,and Td Vaccines (1 - Tdap) 03/02/2005 03/01/2005, 08/08/1991, 08/08/1991 Diabetic Foot Exam 06/30/2010 06/30/2009, 0 07/06/2008, 07/06/2008 (Course Completed), Additional history exists Zoster Vaccines (2 of 3) 11/18/2012 09/23/2012 TSH 09/08/2016 09/08/2015, 03/09, 08/25/2007, Additional history exists Influenza Vaccine (FLU shot) (#1) 2023 07/16/2019, 09/06/2016, 08/27/2013, Additional history exists HbA1c 03/27/2024 09/26/2023, 10/09, 05/13/2018, Additional history exists Albumin/Creatinine Ratio 08/17/2024 023, 11/03/2020, 07/01/2009, Additional history exists Diabetic Eye Exam 09/26/2024 09/26/2023, , 06/07/2018, Additional history exists GFR 09/26/2024 09/26/2023, 10/2022, 11/03/2020, Additional history exists Hepatitis B Completed 12/06/1993, [...] Documents on File Type Date Recorded Patient Child Care Lead Teacher Expl anation Advance Directives and Living Will 02/23/2004 Power of Optics Manufacturing Technician 02/23/2004 Latest Code Status on File Code Status Date Activated Date Inactivated Comments Full Code 06/24/2008 2:39 PM 06/24/2008 9:12 PM Code Status History Code Status Date Activated Date Inactivated Comments Full Code 01/29/2008 3:01 PM 01/30/2008 12:58 PM Full Code 08/24/2007 8:45 PM 08/26/2007 10:20 PM Care Teams Corrugator Relationship Specialty Start Date End Date February, Brannon Benavides MD [address] [facility] [place] [address] PCP - General Family Medicine 09/13/23 documented as of this encounter
--- OUTSIDE RECORDS SUMMARY | 2024-01-30 23:26 | External Medical Summary | Summary of Care ---
Author Name Unknown Organization [facility] Address [address] [place] [address] Phone [phone] Care Team Providers Care Roofing Applicator Name Role Phone FebruaryBrannon MD Primary Care Provider [phone] Reason for Visit * Reason Onset Date Comments Test Results 10/02/2023 Encounter Details Date Type Department Care Team (Late st Contact Info) Description 10/02/2023 Telephone [facility] [address] [place] [address] FebruaryBrannon MD [address] [place] [address] Test Results Allergies Active Allergy Reactions Criticality Noted Date Comments Doxazosin High 09/07/2016 Other reaction(s): Arrhythmia Doxazosin Mesylate 05/02/1999 DIZZYNESS Peg 6142-Zvv-Jeqjr-Nacl-Akash ulf 09/07/2016 Heparin Edema face/lips/tongue High 02/16/2010 Itching Polyethylene Glycol Anaphylaxis,Hives,R fabiana High 01/09/2002 Anaphylaxis [facility] documented as of this encounter (statuses as of 10/17/2023) Medications Medication Sig Dispensed Refills Start Date End Date Status ASPIRIN 81 MG PO CHEW take one tablet daily 100 3 06/28/2006 Active INSULIN SYRINGE-NEEDLE U-100 30G X 1/2" 0.5 ML MISCIndications:DM type 2, goal A1c below 7 Use as directed 1 Box of 100 3 10/11/2009 Active CAPOTEN 50 MG PO TABSIndications:HTN , goal below 140/90 Take 1 Tablet by mouth in the morning. 270 Tab 3 06/20/2011 Active Magnesium Hydroxide 800 MG/5ML SUSP Take by mouth. 0 Activ e TOUJEO SOLOSTAR 300 UNIT/ML SOPN 90 Units. [...] MOUTH AT NIGHT 90 Tablet 1 06/05/2023 06/04/20 24 Active Carbidopa-Levodopa- Entacapone 25-100-200 MG Oral TabletIndications:P D (Parkinson's disease) TAKE ONE TABLET BY MOUTH THREE TIMES A DAY RECOMMEND TAKING 7A.M. 11A.M. AND 5P.M. 270 Tablet 1 06/05/2023 05/30/20 24 Active Toujeo SoloStar 300 UNIT/ML Subcutaneous Solution Pen-injector (Insulin Glargine (1 Unit Dial)) 90 unit (0.3 mL) subcutaneously daily for E11.5 31.5 mL 3 09/05/2023 Active Melatonin 3 MG Oral TabletIndications:I diopathic Parkinson's disease,REM behavioral disorder Take two tablets by mouth nightly 180 Tablet 1 09/18/2023 Active AUM Mini Insulin Pen Needle 32G X 6 MM (NOVOFINE 32G PEN NEEDLE)Indications: Type 2 diabetes mellitus with hemoglobin A1c goal of less than 7.0% (HCC) Use daily as directed 100 Each 3 09/26/2023 Active [employer] Delica Plus [id number] s:Type 2 diabetes mellitus with hemoglobin A1c goal of less than 7.0% (HCC) Use as directed to test blood sugars 3 times a day; DX E11.9 300 Each 3 09/28/2023 Active TWINLINX Ultra 2 w/Device KitIndications:Type 2 diabetes mellitus with hemoglobin A1c goal of less than 7.0% (HCC) Use to test blood sugars 3 times a day; DX E11.9 1 Kit 0 09/28/2023 Active TWINLINX Ultra In Vitro Strip (Glucose Blood)Indications:T ype 2 diabetes mellitus with hemoglobin A1c goal of less than 7.0% (HCC) Use to test blood sugars 3 times a day; DX E11.9 300 Strip 3 09/28/2023 Active Levothyroxine Sodium 150 MCG Oral Tablet (Levoxyl)Indication s:Acquired hypothyroidism Take 1.25 Tablets by mouth daily. 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 Informed of message. Verbalized understanding. * Telephone Encounter - Mary Jane Haines LPN - 10/02/2023 11:21 AM EST Patient is not accepting calls at this time. * Telephone Encounter - Saman Holloway LPN - 10/02/2023 10:02 AM EST ----- Message from Brannon Nair MD sent at 10/02/2023 9:16 AM EST ----- Results reviewed. Overmedicated on levothyroxine. Decreased dose of 150 mcg daily sent to mail order pharmacy. We will repeat TSH level at next appointment. Rest of lab work is within normal limits. No other medication changes required. Brannon Nair MD documented in this encounter Plan of Treatment Upcoming Encounters Date Type Department Care Team (Late st Contact Info) Description 10/17/2023 3:00 PM EST Office Visit Cardiology, [facility] [address] [facility] [place] [address] Jeff Cook MD [address] [facility] [place] [address] 01/15/2024 1:40 PM EDT Office Visit Neurology [facility] [address] [facility] [place] [address] Louie Santoro, [address] [place] [address] 04/01/2024 4:00 PM EDT Office Visit [facility] [address] [place] [id number] Brannon Nair MD [address] [place], [place] [phone] Health Maintenance Due Date Last Done Comments [...] 06/07/2018, Additional history exists GFR 09/26/2024 09/26/2023, 12/0 10/2022, 11/03/2020, Additional history exists TSH 09/26/2024 09/26/2023, 12/0 11/2014, 04/02/2015, Additional history exists Hepatitis B [...] Documents on File Type Date Recorded Patient Ui Architect Expl anation Advance Directives and Living Will 02/23/2004 Power of Chimney Builder Brick 02/23/2004 Latest Code Status on File Code Status Date Activated Date Inactivated Comments Full Code 06/24/2008 2:39 PM 06/24/2008 9:12 PM Code Status History Code Status Date Activated Date Inactivated Comments Full Code 01/29/2008 3:01 PM 01/30/2008 12:58 PM Full Code 08/24/2007 8:45 PM 08/26/2007 10:20 PM Care Teams Roofing Applicator Relationship Specialty Start Date End Date February, Brannon Benavides MD [address] [facility] [place] [address] PCP - General Family Medicine 09/13/23 documented as of this encounter
--- OUTSIDE RECORDS SUMMARY | 2024-01-30 23:26 | External Medical Summary | Summary of Care ---
Author Name Unknown Organization [facility] Address [address] [place] [address] Phone [phone] Care Team Providers Care Palletiser Operator Name Role Phone FebruaryBrannon MD Primary Care Provider [phone] Encounter Details Date Type Department Care Team (Late st Contact Info) Description 10/24/2023 Orders Only [facility] [address] [place] [address] FebruaryBrannon MD [address] [place] [address] Allergies Active Allergy Reactions Criticality Noted Date Comments Amiodarone 10/17/2023 Pulmonary intolerance Doxazosin High 09/07/2016 Other reaction(s): Arrhythmia Doxazosin Mesylate 05/02/1999 DIZZYNESS Peg 1093-Fiq-Esrua-Nacl-Na sulf 09/07/2016 Heparin Edema face/lips/tongue High 02/16/2010 Itching Polyethylene Glycol Anaphylaxis,Hives,R fabiana High 01/09/2002 Anaphylaxis [facility] documented as of this encounter (statuses [...] Each 3 09/26/2023 Active OneTouch Delica Plus [id number] s:Type 2 diabetes mellitus with hemoglobin A1c goal of less than 7.0% (HCC) Use as directed to test blood sugars 3 times a day; DX E11.9 300 Each 3 09/28/2023 Active OneTouch Ultra 2 w/Device KitIndications:Type 2 [...] 08/24/2007 Overview: 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 documented [...] mRNA, LNP-s, No Pre serve, 2-Dose Series ([employer]) 07/21/2021,01/03/2021,12/06/2020 COVID-19, MRNA-LNP, 23-24, P F, 30 MCG/0.3 mL, 12 YRS AND ABOVE, IM ([facility]) 07/16/2023 Covid-19, Mrna, Lnp-s, Pf, B ivalent, 30 Mcg, IM, 12 yrs and above ([employer]) 07/18/2022 Hepatitis B, 20+ yrs 12/06/1993,07/08/1993,05/08 Pneumococcal [...] PM EDT Office Visit Neurology [facility] [place] [address] [place] [address] Louie Santoro DO [address] [place] [address] 02/08/2024 2:40 PM EDT Office Visit OptometryKacey [address] [place], [place] [address] [address] Awilda Ballesteros, OD [address] [place] [address] 04/01/2024 4:00 PM EDT Office Visit [facility] [address] [place] [address] February, Brannon Benavides MD [address] [place], [place] [phone] Health Maintenance Due Date Last Done Comments [...] Not on filedocumented as of this encounter Results * (ABNORMAL) CHEMISTRY-OUTSIDE (10/17/2023) Not all results display below - see scan for full detail OUTSIDE LAB (SEE SCANNED REPORT) Comment:SEE SCAN - FOLATE, V IT B12, FERRITIN, LIPID, CMP, HA1C, CBCD CREATININE-OUTSID E LAB 1.1 0.6 - 1.5 MG/DL OUTSIDE LAB (SEE SCANNED REPORT) EGFR-OUTSIDE LAB 68.3 ML/MIN OUT SIDE LAB (SEE SCANNED REPORT) POTASSIUM-OUTSIDE LAB 4.8 3.6 - 5.1 MMOL/L OUTSIDE LAB (SEE SCANNED REPORT) GLUCOSE-OUTSIDE LAB 65(A) 70 - 99 MG/DL OUTSIDE LAB (SEE SCANNED REPORT) HOURS FASTING OUTSID E LAB (SEE SCANNED REPORT) TRIGLYCERIDES-OUT SIDE LAB 115 <150 MG/DL OUTSIDE LAB (SEE SCANNED REPORT) CHOLESTEROL-OUTSI DE LAB 126 <200 MG/DL OUTSIDE LAB (SEE SCANNED REPORT) HDL-OUTSIDE LAB 54.1 40.0 - 60.0 MG/DL OUTSIDE LAB (SEE SCANNED REPORT) CHOL/HDL RATIO-OUTSIDE LAB OUTSIDE LA B (SEE SCANNED REPORT) LDL (CALCULATED)-OUTS GINA LAB 49 5 - 100 MG/DL OUTSIDE LAB (SEE SCANNED REPORT) LDL (DIRECT MEASURE)-OUTSIDE LAB OUTSIDE LAB (SEE SCANNED REPORT) HEMOGLOBIN, [id number] LAB 6.3(A) 4.3 - 6.2 % OUTSIDE LAB (SEE SCANNED REPORT) PHOSPHORUS-OUTSID E LAB OUTSIDE LAB (SEE SCANNED REPORT) PTH-OUTSIDE LAB OUTS GINA LAB (SEE SCANNED REPORT) MICROALBUMIN RATIO-OUTSIDE LAB OUTSIDE LA B (SEE SCANNED REPORT) PROTEIN, UA-OUTSIDE LAB OUTSIDE LAB (SEE SCANNED REPORT) HEMOGLOBIN-OUTSID E LAB 11.8(A) 12.4 - 17.3 G/DL OUTSIDE LAB (SEE SCANNED REPORT) 10/17/2023 History Per Patient LABORATORY OUTSIDE LAB (SEE SCANNED REPORT) documented in this encounter Advance Directives Documents on File Type Date Recorded Patient Astro Technician Expl anation Advance Directives and Living Will 02/23/2004 Power of Gripper Machine Operator 02/23/2004 Latest Code Status on File Code Status Date Activated Date Inactivated Comments Full Code 06/24/2008 2:39 PM 06/24/2008 9:12 PM Code Status History Code Status Date Activated Date Inactivated Comments Full Code 01/29/2008 3:01 PM 01/30/2008 12:58 PM Full Code 08/24/2007 8:45 PM 08/26/2007 10:20 PM Care Teams Palletiser Operator Relationship Specialty Start Date End Date February, Brannon Benavides MD [address] [facility] [place] [address] PCP - General Family Medicine 09/13/23 documented as of this encounter
--- OUTSIDE RECORDS SUMMARY | 2024-01-30 23:26 | External Medical Summary | Summary of Care ---
Author Name Unknown Organization [facility] Address [address] [place] [address] Phone [phone] Care Team Providers Care Wet Silk Hanger Name Role Phone FebruaryBrannon MD Primary Care Provider [phone] Reason for Visit * Reason Onset Date Comments FYI 10/10/2023 Encounter Details Date Type Department Care Team (Late st Contact Info) Description 10/10/2023 Telephone Pharmacy Call Center [phone] [facility] [place] [phone] FebruaryBrannon MD [address] [place] [address] FY Allergies Active Allergy Reactions Criticality Noted Date Comments Doxazosin High 09/07/2016 Other reaction(s): Arrhythmia Doxazosin Mesylate 05/02/1999 DIZZYNESS Peg 4036-Dfj-Htvkb-Nacl-Akash ulf 09/07/2016 Heparin Edema face/lips/tongue High 02/16/2010 Itching Polyethylene Glycol Anaphylaxis,Hives,R fabiana High 01/09/2002 Anaphylaxis [facility] documented as of this encounter (statuses as of 10/10/2023) Medications Medication Sig Dispensed Refills Start Date [...] as directed 100 Each 3 09/26/2023 Active Minggl Delica Plus [id number] s:Type 2 diabetes mellitus with hemoglobin A1c goal of less than 7.0% (HCC) Use as directed to test blood sugars 3 times a day; DX E11.9 300 Each 3 09/28/2023 Active Minggl Ultra 2 w/Device KitIndications:Type 2 diabetes mellitus with hemoglobin A1c goal of less than 7.0% (HCC) Use to test blood sugars 3 times a day; DX E11.9 1 Kit 0 09/28/2023 Active Minggl Ultra In Vitro Strip (Glucose Blood)Indications:T ype 2 diabetes mellitus with hemoglobin A1c goal of less than 7.0% (HCC) Use to test blood sugars 3 times a day; DX E11.9 300 Strip 3 09/28/2023 Active Levothyroxine Sodium 150 MCG Oral Tablet (Levoxyl)Indication s:Acquired hypothyroidism Take 1.25 Tablets by mouth daily. 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 documented as of this encounter (statuses as of 10/10/2023) Resolved Problems Problem Noted Date Diagnosed Date [...] as of this encounter (statuses as of 10/10/2023) Immunizations Name Administration Dates Next Due COVID-19 mRNA, LNP-s, No Pre serve, 2-Dose Series ([employer]) 07/21/2021,01/03/2021,12/06/2020 COVID-19, MRNA-LNP, 23-24, P F, 30 MCG/0.3 mL, 12 YRS AND ABOVE, IM ([employer]) 07/16/2023 Covid-19, Mrna, Lnp-s, Pf, B ivalent, 30 Mcg, IM, 12 yrs and above ([employer] [place]) 07/18/2022 Hepatitis B, 20+ yrs 12/06/1993,07/08/1993,05/08 Pneumococcal [...] encounter Miscellaneous Notes * Telephone Encounter - Lacey Doan CPhT - 10/10/2023 12:50 PM EST Reviewed patient appt dated and time Thank you, Lacey Doan Straightedge Worker II [facility] ([facility] (formerly Telepharmacy) 10/10/2023 12:50 PM ' documented in this encounter Plan of Treatment Upcoming Encounters Date Type Department Care Team (Late st Contact Info) Description 10/17/2023 3:00 PM EST Office Visit Cardiology, [facility] [address] [place] [address] Jeff Cook MD [address] [place] [address] 01/15/2024 1:40 PM EDT Office Visit Neurology [facility] [address] [facility] [place] [address] Louie Santoro, 200 [facility] [place] [address] 04/01/2024 4:00 PM EDT Office Visit [facility] [address] [place] [address] February, Brannon Benavides MD [address] [place], [place] [phone] Health Maintenance Due Date Last Done Comments [...] Documents on File Type Date Recorded Patient Core Shaper Expl anation Advance Directives and Living Will 02/23/2004 Power of Manager Strategic Marketing 02/23/2004 Latest Code Status on File Code Status Date Activated Date Inactivated Comments Full Code 06/24/2008 2:39 PM 06/24/2008 9:12 PM Code Status History Code Status Date Activated Date Inactivated Comments Full Code 01/29/2008 3:01 PM 01/30/2008 12:58 PM Full Code 08/24/2007 8:45 PM 08/26/2007 10:20 PM Care Teams Wet Silk Hanger Relationship Specialty Start Date End Date February, Brannon Benavides MD [address] [place] [address] PCP - General Family Medicine 09/13/23 documented as of this encounter
--- OUTSIDE RECORDS SUMMARY | 2024-01-30 23:26 | External Medical Summary | Summary of Care ---
Author Name Unknown Organization [facility] Address [address] [place] [address] Phone [phone] Care Team Providers Care Router Setter Name Role Phone FebruaryBrannon MD Primary Care Provider [phone] Encounter Details Date Type Department Care Team (Late st Contact Info) Description 10/24/2023 Orders Only [facility] [address] [place] [address] FebruaryBrannon MD [address] [place] [address] Allergies Active Allergy Reactions Criticality Noted Date Comments Amiodarone 10/17/2023 Pulmonary intolerance Doxazosin High 09/07/2016 Other reaction(s): Arrhythmia Doxazosin Mesylate 05/02/1999 DIZZYNESS Peg 0631-Tdw-Jgopi-Nacl-Na sulf 09/07/2016 Heparin Edema face/lips/tongue High 02/16/2010 Itching Polyethylene Glycol Anaphylaxis,Hives,R fabiana High 01/09/2002 Anaphylaxis [facility] documented as of this encounter [...] Each 3 09/26/2023 Active OneTouch Delica Plus [id number] s:Type 2 diabetes mellitus with hemoglobin A1c [...] Overview: 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 documented [...] mRNA, LNP-s, No Pre serve, 2-Dose Series ([employer]) 07/21/2021,01/03/2021,12/06/2020 COVID-19, MRNA-LNP, 23-24, P F, 30 MCG/0.3 mL, 12 YRS AND ABOVE, IM ([facility] 07/16/2023 Covid-19, Mrna, Lnp-s, Pf, B ivalent, 30 Mcg, IM, 12 yrs and above ([employer]) 07/18/2022 Hepatitis B, 20+ yrs 12/06/1993,07/08/1993,05/08 Pneumococcal [...] PM EDT Office Visit Neurology [facility] [place] [address] [place] [address] Louie Santoro DO [address] [place] [address] 02/08/2024 2:40 PM EDT Office Visit OptometryKacey [address] [place], [place] [address] [address] Awilda Ballesteros, OD [address] [facility] [place] [address] 04/01/2024 4:00 PM EDT Office Visit [facility] [address] [place] [address] February, Brannon Benavides MD [address] [place], [place] [phone] Health Maintenance Due Date Last Done Comments [...] Documents on File Type Date Recorded Patient Furniture Repair Technician Expl anation Advance Directives and Living Will 02/23/2004 Power of Charger 02/23/2004 Latest Code Status on File Code Status Date Activated Date Inactivated Comments Full Code 06/24/2008 2:39 PM 06/24/2008 9:12 PM Code Status History Code Status Date Activated Date Inactivated Comments Full Code 01/29/2008 3:01 PM 01/30/2008 12:58 PM Full Code 08/24/2007 8:45 PM 08/26/2007 10:20 PM Care Teams Router Setter Relationship Specialty Start Date End Date February, Brannon Benavides MD [address] [place] [address] PCP - General Family Medicine 09/13/23 documented as of this encounter
--- OUTSIDE RECORDS SUMMARY | 2024-01-30 23:26 | External Medical Summary | Summary of Care ---
Author Name Unknown Organization [facility] Address [address] [place] [address] Phone [phone] Care Team Providers Care Defective Cigarette Slitter Name Role Phone Brannon Nair MD Primary Care Provider Reason for Visit * Reason Comments Outpatient Testing Encounter Details Date Type Department Care Team (Late st Contact Info) Description 09/26/2023 3:10 PM EST Laboratory [facility], [facility] [address] [place] [address] [facility] [address] [place] [address] Acquired hypothyroidism; Type 2 diabetes mellitus with hemoglobin A1c goal of less than 7.0% ([facility]); HTN, goal below 140/80 Allergies Active Allergy Reactions Criticality Noted Date Comments Doxazosin High 09/07/2016 Other reaction(s): Arrhythmia Doxazosin Mesylate 05/02/1999 DIZZYNESS Peg 3350-Electrolytes 09/07/2016 Heparin Edema face/lips/tongue High 02/16/2010 Itching Polyethylene Glycol Anaphylaxis,Hives,Ra sh High 01/09/2002 Anaphylaxis [facility] documented as of this encounter (statuses as of 09/26/2023) Medications Medication Sig Dispensed Refills Start Date End Date Status LANCETS MISCIndications:DM type 2, goal A1c below 7 as directed 100 10 03/23/2003 Active ASPIRIN 81 MG PO CHEW take one tablet daily 100 3 06/28/2006 Active ONETOUCH ULTRA SYSTEM W/DEVICE KITIndications:DM type 2, goal A1c below 7 Use up to four times a day as directed 1 1 08/30/2009 Active ONETOUCH ULTRA TEST STRPIndications:DM type 2, goal A1c below 7 Use three times a day as directed 270 3 10/11/2009 Active INSULIN SYRINGE-NEEDLE U-100 30G X 1/2" [...] a day; DX E11.9 1 Kit 0 05/04/2023 Active Accu-Chek FastClix Lancets Use to test blood sugars 3 times a day; DX: E11.9 306 Each 1 05/04/2023 Active Eliquis 5 MG Oral Tablet (Apixaban) [...] 5P.M. 270 Tablet 1 06/05/2023 4 Active Toujeo SoloStar 300 UNIT/ML Subcutaneous [...] as directed 100 Each 3 09/26/2023 Active Accu-Chek Guide In Vitro Strip (Glucose Blood)Indications: Type 2 diabetes mellitus with hemoglobin A1c goal of less than 7.0% (HCC) Inject into the skin. 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 LG [...] mRNA, LNP-s, No Pre serve, 2-Dose Series ([employer]) 07/21/2021,01/03/2021,12/06/2020 COVID-19, MRNA-LNP, 23-24, P F, 30 MCG/0.3 mL, 12 YRS AND ABOVE, IM ([facility]) 07/16/2023 Covid-19, Mrna, Lnp-s, Pf, B ivalent, [...] Description 10/05/2023 10:10 AM EST Pharmacy Cardiology, [facility] [address] [place] [address] [facility] [address] [place] [address] 01/15/2024 1:40 PM EDT Office Visit Neurology [facility] [address] [place] [address] Louie Santoro, DO [address] [facility] [place] [address] 04/01/2024 4:00 PM EDT Office Visit [facility] [address] [place] [address] FebruaryBrannon MD [address] [place] [address] Pending Results Name Type Priority Associated Diagnoses Date /Time TSH WITH FREE T4 IF INDICATED Lab Routine Acquired hypothyroidism 09/26/2023 3:10 PM EST HEMOGLOBIN A1C Lab Routine Type 2 diabetes mellitus with hemoglobin A1c goal of less than 7.0% ([facility]) 09/26/2023 3:10 PM EST LIPID PANEL WITH DIRECT LDL IF TG IS HIGH Lab Routine Type 2 diabetes mellitus with hemoglobin A1c goal of less than 7.0% ([facility]) 09/26/2023 3:10 PM EST COMPREHENSIVE METABOLIC PANEL Lab Routine HTN, goal below 140/80 09/26/2023 3:10 PM EST Health Maintenance Due Date Last [...] 06/07/2018, Additional history exists HbA1c 05/03/2021 11/03/2020, 0803/2018, 09/06/2016, Additional history exists Influenza Vaccine (FLU [...] as of this encounter Visit Diagnoses Diagnosis Acquired hypothyroidism Unspecified hypothyroidism Type 2 diabetes mellitus with hemoglobin A1c goal of less than 7.0% (HCC) HTN, goal below 140/80 Unspecified essential hypertension documented in this encounter Advance Directives Documents on File Type Date Recorded Patient Material Control Clerk Expl anation Advance Directives and Living Will 02/23/2004 Power of Asset Coordinator 02/23/2004 Latest Code Status on File Code Status Date Activated Date Inactivated Comments Full Code 06/24/2008 2:39 PM 06/24/2008 9:12 PM Code Status History Code Status Date Activated Date Inactivated Comments Full Code 01/29/2008 3:01 PM 01/30/2008 12:58 PM Full Code 08/24/2007 8:45 PM 08/26/2007 10:20 PM Care Teams Defective Cigarette Slitter Relationship Specialty Start Date End Date February, Brannon Benavides MD [address] [place] [address] PCP - General Family Medicine 09/13/23 documented as of this encounter
--- OUTSIDE RECORDS SUMMARY | 2024-01-30 23:26 | External Medical Summary | Summary of Care ---
Author Name Unknown Organization [facility] Address [address] [place] [address] Phone [phone] Care Team Providers Care Bottom Wheeler Name Role Phone Patito Gonzalez MD Primary Care Provider [phone] Reason for Visit * Reason Comments Follow Up Pre-op Clearance Possible R JACQUI with Dr. Iain Jimenez [facility] TBD Encounter Details Date Type Department Care Team (Latest Contact Info) Description 10/17/2023 3:00 PM EST Office Visit Cardiology, [facility] [address] [place] [address] Jeff Cook MD [address] [place] [address] Encounter for pre-operative cardiovascular clearance*; Paroxysmal atrial fibrillation (HCC) Allergies Active Allergy Reactions Criticality Noted Date Comments Amiodarone 10/17/2023 Pulmonary intolerance Doxazosin High 09/07/2016 Other reaction(s): Arrhythmia Doxazosin Mesylate 05/02/1999 DIZZYNESS Peg 4316-Iqc-Hiyqy-Nacl-Na sulf 09/07/2016 Heparin Edema face/lips/tongue High 02/16/2010 [...] 270 Tablet 1 3 05/30/20 24 Active Tokatharine SoloStar 300 UNIT/ML Subcutaneous Solution Pen-injector (Insulin Glargine (1 Unit Dial)) 90 unit (0.3 mL) subcutaneously daily for E11.5 31.5 mL 3 3 Active Melatonin 3 MG Oral TabletIndications:I diopathic Parkinson's disease,REM behavioral disorder Take two tablets by mouth nightly 180 Tablet 1 3 Active AUM Mini Insulin Pen Needle 32G X 6 MM (NOVOFINE 32G PEN NEEDLE)Indications: Type 2 diabetes mellitus with hemoglobin A1c goal of less than 7.0% (HCC) Use daily as directed 100 Each 3 3 Active OneTouch Delica Plus [id number] s:Type 2 diabetes mellitus with hemoglobin A1c goal of less than 7.0% ([facility]) Use as directed to test blood sugars 3 times a day; DX E11.9 300 Each 3 3 Active OneTouch Ultra 2 w/Device KitIndications:Type 2 diabetes mellitus with hemoglobin A1c goal of less than 7.0% ([facility]) Use to test blood sugars 3 times a day; DX E11.9 1 Kit 0 3 Active Gear6Touch Ultra In Vitro Strip (Glucose Blood)Indications:T ype 2 diabetes mellitus with hemoglobin A1c goal of less than 7.0% ([facility]) Use to test blood sugars 3 times a day; DX E11.9 300 Strip 3 3 Active Levothyroxine Sodium 150 MCG Oral Tablet (Levoxyl)Indication s:Acquired hypothyroidism Take 1.25 Tablets by mouth daily. 90 Tablet 3 3 Active CAPOTEN 50 MG PO TABSIndications:HTN , goal below 140/90 Take 1 Tablet by mouth in the morning. 270 Tab 3 1 10/17/19 24 Discontinu ed(Patient preference /discontin uation) Magnesium Hydroxide 800 MG/5ML SUSP Take by mouth. 0 10/17/19 24 Discontinu ed(Medicat ion List Clean Up) JORGE SOLOSTAR 300 UNIT/ML SOPN 90 Units. 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 OF [place] CORONARY VESSEL BENIGN NEOPLASM LG BOWEL documented [...] mRNA, LNP-s, No Pre serve, 2-Dose Series ([employer]) 07/21/2021,01/03/2021,12/06/2020 COVID-19, MRNA-LNP, 23-24, P F, 30 [...] Q uit: 10/08/2005 Cigars Smokeless Tobacco: Never Tobacco Cessation:Counseling Given: Not [...] Sign Reading Time Taken Comments Blood Pressure 120/62 10/17/2023 3:18 PM EST Pulse 72 10/17/2023 3:18 PM EST Temperature - - Respiratory Rate 16 10/17/2023 3:18 PM EST Oxygen Saturation - - Inhaled Oxygen Concentration - - Weight 92 kg (202 lb 12.8 oz) 10/17/2023 3:18 PM EST Height - - Body Mass Index 29.93 09/26/2023 2:09 PM EST documented in this [...] as of this encounter Progress Notes * Jeff Cook MD - 10/17/2023 3:25 PM EST October 17, 2023 Cardiology Follow Up PCP: PATITO GONZALEZ [address] [place] [address] [id number] Chief Complaint: Follow-up coronary disease, paroxysmal atrial fibrillation SUBJECTIVE: Barry Nascimento is a 83 year old year old male with ongoing issues 1. Atherosclerotic coronary artery disease status post prior coronary intervention with stent to the left circumflex in 2000. Cardiac catheterization May 17, 2023, widely patent prior stent with rnss-xf-[id number] coronary athero sclerosus and calcification without obstruction 2. Stable class 1/2 angina pectoris. 3. Paroxysmal atrial fibrillation status post pulmonary vein isolation ablation in 2006 and 2007 with successful control of arrhythmias. 4. Chronic obstructive lung disease. 5. Hypertension. 6. Past amiodarone toxicity. 7. Hyperlipidemia. 8. Type 2 diabetes mellitus. 9. Parkinsonism Patient presents today in routine post hospital follow-up. Admitted [place] on September 20, 2024 withatypical chest pain. Cardiac evaluation negative laboratory studies notable for hypomagnesemia which responded to medical therapy and replacement Notes have been well since. No significant chest pains, dizziness, lightheadedness, orthopnea, worsening peripheral edema. No syncope or near syncope. Nofevers chills or unexplained infections. No bleeding difficulties. Tolerating current medications well. No return tachy palpitations or arrhythmias Anticipates hip replacement in the near future A Complete Review of Systems is as stated above or negative. Patient Active Problem List Diagnosis Code Displacement of lumbar intervertebral disc without myelopathy M51.26 Migraine without aura G43.009 ADVANCE DIRECTIVE INFORMATION Premature beats I49.49 Hypothyroidism E03.9 Atrial fibrillation (HCC) I48.91 CORONARY ATHEROSCLER. OF [place] CORONARY VESSEL I25.10 BENIGN NEOPLASM LG BOWEL D12.6 BPH without obstruction/lower urinary tract symptoms N40.0 alf current use of anticoagulant therapy Z79.01 Anticoagulation management encounter Z51.81, Z79.01 Chest pain R07.9 Shoulder joint pain M25.519 Esophageal reflux K21.9 Type 2 diabetes mellitus with hemoglobin A1c goal of less than 7.0% (HCC) E11.9 HTN, goal below 140/80 I10 Acute calculous cholecystitis K80.00 Pleural effusion J90 Chest pain, pleuritic R07.81 Dyspnea R06.00 Review of patient's allergies indicates: Allergen Reactions Doxazosin Other reaction(s): Arrhythmia Heparin Edema face/lips/tongue Itching Polyethylene Glycol Anaphylaxis, Hives and Rash Anaphylaxis [facility] Amiodarone Pulmonary intolerance Doxazosin Mesylate DIZZYNESS Golytely [Peg [id number]-Rrk-Swjza-Nacl-Nasulf] Current Outpatient Medications Medication Sig Dispense Refill [...] BY MOUTH AT NIGHT 90 Tablet 1 Lggnekhva-Drtbwbsp-Wfhotwiprv 25-100-200 MG Oral Tablet TAKE ONE TABLET BY MOUTH THREE TIMES A DAY RECOMMEND TAKING 7A.M. 11A.M. AND 5P.M. 270 Tablet 1 Toujeo SoloStar 300 UNIT/ML Subcutaneous Solution Pen-injector (Insulin Glargine (1 Unit Dial)) 90 unit (0.3 mL) subcutaneously daily for E11.5 31.5 mL 3 Melatonin 3 MG Oral Tablet Take two tablets by mouth nightly 180 Tablet 1 Levothyroxine Sodium 150 MCG Oral Tablet (Levoxyl) Take 1.25 Tablets by mouth daily. 90 Tablet 3 INSULIN SYRINGE-NEEDLE U-100 30G X 1/2" [...] directed 100 Each 3 OneTouch Delica Plus [id number] Use as directed to test blood sugars 3 times a day; DX E11.9 300 Each 3 OneTouch Ultra 2 w/Device Kit Use to test blood sugars 3 times a day; DX E11.9 1 Kit 0 OneTouch Ultra In Vitro Strip (Glucose Blood) Use to test blood sugars 3 times a day; DX E11.9 300 Strip 3 No current facility-administered medications for this visit. OBJECTIVE/PHYSICAL EXAMINATION: BP 120/62 (BP Site: Left Arm, BP Position: Sitting, BP Cuff Size: Large) | Pulse 72 | Resp 16 | Wt 92 kg (202 lb 12.8 oz) | BMI 29.93 kg/m | BSA 2.12 m General: no acute distress and stated age Head: normocephalic, no masses, lesions, tenderness or abnormalities Eyes: conjunctiva are pink and non-injected, sclera clear Throat: clear Nares: without discharge Neck: supple, no adenopathy, no bruits, normal jugular venous pulse, no hepatojugular reflux, no carotid bruits Chest: normal shape and normal respiratory effort Lungs: Few rhonchi left base which clear with cough Cardiac Exam: - regular rate & rhythm, no murmurs gallops or rubs - normal S-1, normal S-2 Pulses: 2(+) throughout Abdomen: abdomen soft, non-tender, no abnormal masses, no hepatosplenomegaly, no abdominal bruit, no femoral bruit Musculoskeletal: no gait disturbance, no joint inflammation, no deforming arthritis Extremities: no edema, no cyanosis, pulses intact 2+/4 Neuro: Flat facies with coarse resting tremor bilaterally Data: EKG performed October 17, 2023 and reviewed personally : Sinus rhythm with first-degree AV block at 70 beats per minute Incomplete right bundle branch block, possible Q-wave lead V2 No change from prior studies Chest x-ray September 20, 2023 Normal size cardiac silhouette no infiltrate or edema, images personally reviewed Stress nuclear imaging November 26, 2020 Lexiscan nuclear cardiac stress test negative for ischemia. Gated SPECT images reveals normal myocardial thickening and wall motion. The LV ejection fraction is calculated at 74%. Echocardiogram May 16, 2023 The qualitative LV ejection fraction is 60 to 65% The LV wall thickness is moderately increased (concentric). The left ventricular diastolic function is mildly abnormal (grade I). Aortic sclerosis without stenosis Coronary angiography May 17, 2023 Left main: Mild calcification left coronary cusp but no significant calcification left main with mild luminal irregularities Left anterior descending: Large caliber vessel with wvnv-yf-ufdqqglc calcification proximal to midvessel with tortuosity mild narrowing of 50% or less Left circumflex: Large caliber and non dominant. It gives rise to 2 small obtuse marginals and a large 3rd obtuse marginal branch. There has a widely patent stent in the left circumflex proximal to the 3rd marginal. Distal vessel has mild disease of up to 30% Ramus intermedius no significant disease Right coronary artery: Large caliber and dominant mild luminal irregularities with a mid segment vessel stenosis of 30% ASSESSMENT: 83 year old year old male With 1. Chronic stable coronary artery disease with recent coronary angiography without progression, stable angina pectoris. Patient on guideline directed optimal medical regimen 2. Prior noncardiac chest pain 3. Paroxysmal atrial fibrillation now quiescent status post ablation x2 4. Planned possible hip replacement: No cardiac contraindications to surgery. No recent myocardial infarction, congestive heart failure, severe valvular disease, arrhythmias, stroke. Operative risk moderately increased secondary underlying morbidities, parkinsonism Discussed in detail with patient PLAN: Continue all current therapies as prescribed without change DISPOSITION: Follow-up 6 months MD Cristina Doniser Cardiology, [facility] [address] [facility] [place] [address] I spent a total of 40-54 minutes (exact time 45 mins) on the date of service in preparation, delivery, and documentation of the care provided to Barry Nascimento excluding any time spent in the performance of separately billed services. documented in this encounter Nursing Notes * Maria Eugenia Yañez CMA - 10/17/2023 3:11 PM EST Chief Complaint Patient presents with Follow Up Pre-op Clearance Possible R JACQUI with Dr. Iain Jimenez [facility] Examination Room: 14 Name: Barry Nascimento Date of : (1940). Reason for Visit: overdue f/u Interim Hospitalization(s): [facility] Problems/Concerns: denies Chest Pain/SOB: Denies further CP or worsening SOB. [facility] Discussed: No My [facility] is a way you can talk to your provider online through e-mail. Would you like to sign up? I can activate it for you? ALREADY ACTIVE Patient was instructed to not get up on the exam table until directed and assisted by their provider; patient is to remain seated in the chair/ wheelchair/ exam table for fall prevention and safety reasons. Patient is aware to have assistance to step down off exam table with personnel. Patient voiced full comprehension of instructions. documented in this encounter Plan of Treatment Upcoming Encounters Date Type Department Care Team (Late st Contact Info) Description 01/15/2024 1:40 PM EDT Office Visit [facility]rology [facility] [address] [facility] [place] [address] Louie Santoro, [address] [facility] [place] [address] 04/01/2024 4:00 PM EDT Office Visit [facility] [address] [place] [address] Patito Gonzalez MD [address] [place] [address] Scheduled Orders Name Type Priority Associated Diagnoses Orde r Schedule EKG EKG Routine Paroxysmal atrial fibrillation (HCC) Encounter for pre-operative cardiovascular clearance Ordered: 10/17/2023 Health Maintenance Due Date Last Done Comments [...] 09/26/2024 09/26/2023, 10/2022, 11/03/2020, Additional history exists TSH 09/26/2024 [...] as of this encounter Visit Diagnoses Diagnosis Encounter for pre-operative cardiovascular clearance- Primary Pre-operative cardiovascular examination Paroxysmal atrial fibrillation (HCC) Atrial fibrillation documented in this encounter Advance Directives Documents on File Type Date Recorded 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
--- OUTSIDE RECORDS SUMMARY | 2024-01-30 23:26 | External Medical Summary | Summary of Care ---
Author Name Unknown Organization [facility] Address [address] [place] [address] Phone [phone] Care Team Providers Care Finance Effectiveness Manager Name Role Phone Brannon Nair MD Primary Care Provider Encounter Details Date Type Department Care Team (Late st Contact Info) Description 10/18/2023 Population Health External Data Unspecified Department Allergies Active Allergy Reactions Criticality Noted Date Comments Amiodarone 10/17/2023 Pulmonary intolerance Doxazosin High 09/07/2016 Other reaction(s): Arrhythmia Doxazosin Mesylate 05/02/1999 DIZZYNESS Peg 5316-Zmu-Mpeuq-Nacl-Na sulf 09/07/2016 Heparin Edema face/lips/tongue High 02/16/2010 Itching Polyethylene Glycol Anaphylaxis,Hives,R fabiana High 01/09/2002 Anaphylaxis [facility] documented as of this encounter (statuses as of 10/22/2023) Medications Medication Sig Dispensed Refills Start Date [...] A1c goal of less than 7.0% ([facility]) Use daily as directed 100 Each 3 09/26/2023 Active OneTouch Delica Plus [id number] s:Type 2 diabetes mellitus with hemoglobin A1c goal of less than 7.0% ([facility]) Use as directed to test [...] A1c goal of less than 7.0% ([facility]) Use to test blood sugars 3 times a day; DX E11.9 300 Strip 3 09/28/2023 Active Levothyroxine Sodium 150 MCG Oral Tablet (Levoxyl)Indication s:Acquired hypothyroidism Take 1.25 Tablets by mouth daily. 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 OF [place] CORONARY VESSEL BENIGN NEOPLASM LG BOWEL documented as of this encounter (statuses as of 10/22/2023) Resolved Problems Problem Noted Date Diagnosed Date [...] as of this encounter (statuses as of 10/22/2023) Immunizations Name Administration Dates Next Due COVID-19 mRNA, LNP-s, No Pre serve, 2-Dose Series ([employer]) 07/21/2021,01/03/2021,12/06/2020 COVID-19, MRNA-LNP, 23-24, P F, 30 MCG/0.3 mL, 12 YRS AND ABOVE, IM ([employer]) 07/16/2023 Covid-19, Mrna, Lnp-s, Pf, B ivalent, 30 Mcg, IM, 12 yrs and above ([employer]) 07/18/2022 Hepatitis B, 20+ yrs 12/06/1993,07/08/1993,05/08 Pneumococcal [...] 01/15/2024 1:40 PM EDT [facility] [address] [place] [address] Louie Santoro, [address] [place] [address] 02/08/2024 2:40 PM EDT Office Visit [facility] [address] [place] [address] Awilda Ballesteros OD [address] [place] [address] 04/01/2024 4:00 PM EDT Office Visit [address] [place] [address] FebruaryBrannon MD [address] [place] [phone] Health Maintenance Due Date Last Done Comments [...] Documents on File Type Date Recorded Patient Content Strategy Lead Expl anation Advance Directives and Living Will 02/23/2004 Power of Manager Labor Delivery 02/23/2004 Latest Code Status on File Code Status Date Activated Date Inactivated Comments Full Code 06/24/2008 2:39 PM 06/24/2008 9:12 PM Code Status History Code Status Date Activated Date Inactivated Comments Full Code 01/29/2008 3:01 PM 01/30/2008 12:58 PM Full Code 08/24/2007 8:45 PM 08/26/2007 10:20 PM Care Teams Finance Effectiveness Manager Relationship Specialty Start Date End Date February, Brannon Benavides MD [address] [place] [address] PCP - General Family Medicine 09/13/23 documented as of this encounter
--- OUTSIDE RECORDS SUMMARY | 2024-01-30 23:26 | External Medical Summary | Summary of Care ---
Author Name Unknown Organization [facility] Address [address] [place] [address] Phone [phone] Care Team Providers Care Weather Algorithm Scientist Name Role Phone FebruaryBrannon MD Primary Care Provider [phone] Reason for Referral * Evaluate & Treat - Unlimited Visits (Within 30 days (routine)) - Authorized Specialty Diagnoses / Procedures Referred By Aaron barber Referred To Contact Optometry Diagnoses Screening for diabetic retinopathy Brannon Nair MD [address] [place] [address] Referral ID Status Reason Start Date Expiration Date Visits Requested Visits Authorized [id number] Authorized Specialty Services Required 10/19/2023 999 999 Question Answer Referral Priority Within 30 days (routine) Where should this appointment be scheduled? [facility] Referring to: [facility] Referring for: Optometry Conditions Optometry Conditions Other Optometry (comment) Reason for Visit * Reason Onset Date Comments Information 10/19/2023 DM eye Encounter Details Date Type Department Care Team (Late st Contact Info) Description 10/19/2023 Telephone [facility] [address] [place] [phone] Brannon Nair MD [address] [place] [address] Information (DM eye) Allergies Active Allergy Reactions Criticality Noted Date Comments Amiodarone 10/17/2023 Pulmonary intolerance Doxazosin High 09/07/2016 Other reaction(s): Arrhythmia Doxazosin Mesylate 05/02/1999 DIZZYNESS Peg 7565-Wui-Ozgzq-Nacl-Na sulf 09/07/2016 Heparin Edema face/lips/tongue High 02/16/2010 Itching Polyethylene Glycol Anaphylaxis,Hives,R fabiana High 01/09/2002 Anaphylaxis [facility] documented as of this encounter (statuses as of 10/19/2023) Medications Medication Sig Dispensed Refills Start Date [...] 270 Tablet 1 06/05/2023 05/30/20 24 Active Toudrewo SoloStar 300 UNIT/ML Subcutaneous Solution Pen-injector (Insulin [...] as directed 100 Each 3 09/26/2023 Active IGLOO SoftwareToBONDS.COM Delica Plus [id number] s:Type 2 diabetes mellitus with hemoglobin A1c goal of less than 7.0% (HCC) Use as directed to test blood sugars 3 times a day; DX E11.9 300 Each 3 09/28/2023 Active IGLOO SoftwareTouch Ultra 2 w/Device KitIndications:Type 2 diabetes mellitus with hemoglobin A1c goal of less than 7.0% (HCC) Use to test blood sugars 3 times a day; DX E11.9 1 Kit 0 09/28/2023 Active IGLOO SoftwareTouch Ultra In Vitro Strip (Glucose Blood)Indications:T ype 2 diabetes mellitus with hemoglobin A1c goal of less than 7.0% (HCC) Use to test blood sugars 3 times a day; DX E11.9 300 Strip 3 09/28/2023 Active Levothyroxine Sodium 150 MCG Oral Tablet (Levoxyl)Indication s:Acquired hypothyroidism Take 1.25 Tablets by mouth daily. 90 Tablet 3 10/02/2023 Active documented as of this encounter (statuses as of 10/19/2023) Active Problems Problem Noted Date Diagnosed Date [...] 08/24/2007 Overview: Secondary to paroxysmal atrial fibrillation snf current use of anticoagulant therapy 0 05/28/2006 Overview: ICD-10 update of inactive term Anticoagulation management encounter 05/28/2006 ADVANCE DIRECTIVE INFORMATION 02/28/2005 Overview: No, Advance Directive brochure given to patient. 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 OF [place] CORONARY VESSEL BENIGN NEOPLASM LG BOWEL documented as of this encounter (statuses as of 10/19/2023) Resolved Problems Problem Noted Date Diagnosed Date [...] as of this encounter (statuses as of 10/19/2023) Immunizations Name Administration Dates Next Due COVID-19 mRNA, LNP-s, No Pre serve, 2-Dose Series (EDUS) 07/21/2021,01/03/2021,12/06/2020 COVID-19, MRNA-LNP, 23-24, P F, 30 MCG/0.3 mL, 12 YRS AND ABOVE, IM ([facility]) 07/16/2023 Covid-19, Mrna, Lnp-s, Pf, B ivalent, [...] encounter Miscellaneous Notes * Telephone Encounter - Olimpia Thompson LPN - 10/19/2023 3:54 PM EST Patient with a positive Diabetic Retinopathy scan. The images are not able to be interpreted. Outreach action taken: Scheduled Appointment Referral in place. Olimpia Thompson LPN documented in this encounter Plan of Treatment Upcoming Encounters Date Type Department Care Team (Late st Contact Info) Description 01/15/2024 1:40 PM EDT Office Visit Neurology [facility] [address] [facility] [place] [address] Louie Santoro, DO [address] [facility] [place] [address] 02/08/2024 2:40 PM EDT Office Visit Optometry, [place] [address] [place] [address] Awilda Ballesteros OD [address] [place] [address] 04/01/2024 4:00 PM EDT Office Visit [facility] [address] [place] [phone] February, Brannon Benavides MD [address], [place] [phone] Scheduled Referrals Name Type Priority Associated Diagnoses Orde r Schedule ADULT/PEDS OPHTHALMOLOGY/OPTOM ETRY REFERRAL OP Referral Within 30 days (routine) Screening for diabetic retinopathy Ordered: 10/19/2023 Health Maintenance Due Date Last Done Comments [...] Additional history exists Hepatitis B Completed 12/06/1993, 0 10/1993, 07/08/1993, Additional history exists Pneumococcal Vaccine: [...] as of this encounter Visit Diagnoses Diagnosis Screening for diabetic retinopathy- Primary Screening for other eye conditions documented in this encounter Advance Directives Documents on File Type Date Recorded 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 Advance Directives and Living Will 02/23/2004 Power of Assistant Director Of Plant Operations 02/23/2004 Latest Code Status on File Code Status Date Activated Date Inactivated Comments Full Code 06/24/2008 2:39 PM 06/24/2008 9:12 PM Code Status History Code Status Date Activated Date Inactivated Comments Full Code 01/29/2008 3:01 PM 01/30/2008 12:58 PM Full Code 08/24/2007 8:45 PM 08/26/2007 10:20 PM Care Teams Weather Algorithm Scientist Relationship Specialty Start Date End Date February, Brannon Benavides MD [address], [place] [phone] PCP - General Family Medicine 09/13/23 documented as of this encounter
--- OUTSIDE RECORDS SUMMARY | 2024-01-30 23:26 | External Medical Summary | Summary of Care ---
Author Name Unknown Organization [facility] Address [address] [place] [address] Phone [phone] Care Team Providers Care Hot End Operator Name Role Phone Patito Gonzalez MD Primary Care Provider [phone] Reason for Visit * Reason Comments Outpatient Testing Encounter Details Date Type Department Care Team (Late st Contact Info) Description 09/26/2023 3:10 PM EST Laboratory Laboratory, [place] [address] [place] [address] [place] [address] [place] [address] Acquired hypothyroidism; Type 2 diabetes mellitus with hemoglobin A1c goal of less than 7.0% ([facility]); HTN, goal below 140/80 Allergies Active Allergy Reactions Criticality Noted Date Comments Doxazosin High 09/07/2016 Other reaction(s): Arrhythmia Doxazosin Mesylate 05/02/1999 DIZZYNESS Peg 3350-Electrolytes 09/07/2016 Heparin Edema face/lips/tongue High 02/16/2010 Itching Polyethylene Glycol Anaphylaxis,Hives,Ra sh High 01/09/2002 Anaphylaxis [facility] documented as of this encounter (statuses as of 10/02/2023) Medications Medication Sig Dispensed Refills Start Date End Date Status ASPIRIN 81 MG PO CHEW take one tablet daily 100 3 6 Active INSULIN SYRINGE-NEEDLE U-100 30G X 1/2" 0.5 ML MISCIndications:DM type 2, goal A1c below 7 Use as directed 1 Box of 100 3 0 Active CAPOTEN 50 MG PO TABSIndications:HTN , [...] as directed 100 Each 3 3 Active Levothyroxine Sodium 150 MCG Oral Tablet (Levoxyl)Indication s:Acquired hypothyroidism Take 1.25 Tablets by mouth daily. 90 Tablet 3 3 Active LANCETS MISCIndications:DM type 2, goal A1c below 7 as directed 100 10 3 09/28/20 23 Discontinu ed(Medicat ion List Clean Up) ONETOUCH ULTRA SYSTEM W/DEVICE KITIndications:DM type 2, goal A1c below 7 Use up to four times a day as directed 1 1 9 09/28/20 23 Discontinu ed(Medicat ion List Clean Up) ONETOUCH ULTRA TEST STRPIndications:DM type 2, goal [...] 09/28/20 Discontinu ed(Medicat ion List Clean Up) Levothyroxine Sodium 175 MCG Oral Tablet (Levoxyl) Take 1 Tablet by mouth daily. 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 LG BOWEL documented [...] mRNA, LNP-s, No Pre serve, 2-Dose Series (Vouch) 07/21/2021,01/03/2021,12/06/2020 COVID-19, MRNA-LNP, 23-24, P F, 30 MCG/0.3 mL, 12 YRS AND ABOVE, IM ([facility]) 07/16/2023 Covid-19, Mrna, Lnp-s, Pf, B ivalent, [...] encounter Miscellaneous Notes * Addendum Note - Patito Gonzalez MD - 10/02/2023 9:14 AM ESTAddended by: PATITO GONZALEZ on: 10/02/2023 09:14 AM Modules accepted: Orders documented in this encounter Plan of Treatment Upcoming Encounters Date Type Department Care Team (Late st Contact Info) Description 10/05/2023 10:10 AM EST Pharmacy Cardiology, [facility] [address] [address] [facility] Cardiology [facility] [address] [address] 01/15/2024 1:40 PM EDT Office Visit Neurology [facility] [place] [address] [place] [address] Louie Santoro, [address] [place] [address] 04/01/2024 4:00 PM EDT Office Visit [facility] [address] [facility] [place] [place] [address] May, Patito Benavides MD [address] [place] [facility] [place] [address] Health Maintenance Due Date Last Done Comments [...] 06/07/2018, Additional history exists GFR 09/26/2024 09/26/2023, 0 10/2022, 11/03/2020, Additional history exists TSH 09/26/2024 09/26/2023, 0 11/2014, 04/02/2015, Additional history exists Hepatitis B [...] Procedure Name Priority Date/Time Associated Diagnosis Comments TSH WITH FREE T4 IF INDICATED Routine 09/26/2023 3:10 PM EST Acquired hypothyroidism LIPID PANEL WITH DIRECT LDL IF TG IS HIGH Routine 09/26/2023 3:10 PM EST Type 2 diabetes mellitus with hemoglobin A1c goal of less than 7.0% (HCC) HEMOGLOBIN A1C Routine 09/26/2023 3:10 PM EST Type 2 diabetes mellitus with hemoglobin A1c goal of less than 7.0% (HCC) COMPREHENSIVE METABOLIC PANEL Routine 09/26/2023 3:10 PM EST HTN, goal below 140/80 T4, FREE Routine 09/26/2023 3:10 PM EST Acquired hypothyroidism documented in this encounter Results * T4, FREE (09/26/2023 3:10 PM EST) T4, Free 1.6 0.9 - 1.7 ng/dL 09/28/2023 9:56 PM EST [facility] Blood Venous blood specimen / Unknown Venipuncture / Unknown 09/26/2023 3:10 PM EST 09/26/2023 3:13 PM EST Patito Gonzalez MD LAB BLOOD ORDERABLES Performing Organization Address City/State/[facility] Co de Phone Number [facility] [address] [place] [address] * (ABNORMAL) COMPREHENSIVE METABOLIC PANEL (09/26/2023 3:10 PM EST) BUN 17 6 - 20 mg/dL 09/26/2023 9:52 PM EST [facility] Creatinine 1.2 0.6 - 1.2 mg/dL 09/26/2023 9:52 PM EST [facility] Estimated Glomerular Filtration Rate 61 >=60 mL/min 09/26/2023 9:52 PM EST [facility] Comment:eGFR is calculated b ased on the CKD-EPI 2020 equation Sodium 141 135 - 146 mmol/L 09/26/2023 9:52 PM EST [facility] Potassium 4.7 3.5 - 5.1 mmol/L 09/26/2023 9:52 PM EST [facility] Chloride 106 98 - 107 mmol/L 09/26/2023 9:52 PM EST [facility] CO2 26 22 - 32 mmol/L 09/26/2023 9:52 PM EST [facility] Anion Gap 9 7 - 15 mmol/L 09/26/2023 9:52 PM EST [facility] Glucose 65(L) 70 - 120 mg/dL 09/26/2023 9:52 PM EST [facility] Albumin 4.2 3.8 - 5.0 g/dL 09/26/2023 9:52 PM EST [facility] AST 19 10 - 50 U/L 09/26/2023 9:52 PM EST [facility] Alkaline Phosphatase 61 35 - 130 U/L 09/26/2023 9:52 PM EST [facility] Bilirubin, Total 0.3 <=1.2 mg/dL 09/26/2023 9:52 PM EST [facility] Calcium 9.4 8.4 - 10.2 mg/dL 09/26/2023 9:52 PM EST [facility] Protein 6.4 6.0 - 8.3 g/dL 09/26/2023 9:52 PM EST [facility] ALT 14 10 - 50 U/L 09/26/2023 9:52 PM EST [facility] Blood Venous blood specimen / Unknown Venipuncture / Unknown 09/26/2023 3:10 PM EST 09/26/2023 3:13 PM EST Patito Gonzalez MD LAB BLOOD ORDERABLES [facility] [address] [place] [address] * LIPID PANEL WITH DIRECT LDL IF TG IS HIGH (09/26/2023 3:10 PM EST) Pathologist [facility] Triglycerides 116 <=174 mg/dL 09/26/2023 9:52 PM EST [facility] Comment: Triglyceride Reference Ranges (mg/dL): <150 Acceptable 150-174 Borderline high 175-499 High >=500 Very high Cholesterol 135 <200 mg/dL 09/26/2023 9:52 PM EST LABORATORY [facility] Comment: Total Cholesterol Reference Ranges (mg/dL): <200 Desirable 200-239 Borderline high >=240 High HDL Cholesterol 63 >39 mg/dL 9:52 PM EST LABORATORY [facility] Comment: HDL Cholesterol Reference Ranges (mg/dL): >=60 High (Desirable) <50 Low (Undesirable) For Females <40 Low (Undesirable) For Males Non-HDL Cholesterol 72 <=159 mg/dL 09/26/2023 9:52 PM EST LABORATORY [facility] Comment: Non-HDL Cholesterol Reference Range (mg/dL): <100 Target level for high risk ASCVD patient <130 Optimal for general population 130-159 Near optimal for general population 160-189 Borderline High 190-219 High >=220 Very High LDL Cholesterol 49 <=129 mg/dL 09/26/2023 9:52 PM EST LABORATORY [facility] Comment: LDL Cholesterol Reference Ranges (mg/dL): <70 Target level for high risk ASCVD patient <100 Optimal for general population 100-129 Near optimal for general population 130-159 Borderline high 160-189 High >=190 Very high Blood Venous blood specimen / Unknown Venipuncture / Unknown 09/26/2023 3:10 PM EST 09/26/2023 3:13 PM EST Patito Gonzalez MD LAB BLOOD ORDERABLES LABORATORY [facility] [address] [place] [address] * (ABNORMAL) HEMOGLOBIN A1C (09/26/2023 3:10 PM EST) Pathologist [facility] Hemoglobin A1C 6.3(H) 4.0 - 5.6 % 09/26/2023 10:00 PM EST LABORATORY [facility] Comment:The use of HbA1c to monitor glycemic status is based on normal hemoglobin and HbA composition. This test should not be used in patients with abnormal hemoglobin that affects the half life of the red blood cell or the in vivo glycation rates. Estimated Average Glucose 134(H) <126 mg/dL 09/26/2023 10:00 PM EST LABORATORY [facility] Blood Venous blood specimen / Unknown Venipuncture / Unknown 09/26/2023 3:10 PM EST 09/26/2023 3:13 PM EST Patito Gonzalez MD LAB BLOOD ORDERABLES LABORATORY [facility] [address] [place] [address] * (ABNORMAL) TSH WITH FREE T4 IF INDICATED (09/26/2023 3:10 PM EST) TSH 0.09(L) 0.27 - 4.20 uIU/mL 09/28/2023 9:15 PM EST LAB[facility]ATORY [facility] Blood Venous blood specimen / Unknown Venipuncture / Unknown 09/26/2023 3:10 PM EST 09/26/2023 3:13 PM EST Patito Gonzalez MD LAB BLOOD ORDERABLES Performing Organization Address City/[facility]/ZIP Co de Phone Number LABORATORY [facility] [address] [place] [address] documented in this encounter Visit Diagnoses Diagnosis Acquired hypothyroidism Unspecified hypothyroidism Type 2 diabetes mellitus with hemoglobin A1c goal of less than 7.0% (HCC) HTN, goal below 140/80 Unspecified essential hypertension documented in this encounter Advance Directives Documents on File Type Date Recorded Patient Filenet Developer Expl anation Advance Directives and Living Will 02/23/2004 Power of Creel Cleaner 02/23/2004 Latest Code Status on File Code Status Date Activated Date Inactivated Comments Full Code 06/24/2008 2:39 PM 06/24/2008 9:12 PM Code Status History Code Status Date Activated Date Inactivated Comments Full Code 01/29/2008 3:01 PM 01/30/2008 12:58 PM Full Code 08/24/2007 8:45 PM 08/26/2007 10:20 PM Care Teams Hot End Operator Relationship Specialty Start Date End Date FebruaryPatito MD [address] [place] [address] PCP - General Family Medicine 09/13/23 documented as of this encounter
--- OUTSIDE RECORDS SUMMARY | 2024-01-30 23:26 | External Medical Summary | Summary of Care ---
Author Name Unknown Organization [facility] Address [address] [place] [address] Phone [phone] Care Team Providers Care Bilingual Sales Representative Name Role Phone FebruaryBrannon MD Primary Care Provider [phone] Reason for Visit * Reason Onset Date Comments Medication Pre-auth 09/27/2023 Accu-chek gu chloe strips Encounter Details Date Type Department Care Team (Late st Contact Info) Description 09/27/2023 Telephone [facility] [address] [place] [address] FebruaryBrannon MD [address] [place] [address] Medication Pre-auth (Accu-chek guide strips ) Allergies Active Allergy Reactions Criticality Noted Date Comments Doxazosin High 09/07/2016 Other reaction(s): Arrhythmia Doxazosin Mesylate 05/02/1999 DIZZYNESS Peg 3350-Electrolytes 09/07/2016 Heparin Edema face/lips/tongue High 02/16/2010 Itching Polyethylene Glycol Anaphylaxis,Hives,Ra sh High 01/09/2002 Anaphylaxis [facility] documented as of this encounter (statuses [...] twice daily 300 Strip 3 3 Active OneTouch Delica Plus [id number] ons:Type 2 diabetes mellitus with hemoglobin A1c [...] day as directed 1 1 9 09/28/20 Discontinu ed(Medicat ion List Clean Up) ONETOUCH ULTRA TEST STRPIndications:D M type 2, goal A1c below 7 Use three times a day as directed 270 3 0 09/28/20 Discontinu ed(Medicat ion List Clean Up) [...] 08/24/2007 Overview: 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 Please sign if agreeable and route back to me so I can advise patient. Pending Prescriptions: Disp Refills OneTouch Delica Plus [id number] 300 Ea*3 Sig: Use as directed. Use to test blood sugars 3 times a day; DX E11.9 OneTouch Ultra 2 w/Device Kit 1 Kit 0 Sig: Use to test blood sugars 3 times a day; DX E11.9 OneTouch Ultra In Vitro Strip (Glucose Bl*300 St*3 Sig: Use to test blood sugars 3 times a day; DX E11.9 Thank you, Prudence Blackwell PharmD Clinical Pharmacist [facility] Clinical Pharmacy Services ([facility]) [facility] [phone] 09/28/2023, 2:03 PM * Telephone Encounter - Prudence Blackwell RP - 09/28/2023 2:03 PM EST This is a new [place] request. Upon review of this prior authorization request, I verified this request is appropriate. This is prescribed by a department for which [facility] is authorized to review prior authorizations [...] note, there is nothing currently pending in [facility] for this request. Please advise how to proceed. Thank you, Prudence Blackwell PharmD Clinical Pharmacist [facility] ([facility]) ([facility] [phone] 09/28/2023, 2:03 PM * Telephone Encounter - Laila Gilmore CPhT - 09/27/2023 3:29 PM EST Pharmacy calling to inform doctor that the patient's insurance will not pay for this medication without a completed prior authorization. Did confirm this information with the pharmacy. Pt's current insurance information is as follows: Patient name: Barry Nascimento ID number: [id number] BIN number: [id number] PCN number: [id number] Group number: Subscriber name: Barry Nascimento Primary or Secondary Insurance:Primary Medication: accu-chek guide strips Reason for Request: Product non formulary Pharmacy and phone number: [facility] [phone] Rx plan and phone number: [facility] [phone] Is this a new medication for the patient? Yes What alternative medications does the pharmacy have in stock?: Life Scan products Thank you, Laila Gilmore CPhT Breast Surgeon [facility] ([facility] ([facility]) 09/27/2023, 3:29 PM documented in this encounter Plan of Treatment Upcoming Encounters Date Type Department Care Team (Late st Contact Info) Description 10/05/2023 10:10 AM EST Pharmacy Cardiology, [facility] [address] [facility] [place] [address] [facility] Cardiology [facility] [address] [facility] [place] [address] 01/15/2024 1:40 PM EDT Office Visit Neurology [facility] [address] [place] [address] Louie Santoro, DO [address] [facility] [place] [address] 04/01/2024 4:00 PM EDT Office Visit [facility] [address] [place] [phone] Brannon Nair MD [address] [place], [place] [phone] Health Maintenance Due Date Last Done Comments [...] Documents on File Type Date Recorded Patient [employer] Dean Expl anation Advance Directives and Living Will 02/23/2004 Power of File Clerk Data Entry 02/23/2004 Latest Code Status on File Code Status Date Activated Date Inactivated Comments Full Code 06/24/2008 2:39 PM 06/24/2008 9:12 PM Code Status History Code Status Date Activated Date Inactivated Comments Full Code 01/29/2008 3:01 PM 01/30/2008 12:58 PM Full Code 08/24/2007 8:45 PM 08/26/2007 10:20 PM Care Teams Bilingual Sales Representative Relationship Specialty Start Date End Date February, Brannon Benavides MD [address] [place] [address] PCP - General Family Medicine 09/13/23 documented as of this encounter
--- OUTSIDE RECORDS SUMMARY | 2024-01-30 23:27 | External Medical Summary ---
Author Name Unknown Address Unknown Organization K01:LABORATORY [facility] - [address] [facility] [address] Laboratory Report Ordering Provider Test Date Status 09/26/2023 15:10:16 Final Observation Date Value Abnormality Reference (Units ) Status HbA1C 09/26/2023 15:10:16 6.3 Above high normal 4. 0-5.6 (%) Final The use of HbA1c to monitor glycemic status is based on normal hemoglobin and HbA composition. This test should not be used in patients with abnormal hemoglobin that affects the half life of the red blood cell or the in vivo glycation rates. Glucose, estimated average 09/26/2023 15:10:16 134 Above high normal <126 (mg/dL) Jah thompson Performing Location LABORATORY [facility] - [address] [facility] [address]
--- OUTSIDE RECORDS SUMMARY | 2024-01-30 23:27 | External Medical Summary | Summary of Care ---
Author Name Unknown Organization [facility] Address [address] [place] [address] Phone [phone] Care Team Providers Care Containers Sales Representative Name Role Phone FebruaryBrannon MD Primary Care Provider [phone] Reason for Visit * Reason Comments NEW PATIENT Encounter Details Date Type Department Care Team (Latest Contact Info) Description 09/26/2023 2:00 PM EST Office Visit [facility] [address] [place] [address] FebruaryBrannon MD [address] [place] [address] Type 2 diabetes mellitus with hemoglobin A1c goal of less than 7.0% (HCC)*; HTN, goal below 140/80; Paroxysmal atrial fibrillation (HCC); 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 documented as of this encounter (statuses as of 09/26/2023) Medications Medication Sig Dispensed Refills Start Date End Date Status LANCETS MISCIndications:D M type 2, goal A1c below 7 as directed 100 10 06/16/200 3 Active ASPIRIN 81 MG PO CHEW take one tablet daily 100 3 6 Active TrustHopTOUCH ULTRA SYSTEM W/DEVICE KITIndications:DM type 2, goal [...] 08/24/2007 Overview: Secondary to paroxysmal atrial fibrillation longterm current use of anticoagulant therapy 0 05/28/2006 Overview: ICD-10 update of inactive term Anticoagulation management encounter 05/28/2006 ADVANCE DIRECTIVE INFORMATION 02/28/2005 Overview: No, Advance Directive brochure given to patient. 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 OF LUMBEE CORONARY VESSEL BENIGN NEOPLASM LG BOWEL documented [...] mRNA, LNP-s, No Pre serve, 2-Dose Series (Pfizer) 07/21/2021,01/03/2021,12/06/2020 COVID-19, MRNA-LNP, 23-24, P F, 30 [...] Progress Notes * Brannon Nair MD - 09/26/2023 2:11 PM EST Images from the original note were not included. Assessment and Plan 1. Type 2 diabetes mellitus with hemoglobin A1c goal of less than 7.0% ([facility]) With unknown control. A1c in office today. [...] Eliquis and rate control with metoprolol. 4. longterm current use of anticoagulant therapy 5. BPH [...] appointment. Patient also follows with Neurology at [facility] for REM behavioral sleep disorder and Parkinson's [...] documented in this encounter Nursing Notes * Sarah Bird LPN - 09/26/2023 2:09 PM EST The patient has been properly identified by confirmation of name and date of . Chief Complaint Patient presents with NEW PATIENT documented in this encounter Plan of Treatment Upcoming Encounters Date Type Department Care Team (Late st Contact Info) Description 10/05/2023 10:10 AM EST Pharmacy [facility], [facility] [address] [facility] [place] [address] [facility] Card[facility] [address] [facility] [address] 01/15/2024 1:40 PM EDT Office Visit [facility] [address] [facility] [place] [address] Louie Santoro, DO [address] [facility] [place] [address] 04/01/2024 4:00 PM EDT [facility] [address] [facility] [id number] Brannon Nair MD [address] [place] [address] Pending Results Name Type Priority Associated Diagnoses [...] goal of less than 7.0% (HCC)- Primary HTN, goal below 140/80 Unspecified essential hypertension Paroxysmal atrial fibrillation (HCC) Atrial fibrillation longterm current use of anticoagulant therapy BPH without obstruction/lower urinary tract symptoms Hypertrophy of prostate without urinary obstruction and other lower urinary tract symptoms (LUTS) Acquired hypothyroidism Unspecified hypothyroidism Idiopathic Parkinson's disease Paralysis agitans Migraine without aura, not intractable, without status migrainosus documented in this encounter Advance Directives Documents on File Type Date Recorded 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
--- OUTSIDE RECORDS SUMMARY | 2024-01-30 23:27 | External Medical Summary ---
Author Name Unknown Address Unknown Organization [id number]:[facility] [place] [address] [place] [address] Laboratory Report Ordering Provider Test Date Status 09/26/2023 15:10:16 Final Observation Date Value Abnormality Reference (Units ) Status TSH 09/26/2023 15:10:16 0.09 Below low normal 0.2 7-4.20 (uIU/mL) Final Performing Location [facility] [place] [address] [place] [address]
--- OUTSIDE RECORDS SUMMARY | 2024-01-30 23:27 | External Medical Summary ---
Author Name Unknown Address Unknown Organization [id number]:[facility] [place] [address] [facility] [place] [address] Laboratory Report Ordering Provider Test Date Status 09/26/2023 15:10:16 Final Observation Date Value Abnormality Reference (Units ) Status BUN 09/26/2023 15:10:16 17 6-20 (mg/dL) Final Creatinine 09/26/2023 15:10:16 1.2 0.6-1.2 (mg/dL) Final Glomerular filtration rate/1.73 sq M.predicted [Volume Rate/Area] in Serum, Plasma or Blood by Creatinine-based formula (CKD-EPI) 09/26/2023 15:10:16 61 >=60 (mL/min) Final eGFR is calculated based on the CKD-EPI 2020 equation SODIUM 09/26/2023 15:10:16 141 135-146 (m mol/L) Final Potassium 09/26/2023 15:10:16 4.7 3.5-5.1 (m mol/L) Final Cl 09/26/2023 15:10:16 106 98-107 (mm ol/L) Final CO2 09/26/2023 15:10:16 26 22-32 (mmo l/L) Final Anion gap 09/26/2023 15:10:16 9 7-15 (mmol /L) Final Glucose 09/26/2023 15:10:16 65 Below low normal 70- 120 (mg/dL) Final Albumin 09/26/2023 15:10:16 4.2 3.8-5.0 (g /dL) Final AST (Aspartate aminotransferase) 09/26/2023 15:10:16 19 10-50 (U/L) Fin al Alk Phos 09/26/2023 15:10:16 61 35-130 (U/ L) Final Bilirubin, Total 09/26/2023 15:10:16 0.3 <=1 .2 (mg/dL) Final Calcium 09/26/2023 15:10:16 9.4 8.4-10.2 ( mg/dL) Final Protein 09/26/2023 15:10:16 6.4 6.0-8.3 (g /dL) Final ALT (Alanine aminotransferase) 09/26/2023 15:10:16 14 10-50 (U/L) Jah thompson Performing Location [facility] [address] [facility] [address]
--- OUTSIDE RECORDS SUMMARY | 2024-01-30 23:27 | External Medical Summary ---
Author Name Unknown Address Unknown Organization [id number]:[facility] [address] [facility] [place] [address] Laboratory Report Ordering Provider Test Date Status PATITO,09/26/2023 15:10:16 Final Observation Date Value Abnormality Reference (Units ) Status Triglyceride 09/26/2023 15:10:16 116 <=174 ( mg/dL) Final Triglyceride Reference Range s (mg/dL):
<150 Acceptable
150-174 Borderline high
175-499 High
>=500 Very high Cholesterol 09/26/2023 15:10:16 135 <200 (mg /dL) Final Total Cholesterol Reference Ranges (mg/dL):
<200 Desirable
200-239 Borderline high
>=240 High HDL 09/26/2023 15:10:16 63 >39 (mg/dL ) Final HDL Cholesterol Reference Ra nges (mg/dL):
>=60 High (Desirable)
<50 Low (Undesirable) For Females
<40 Low (Undesirable) For Males NON-HDL CHOLESTEROL 09/26/2023 15:10:16 72 <=159 (mg/dL) Final Non-HDL Cholesterol Referenc e Range (mg/dL):
<100 Target level for high risk ASCVD patient
<130 Optimal for general population
130-159 Near optimal for general population
160-189 Borderline High
190-219 High
>=220 Very High LDL, (calculated) 09/26/2023 15:10:16 49 <= 129 (mg/dL) Final LDL Cholesterol Reference Ra nges (mg/dL):
<70 Target level for high risk ASCVD patient
<100 Optimal for general population
100-129 Near optimal for general population
130-159 Borderline high
160-189 High
>=190 Very high Performing Location [facility] - [address] [facility] [address]
--- OUTSIDE RECORDS SUMMARY | 2024-01-30 23:27 | External Medical Summary ---
Author Name Unknown Address Unknown Organization K01:[facility]ORY [facility] - [address] [place] [address] Laboratory Report Ordering Provider Test Date Status 09/26/2023 15:10:16 Final Observation Date Value Abnormality Reference (Units ) Status T4, Free 09/26/2023 15:10:16 1.6 0.9-1.7 (n g/dL) Final Performing Location LAB[facility]ATORY [facility] - [address] [facility] [address]
[2024-01-31 05:09] LABS: Hematocrit (blood only) 32.6 % (42.0-52.0); Hemoglobin 10.7 g/dl (14.0-18.0); Mean Corpuscular Hemoglobin 26.5 pg (25.0-34.0); Mean Corpuscular Hgb Conc 32.8 g/dL (32.0-36.0); Mean Corpuscular Volume 80.7 fL (80.0-100.0); Mean Platelet Volume 11.4 fL (9.4-12.4); Platelet Count 214 K/uL (130-400); RDW Coefficient of Variation 15.1 % (11.5-14.5); RDW Standard Deviation 44.9 fL (36.4-46.3); Red Blood Count 4.04 M/uL (4.70-6.10); White Blood Count 9.33 K/ul (4.8-10.8)
[2024-01-31 05:26] LABS: BUN Creatinine Ratio 10.4 (10-20); Calcium 9.1 mg/dl (8.6-10.3); Creatinine Clr Calc Pharmacy 60.3 ml/min; Est GFR (African American) 85.6 ml/min; Est GFR (Non-African American) 73.8 ml/min; Magnesium 1.5 mg/dl (1.7-2.4); Potassium 3.8 mmol/L (3.5-5.1)
[2024-01-31 05:50] LABS: Estimated Average Glucose 123 mg/dl; Hemoglobin A1C 5.9 % (4.5-5.6)
[2024-01-31] MEDS: MAGNESIUM SULFATE / D5W 1 GM/100 ML BAG IV SCH (08:18)
[2024-01-31] MEDS: ASPIRIN 81 MG ECTAB PO SCH (08:22)
[2024-01-31] MEDS: PANTOprazole 40 MG TAB PO SCH (08:22)
[2024-01-31] MEDS: CYANOCOBALAMIN (B-12) 500 MCG TABLET PO SCH (08:23)
--- NOTE | 2024-01-31 08:32 | Neurology Consultation ---
Date of Consultation January 31, 2024 Assessment & Plan (1) Acute confusion: - Resolved - Secondary to Hypoglycemia - Not a TIA (2) Idiopathic Parkinson's disease: - Continue [employer] meds - OP follow-up (3) PAF (paroxysmal atrial fibrillation): - Continue OAC (4) Occlusion of left vertebral artery: - Age indeterminate, no prior imaging to correlate with; this is not likely acute and not causative to the patient's symptoms - Ensure appropriate risk factor modification for LDL goal <70 and A1C goal <7% Plan No further work-up necessary from Neurology standpoint, will sign off. Telehealth Consultation Telehealth Information Telehealth Information: I performed this visit using a real-time telehealth connection between my location and the patients location ([facility]). After connecting through interactive tele-video, patient was identified by name and date of and/or wristband check.Patient (or authorized healthcare players club representative) was informed that this was a telemedicine visit and it was being conducted confidentially over secure lines. My office door was closed and no one else was present in the room with me.Patient (or authorized healthcare players club representative) provided consent to proceed with the visit, expressed an understanding of privacy and security of the telemedicine visit, and gave permission to have a hospital players club representative in the room in order to assist with the visit and to conduct portions of the visit, as needed. I informed the p atient (or authorized healthcare players club representative) that I reviewed their record and presented the opportunity for them to ask any questions regarding the visit today. The patient agreed to participate. History of Present Illness Reason for Consultation: Aphasia, AMS Attending Physician: Shannon Rojo MD History of Present Illness 83 y/o M with PMHx of PD, AF on Eliquis, HTN, & DM2 who presented to the ED with an episode of AMS and changes in speech. He went to bed normal and this this morning was found "thrashing and flailing around in bed". He appeared confused and was not speaking. He was noted to be diaphoretic. EMS was called found patient to have BG of 40 and was given D10 with repeat BG of 208. Upon ER arrival BG of 105. It is reported upon ER arrival patient had aphasia which has since resolved during ER course. He underwent evaluation with CT/CTA which did not show any acute process; there is an age indeterminate occlusion of the V1/V2 L VA with reconstitution in the V3 segment. The patient says his sugar was low and he was confused; he remembers coming to the ED and feeling confused about his surroundings but shortly thereafter he felt like he got his bearings and was back to himself. He has had low sugar before but never as low as it was yesterday. He feels back to his baseline and has no complaints this morning. Allergies Allergy/AdvReac Type Severity Reaction Status Date / Time polyethylene glycol Allergy Severe GOLYTELY, Verified 09/20/23 14:44 BREATHING DIFFICULTY, THROAT SWELLED doxazosin Allergy Intermediate LUNG Verified 09/20/23 14:44 PROBLEMS, WHEEZING heparin Allergy Intermediate FACE Verified 09/20/23 14:44 SWELLING AND HIVES bee venom protein (honey bee) Allergy Unknown Unknown Verified 09/20/23 14:44 cardura tabs Allergy Severe Difficulty Uncoded 09/20/23 14:44 Breathing Home Medications Medication Instructions Recorded Confirmed Type cyanocobalamin (vitamin B-12) 1,000 mcg PO DAILY #90 caps 02/21/22 01/30/24 Rx 1,000 mcg capsule nitroglycerin 0.4 mg sublingual 0.4 mg sublingual Q5M PRN chest 05/18/23 01/30/24 Rx tablet (Nitrostat) pain #14 tabs aspirin 81 mg tablet,delayed 81 mg PO DAILY 05/22/23 01/30/24 History release apixaban 5 mg tablet (Eliquis) 5 mg PO BID #180 tabs 05/25/23 01/30/24 Rx carbidopa 25 mg-levodopa 100 1 tab PO .7AM, 11AM AND 5PM #30 05/25/23 01/30/24 Rx mg-entacapone 200 mg tablet tabs metformin 1,000 mg tablet 1,000 mg PO BID #180 tabs 05/25/23 01/30/24 Rx metoprolol succinate 100 mg 100 mg PO BID #30 tabs 05/25/23 01/30/24 Rx tablet,extended release 24 hr (Toprol XL) omeprazole 20 mg capsule,delayed 20 mg PO DAILY #90 caps 05/25/23 01/30/24 Rx release lisinopril 20 mg tablet 20 mg PO DAILY 09/20/23 01/30/24 History magnesium oxide 800 mg PO DAILY 09/20/23 01/30/24 History simvastatin 40 mg tablet 40 mg PO PM 09/20/23 01/30/24 History carbidopa ER 50 mg-levodopa 200 mg 1 tab PO HS 01/30/24 01/30/24 History tablet,extended release insulin glargine U-300 conc 300 75 unit subcut DAILY 01/30/24 01/30/24 History unit/mL (1.5 mL) subcutaneous pen (Toujeo SoloStar U-300 Insulin) levothyroxine 150 mcg tablet 150 mcg PO DAILY 01/30/24 01/30/24 History melatonin 3 mg tablet 3 - 6 mg PO HS 01/30/24 01/30/24 History Patient History Medical History (Updated 01/31/24 @ 08:59 by Kennedy Jewell DO) REM sleep behavior disorder Idiopathic Parkinson's disease Chronic anemia PAF (paroxysmal atrial fibrillation) CAD (coronary artery disease) Pleural effusion Lung disease, obstructive Atherosclerosis Atrial fibrillation Hypothyroidism HTN (hypertension) Diabetes mellitus Surgical History History of heart surgery History of back surgery History of tonsillectomy History of cholecystectomy Family History Mother Heart disease Uncle Myocardial infarction Denies family history of Ovarian cancer Prostate cancer Breast cancer Colorectal cancer Social History Smoking Status: Never smoker Second Hand Exposure: No; Do You Dip or Chew Tobacco: No; Hx Alcohol Use: Yes Alcohol Intake Frequency: 2-4 x/Month Hx Substance Use: No Preferred Language: Lithuanian Communication Ability: Effective Hearing Ability: Use of Hearing Aid Tnt Powder Worker Required: No Beliefs That Will Affect Care: None marital status: Current Living Situation: Spouse current occupational status: retired How many Children do You have: 3 Feels Safe at Home: Yes Safety Concerns: Feels Safe At This Time Childhood Exposure to Second-Hand Smoke: Yes Diet: regular caffeine: Yes Dental Care, Regularly: No Physical Activity Frequency: Does not Exercise Seatbelt Use: always Sunscreen Use: Yes (sometimes) Assistive Devices: Cane Assistive Devices Comment: Cane use only for long distances Review of Systems left foot second toe has tingling at times Denies new weakness, numbness, speech changes, vision changes Denies CP or SOB Physical Exam Mental Status: AOx3, no aphasia, normal attention, normal recent and remote memory CN: EOMI, Face symmetric, tongue midline Motor: antigravity power present in all 4, no drift Sensory: intact to light touch Coordination: intact FNF Reflexes: cannot be assessed via telemedicine Gait: deferred Results & Data Vital Signs (Past 12 Hours) Vital Signs Temp Pulse Pulse Resp BP BP Pulse Ox 01/31/24 07:06 36.4 C L 64 16 118/78 95 01/31/24 05:42 36.8 C 64 16 143/73 H 96 01/31/24 04:52 70 16 134/68 95 01/31/24 03:30 66 22 121/60 94 01/31/24 01:30 70 20 121/58 L 93 01/31/24 00:30 74 20 152/87 H 93 01/30/24 23:04 78 01/30/24 23:00 80 18 94 01/30/24 23:00 150/73 H 01/30/24 22:30 75 22 92 01/30/24 22:30 119/48 L 01/30/24 22:00 143/67 H 01/30/24 22:00 80 19 01/30/24 21:34 157/83 H 01/30/24 21:34 78 12 97 O2 Del Method O2 Flow Rate 01/31/24 07:06 Room Air 01/31/24 05:42 Room Air 01/31/24 04:52 Room Air 01/31/24 03:30 Nasal Cannula 2 01/31/24 01:30 01/31/24 00:30 01/30/24 23:04 01/30/24 23:00 01/30/24 23:00 01/30/24 22:30 01/30/24 22:30 01/30/24 22:00 01/30/24 22:00 01/30/24 21:34 01/30/24 21:34 Diagnostic Findings Brain MRI 01/29 IMPRESSION: Chronic changes as described with no acute stroke or intracranial lesion. No intracranial hemorrhage seen. Head CTA IMPRESSION: No significant stenosis, occlusion, or aneurysm within the andreafski of Ad[place]. Neck CTA IMPRESSION: 1. 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 Findings may represent an underlying dissection. 2. Atherosclerosis of the carotid arteries without significant stenosis.
[2024-01-31] MEDS ORDERED: LEVOTHYROXINE SODIUM 150 MCG TABLET PO SCH (09:00)
--- NOTE | 2024-01-31 15:48 | Electrocardiogram Report ---
Test Reason : Blood Pressure : / mmHG Vent. Rate : 063 BPM Atrial Rate : 063 BPM P-R Int : 264 ms QRS Dur : 092 ms QT Int : 406 ms P-R-T Axes : 075 -36 015 degrees QTc Int : 415 ms Sinus rhythm with 1st degree A-V block Left axis deviation Inferior infarct , age undetermined Abnormal ECG When compared with ECG of 30-JAN-2024 10:08, No significant change was found Confirmed by Mak Wolf ([id number]) on 01/31/2024 3:48:31 PM Referred By: Luz Mcneill Confirmed By:Mak Wolf
--- NOTE | 2024-01-31 17:11 | Hospitalist Progress Note ---
Date of Service January 31, 2024 Assessment & Plan (1) Stroke-like symptoms: (2) Hypoglycemia: (3) Diabetes mellitus, type II: (4) Hypomagnesemia: (5) PAF (paroxysmal atrial fibrillation): (6) CAD (coronary artery disease): (7) Chronic anemia: (8) HTN (hypertension): (9) Idiopathic Parkinson's disease: (10) REM sleep behavior disorder: (11) Hypothyroidism: Plan Mr. Nascimento is an 83 year old gentleman with history of idiopathic tremor predominant Parkinson's dosease. #Stroke like symptoms, iso severe hypoglycemia #Hypoglycemia 2/2 insulin, not facetious -Patient has continue Toujeo 75 units daily without working glucose monitor, patient with noted improvement in A1C with tighter and tighter control as well as some weight loss. Will hold insulin for now Neuro reviewed and states there was no TIA, however, likely episode a result of hypoglycemia Will communicate need for CGM with PCP upon discharge Patient will need "verio test strips, delica lancets prior to discharge Will ensure close follow up with MDM or glycemic management to ensure all supplies are managed, as well as home glucagon kit # Type 2 diabetes mellitus Recent OP follow up noted "Excellent control with A1c 6.3. Continue Toujeo and metformin" Patient reported fear of medication changes at that time (01/15) Noted patient also with ~4K weight loss since that appointment Hold insulin. 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 #Parksinon's disease Continue Stalevo 25-100-200 TID Sinemet 50-200mg qhs #Insomnia melatonin 3mg prn PT/OT home at discharge, likely tomorrow Admission and Anticipated Discharge Date Admission Date: January 30, 2024 Subjective No acute events over night, symptoms seemed to resolve with resolution of glucose Spent time discuss recent insulin habits--patient states he never misses a day of insulin but he hasn't checked his "sugars" in sometime. He reported receiving multiple machines, but unable to trouble shoot or make the new ones work. He manages his own medications, as he states his has too many to manage on her own. Physical Exam Constitutional: WD/WN, vitals as above Respiratory: normal respiratory effort, lungs clear to auscultation Cardiovascular: RRR, no murmur, no edema Gastrointestinal (Abdomen): normal bowel sounds, soft, nontender, no hepatosplenomegaly Results & Data Results & Data Vital Signs (Past 12 Hours) Vital Signs Temp Pulse Pulse Resp BP BP Pulse Ox 01/31/24 16:24 36.4 C L 64 14 130/75 98 01/31/24 11:27 36.7 C 69 16 113/66 95 01/31/24 07:06 36.4 C L 64 16 118/78 95 01/31/24 05:42 36.8 C 64 16 143/73 H 96 01/31/24 04:52 70 16 134/68 95 O2 Del Method 01/31/24 16:24 Room Air 01/31/24 11:27 Room Air 01/31/24 07:06 Room Air 01/31/24 05:42 Room Air 01/31/24 04:52 Room Air
[2024-02-01 02:57] LABS: Free T4 Index (T7) DNR (1.4-3.8); T4 Total 12.9 mcg/dL (4.9-10.5)
[2024-02-01 08:39] LABS: BUN Creatinine Ratio 15.4 (10-20); Calcium 8.6 mg/dl (8.6-10.3); Creatinine Clr Calc Pharmacy 55.7 ml/min; Est GFR (African American) 77.7 ml/min; Potassium 3.8 mmol/L (3.5-5.1)
--- NOTE | 2024-02-01 12:29 | Discharge Summary ---
Discharge Summary Date of Service February 01, 2024 Notes For Next Care Provider Medication Changes From Visit Hold Insulin 2/2 hypoglycemia and lack of working glucometer Hold Synthroid given undetectable low TSH and elevated free T4 Admission HPI Per Admitting Provider Patient is 83-year-old male with PMH HTN, HLD, insulin dependent DM II, idiopathic Parkinson's, REM sleep disorder, CAD s/p stent, stable angina, PAF s/p ablation in 2006 & 2007, hypothyroidism and others listed below presented to ER with c/o mental status changes and stroke like symptoms. History obtained from patient, , and outpatient chart review. and patient states patient was in normal state of health yesterday and at bedtime. reports she went in to wake patient up this morning and she found him "thrashing and flailing around in bed". States he didn't seem to know what he was doing and seemed confused and wasn't talking. She noticed he was mildly diaphoretic on his forehead and head and she got a cool cloth for him and called EMS. It is reported that EMS found patient to have BSG of 40 and was given D10 with repeat BSG of 208. Upon ER arrival BSG of 105. It is reported upon ER arrival patient had aphasia which has since resolved during ER course. Currently patient states starting to feel a little dizzy like "my sugar is dropping" and repeat BSG of 50 and patient given dextrose with improvement to 111. Denies any other complaints at this time. Last ate dinner at 18:00 yesterday. Last medication taken yesterday. Last insulin yesterday morning. Is following with [facility] neurology for idiopathic tremor predominant Parkinson's disease and REM behavioral sleep disorder. He is currently on Stalevo and Sinemet He saw neurology outpatient yesterday and it was suggested to try to increase melatonin to 10mg HS. Patient states that he has not started increased melatonin dose yet. Denies fever/chills, diaphoresis, N/V/D/C, JUDD, syncope, vision changes, neck pain, CP, SOB, orthopnea, palpitations, cough, sore throat, choking, rhinorrhea, abdominal pain, paresthesias, facial drooping, extremity weakness, extremity edema, rashes, urinary symptoms. MRI brain 2019: 1. No acute intracranial abnormality is identified. 2. Mild global volume loss. 3. Nonspecific cerebral white matter foci of T2/FLAIR hyperintensity, most commonly associated with chronic small vessel ischemic changes. 4. Additional findings as described above. Admission Exam Per Admitting Provider General: no acute distress, WDWN Head: normocephalic, atraumatic Eyes: PERRL, EOM's intact, conjunctiva non-injected, anicteric ENT: +hard of hearing, normal inspection external ears, nose, mucous membranes moist Neck: supple, trachea midline Lungs: clear, no respiratory distress, no wheezing/rhonchi/rales CV: RRR, no pretibial edema Abd: normal BS, soft, non-tender Ext: no cyanosis, no calf tenderness Neuro: A&O x 3, normal affect. Visual garcia intact. PERRL, EOMs intact. No nystagmus, facial sensation is intact and symmetric, face is strong and symmetric, hearing grossly intact, Soft palate elevates symmetrically, no dysarthria, shoulder shrug intact, tongue is midline, normal movement, no fasciculations. strength 5/5 throughout Skin: warm, dry Principal Dx & Hospital Course #1 = Principal Diagnosis (1) Stroke-like symptoms: (2) Hypoglycemia: (3) Diabetes mellitus, type II: (4) Hypomagnesemia: (5) PAF (paroxysmal atrial fibrillation): (6) CAD (coronary artery disease): (7) Chronic anemia: (8) HTN (hypertension): (9) Idiopathic Parkinson's disease: (10) REM sleep behavior disorder: (11) Hypothyroidism: Plan Mr. Nascimento is an 83 year old gentleman with history of idiopathic tremor predominant Parkinson's disease, HTN, hypothyroidism, PAF, and DMTII on insulin who presented with stroke like symptoms on 01/29, now with strokelike symptoms and severe hypoglycemia. It was revealed that patient has continued on 75 of glargine without working glucometer for nearly 6 months. Patient's A1C 5.9%. after holding insulin, patients blood sugars maintained mostly 110s-230s. TSH was also noted to be undetecably low and elevated T4. Synthroid was held. Requested patient bring in supplies, but is unsure could find everything. It was arranged to get home health to visit and aid patient with glucose meters at home. Additionally requested patient hold insulin until clear trend of glucose established, or possibly a CGM ordered. Patient also advised to hold synthroid until follow up with PCP. On day of discharge, patient was at baseline. Home health arranged with at bedside. #Stroke like symptoms, iso severe hypoglycemia #Hypoglycemia 2/2 insulin, not facetious -Patient has continue Toujeo 75 units daily without working glucose monitor, patient with noted improvement in A1C with tighter and tighter control as well as some weight loss. Will hold insulin for now Neuro reviewed and states there was no TIA, however, likely episode a result of hypoglycemia Will communicate need for CGM with PCP upon discharge -Messaged PCP in [facility] Ordered "verio test strips, delica lancets prior to discharge Will ensure close follow up with MDM or glycemic management to ensure all supplies are managed, as well as home glucagon kit # Type 2 diabetes mellitus Recent OP follow up noted "Excellent control with A1c 6.3. 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 #Parksinon's disease Continue Stalevo 25-100-200 TID Sinemet 50-200mg qhs #Insomnia melatonin 3mg prn Discharge Exam Constitutional WD/WN, vitals as above Respiratory normal respiratory effort, lungs clear to auscultation Cardiovascular RRR, no murmur, no edema Gastrointestinal (Abdomen) normal bowel sounds, soft, nontender, no hepatosplenomegaly Updated Medication List Medication Instructions Recorded Confirmed Type cyanocobalamin (vitamin B-12) 1,000 mcg PO DAILY #90 caps 02/21/22 01/30/24 Rx 1,000 mcg capsule nitroglycerin 0.4 mg sublingual 0.4 mg sublingual Q5M PRN chest 05/18/23 01/30/24 Rx tablet (Nitrostat) pain #14 tabs aspirin 81 mg tablet,delayed 81 mg PO DAILY 05/22/23 01/30/24 History release apixaban 5 mg tablet (Eliquis) 5 mg PO BID #180 tabs 05/25/23 01/30/24 Rx carbidopa 25 mg-levodopa 100 1 tab PO .7AM, 11AM AND 5PM #30 05/25/23 01/30/24 Rx mg-entacapone 200 mg tablet tabs metformin 1,000 mg tablet 1,000 mg PO BID #180 tabs 05/25/23 01/30/24 Rx metoprolol succinate 100 mg 100 mg PO BID #30 tabs 05/25/23 01/30/24 Rx tablet,extended release 24 hr (Toprol XL) omeprazole 20 mg capsule,delayed 20 mg PO DAILY #90 caps 05/25/23 01/30/24 Rx release lisinopril 20 mg tablet 20 mg PO DAILY 09/20/23 01/30/24 History magnesium oxide 800 mg PO DAILY 09/20/23 01/30/24 History simvastatin 40 mg tablet 40 mg PO PM 09/20/23 01/30/24 History carbidopa ER 50 mg-levodopa 200 mg 1 tab PO HS 01/30/24 01/30/24 History tablet,extended release insulin glargine U-300 conc 300 75 unit subcut DAILY 01/30/24 01/30/24 History unit/mL (1.5 mL) subcutaneous pen (Vivek SoloStar U-300 Insulin) melatonin 3 mg tablet 3 - 6 mg PO HS 01/30/24 01/30/24 History blood sugar diagnostic (OneTouch #100 ea 02/01/24 Rx Verio test strips) lancets 33 gauge (OneTouch Delica #100 ea 02/01/24 Rx Plus Lancet) Hospital Stay Data Consultations 01/30/24 12:42 ED Decision to Admit Stat 01/30/24 13:59 Consult Neurology Routine Diagnostic Imagining Performed 01/30/24 10:07 CT head/brain wo con Stat CTA head w con [CT angio head w con] Stat CTA neck with con [CT angio neck with con] Stat 01/30/24 13:59 MR brain wo/w con Routine Pending Results Patient Have Any Pending Studies at Discharge: No Discharge Instructions Given to Patient (Per Discharging Provider) You were admitted for concerns of stroke, however, it was determined that you did not experience a stroke. You had a severe hypoglycemic episode with an A1C of 5.9% and your blood sugars in the 40s. You thyroid hormone panel also suggested that your Synthroid is too strong at this time. It is recommended that you please HOLD your insulin and your Synthroid. Your primary doctor, Dr. Christensen is aware of your hospitalization and will follow up with you regarding the need for insulin as well as repeat labs for your thy roid. Home Nursing will coordinate a visit to your home to ensure your glucometer is working. Please do not resume insulin therapy until a glucometer is working and you can communicate your values with your PCP. Home Health Attestation I certify that this patient is under my care and that I, or a physicians civil engineering assistant working with me, had a face to-face encounter that meets the home health [id number] encounter requirements with this patient. The encounter with the patient was in whole, or in part, for the following medical condition, which is the primary reason for home health care (list medical condition): Hypoglycemia. I certify that, based on my findings, the following services are medically necessary home health services: My clinical findings support the need for the above services because: Medication Compliance and Monitoring Effective of New Medications Medication Compliance Further, I certify that my clinical findings support that this patient is homebound (i.e. absences from home require considerable and taxing effort and are for medical reasons or buddhist services or infrequently or of short duration when for other reasons) because: Certification for Home Health Services: Based on the above findings, I certify that this patient is confined to the home and needs intermittent senior care care, physical therapy and/or speech ther apy or continues to need occupational therapy. The patient is under my care, and I have initiated the establishment of the plan of care. This patient will be followed by a physician who will periodically review the plan of care. Total Time Total Time Spent Total Time Spent (In Minutes): 45
== END 2024-02-01 12:52 | disposition home health service (06) | DRG 638 ==
LOC: ED 10:04 → EDINP 13:06 → SUATTDRO 13:06 → 2S 14:00
DX: G20.A1 Parkinson's disease without dyskinesia, without mention of fluctuations; I25.10 Atherosclerotic heart disease of native coronary artery without angina pectoris; Z79.84 Long term (current) use of oral hypoglycemic drugs; I48.0 Paroxysmal atrial fibrillation; R47.01 Aphasia; Z79.4 Long term (current) use of insulin; G47.00 Insomnia, unspecified; Z79.890 Hormone replacement therapy; Z95.5 Presence of coronary angioplasty implant and graft; R41.82 Altered mental status, unspecified; Z91.030 Bee allergy status; Z79.899 Other long term (current) drug therapy; E03.9 Hypothyroidism, unspecified; E83.42 Hypomagnesemia; E11.649 Type 2 diabetes mellitus with hypoglycemia without coma; G47.52 REM sleep behavior disorder; I10 Essential (primary) hypertension; Z79.01 Long term (current) use of anticoagulants; I65.02 Occlusion and stenosis of left vertebral artery; E78.5 Hyperlipidemia, unspecified